=== PATIENT | male | born 1950 | race Caucasian/White ===

== ENCOUNTER 2018-11-28 10:14 | Day surgery (SDC) | payer MEDICARE ==
[2018-11-24 11:26] VITALS: BMI 31.0
[~2018-11-28 10:14] MED LIST: DEXAMETHASONE SOD PHOSPHATE 10 MG/ML 1 ML VIAL IV ONE; HEPARIN SODIUM,PORCINE 5,000 UNIT/ML 1 ML VIAL SQ ONE; HYDROmorphone 0.5 MG/0.5 ML SYRINGE IVP PRN; LACTATED RINGERS 1,000 ML IV SCH; MIDAZOLAM 2 MG/2 ML VIAL IV PRN; ONDANSETRON 4 MG/2 ML VIAL IVP ONE
--- NOTE | 2018-11-28 10:46 | P.GSHP ---
History of Present Illness H&P Date: 11/28/18 Chief Complaint: Right upper quadrant pain This a 68-year-old male who said withdrawn quadrant pain. Patient was worked up found have evidence of cholelithiasis. He presents today for laparoscopic cholecystectomy Past Medical History Past Medical History: COPD, Hyperlipidemia, Hypertension Additional Past Medical History / Comment(s): gallbladder pain History of Any Multi-Drug Resistant Organisms: None Reported Past Surgical History: Adenoidectomy, Tonsillectomy Past Anesthesia/Blood Transfusion Reactions: No Reported Reaction Past Psychological History: No Psychological Hx Reported Smoking Status: Current every day smoker Past Alcohol Use History: Rare Additional Past Alcohol Use History / Comment(s): smoker 30 years <1ppd Past Drug Use History: None Reported - Past Family History Sister(s) Family Medical History: Cancer Additional Family Medical History / Comment(s): uterine cancer Medications and Allergies Home Medications Medication Instructions Recorded Confirmed Type Albuterol Sulfate [Proair Hfa] 1 - 2 puff INHALATION DAILY PRN 11/24/18 11/28/18 History Budesonide/Formoterol Fumarate 2 puff INHALATION BID 11/24/18 11/28/18 History [Symbicort 160-4.5 Mcg Inhaler] HYDROcodone/APAP 5-325MG [Casey 1 tab PO DAILY PRN 11/24/18 11/28/18 History 5-325] Lisinopril-Hctz 20-25 mg 1 tab PO DAILY 11/24/18 11/28/18 History [Zestoretic 20-25] Metoprolol Tartrate [Lopressor] 100 mg PO HS 11/24/18 11/28/18 History Simvastatin [Zocor] 20 mg PO HS 11/24/18 11/28/18 History Allergies Allergy/AdvReac Type Severity Reaction Status Date / Time No Known Allergies Allergy Verified 11/28/18 10:32 Surgical - Exam Vital Signs Temp Pulse Resp BP Pulse Ox 98.1 F 83 18 156/83 98 11/28/18 10:31 11/28/18 10:31 11/28/18 10:31 11/28/18 10:31 11/28/18 10:31 - General well developed, well nourished, no distress - Eyes PERRL - ENT normal pinna - Neck no masses - Respiratory normal expansion - Cardiovascular Rhythm: regular - Abdomen Abdomen: soft, non tender Assessment and Plan Assessment: Cholelithiasis Right quadrant pain We'll perform laparoscopic cholecystectomy.
[2018-11-28] MEDS ORDERED: LIDOCAINE 1% 20 ML VIAL (10MG/ML) FOR IV START INTRADERMA ONE (10:52)
[2018-11-28] MEDS ORDERED: BUPIVACAINE (PF) 0.25% 30 ML VIAL SQ ONE ×2 (11:22→11:27)
--- NOTE | 2018-11-28 11:58 | P.OP ---
Date of Procedure: 11/28/18 Preoperative Diagnosis: Cholecystitis Cholelithiasis Postoperative Diagnosis: Cholecystitis Cholelithiasis Procedure(s) Performed: Laparoscopic cholecystectomy Anesthesia: DOUGLAS Surgeon: Clyde Cook Estimated Blood Loss (ml): 5 Pathology: none sent Condition: stable Disposition: PACU Description of Procedure: MThe patient was placed on the operating table. The patient received a general endotracheal tube anesthesia. The patients abdomen was prepped and draped in the usual sterile fashion. Through an infraumbilical stab incision, the fascia of the anterior abdominal wall was grasped with a pair of Kochers and then the Veress needle was placed in the peritoneal cavity. Position of the Veress needle was confirmed with positive drop test. The abdomen was then insufflated. After adequate insufflation, the 10 mm trocar was placed in the p eritoneal cavity. Following this the laparoscope was placed in the peritoneal cavity. The patient was placed in the head-up, right side up position and then a 5 mm trocar was placed in the right lateral and right subcostal position under direct visualization. A 8 mm trocar was placed in the epigastric position. The gallbladder appeared to be chronically inflamed. The omentum was taken down with blunt dissection. The gallbladder wall. Thickened. The gallbladder was grasped in the fundus and infundibulum. Traction on the gallbladder was placed in the lateral and the cephalad positions. The triangle of Calot was visualized.. The cystic duct was bluntly dissected until the union of the cystic duct and common bile duct was seen. A critical view of safety was achieved. The cystic duct was then divided and sealed with the Harmonic scissors. A PDS Endoloop was then placed throughout the cystic duct stump. The cystic artery divided and sealed with the Harmonic scissors. The gallbladder was then removed from the liver bed using Harmonic scissors. The gallbladder was then extracted through the epigastric port site. Operative field was checked for any bleeding spots and Harmonic scissors was used to coagulate the liver bed. The abdomen was irrigated. The trocars were removed. The skin was closed using interrupted 3-0 Vicryl suture. Dermabond dressing were applied. The patient tolerated the procedure well.
[2018-11-28 12:12] VITALS: TEMP 97
[2018-11-28] MEDS ORDERED: LACTATED RINGERS 1,000 ML IV ONE (12:53)
[2018-11-28 13:06] VITALS: RESP 18
[2018-11-28 14:03] VITALS: BP 156/96; PULSE 80
== END 2018-11-28 14:05 | disposition home or self-care (01) ==
LOC: OR 10:14
PROVIDERS: ATTEND Surgery
DX: K80.10 Calculus of gallbladder with chronic cholecystitis without obstruction (principal); I10 Essential (primary) hypertension; E78.5 Hyperlipidemia, unspecified; J44.9 Chronic obstructive pulmonary disease, unspecified; F17.210 Nicotine dependence, cigarettes, uncomplicated; Z79.51 Long term (current) use of inhaled steroids; Z79.899 Other long term (current) drug therapy; Z90.89 Acquired absence of other organs; Z80.49 Family history of malignant neoplasm of other genital organs
CPT/HCPCS: 88304; 47562; J1644; J1100; J0690; J2405

== ENCOUNTER 2019-11-23 12:53 | Emergency (ER) | payer MEDICARE ==
[2019-11-23 13:04] VITALS: PULSE 81; TEMP 97.1
--- NOTE | 2019-11-23 13:21 | ED ---
General Adult HPI - General Chief complaint: Abdominal Pain Stated complaint: Male UG Time Seen by Provider: 11/23/19 13:08 Source: patient, EMS, RN notes reviewed, old records reviewed Mode of arrival: EMS Limitations: no limitations - History of Present Illness Initial comments: 69 -year-old male presenting with right groin pain, testicular pain. Patient woke with these symptoms at 9 AM this morning. He states he did have a normal bowel movement. At the time of arrival his symptoms have completely resolved. He has no pain whatsoever. He denies vomiting. Denies fever. He is completely asymptomatic at the time of my evaluation. There is no flank pain. No belly pain. No testicular pain. - Related Data Home Medications Medication Instructions Recorded Confirmed Albuterol Sulfate [Proair Hfa] 1 - 2 puff INHALATION DAILY PRN 11/24/18 11/28/18 Budesonide/Formoterol Fumarate 2 puff INHALATION BID 11/24/18 11/28/18 [Symbicort 160-4.5 Mcg Inhaler] HYDROcodone/APAP 5-325MG [Bells 1 tab PO DAILY PRN 11/24/18 11/28/18 5-325] Lisinopril-Hctz 20-25 mg 1 tab PO DAILY 11/24/18 11/28/18 [Zestoretic 20-25] Metoprolol Tartrate [Lopressor] 100 mg PO HS 11/24/18 11/28/18 Simvastatin [Zocor] 20 mg PO HS 11/24/18 11/28/18 Previous Rx's Medication Instructions Recorded Docusate [Colace] 100 mg PO BID #20 capsule 11/28/18 HYDROcodone/APAP 5-325MG [Bells 1 tab PO Q6HR PRN #10 tab 11/28/18 5-325] Allergies Allergy/AdvReac Type Severity Reaction Status Date / Time No Known Allergies Allergy Verified 11/23/19 13:05 Review of Systems ROS Statement: Those systems with pertinent positive or pertinent negative responses have been documented in the HPI. ROS Other: All systems not noted in ROS Statement are negative. Past Medical History Past Medical History: COPD, Hyperlipidemia, Hypertension Additional Past Medical History / Comment(s): gallbladder pain History of Any Multi-Drug Resistant Organisms: None Reported Past Surgical History: Adenoidectomy, Tonsillectomy Past Anesthesia/Blood Transfusion Reactions: No Reported Reaction Past Psychological History: No Psychological Hx Reported Smoking Status: Current every day smoker Past Alcohol Use History: Occasional Past Drug Use History: None Reported - Past Family History Sister(s) Family Medical History: Cancer Additional Family Medical History / Comment(s): uterine cancer General Exam Limitations: no limitations General appearance: alert, in no apparent distress Head exam: Present: atraumatic, normocephalic Eye exam: Present: normal appearance, PERRL Neck exam: Present: normal inspection Respiratory exam: Present: normal lung sounds bilaterally. Absent: respiratory distress, wheezes Cardiovascular Exam: Present: regular rate, normal rhythm GI/Abdominal exam: Present: soft, hernia (Right inguinal hernia which is easily reducible, nontender). Absent: distended, tenderness, guarding, rebound, rigid exam: Present: normal inspection, vertical testicular lie, circumcision. Absent: testicular tenderness, urethral discharge, scrotal swelling Extremities exam: Present: normal inspection, normal capillary refill. Absent: pedal edema Course Vital Signs 11/23/19 13:02 Temperature 97.1 F L Pulse Rate 81 Respiratory 20 Rate Blood Pressure 171/86 O2 Sat by Pulse 98 Oximetry Medical Decision Making - Medical Decision Making 61-year-old male with right groin pain and testicular pain that has completely resolved. I did discuss the possibility of workup in the emergency department versus close return parameters and follow-up for right inguinal hernia. Patient prefers to be discharged at this time with no further testing. He is given the name of the surgeon who did his cholecystectomy. Patient will return with any worsening or changing symptoms. He is given strict return parameters. Disposition Clinical Impression: Abdominal pain, Inguinal hernia Disposition: HOME SELF-CARE Condition: Good Instructions (If sedation given, give patient instructions): Abdominal Pain (ED), Inguinal Hernia (ED) Is patient prescribed a controlled substance at d/c from ED?: No Referrals: [facility] [Primary Care Provider] - 1-2 days Boogie Peterson MD [Medical Doctor] - 1-2 days Time of Disposition: 13:20
[2019-11-23 13:29] VITALS: BP 148/89; RESP 18
== END 2019-11-23 14:00 | disposition home or self-care (01) ==
LOC: EC 12:53
DX: K40.90 Unilateral inguinal hernia, without obstruction or gangrene, not specified as recurrent (principal); I10 Essential (primary) hypertension; J44.9 Chronic obstructive pulmonary disease, unspecified; E78.5 Hyperlipidemia, unspecified; F17.200 Nicotine dependence, unspecified, uncomplicated; Z79.899 Other long term (current) drug therapy; Z79.51 Long term (current) use of inhaled steroids; Z90.49 Acquired absence of other specified parts of digestive tract
CPT/HCPCS: 99284

== ENCOUNTER 2023-05-25 22:35 | Inpatient (IN) | payer MEDICARE ==
--- NOTE | 2023-05-25 22:51 | ED ---
General Adult HPI - General Stated complaint: Transfer from [facility] Time Seen by Provider: 05/25/23 22:38 - History of Present Illness Initial comments: Ashish is a pleasant 72-year-old gentleman who presents to the emergency department today as a transfer from [facility]. Patient has recently been on Bactrim DS twice daily for cellulitis of the right lower extremity, he states it was making him sick he has not been eating or drinking he was feeling quite unwell and he went to the hospital at [facility] yesterday where he was placed in observation for acute kidney injury and dehydration. He was noted to have a mildly elevated troponin they were trending us, troponin increased from only minimally elevated to 5.0 which prompted his transfer to this hospital for evaluation by cardiology. Patient states he has been feeling unwell lately but no chest pain palpitations or shortness of breath. - Related Data Home Medications Medication Instructions Recorded Confirmed Albuterol Sulfate [Proair Hfa] 1 - 2 puff INHALATION RT-Q4H PRN 11/24/18 11/23/19 Budesonide/Formoterol Fumarate 2 puff INHALATION RT-BID 11/24/18 11/23/19 [Symbicort 160-4.5 Mcg Inhaler] Lisinopril-Hctz 20-25 mg 1 tab PO DAILY 11/24/18 11/23/19 [Zestoretic 20-25] Simvastatin [Zocor] 20 mg PO HS 11/24/18 11/23/19 Metoprolol Succinate (ER) [Toprol 100 mg PO DAILY 11/23/19 11/23/19 Xl] Multivitamin [Multivitamins Adult 1 tab PO DAILY 11/23/19 11/23/19 Gummies] amLODIPine [Norvasc] 5 mg PO DAILY 11/23/19 11/23/19 Allergies Allergy/AdvReac Type Severity Reaction Status Date / Time No Known Allergies Allergy Verified 11/23/19 13:44 Review of Systems ROS Statement: Those systems with pertinent positive or pertinent negative responses have been documented in the HPI. ROS Other: All systems not noted in ROS Statement are negative. Past Medical History Past Medical History: COPD, Hyperlipidemia, Hypertension Additional Past Medical History / Comment(s): gallbladder pain History of Any Multi-Drug Resistant Organisms: None Reported Past Surgical History: Adenoidectomy, Tonsillectomy Past Anesthesia/Blood Transfusion Reactions: No Reported Reaction Past Psychological History: No Psychological Hx Reported Smoking Status: Current every day smoker Past Alcohol Use History: Occasional Past Drug Use History: None Reported - Past Family History Sister(s) Family Medical History: Cancer Additional Family Medical History / Comment(s): uterine cancer General Exam - General Exam Comments Initial Comments: Physical Exam GENERAL: Chronically ill-appearing elderly gentleman HENT: Normocephalic, Atraumatic. EYES: PERRL, EOMI PULMONARY: Unlabored respirations. CARDIOVASCULAR: RRR ABDOMEN: Non-distended SKIN: Right lower extremity is erythematous with scaling skin consistent with acute on chronic infection : Deferred NEUROLOGIC: Alert and oriented Normal speech MUSCULOSKELETAL: Moving all extremities with no apparent injury PSYCHIATRIC: No SI/HI Course Vital Signs 05/25/23 05/25/23 05/26/23 22:35 23:58 01:38 Temperature 97.9 F Pulse Rate 86 80 84 Respiratory 12 12 16 Rate Blood Pressure 140/83 121/82 120/75 O2 Sat by Pulse 96 95 96 Oximetry 05/26/23 05/26/23 05/26/23 04:58 05:21 06:48 Temperature 99.9 F H 98.6 F Pulse Rate 102 H 85 Respiratory 18 18 Rate Blood Pressure 141/69 O2 Sat by Pulse 94 L 93 L Oximetry 05/26/23 05/26/23 05/26/23 07:32 07:33 07:42 Temperature Pulse Rate 90 92 89 Respiratory 20 Rate Blood Pressure 131/74 O2 Sat by Pulse 93 L Oximetry 05/26/23 08:00 Temperature Pulse Rate 89 Respiratory 18 Rate Blood Pressure 128/74 O2 Sat by Pulse 95 Oximetry EKG Findings - EKG Comments: EKG Findings:: EKG interpreted by me, EKG obtained due to patient's elevated troponin, EKG obtained at 2255 rate is 84 rhythm is sinus, WA 175 QRS 112 QTc 396 there are no acute ST elevations or depressions there is no evidence of acute ischemia or infarction. Medical Decision Making - Medical Decision Making Was pt. sent in by a medical professional or institution (, PA, [employer], urgent care, hospital, or [facility]...) When possible be specific @ -No Did you speak to anyone other than the patient for history (EMS, parent, family, police, friend...)? What history was obtained from this source @ -No Did you review nursing and triage notes (agree or disagree)? Why? @ -I reviewed and agree with nursing and triage notes Were old charts reviewed (outside hosp., previous admission, EMS record, old EKG, old radiological studies, urgent care reports/EKG's, [facility] records)? Report findings @ -Transfer packet was reviewed Differential Diagnosis (chest pain, altered mental status, abdominal pain women, abdominal pain men, vaginal bleeding, weakness, fever, dyspnea, syncope, hea dache, dizziness, GI bleed, back pain, seizure, CVA, palpatations, mental health)? @ -Not applicable EKG interpreted by me (3pts min.). @ -As above X-rays interpreted by me (1pt min.). @ -No pneumothorax no focal consolidation CT interpreted by me (1pt min.). @ -None done U/S interpreted by me (1pt. min.). @ -None done What testing was considered but not performed or refused? (CT, X-rays, U/S, labs)? Why? @ -CTA was ordered by admitting team What meds were considered but not given or refused? Why? @ -Heparin bolus was held as patient received it prior to transfer, aspirin held as patient received prior to transfer Did you discuss the management of the patient with other professionals (professionals i.e. , PA, [employer], lab, RT, psych nurse, administrator social welfare, caramel candy maker, teacher, light armored vehicle officer, caseworker)? Give summary @ -Discussed with transferring physician and admitting physician Dr. Damon Was smoking cessation discussed for >3mins.? @ -No Was critical care preformed (if so, how long)? @ -No Were there social determinants of health that impacted care today? How? (Homelessness, low income, unemployed, alcoholism, drug addiction, transportation, low edu. Level, literacy, decrease access to med. care, half-way, rehab)? @ -No Was there de-escalation of care discussed even if they declined (Discuss DNR or withdrawal of care, Hospice)? DNR status @ -No What co-morbidities impacted this encounter? (DM, HTN, Smoking, COPD, CAD, Cancer, CVA, ARF, Chemo, Hep., AIDS, mental health diagnosis, sleep apnea, morbid obesity)? @ -CAD Was patient admitted / discharged? Hospital course, mention meds given and route, prescriptions, significant lab abnormalities, going to OR and other pertinent info. @ -Admit Patient was seen and evaluated history was obtained from transfer packet and patient. Patient is chest pain-free and has been so however has a troponin of 5.0. Repeat troponin was obtained and was 2.7. Patient is on heparin he is asymptomatic. Patient will be admitted for evaluation by cardiology. Undiagnosed new problem with uncertain prognosis? @ -No Drug Therapy requiring intensive monitoring for toxicity (Heparin, Nitro, Insulin, Cardizem)? @ -No Were any procedures done? @ -No Diagnosis/symptom? @ -Evaded troponin Acute, or Chronic, or Acute on Chronic? @ -Default Uncomplicated (without systemic symptoms) or Complicated (systemic symptoms)? @ -Default Side effects of treatment? @ -No Exacerbation, Progression, or Severe Exacerbation? @ -No Poses a threat to life or bodily function? How? (Chest pain, [place], GA, pneumonia, PE, COPD, DKA, ARF, appy, cholecystitis, CVA, Diverticulitis, Homicidal, Suicidal, threat to staff... and all critical care pts) @ -Tension-like - Lab Data Result diagrams: 05/25/23 22:53 05/25/23 22:53 Lab Results 05/25/23 05/25/23 05/25/23 Range/Units 22:53 22:53 22:53 WBC 7.9 (3.8-10.6) k/uL RBC 4.95 (4.30-5.90) m/uL Hgb 14.8 (13.0-17.5) gm/dL Hct 44.1 (39.0-53.0) % MCV 89.1 (80.0-100.0) fL MCH 29.9 (25.0-35.0) pg MCHC 33.5 (31.0-37.0) g/dL RDW 14.5 (11.5-15.5) % Plt Count 231 (150-450) k/uL MPV 7.9 Neutrophils % 84 % Lymphocytes % 6 % Monocytes % 3 % Eosinophils % 4 % Basophils % 0 % Neutrophils # 6.6 (1.3-7.7) k/uL Lymphocytes # 0.5 L (1.0-4.8) k/uL Monocytes # 0.3 (0-1.0) k/uL Eosinophils # 0.3 (0-0.7) k/uL Basophils # 0.0 (0-0.2) k/uL PT 10.6 (10.0-12.5) sec INR 1.0 (<1.2) APTT 26.4 (22.0-30.0) sec Sodium 133 L (137-145) mmol/L Potassium 3.9 (3.5-5.1) mmol/L Chloride 105 (98-107) mmol/L Carbon Dioxide 17 L (22-30) mmol/L Anion Gap 11 mmol/L BUN 19 (9-20) mg/dL Creatinine 1.20 (0.66-1.25) mg/dL Est GFR (CKD-EPI)AfAm 70 (>60 ml/min/1.73 sqM) Est GFR (CKD-EPI)NonAf 61 (>60 ml/min/1.73 sqM) Glucose 107 H (74-99) mg/dL Calcium 9.4 (8.4-10.2) mg/dL Magnesium 2.0 (1.6-2.3) mg/dL Total Bilirubin 0.7 (0.2-1.3) mg/dL AST 73 H (17-59) U/L ALT 51 H (4-49) U/L Alkaline Phosphatase 80 (38-126) U/L Troponin I (0.000-0.034) ng/mL NT-Pro-B Natriuret Pep 1620 pg/mL Total Protein 6.3 (6.3-8.2) g/dL Albumin 3.4 L (3.5-5.0) g/dL Lipase 79 (23-300) U/L 05/25/23 Range/Units 22:53 WBC (3.8-10.6) k/uL RBC (4.30-5.90) m/uL Hgb (13.0-17.5) gm/dL Hct (39.0-53.0) % MCV (80.0-100.0) fL MCH (25.0-35.0) pg MCHC (31.0-37.0) g/dL RDW (11.5-15.5) % Plt Count (150-450) k/uL MPV Neutrophils % % Lymphocytes % % Monocytes % % Eosinophils % % Basophils % % Neutrophils # (1.3-7.7) k/uL Lymphocytes # (1.0-4.8) k/uL Monocytes # (0-1.0) k/uL Eosinophils # (0-0.7) k/uL Basophils # (0-0.2) k/uL PT (10.0-12.5) sec INR (<1.2) APTT (22.0-30.0) sec Sodium (137-145) mmol/L Potassium (3.5-5.1) mmol/L Chloride (98-107) mmol/L Carbon Dioxide (22-30) mmol/L Anion Gap mmol/L BUN (9-20) mg/dL Creatinine (0.66-1.25) mg/dL Est GFR (CKD-EPI)AfAm (>60 ml/min/1.73 sqM) Est GFR (CKD-EPI)NonAf (>60 ml/min/1.73 sqM) Glucose (74-99) mg/dL Calcium (8.4-10.2) mg/dL Magnesium (1.6-2.3) mg/dL Total Bilirubin (0.2-1.3) mg/dL AST (17-59) U/L ALT (4-49) U/L Alkaline Phosphatase (38-126) U/L Troponin I 2.730 H* (0.000-0.034) ng/mL NT-Pro-B Natriuret Pep pg/mL Total Protein (6.3-8.2) g/dL Albumin (3.5-5.0) g/dL Lipase (23-300) U/L Disposition Clinical Impression: Elevated troponin Disposition: ADMITTED IP TO THIS [facility] Condition: Serious Is patient prescribed a controlled substance at d/c from ED?: No
[2023-05-25] MEDS ORDERED: HEPARIN SODIUM 1,000 UN/ML (10ML VL) IV PRN (23:28)
[2023-05-25 23:54] LABS: Basophils % (A) 0 %; Eosinophils # (A) 0.3 k/uL (0-0.7); Eosinophils % (A) 4 %; HCT 44.1 % (39.0-53.0); HGB 14.8 gm/dL (13.0-17.5); Lymphocytes # (A) 0.5 k/uL (1.0-4.8); Lymphocytes % (A) 6 %; MCH 29.9 pg (25.0-35.0); MCHC 33.5 g/dL (31.0-37.0); MCV 89.1 fL (80.0-100.0); Mean Platelet Volume 7.9; Monocytes # (A) 0.3 k/uL (0-1.0); Monocytes % (A) 3 %; Neutrophils # (A) 6.6 k/uL (1.3-7.7); Neutrophils % (A) 84 %; Platelet Count 231 k/uL (150-450); RBC 4.95 m/uL (4.30-5.90); RDW 14.5 % (11.5-15.5); WBC 7.9 k/uL (3.8-10.6)
[2023-05-25] MEDS: HEPARIN SOD,PORK IN 0.45% NACL 25,000 UNIT in 0.45% NACL 1 250ML.BAG IV SCH (23:57)
[2023-05-25 23:59] LABS: Partial Thromboplastin Time 26.4 sec (22.0-30.0); Prothrombin Time 10.6 sec (10.0-12.5)
[2023-05-26 00:21] LABS: ALT 51 U/L (4-49); AST 73 U/L (17-59); African American GFR (CKD) 70 (>60 ml/min/1.73 sqM); Albumin 3.4 g/dL (3.5-5.0); Alkaline Phosphatase 80 U/L (38-126); Anion Gap 11 mmol/L; Blood Urea Nitrogen 19 mg/dL (9-20); Calcium 9.4 mg/dL (8.4-10.2); Carbon Dioxide 17 mmol/L (22-30); Chloride 105 mmol/L (98-107); Glucose 107 mg/dL (74-99); Lipase 79 U/L (23-300); Non-African American GFR(CKD) 61 (>60 ml/min/1.73 sqM); Potassium 3.9 mmol/L (3.5-5.1); Sodium 133 mmol/L (137-145); Total Bilirubin 0.7 mg/dL (0.2-1.3); Total Protein 6.3 g/dL (6.3-8.2)
[2023-05-26 00:29] LABS: NT-Pro-B-Type Natriuretic Pept 1620 pg/mL
[2023-05-26] MEDS ORDERED: NITROGLYCERIN SL TABS 0.4 MG TAB SUBLINGUAL PRN ×2 (01:23→09:47)
--- NOTE | 2023-05-26 01:33 | XR ---
EXAM: XR Chest, 2 Views CLINICAL HISTORY: ITS.REASON XR Reason: Chest Pain TECHNIQUE: Frontal and lateral views of the chest. COMPARISON: No relevant prior studies available. FINDINGS: Lungs: Mild to moderate peribronchial thickening of the central bronchi. No consolidation. Pleural space: There is blunting of the right costophrenic. No pneumothorax. Heart: Unremarkable. No cardiomegaly. Mediastinum: Unremarkable. Normal mediastinal contour. Bones/joints: Unremarkable. No acute fracture. IMPRESSION: Findings concerning for bronchitis, which may be an infectious or inflammatory allergies. Trace right pleural effusion. No consolidation.
--- NOTE | 2023-05-26 03:51 | P.HPIM ---
History of Present Illness H&P Date: 05/26/23 Chief Complaint: Fall 72-year-old male with hypertension COPD Patient coming in to the hospital as a transfer from [place] for cardiac evaluation due to elevated troponins. Patient has been feeling weak and fatigued for the past 3 days he sustained a fall yesterday was on the floor for an hour because he felt very weak and could not get up. Denies passing out denies any head injury. He does report being diagnosed with cellulitis about 2 weeks ago he has been on Bactrim for about 10 days initially was taking 1 pill twice a day and then he was increased to 2 pills twice a day. He has been having some nausea vomiting over the past couple days with decreased p.o. intake and dehydration Patient went to a different facility first where he had his initial workup done including CT of the brain which was negative for any acute and intracranial pathology, plain film blood work did show elevated troponin initially was negative then became elevated to 5.09 for which he was started on heparin drip and transferred to our facility for further evaluation Patient himself currently resting comfortably in bed denies any complaints denies ever having any chest pain patient denies any recent travel denies any history of blood clots patient denies any cardiac history review of systems Pertinent positives as noted in HPI. All other systems were reviewed and are negative on exam Constitutional: No acute distress, conversant, pleasant Eyes: Anicteric sclerae, moist conjunctiva, Pupils equal round reactive to light ENMT: NC/AT Oropharynx clear, no erythema, or exudates Neck: Supple, no masses, or JVD No carotid bruits No thyromegaly Lungs: Clear to auscultation Clear to percussion Normal respiratory effort, no accessory muscle use Cardiovascular: Heart regular in rate and rhythm, No murmurs, gallops, or rubs No peripheral edema Abdominal: Soft Nontender, no guarding, rebound or rigidity Abdomen moving with respiration Normoactive bowel sounds Extremities: No digital cyanosis No clubbing Pedal pulses intact and symmetrical Radial pulses intact and symmetrical No calf tenderness Psychiatric: Alert and oriented to person, place Neuro Muscles Strength 5/5 in all 4 extremities Sensation to light touch grossly present throughout Cranial nerves II-XII grossly intact Past Medical History Past Medical History: COPD, Hyperlipidemia, Hypertension Additional Past Medical History / Comment(s): gallbladder pain History of Any Multi-Drug Resistant Organisms: None Reported Past Surgical History: Adenoidectomy, Tonsillectomy Past Anesthesia/Blood Transfusion Reactions: No Reported Reaction Past Psychological History: No Psychological Hx Reported Smoking Status: Current every day smoker Past Alcohol Use History: Occasional Past Drug Use History: None Reported - Past Family History Sister(s) Family Medical History: Cancer Additional Family Medical History / Comment(s): uterine cancer Medications and Allergies Home Medications Medication Instructions Recorded Confirmed Type Albuterol Sulfate [Proair Hfa] 1 - 2 puff INHALATION RT-Q4H PRN 11/24/18 11/23/19 History Budesonide/Formoterol Fumarate 2 puff INHALATION RT-BID 11/24/18 11/23/19 History [Symbicort 160-4.5 Mcg Inhaler] Lisinopril-Hctz 20-25 mg 1 tab PO DAILY 11/24/18 11/23/19 History [Zestoretic 20-25] Simvastatin [Zocor] 20 mg PO HS 11/24/18 11/23/19 History Metoprolol Succinate (ER) [Toprol 100 mg PO DAILY 11/23/19 11/23/19 History Xl] Multivitamin [Multivitamins Adult 1 tab PO DAILY 11/23/19 11/23/19 History Gummies] amLODIPine [Norvasc] 5 mg PO DAILY 11/23/19 11/23/19 History Allergies Allergy/AdvReac Type Severity Reaction Status Date / Time No Known Allergies Allergy Verified 11/23/19 13:44 Physical Exam Vitals: Vital Signs Temp Pulse Resp BP Pulse Ox 05/26/23 01:38 84 16 120/75 96 05/25/23 23:58 80 12 121/82 95 05/25/23 22:35 97.9 F 86 12 140/83 96 Intake and Output 05/25/23 05/25/23 05/26/23 14:59 22:59 06:59 Other: Weight 96.615 kg Results CBC & Chem 7: 05/25/23 22:53 05/25/23 22:53 Labs: Abnormal Lab Results - Last 24 Hours (Table) 05/25/23 05/25/23 05/25/23 Range/Units 22:53 22:53 22:53 Lymphocytes # 0.5 L (1.0-4.8) k/uL Sodium 133 L (137-145) mmol/L Carbon Dioxide 17 L (22-30) mmol/L Glucose 107 H (74-99) mg/dL AST 73 H (17-59) U/L ALT 51 H (4-49) U/L Troponin I 2.730 H* (0.000-0.034) ng/mL Albumin 3.4 L (3.5-5.0) g/dL Assessment and Plan Assessment: 72-year-old male with COPD and hypertension Patient coming into the hospital for evaluation as a transfer from [facility] for elevated troponin to rule out acute coronary syndrome I discussed the case with ED doctor and accepted the admission for NSTEMI, elevated D-dimer with anticipated length of stay more than 2 midnights Elevated troponin rule out acute coronary syndrome, EKG no acute ST changes Troponins initial was within normal limits then became elevated to 5.09 then dropped down to 2.7 Elevated D-dimer Recent cellulitis right lower extremity status post Bactrim Cardiology consult Check CT angio of the chest to rule out acute pulmonary embolism Venous Doppler ultrasound of the lower extremity negative for acute DVT continue with heparin gtt Monitor vital signs Cardiac monitoring Aspirin 325 mg daily Atorvastatin 20 mg p.o. daily COPD Continue home inhalers Supplemental oxygen as needed Hypertension Continue with lisinopril and metoprolol Monitor vital signs Fall at home Fall precautions Slightly elevated CPK in the 800 range Continue with IV fluid hydration Renal function unremarkable sodium 133 potassium 3.9 BUN 19 creatinine 1.2 PT/OT eval Full code DVT prophylaxis on heparin drip possible underlying ACS GI prophylaxis Protonix p.o. daily 40 mg
[2023-05-26] MEDS ORDERED: ACETAMINOPHEN TAB 325 MG TAB PO PRN (05:07)
--- NOTE | 2023-05-26 07:00 | CT ---
CTA CHEST EXAMINATION TYPE: CT chest angio for PE DATE OF EXAM: 05/26/2023 INDICATION: no d-dimer resulted as of 0440. elevated troponin. sob. R/O PE CT DLP: 466.8 mGycm, Automated exposure control for dose reduction was used. CONTRAST: Patient injected with 70 mL of Isovue 370. COMPARISON: None TECHNIQUE: CT of the chest is performed on a spiral scan at 2 mm thick sections. Study is performed with intravenous contrast timed for evaluation for pulmonary embolism. This will limit additional po rtions of the evaluation. 3-D MIP images reconstructed by the technologist are reviewed on the compu ter in the coronal and sagittal planes. FINDINGS: No persistent filling defects are evident to suggest an acute pulmonary embolism. There is a somewhat prominent 1.0 cm subcarinal lymph node. Some smaller shotty lymphadenopathy is wi thin the mediastinum. The ascending aorta diameter at the level of the main pulmonary artery is 3.2 cm. The main pulmonary artery diameter at the bifurcation is 2.7 cm. There is a small hiatal hernia. There is a small pleural-based density posterior right lung measuring 0.5 cm. Series 406 image 72. A subtle pleural nodule is present posterior right lung, series [address] sections were through the upper abdomen. Upper abdomen appears unremarkable. IMPRESSION: 1. No acute pulmonary embolism. 2. 1 cm subcarinal lymph node is borderline enlarged. Follow-up can be performed.
[2023-05-26] MEDS: ALBUTEROL NEBULIZED 2.5 MG/3 ML INHALATION PRN (07:32)
[2023-05-26] MEDS: SYMBICORT 160-4.5 MCG INHALER INHALATION SCH ×2 (07:32→20:41)
[2023-05-26] MEDS: PANTOPRAZOLE 40 MG TABLET PO SCH (07:57)
[2023-05-26] MEDS: SODIUM CHLORIDE 0.9% 1,000 ML IV SCH (09:41)
[2023-05-26] MEDS ORDERED: ALPRAZolam 0.25 MG TAB PO PRN (09:47)
[2023-05-26] MEDS ORDERED: ALPRAZolam 0.5 MG TAB PO PRN (09:47)
[2023-05-26] MEDS: amLODIPine 5 MG TAB PO SCH (09:56)
[2023-05-26] MEDS: METOPROLOL SUCCINATE (ER) 100 MG TAB.ER.24H PO SCH (09:56)
[2023-05-26] MEDS: LISINOPRIL-HCTZ 20-25 MG 1 EACH TAB PO SCH (10:26)
--- NOTE | 2023-05-26 11:06 | P.CRDCN ---
History of Present Illness History of present illness: HISTORY OF PRESENT ILLNESS: This is a 72-year-old male with a past medical history significant for CAD documented by CT scan, hypertension, hyperlipidemia, nicotine dependence. Patient follows in the office with Dr. Martin. We have been asked to see the patient in consultation for non-STEMI. Patient examined at the bedside in the emergency room. Patient was transferred from [facility]. Patient initially presented to the hospital due to generalized weakness. Patient states he has been on Bactrim for right lower extremity cellulitis for about 10 days. He states that he was having chills at home. He reports his extremities were shaking badly. He states he was so weak he was not able to get up on his own. The patient was found to have elevated troponins with a troponin of 5.0. He was started on a heparin drip and transferred to was cleared for further evaluation. The patient denies any chest pain or pressure. He denies any shortness of breath. DIAGNOSTICS: - EKG reveals sinus mechanism with nonspecific ST-T wave changes. - Chest xray findings concerning for bronchitis which may be infectious or inflammatory allergies. Trace right pleural effusion. No consolidation. - Chest CTA: Negative for pulmonary embolism. -Doppler study performed at outside facility was negative for DVT in the right lower extremity - Laboratory data: WBC 7.9. Hemoglobin 14.8. Platelet count 231. Sodium 133. Potassium 3.9. BUN 19. Creatinine 1.20. Magnesium 2.0. Troponin 2.730. 2.970. AST 73. ALT 51. proBNP 1620 - Current home cardiac medications include aspirin 81 mg daily, metoprolol succinate 100 mg daily, amlodipine 5 mg daily, Lipitor 40 mg at night, and l isinoprilhydrochlorothiazide 20-25 mg daily. - Most recent echocardiogram obtained in September 2021 reveals normal EF, mild MR, mild TR. -Patient underwent Lexiscan stress test in September 2021 which was negative for ischemia REVIEW OF SYSTEMS: At the time of my exam: CONSTITUTIONAL: Denies fever or chills. HEENT: Denies blurred vision, vision changes, or eye pain. Denies hemoptysis CARDIOVASCULAR: Denies chest pain. Denies orthopnea. Denies PND. Denies palpitations RESPIRATORY: Denies shortness of breath. GASTROINTESTINAL: Denies abdominal pain. Denies nausea or vomiting. HEMATOLOGIC: Denies bleeding disorders. GENITOURINARY: Denies any blood in urine. SKIN: Denies pruitis. Denies rash. PHYSICAL EXAM: VITAL SIGNS: Reviewed. GENERAL: Well-developed in no acute distress. HEENT: Head is normocephalic. Pupils are equal, round. Sclerae anicteric. Mucous membranes of the mouth are moist. Neck supple. No JVD or thyromegaly LUNGS: Respirations even and unlabored. Lungs essentially clear to auscultation bilaterally. HEART: Regular rate and rhythm. S1 and S2 heard. ABDOMEN: Soft. Nondistended. Nontender. EXTREMITIES: Normal range of motion. No clubbing or cyanosis. Peripheral puls es intact. Right leg with trace edema noted. Right leg > than left leg. NEUROLOGIC: Awake and alert. Oriented x 3. ASSESSMENT: Non-STEMI Recent right lower extremity cellulitis, completed course of Bactrim Severe coronary artery calcifications, per CT thorax at [facility] Hypertension Hyperlipidemia Nicotine dependence PLAN: Obtain 2D echo to assess cardiac structure and function Continue IV heparin Resume home cardiac medications Increase Lipitor to 40 mg at night Add aspirin 81 mg daily Blood cultures are pending N.p.o. at midnight Plan is for cardiac catheterization tomorrow pending results of blood cultures and CBC in a.m. Further recommendations pending patient course Nurse practitioner note has been reviewed by physician. Signing provider agrees with the documented findings, assessment, and plan of care documented by DEHYDRATION UNIT OPERATOR as a scribe. Past Medical History Past Medical History: COPD, Hyperlipidemia, Hypertension Additional Past Medical History / Comment(s): gallbladder pain History of Any Multi-Drug Resistant Organisms: None Reported Past Surgical History: Adenoidectomy, Tonsillectomy Past Anesthesia/Blood Transfusion Reactions: No Reported Reaction Past Psychological History: No Psychological Hx Reported Smoking Status: Current every day smoker Past Alcohol Use History: Occasional Past Drug Use History: None Reported - Past Family History Sister(s) Family Medical History: Cancer Additional Family Medical History / Comment(s): uterine cancer Medications and Allergies Home Medications Medication Instructions Recorded Confirmed Type Albuterol Sulfate [Proair Hfa] 2 puff INHALATION RT-Q6H PRN 11/24/18 05/26/23 History Lisinopril-Hctz 20-25 mg 1 tab PO DAILY 11/24/18 05/26/23 History [Zestoretic 20-25] Metoprolol Succinate (ER) [Toprol 100 mg PO DAILY 11/23/19 05/26/23 History Xl] amLODIPine [Norvasc] 5 mg PO DAILY 11/23/19 05/26/23 History Aspirin EC [Ecotrin Low Dose] 81 mg PO DAILY 05/26/23 05/26/23 History Atorvastatin [Lipitor] 40 mg PO HS 05/26/23 05/26/23 History Fluticasone Propion/Salmeterol 1 puff PO RT-BID 05/26/23 05/26/23 History [Fluticasone-Salmeterol 250-50] Ipratropium-Albuterol Nebulize 3 ml INHALATION RT-Q6H PRN 05/26/23 05/26/23 History [Duoneb 0.5 mg-3 mg/3 ml Soln] Allergies Allergy/AdvReac Type Severity Reaction Status Date / Time No Known Allergies Allergy Verified 05/26/23 08:19 Physical Exam Vitals: Vital Signs Temp Pulse Resp BP Pulse Ox 05/26/23 07:42 89 05/26/23 07:33 92 05/26/23 07:32 90 20 131/74 93 L 05/26/23 06:48 98.6 F 85 18 93 L 05/26/23 05:21 102 H 18 141/69 94 L 05/26/23 04:58 99.9 F H 05/26/23 01:38 84 16 120/75 96 05/25/23 23:58 80 12 121/82 95 05/25/23 22:35 97.9 F 86 12 140/83 96 Intake and Output 05/25/23 05/26/23 05/26/23 22:59 06:59 14:59 Other: Weight 96.615 kg Results 05/25/23 22:53 05/25/23 22:53 Cardiac Enzymes 05/25/23 05/25/23 05/26/23 Range/Units 22:53 22:53 04:25 AST 73 H (17-59) U/L Troponin I 2.730 H* 2.970 H* (0.000-0.034) ng/mL Coagulation 05/25/23 Range/Units 22:53 PT 10.6 (10.0-12.5) sec APTT 26.4 (22.0-30.0) sec CBC 05/25/23 Range/Units 22:53 WBC 7.9 (3.8-10.6) k/uL RBC 4.95 (4.30-5.90) m/uL Hgb 14.8 (13.0-17.5) gm/dL Hct 44.1 (39.0-53.0) % Plt Count 231 (150-450) k/uL Comprehensive Metabolic Panel 05/25/23 Range/Units 22:53 Sodium 133 L (137-145) mmol/L Potassium 3.9 (3.5-5.1) mmol/L Chloride 105 (98-107) mmol/L Carbon Dioxide 17 L (22-30) mmol/L BUN 19 (9-20) mg/dL Creatinine 1.20 (0.66-1.25) mg/dL Glucose 107 H (74-99) mg/dL Calcium 9.4 (8.4-10.2) mg/dL AST 73 H (17-59) U/L ALT 51 H (4-49) U/L Alkaline Phosphatase 80 (38-126) U/L Total Protein 6.3 (6.3-8.2) g/dL Albumin 3.4 L (3.5-5.0) g/dL Current Medications Generic Name Dose Route Start Last Admin Trade Name Freq PRN Reason Stop Dose Admin Acetaminophen 650 mg 05/26/23 05:07 Acetaminophen Tab 325 Mg Tab PO Q4HR PRN Fever and/ or Pain Albuterol Sulfate 2.5 mg 05/26/23 03:33 05/26/23 07:32 Albuterol Nebulized 2.5 Mg/3 Ml INHALATION 2.5 mg RT-Q4H PRN Administration Dyspnea Amlodipine Besylate 5 mg 05/26/23 09:00 Amlodipine 5 Mg Tab PO DAILY [facility] Aspirin 325 mg 05/27/23 09:00 Aspirin 325 Mg Tab PO DAILY [facility] Atorvastatin Calcium 10 mg 05/26/23 21:00 Atorvastatin 10 Mg Tab PO HS [facility] Budesonide/Formoterol Fumarate 2 puff 05/26/23 08:00 05/26/23 07:32 Symbicort 160-4.5 Mcg Inhaler INHALATION 2 puff RT-BID MOUSTAPHA Administration Lisinopril/HCTZ 1 each 04/04/24 09:00 Lisinopril-Hctz 20-25 Mg 1 Each Tab PO DAILY [facility] Heparin Sodium (Porcine) 0 unit 05/25/23 23:28 Heparin Sodium 1,000 Un/Ml (10ml Vl) IV PER PROTOCOL PRN Low PTT Protocol Heparin Sodium/Sodium Chloride 250 mls @ 10 mls/hr 05/25/23 23:30 05/25/23 23:57 25,000 unit/ Sodium Chloride IV 10.3504 units/kg/hr .Q24H MOUSTAPHA 10 mls/hr Administration Protocol 10.3504 UNITS/KG/HR Metoprolol Succinate 100 mg 05/26/23 09:00 Metoprolol Succinate (Er) 100 Mg Tab.Er.24h PO DAILY [facility] Nitroglycerin 0.4 mg 05/26/23 01:23 Nitroglycerin Sl Tabs 0.4 Mg Tab SUBLINGUAL Q5M PRN Chest Pain Pantoprazole Sodium 40 mg 05/26/23 07:30 05/26/23 07:57 Pantoprazole 40 Mg Tablet PO 40 mg [id number] [facility] Administration Intake and Output 05/25/23 05/26/23 05/26/23 22:59 06:59 14:59 Other: Weight 96.615 kg 05/25/23 22:53 05/25/23 22:53
[2023-05-26 11:43] LABS: Prothrombin Time 10.7 sec (10.0-12.5)
[2023-05-26 11:50] LABS: Basophils % (A) 0 %; Eosinophils # (A) 0.4 k/uL (0-0.7); Eosinophils % (A) 7 %; HCT 43.2 % (39.0-53.0); HGB 14.2 gm/dL (13.0-17.5); Lymphocytes # (A) 0.4 k/uL (1.0-4.8); Lymphocytes % (A) 7 %; MCHC 32.9 g/dL (31.0-37.0); MCV 91.1 fL (80.0-100.0); Mean Platelet Volume 8.5; Monocytes # (A) 0.3 k/uL (0-1.0); Monocytes % (A) 4 %; Neutrophils # (A) 5.3 k/uL (1.3-7.7); Neutrophils % (A) 80 %; Platelet Count 223 k/uL (150-450); RBC 4.74 m/uL (4.30-5.90); RDW 14.2 % (11.5-15.5); WBC 6.6 k/uL (3.8-10.6)
--- NOTE | 2023-05-26 12:33 | NM ---
EXAMINATION TYPE: NM pul vent and perfuse DATE OF EXAM: 05/26/2023 CLINICAL INDICATION: Male, 72 years old with history of elevated d dimer , elevated trops; COMPARISON: NONE TECHNIQUE: Utilizing inhalation of 69.9 mCi Tc 99m DTPA aerosol and intravenous injection of 5.2 mCi of Tc 99m MAA, ventilation and perfusion images are acquired post injection in multiple projections. FINDINGS: Normal radiotracer distribution is noted in the lungs. There is no evidence of mismatched defects. IMPRESSION: Very low probability for pulmonary embolism.
--- NOTE | 2023-05-26 14:44 | P.PN ---
Subjective Progress Note Date: 05/26/23 Hospital course: Patient is a very pleasant 72-year-old male with a past medical history of hypertension, hyperlipidemia, and COPD with continued nicotine dependence. Patient presented to our facility as a transfer from [facility] where he presented with weakness and a fall and was found to have elevated troponins. Patient reported recent treatment for cellulitis on Bactrim and experiencing nausea, vomiting, and decreased oral intake over the past few days. Per documentation in chart workup at [facility] was completed including a CT of the brain which was negative for acute intercranial pathology and troponins initially reported negative increasing to 5.09 resulting in patient being started on heparin infusion followed by transfer to our facility for evaluation. Upon arrival to our facility patient underwent evaluation in the emergency department. Vital signs revealed blood pressure 140/83, heart rate 86, respiratory rate 12, temp 97.9 F, and SpO2 of 96% on room air. EKG was completed showing normal sinus rhythm at 84 bpm with no significant T wave or ST abnormalities showing no signs of acute ischemia upon personal review and interpretation. Chest x-ray completed showing findings concerning for bronchitis with mild to moderate peribronchial thickening of the central bronchi and trace right pleural effusion. CTA chest was completed negative for pulmonary emboli revealing a 1 cm subcarinal enlarged lymph node. Labs were completed and reviewed. CBC unremarkable. Coagulation profile normal findings. BMP revealed hyponatremia with sodium of 133 and hypocarbia with bicarb of 17. Blood glucose was 107. Magnesium normal findings at 2.0. Liver profile showing elevated AST of 73 and ALT of 51. Troponin was 2.730 and proBNP was 1620. Patient admitted under our services with consultation to cardiology. Troponins trended overnight resulting at 2.730 and 2.970. Physical exam: Patient seen and fully evaluated at bedside this morning. Patient in the ED awaiting a bed on 3 S. at time of evaluation. He remains on low intensity he dipika infusion at this time for treatment of his NSTEMI. He denies having any chest pain, palpitations, shortness of breath, or any other complaints at this time. Patient reports just overall fatigue and weakness at this time, but denies any pain or complaints. Vital signs reviewed and stable. General: Nontoxic, no distress and appears stated age. Derm: Skin warm and dry, normal coloration for ethnicity. Head: Atraumatic, normocephalic and symmetric. Eyes: EOMs intact, no lid lag, and anicteric sclera Mouth: no lip lesions, mucus membranes moist Cardiovascular: regular rate and rhythm with normal S1S2, no murmur, positive posterior tibial pulses bilaterally, and cap refill < 2 seconds. Lungs: Respirations even, regular, and unlabored on room air. Lungs CTA bilaterally, no rhonchi, no rales, no wheezing, and no accessory muscle usage. Abdominal: soft, nontender to palpation, no guarding, no appreciable organomegaly Ext: ROM intact. No gross muscle atrophy, no edema, no contractures Neuro: Speech clear, face symmetrical and CN II-XII grossly intact with no noted focal neuro deficits Psych: Alert and oriented to person, place, time, and situation. Appropriate and pleasant affect. Assessment and Plan of Care: NSTEMI Hypertension Hyperlipidemia -Cardiology consulted, planning to take patient for cardiac catheterization tomorrow morning -Telemetry monitoring -Troponins trended overnight resulting at 2.730 and 2.970. -Cardiac diet, NPO at midnight for planned cardiac catheterization. -Continue heparin infusion with close monitoring of PTT for goal therapeutic range of 44 to 79 seconds aspirin 81 mg daily, atorvastatin, -Continue daily medication regimen with aspirin 81 mg daily, atorvastatin 40 mg nightly, amlodipine 5 mg daily, and lisinopril/hydrochlorothiazide 20/25 mg daily. -Lipid profile with a.m. labs. -Echocardiogram completed and pending results. COPD with continued nicotine dependence -Continue Symbicort 160-4.5 mcg inhaler 2 puffs twice daily and Ventolin nebulizer treatments every 4 hours as needed for shortness of breath and/or wheezing. Data and imaging reviewed: -Morning labs reviewed. CBC unremarkable. PTT therapeutic at 46.3 seconds. -Vital signs reviewed. Blood pressure 128/74, heart rate 89,, respiratory rate 18, temp 98.6 F, and SpO2 of 95% on room air. CODE STATUS: Full code DVT prophylaxis: Heparin infusion Anticipated discharge date: Clinical course to determine Anticipated discharge place: Home Patient was seen independently by Nurse Pracitioner. This document was prepared using [employer] dictation software. Please allow for errors in force dispatcher, while rare they do occur. Hal Sky NP rendered care for this patient independently, reviewed the findings and plan as documented in the note above. I did not physically speak with or examine the patient on this date. Objective - Vital Signs Vital signs: Vital Signs Temp 98.6 F 05/26/23 06:48 Pulse 89 05/26/23 08:00 Resp 18 05/26/23 08:00 BP 128/74 05/26/23 08:00 Pulse Ox 95 05/26/23 08:00 FiO2 Intake & Output 05/25/23 05/26/23 05/26/23 18:59 06:59 18:59 Weight 96.615 kg - Labs CBC & Chem 7: 05/27/23 12:14 05/27/23 12:14 Labs: Abnormal Lab Results - Last 24 Hours (Table) 05/25/23 05/25/23 05/25/23 Range/Units 22:53 22:53 22:53 Lymphocytes # 0.5 L (1.0-4.8) k/uL Sodium 133 L (137-145) mmol/L Carbon Dioxide 17 L (22-30) mmol/L Glucose 107 H (74-99) mg/dL AST 73 H (17-59) U/L ALT 51 H (4-49) U/L Troponin I 2.730 H* (0.000-0.034) ng/mL Albumin 3.4 L (3.5-5.0) g/dL 05/26/23 Range/Units 04:25 Lymphocytes # (1.0-4.8) k/uL Sodium (137-145) mmol/L Carbon Dioxide (22-30) mmol/L Glucose (74-99) mg/dL AST (17-59) U/L ALT (4-49) U/L Troponin I 2.970 H* (0.000-0.034) ng/mL Albumin (3.5-5.0) g/dL
[2023-05-26] MEDS ORDERED: SYMBICORT 80-4.5 MCG INHALER INHALATION SCH (20:00)
[2023-05-26] MEDS ORDERED: ATORVASTATIN 10 MG TAB PO SCH (21:00)
[2023-05-26] MEDS: ATORVASTATIN 40 MG TAB PO SCH (22:27)
[2023-05-27] MEDS: ASPIRIN 81 MG PO SCH (06:04)
[2023-05-27] MEDS: ATORVASTATIN 80 MG TAB PO ONE (06:20)
[2023-05-27] MEDS: ASPIRIN 325 MG TAB PO ONE (06:20)
[2023-05-27] MEDS: SODIUM CHLORIDE 0.9% 1,000 ML in EMPTY BAG 1 BAG IV SCH (06:20)
[2023-05-27] MEDS ORDERED: HEPARIN SODIUM,PORCINE 10,000 UNIT in SODIUM CHLORIDE 0.9% 1,000 ML IRRIGATION PRN (07:00)
[2023-05-27] MEDS ORDERED: HEPARIN SODIUM,PORCINE (1 ML) 2,500 UNIT in SODIUM CHLORIDE 0.9% 250 ML IRRIGATION PRN (07:00)
[2023-05-27] MEDS ORDERED: ASPIRIN 325 MG TAB PO SCH (09:00)
[2023-05-27] MEDS ORDERED: HEPARIN SODIUM 1,000 UN/ML (10ML VL) ONE (10:25)
[2023-05-27] MEDS ORDERED: LIDOCAINE 1% INJ 10MG/ML (20 ML MDV) ONE (10:25)
[2023-05-27] MEDS ORDERED: VERAPAMIL 2.5 MG/ML 2 ML AMP ONE (10:25)
[2023-05-27] MEDS ORDERED: fentaNYL (PF) 50 MCG/ML 2 ML AMP ONE (10:28)
[2023-05-27] MEDS: SODIUM CHLORIDE 0.9% 1,000 ML IV ONE (10:42)
[2023-05-27] MEDS: fentaNYL (PF) 50 MCG/ML 2 ML AMP IVP ONE (10:52)
[2023-05-27] MEDS: MIDAZOLAM 2 MG/2 ML VIAL IVP ONE (10:52)
[2023-05-27] MEDS: LIDOCAINE 1% INJ 10MG/ML (20 ML MDV) SQ ONE ×2 (10:54→10:55)
[2023-05-27] MEDS: VERAPAMIL SYRINGE (5 MG/10 ML) INTRAARTER ONE (11:00)
[2023-05-27] MEDS: HEPARIN SODIUM 1,000 UN/ML (10ML VL) IVP ONE (11:01)
[2023-05-27] MEDS: IOPAMIDOL-370 100ML BTL INJ ONE (11:10)
[2023-05-27] MEDS ORDERED: RX INFO: IV CONTRAST WAS GIVEN 1 EACH MISC MISCELLANE PRN (11:28)
[2023-05-27 12:38] LABS: Basophils # (A) 0.1 k/uL (0-0.2); Basophils % (A) 2 %; Eosinophils # (A) 0.5 k/uL (0-0.7); Eosinophils % (A) 9 %; HCT 44.5 % (39.0-53.0); HGB 14.1 gm/dL (13.0-17.5); Lymphocytes % (A) 17 %; MCH 29.6 pg (25.0-35.0); MCHC 31.6 g/dL (31.0-37.0); MCV 93.7 fL (80.0-100.0); Mean Platelet Volume 7.3; Monocytes # (A) 0.3 k/uL (0-1.0); Monocytes % (A) 5 %; Neutrophils # (A) 3.7 k/uL (1.3-7.7); Neutrophils % (A) 63 %; Platelet Count 254 k/uL (150-450); RBC 4.75 m/uL (4.30-5.90); RDW 14.3 % (11.5-15.5); WBC 5.8 k/uL (3.8-10.6)
--- NOTE | 2023-05-27 12:48 | CC ---
CARDIAC CATHETERIZATION REPORT INDICATIONS: Acute [id number] elevation MT. PROCEDURE NOTE: After obtaining informed consent, left heart catheterization and coronary angiogram were performed via the right radial artery using standard Mahamed catheters. The patient tolerated the procedure well without any obvious immediate complications. A TR band was used for hemostasis. The patient received moderate conscious sedation. Total sedation time was 17 minutes. Right radial artery access was obtained using Seldinger technique, 6[place] sheath was placed. Catheters and wires were floated into the ascending aorta under fluoroscopic guidance. A TR band was used for hemostasis. FINDINGS: 1. Hemodynamics: Left ventricular end-diastolic pressure is 10 mm. There is no significant gradient across the aortic valve. 2. Left Ventriculogram: Left ventriculogram is not performed. 3. Angiographic Data: a.Left main coronary artery: Left main coronary artery is a normal-sized vessel and is free of stenosis. Divides into left anterior descending coronary artery and circumflex coronary artery. Left anterior descending coronary artery shows a 50% to 6% ostial stenosis. Mid LAD shows 70% to 80% stenosis. Circumflex coronary artery is a nondominant vessel, shows 90% stenosis at the origin of the AV groove circ. Right coronary artery has multiple segmental lesions 80% to 90% at their worst. CONCLUSION: Three-vessel coronary artery disease as described above. PLAN: I am going to consult cardiothoracic surgeon to evaluate the patient for bypass surgery. I am waiting on the echo results at this time. MMGUSTABOL / JAMEELN: [id number] /
[2023-05-27 12:49] LABS: African American GFR (CKD) >90 (>60 ml/min/1.73 sqM); Anion Gap 7 mmol/L; Blood Urea Nitrogen 15 mg/dL (9-20); Calcium 9.3 mg/dL (8.4-10.2); Carbon Dioxide 21 mmol/L (22-30); Chloride 104 mmol/L (98-107); Glucose 104 mg/dL (74-99); Non-African American GFR(CKD) 87 (>60 ml/min/1.73 sqM); Potassium 3.9 mmol/L (3.5-5.1); Sodium 132 mmol/L (137-145)
--- NOTE | 2023-05-27 13:39 | P.GSCN ---
History of Present Illness Consult date: 05/27/23 Reason for Consult: Coronary artery disease Requesting physician: Arik Blackman History of present illness: This is a 72-year-old gentleman who follows outpatient with the [facility] for primary care and Dr. Martin for cardiology. He has a previous medical history of hypertension, hyperlipidemia, current tobacco dependence, COPD, and occasional EtOH use. For approximately the last month the patient has been treated for cellulitis to his right lower extremity with Bactrim. Per the patient he did not feel he was getting any better, did have some fevers, and has just been generally feeling unwell. He presented to [facility] and was placed in observation for acute kidney injury and dehydration. Lab work did reveal elevated troponin so the patient was transferred to [facility] for cardiology evaluation. Of note, the patient denies any chest pain or significant shortness of breath. In the emergency room EKG was completed demonstrating sinus rhythm with nonspecific ST changes. CBC was unremarkable, chemistry revealed sodium 133, CO2 17, creatinine 1.2, AST 73, ALT 51, BNP 1620, and troponins were elevated at 2.7 trending up to 2.9. The patient was ruled in for non-STEMI. He was admitted for evaluation and treatment with consultation placed to cardiology. Patient was recommended to undergo heart catheterization which was completed today by Dr. Blackman revealing triple-vessel coronary artery disease with mid LAD 70 to 80% stenosis, 90% stenosis of the circumflex coronary artery, and multiple segmental lesions 80 to 90% in the right coronary artery. Due to these findings consultation was placed to Dr. Calderon from cardiothoracic surgery for surgical revascularization recommendations. Review of Systems Review of systems was completed and was negative except as noted - Integumentary Reports darkening of skin, Reports wounds Past Medical History Past Medical History: Coronary Artery Disease (CAD), COPD, Hyperlipidemia, Hypertension, Myocardial Infarction ([place]) Additional Past Medical History / Comment(s): Cellulitis of the lower extremity History of Any Multi-Drug Resistant Organisms: None Reported Past Surgical History: Adenoidectomy, Cholecystectomy, Tonsillectomy Past Anesthesia/Blood Transfusion Reactions: No Reported Reaction Past Psychological History: No Psychological Hx Reported Smoking Status: Current every day smoker Past Alcohol Use History: Occasional Additional Past Alcohol Use History / Comment(s): Sixpack of beer per week Past Drug Use History: None Reported Additional History: Smokes 1 pack/day x 55 years - Past Family History Sister(s) History Unknown: Yes Family Medical History: Cancer Additional Family Medical History / Comment(s): uterine cancer Mother Family Medical History: Dementia Father Additional Family Medical History / Comment(s): in his 90s of old age Medications and Allergies Home Medications Medication Instructions Recorded Confirmed Type Albuterol Sulfate [Proair Hfa] 2 puff INHALATION RT-Q6H PRN 11/24/18 05/26/23 History Lisinopril-Hctz 20-25 mg 1 tab PO DAILY 11/24/18 05/26/23 History [Zestoretic 20-25] Metoprolol Succinate (ER) [Toprol 100 mg PO DAILY 11/23/19 05/26/23 History Xl] amLODIPine [Norvasc] 5 mg PO DAILY 11/23/19 05/26/23 History Aspirin EC [Ecotrin Low Dose] 81 mg PO DAILY 05/26/23 05/26/23 History Atorvastatin [Lipitor] 40 mg PO HS 05/26/23 05/26/23 History Fluticasone Propion/Salmeterol 1 puff PO RT-BID 05/26/23 05/26/23 History [Fluticasone-Salmeterol 250-50] Ipratropium-Albuterol Nebulize 3 ml INHALATION RT-Q6H PRN 05/26/23 05/26/23 History [Duoneb 0.5 mg-3 mg/3 ml Soln] Allergies Allergy/AdvReac Type Severity Reaction Status Date / Time No Known Allergies Allergy Verified 05/26/23 08:19 Surgical - Exam Vital Signs Temp Pulse Resp BP Pulse Ox 97.9 F 86 12 140/83 96 05/25/23 22:35 05/25/23 22:35 05/25/23 22:35 05/25/23 22:35 05/25/23 22:35 CONSTITUTIONAL: Awake and alert, appears comfortable, cooperative, well- developed, well-nourished, no pain, no acute distress EYES: Pupils equal, round, reactive to light, normal ocular movement ENT: Moist mucous membranes without oral lesions present NECK: No masses, no bruits, trachea midline RESPIRATORY: Lungs sounds clear to auscultation bilaterally. Respirations even, nonlabored. Currently on room air with oxygen saturation 94%. Strong cough. No chest wall deformities. No clubbing or cyanosis present CARDIOVASCULAR: S1, S2 present. Regular rate and rhythm, sinus rhythm on telemetry. Palpable peripheral pulses bilaterally. Bilateral lower extremity trace edema present. No calf pain or tenderness noted. No significant lower extremity varicosities noted. Left radial Jayden's test less than 8 seconds. GASTROINTESTINAL: Abdomen soft, nontender, nondistended without masses or organomegaly noted. There is no rebound or guarding present. Active bowel sounds present 4 quadrants. GENITOURINARY: Deferred INTEGUMENTARY: Skin is warm and dry, right lower extremity reddened with peeling skin NEUROLOGIC: Cranial nerves II through XII intact, normal coordination, no obvious motor or sensory deficits, speech is normal MUSKULOSKELETAL: Able to move all extremities, strength equal bilaterally, normal posture PSYCHIATRIC: Alert and oriented to person place and time, appropriate affect, intact judgment and insight Results - Labs 05/27/23 12:14 05/27/23 12:14 Abnormal Lab Results - Last 24 Hours (Table) 05/27/23 05/27/23 Range/Units 12:14 12:14 APTT 46.8 H (22.0-30.0) sec Sodium 132 L (137-145) mmol/L Carbon Dioxide 21 L (22-30) mmol/L Glucose 104 H (74-99) mg/dL Diabetes panel 05/27/23 Range/Units 12:14 Sodium 132 L (137-145) mmol/L Potassium 3.9 (3.5-5.1) mmol/L Chloride 104 (98-107) mmol/L Carbon Dioxide 21 L (22-30) mmol/L BUN 15 (9-20) mg/dL Creatinine 0.87 (0.66-1.25) mg/dL Glucose 104 H (74-99) mg/dL Calcium 9.3 (8.4-10.2) mg/dL Calcium panel 05/27/23 Range/Units 12:14 Calcium 9.3 (8.4-10.2) mg/dL Pituitary panel 05/27/23 Range/Units 12:14 Sodium 132 L (137-145) mmol/L Potassium 3.9 (3.5-5.1) mmol/L Chloride 104 (98-107) mmol/L Carbon Dioxide 21 L (22-30) mmol/L BUN 15 (9-20) mg/dL Creatinine 0.87 (0.66-1.25) mg/dL Glucose 104 H (74-99) mg/dL Calcium 9.3 (8.4-10.2) mg/dL Adrenal panel 05/27/23 Range/Units 12:14 Sodium 132 L (137-145) mmol/L Potassium 3.9 (3.5-5.1) mmol/L Chloride 104 (98-107) mmol/L Carbon Dioxide 21 L (22-30) mmol/L BUN 15 (9-20) mg/dL Creatinine 0.87 (0.66-1.25) mg/dL Glucose 104 H (74-99) mg/dL Calcium 9.3 (8.4-10.2) mg/dL - Imaging Chest x-ray: report reviewed, image reviewed CT scan - chest: report reviewed, image reviewed EKG: image reviewed Assessment and Plan Assessment: Triple-vessel coronary artery disease, non-STEMI this admission Cellulitis of the right lower extremity, treated outpatient Hypertension Hyperlipidemia Current tobacco dependence COPD Occasional EtOH use Plan: The patient was seen and examined sitting up in bed on the cardiac stepdown unit in no acute distress. Denies any chest pain or shortness of breath at this time. Chart/diagnostics reviewed. The case will be discussed in detail with Dr. Calderon. The usual perioperative course of open-heart surgery was discussed with the patient and his family, risks and benefits were reviewed, all questions were answered. Preoperative testing was initiated. Once completed we will calculate STS risk score and discussed with the patient. Recommend continuing to maximize medical therapy with aspirin, statin, beta-lilia. Increase activity as tolerated. Smoking cessation counseling and education provided, patient was strongly encouraged to quit smoking completely. Medical management of other comorbidities per internal medicine, cardiology. More recommendations to follow. Thank you Dr. Blackman for this consult. I have personally seen and examined the patient, performed the documentation and the assessment and plan as written. Number of minutes spent on the visit: 30. JOSE A SantosC
[2023-05-27] MEDS: SODIUM CHLORIDE 0.9% 1,000 ML IV SCH (15:08)
[2023-05-27] MEDS: HEPARIN SODIUM,PORCINE 5,000 UNIT/ML 1 ML VIAL SQ SCH (15:17)
[2023-05-27 15:42] LABS: Chol/HDL Ratio 4.63 Ratio
--- NOTE | 2023-05-27 17:40 | US ---
EXAMINATION TYPE: US arterial LE single level DATE OF EXAM: 05/27/2023 4:37 PM CLINICAL INDICATION: Male, 72 years old with history of Ankle Brachial Index (MARLY); MARLY History of: Smoker: Current Hypertension: Yes Diabetic: No Hyperlipidemia: Yes TIA/CVA: No Previous Vascular Surgery: No CAD: SD: NSTEMI Vascular Ulcers: None Claudication: No Doppler Waveforms: Right: Multiphasic Left: Multiphasic Pulse Volume Recording: Pressure Gradients: Right Brachial Pressure: Deferred due to recent right radial approach heart cath Left Brachial Pressure: 130 Ankle-Brachial Indices: Right: 1.06 Left: 1.05 (Vessel hardening > 1.4; Normal 0.9 - 1.4, Moderate 0.7 - 0.9, Severe 0.5-0.7) Toe Brachial Indices: Right: CNO Left: 0.83 IMPRESSION: Normal ABIs
--- NOTE | 2023-05-27 17:41 | P.PN ---
Subjective Progress Note Date: 05/27/23 Hospital course: Patient is a very pleasant 72-year-old male with a past medical history of hypertension, hyperlipidemia, and COPD with continued nicotine dependence. Patient presented to our facility as a transfer from [facility] where he presented with weakness and a fall and was found to have elevated troponins. Patient reported recent treatment for cellulitis on Bactrim and experiencing nausea, vomiting, and decreased oral intake over the past few days. Per documentation in chart workup at [facility] was completed including a CT of the brain which was negative for acute intercranial pathology and troponins initially reported negative increasing to 5.09 resulting in patient being started on heparin infusion followed by transfer to our facility for evaluation. Upon arrival to our facility patient underwent evaluation in the emergency department. Vital signs revealed blood pressure 140/83, heart rate 86, respiratory rate 12, temp 97.9 F, and SpO2 of 96% on room air. EKG was completed showing normal sinus rhythm at 84 bpm with no significant T wave or ST abnormalities showing no signs of acute ischemia upon personal review and interpretation. Chest x-ray completed showing findings concerning for bronchitis with mild to moderate peribronchial thickening of the central bronchi and trace right pleural effusion. CTA chest was completed negative for pulmonary emboli revealing a 1 cm subcarinal enlarged lymph node. Labs were completed and reviewed. CBC unremarkable. Coagulation profile normal findings. BMP revealed hyponatremia with sodium of 133 and hypocarbia with bicarb of 17. Blood glucose was 107. Magnesium normal findings at 2.0. Liver profile showing elevated AST of 73 and ALT of 51. Troponin was 2.730 and proBNP was 1620. Patient admitted under our services with consultation to cardiology. Troponins trended overnight resulting at 2.730 and 2.970. Patient was taken for cardiac catheterization this morning. Cardiac catheterization revealing three-vessel coronary artery disease, cardiology consulted cardiothoracic surgery to evaluate patient for bypass. Physical exam: Patient seen and fully evaluated at bedside shortly after return from cardiac cath. Patient was informed about multivessel coronary artery disease and need for evaluation by cardiothoracic surgery team. Patient currently free from any chest pain or complaints at this time. Patient's family also at bedside updated on findings and awaiting further recommendations. Vital signs reviewed and stable. General: Nontoxic, no distress and appears stated age. Derm: Skin warm and dry, normal coloration for ethnicity. Head: Atraumatic, normocephalic and symmetric. Eyes: EOMs intact, no lid lag, and anicteric sclera Mouth: no lip lesions, mucus membranes moist Cardiovascular: regular rate and rhythm with normal S1S2, no murmur, positive p osterior tibial pulses bilaterally, and cap refill < 2 seconds. Lungs: Respirations even, regular, and unlabored on room air. Lungs CTA bilaterally, no rhonchi, no rales, no wheezing, and no accessory muscle usage. Abdominal: soft, nontender to palpation, no guarding, no appreciable organomegaly Ext: ROM intact. No gross muscle atrophy, no edema, no contractures Neuro: Speech clear, face symmetrical and CN II-XII grossly intact with no noted focal neuro deficits Psych: Alert and oriented to person, place, time, and situation. Appropriate and pleasant affect. Assessment and Plan of Care: NSTEMI Three-vessel coronary artery disease Hypertension Hyperlipidemia -Cardiology following and took patient for cardiac cath revealing three-vessel coronary artery disease recommending evaluation by cardiothoracic surgery to evaluate for CABG. -Cardiothoracic surgery consulted -Telemetry monitoring -Troponins trended overnight resulting at 2.730 and 2.970. -Cardiac diet, NPO at midnight for planned cardiac catheterization. -Continue heparin infusion with close monitoring of PTT for goal therapeutic range of 44 to 79 seconds aspirin 81 mg daily, atorvastatin, -Continue daily medication regimen with aspirin 81 mg daily, atorvastatin 40 mg nightly, amlodipine 5 mg daily, and lisinopril/hydrochlorothiazide 20/25 mg daily. -Lipid profile with a.m. labs. -Echocardiogram completed and pending results. COPD with continued nicotine dependence -Continue Symbicort 160-4.5 mcg inhaler 2 puffs twice daily and Ventolin nebulizer treatments every 4 hours as needed for shortness of breath and/or wheezing. Data and imaging reviewed: -Morning labs reviewed. CBC unremarkable. BMP revealing mild hyponatremia with sodium of 132 otherwise normal findings. Lipid profile unremarkable with except ion of low HDL of 21.40. PTT therapeutic at 46.3 seconds. -Vital signs reviewed. Blood pressure 128/74, heart rate 89,, respiratory rate 18, temp 98.6 F, and SpO2 of 95% on room air. CODE STATUS: Full code DVT prophylaxis: Heparin infusion Anticipated discharge date: Clinical course to determine Anticipated discharge place: Home Patient was seen independently by Nurse Pracitioner. This document was prepared using [employer] dictation software. Please allow for errors in occupational therapy manager, while rare they do occur. I reviewed the documentation as provided by the JULIAN above, who is the original author of this note. I agree with the documented assessment and plan, with the following changes: none Objective - Vital Signs Vital signs: Vital Signs Temp 97.9 F 05/27/23 04:00 Pulse 80 05/27/23 04:00 Resp 16 05/27/23 08:31 BP 92/61 05/27/23 04:00 Pulse Ox 95 05/27/23 04:00 FiO2 Intake & Output 05/26/23 05/27/23 05/27/23 18:59 06:59 18:59 Intake Total 226.167 Output Total 700 500 Balance -700 -273.833 Weight 96.615 kg Intake: Intake, IV Titration 226.167 Amount Heparin Sod,Pork in 0.45% 226.167 NaCl 25,000 unit In 0.45 % NaCl 1 250ml.bag @ 10. 3504 UNITS/KG/HR 10 mls/ hr IV .Q24H [facility] Rx#: [id number] Output: Urine 700 500 Other: Voiding Method Urinal Urinal Urinal - Labs CBC & Chem 7: 05/27/23 12:14 05/27/23 12:14 Labs: Abnormal Lab Results - Last 24 Hours (Table) 05/26/23 05/26/23 05/26/23 Range/Units 10:24 10:25 10:25 Lymphocytes # 0.4 L (1.0-4.8) k/uL APTT 46.3 H (22.0-30.0) sec Troponin I 2.940 H* (0.000-0.034) ng/mL
--- NOTE | 2023-05-27 19:32 | US ---
EXAMINATION TYPE: US vein mapping BILAT DATE OF EXAM: 05/27/2023 7:03 PM COMPARISON: NONE CLINICAL INDICATION: Male, 72 years old with history of preop cardiac surgery; SIDE PERFORMED: Bilateral TECHNIQUE: Lower extremity saphenous vein is examined and measured utilizing real time linear array sonography. Patient History: Smoker: Current Heart Disease: Yes Vascular Surgery: No Discoloration: No Hypertension: Yes Diabetes: No Paralysis: No Varicosities: No Edema: No DUPLEX FINDINGS: Greater Saphenous: Color flow seen Lesser Saphenous: Color flow seen Measurements in mm: Right Greater Saphenous: Groin: 5.3 x 5.3 mm High Thigh: 3.9 x 4.0 mm Mid Thigh: 4.3 x 4.2 mm Above Knee: 3.7 x 3.4 mm Knee: 3.3 x 3.2 mm Below Knee: 3.9 x 3.0 mm Mid Calf: 2.9 x 2.5 mm At Ankle: 2.0 x 1.6 mm Left Greater Saphenous: Groin: 4.4 x 4.4 mm High Thigh: 3.8 x 3.5 mm Mid Thigh: 3.0 x 2.3 mm Above Knee: 2.8 x 2.8 mm Knee: 3.0 x 2.5 mm Below Knee: 2.5 x 2.4 mm Mid Calf: 1.7 x 1.4 mm At Ankle: 3.7 x 2.9 mm IMPRESSION: 1. Bilateral GSV measurements listed above. 2. Performing surgeon to determine viability as conduit.
--- NOTE | 2023-05-27 21:07 | US ---
EXAMINATION TYPE: US carotid duplex BILAT DATE OF EXAM: 05/27/2023 COMPARISON: NONE CLINICAL INDICATION: Male, 72 years old with history of preop cardiac surgery; htn TECHNIQUE: Carotid duplex ultrasound examination. Indirect Doppler criteria was utilized. 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 Slightly elevated left proximal CCA. IMPRESSION: 1. Plaque identified in the bilateral carotid bulbs, left greater and right. 2. No significantly elevated flow velocities to suggest hemodynamically significant stenoses in the bilateral internal carotid arteries. 3. Antegrade flow in both vertebral arteries. 4. Slightly elevated velocity in the proximal left CCA, of uncertain significance. Criteria for Assigning % of Stenosis / Diameter reduction (Estimation based on the indirect measurements of the internal carotid artery velocities (ICA PSV). 1. Normal (no stenosis)=ICA PSV < 125 cm/s: ratio < 2.0: ICA EDV<40 cm/s. 2. Less than 50% stenosis=ICA PSV < 125 cm/s: ratio < 2.0: ICA EDV<40 cm/s. 3. 50 to 69% stenosis=ICA PSV of 125 to 230 cm/s: ration 2.0 ? 4.0: ICA EDV 40-100 cm/s. 4. Greater than 70% stenosis to near occlusion= ICA PSV > 230 cm/s: ratio > 4.0: ICA EDV > 100 cm/s. 5. Near occlusion= ICA PSV velocities may be low or undetectable: variable ratio and ICA EDV. 6. Total occlusion=unable to detect flow.
--- NOTE | 2023-05-27 21:08 | US ---
EXAMINATION TYPE: Pre-Operative Non-Invasive Evaluation of the hand for Potential Radial Artery Manoj mejia, Measurements only DATE OF EXAM: 05/27/2023 7:03 PM CLINICAL INDICATION: Male, 72 years old with history of measurements only; SIDE PERFORMED: Left TECHNIQUE: Radial artery is measured utilizing real time linear array sonography. Dominant hand: Right Radial Artery: Color flow seen Measurements in mm, transverse view: Left Radial: Proximal: 3.2 x 3.2 mm Mid: 3.4 x 3.2 mm Distal: 3.0 x 2.8 mm IMPRESSION: 1. Left radial artery measurements listed above. 2. Performing surgeon to determine viability as conduit.
[2023-05-28 07:21] LABS: Appearance,Urine Clear (Clear); Bilirubin,Urine Negative (Negative); Blood,Urine Negative (Negative); Color,Urine Light Yellow; Glucose,Urine (UA) Negative (Negative); Ketones,Urine Trace (Negative); Leukocyte Esterase,Urine Negative (Negative); Nitrite,Urine Negative (Negative); PH, Urine 5.5 (5.0-8.0); Protein,Urine Negative (Negative); Specific Gravity,Urine 1.016 (1.001-1.035)
[2023-05-28] MEDS: ISOSORBIDE MONONITRATE ER 30 MG TAB.ER.24H PO SCH (08:29)
--- NOTE | 2023-05-28 11:35 | P.PN ---
Subjective Progress Note Date: 05/28/23 Principal diagnosis: Coronary artery disease, non-ST elevated myocardial infarction this admission. Past medical history significant for hypertension, hyperlipidemia, current toba account planner dependence, COPD, cellulitis to his right lower extremity treated with Bactrim and occasional EtOH use. The patient was seen and examined in follow-up today May 28, 2023 at his bedside on the third floor cardiac stepdown unit. He is currently laying in bed, is awake, alert, oriented x 3 and is in no acute apparent distress. Denies any complaints of pain, shortness of breath or nausea/vomiting at this time. Troponin is 0.182 this a.m. which is trending down. Preoperative testing and preoperative teaching is in place, and the patient will possibly be scheduled for myocardial vascularization surgery on Wednesday, May 31, [address] Dharmesh Ramírez. Once all of his preoperative testing and transthoracic 2D echocardiogram results have been obtained more recommendations regarding myocardial vascularization surgery to follow. He remains hemodynamically stable and is currently on no inotropic or pressor support. Clinical frailty score was completed this morning with a score of 4 which shows mild frailty. A bedside FEV1 was completed yesterday which showed a predicted value of 86% and the base volume of 2.63. Carotid duplex study was completed which shows no significantly elevated flow velocities to suggest hemodynamically significant stenosis in the bilateral internal carotid arteries. A CTA of the chest was completed on May 26, 2023 which showed no acute pulmonary embolism, and a 1 cm subcarinal lymph node. The patient continues on aspirin, statin and beta-lilia. The patient has been afebrile in the last 24 hours and is on room air with oxygen saturations 95%. He is achieving 2500 mL on his incentive spirometry. Remote telemetry is showing normal sinus rhythm heart rate 67 bpm. Laboratory results reviewed from yesterday May 27, 2023. Objective - Vital Signs Vital signs: Vital Signs Temp 97.8 F 05/28/23 08:25 Pulse 82 05/28/23 08:25 Resp 16 05/28/23 08:25 BP 137/81 05/28/23 08:25 Pulse Ox 95 05/28/23 08:25 FiO2 Intake & Output 05/27/23 05/28/23 05/28/23 18:59 06:59 18:59 Intake Total 1010 240 Output Total 500 1050 Balance 510 -1050 240 Weight 96.615 kg 92.2 kg Intake: IV 50 Intake, IV Titration 600 Amount Sodium Chloride 0.9% 1, 600 000 ml @ 75 mls/hr IV . [id number] [facility] Rx#:[id number] Oral 360 240 Output: Urine 500 1050 Other: Voiding Method Urinal Urinal Urinal - Exam CONSTITUTIONAL:Appears comfortable, cooperative, no apparent acute distress. HEENT: Neck is supple, no JVD, no lymphadenopathy. RESPIRATORY: Lungs sounds essentially clear throughout, diminished to his bilateral bases. Respirations are symmetrical and nonlabored. Currently on room air with oxygen saturations 95%. Able to achieve 2500 mL on his incentive spirometry. Strong cough. CARDIOVASCULAR: Regular rhythm and rate. S1 and S2 present, negative for S3, gallop or murmur. No calf pain or tenderness noted. Heart hugger in place with patient demonstrating appropriate use. +1 edema to his bilateral lower extremities GASTROINTESTINAL: Abdomen soft, nontender, nondistended. Active bowel sounds present 4 quadrants. Tolerating diet. Passing flatus. No guarding or rigidity. GENITOURINARY: Continues to void. INTEGUMENTARY: Skin is warm and dry with no evidence of clubbing or cyanosis. Erythema to his right lower extremity with dry flaky skin. NEUROLOGIC: Cranial nerves II through XII intact. No focal deficits. MUSKULOSKELETAL: Able to move all extremities, strength equal bilaterally. PSYCHIATRIC: Alert and oriented to person place and time, appropriate affect, intact judgment and insight. - Labs CBC & Chem 7: 05/27/23 12:14 05/27/23 12:14 Labs: Abnormal Lab Results - Last 24 Hours (Table) 05/27/23 05/27/23 05/28/23 Range/Units 12:14 12:14 06:53 APTT 46.8 H (22.0-30.0) sec Sodium 132 L (137-145) mmol/L Carbon Dioxide 21 L (22-30) mmol/L Glucose 104 H (74-99) mg/dL Troponin I (0.000-0.034) ng/mL HDL Cholesterol 21.40 L (40.00-60.00) mg/dL Urine Ketones Trace H (Negative) 05/28/23 Range/Units 09:48 APTT (22.0-30.0) sec Sodium (137-145) mmol/L Carbon Dioxide (22-30) mmol/L Glucose (74-99) mg/dL Troponin I 0.182 H* (0.000-0.034) ng/mL HDL Cholesterol (40.00-60.00) mg/dL Urine Ketones (Negative) Microbiology - Last 24 Hours (Table) 05/26/23 09:20 Blood Culture - Preliminary Blood 05/26/23 09:05 Blood Culture - Preliminary Blood Assessment and Plan Assessment: Triple-vessel coronary artery disease, non-STEMI this admission Cellulitis of the right lower extremity, treated outpatient Hypertension Hyperlipidemia, treated cholesterol 99.0, LDL 48.0 Chronic ongoing tobacco dependence COPD with a preoperative FEV1 86% of predicted value with a base volume of 2.63 Occasional EtOH use, drinks 1 sixpack of beer per week Plan: Preoperative teaching and preoperative workup remains in progress, awaiting results of transthoracic 2D echocardiogram. The patient will possibly be scheduled for myocardial revascularization surgery on Wednesday, May 31, 2023 to be performed by Dr. Dharmesh Ramírez. Continue to maximize medical management with aspirin, statin and beta-lilia. Encourage use of incentive spirometry 10 times every hour while awake. Medical management and other comorbidities per primary care service. Clinical frailty scoring has been completed, score was 4 which shows mild frailty. More recommendations to follow based on patient's clinical course and as his preoperative testing has been completed. Time with Patient: Greater than 30
--- NOTE | 2023-05-28 11:39 | P.PN ---
Subjective Progress Note Date: 05/28/23 Hospital course: Patient is a very pleasant 72-year-old male with a past medical history of hypertension, hyperlipidemia, and COPD with continued nicotine dependence. Patient presented to our facility as a transfer from [facility] where he presented with weakness and a fall and was found to have elevated troponins. Patient reported recent treatment for cellulitis on Bactrim and experiencing nausea, vomiting, and decreased oral intake over the past few days. Per documentation in chart workup at [facility] was completed including a CT of the brain which was negative for acute intercranial pathology and troponins initially reported negative increasing to 5.09 resulting in patient being started on heparin infusion followed by transfer to our facility for evaluation. Upon arrival to our facility patient underwent evaluation in the emergency department. Vital signs revealed blood pressure 140/83, heart rate 86, respiratory rate 12, temp 97.9 F, and SpO2 of 96% on room air. EKG was completed showing normal sinus rhythm at 84 bpm with no significant T wave or ST abnormalities showing no signs of acute ischemia upon personal review and interpretation. Chest x-ray completed showing findings concerning for bronchitis with mild to moderate peribronchial thickening of the central bronchi and trace right pleural effusion. CTA chest was completed negative for pulmonary emboli revealing a 1 cm subcarinal enlarged lymph node. Labs were completed and reviewed. CBC unremarkable. Coagulation profile normal findings. BMP revealed hyponatremia with sodium of 133 and hypocarbia with bicarb of 17. Blood glucose was 107. Magnesium normal findings at 2.0. Liver profile showing elevated AST of 73 and ALT of 51. Troponin was 2.730 and proBNP was 1620. Patient admitted under our services with consultation to cardiology. Troponins trended overnight resulting at 2.730 and 2.970. Patient was taken for cardiac catheterization this morning. Cardiac catheterization revealing three-vessel coronary artery disease, cardiology consulted cardiothoracic surgery to evaluate patient for bypass. Physical exam: Patient seen and fully evaluated at bedside this morning. He reports feeling tired but states that he slept well last night. He remains free from any other complaints including headache, lightheadedness, dizziness, chest pain, palpitations, shortness of breath, or experiencing any numbness/tingling/weakness in his extremities. Vital signs reviewed and stable. General: Nontoxic, no distress and appears stated age. Derm: Skin warm and dry, normal coloration for ethnicity. Head: Atraumatic, normocephalic and symmetric. Eyes: EOMs intact, no lid lag, and anicteric sclera Mouth: no lip lesions, mucus membranes moist Cardiovascular: regular rate and rhythm with normal S1S2, no murmur, positive posterior tibial pulses bilaterally, and cap refill < 2 seconds. Lungs: Respirations even, regular, and unlabored on room air. Lungs CTA bilaterally, no rhonchi, no rales, no wheezing, and no accessory muscle usage. Abdominal: soft, nontender to palpation, no guarding, no appreciable organomegaly Ext: ROM intact. No gross muscle atrophy, no edema, no contractures Neuro: Speech clear, face symmetrical and CN II-XII grossly intact with no noted focal neuro deficits Psych: Alert and oriented to person, place, time, and situation. Appropriate and pleasant affect. Assessment and Plan of Care: NSTEMI Three-vessel coronary artery disease Hypertension Hyperlipidemia -Cardiology following and took patient for cardiac cath revealing three-vessel coronary artery disease recommending evaluation by cardiothoracic surgery to evaluate for CABG. -Cardiothoracic surgery consulted and patient undergoing testing for possible CABG. once results are obtained patient is tentatively scheduled for CABG on 05/31/2023 -Telemetry monitoring -Cardiac diet -Continue daily medication regimen with aspirin 81 mg daily, atorvastatin 40 mg nightly, amlodipine 5 mg daily, and lisinopril/hydrochlorothiazide 20/25 mg daily. -Lipid profile normal findings with exception of low HDL of 21.40. -Echocardiogram was completed and remains pending results. COPD with continued nicotine dependence -Continue Symbicort 160-4.5 mcg inhaler 2 puffs twice daily and Ventolin nebulizer treatments every 4 hours as needed for shortness of breath and/or wheezing. Data and imaging reviewed: -Morning labs reviewed. TSH 3.540. Repeat morning troponin showing downward trend resulting at 0.182. -Vital signs reviewed. Blood pressure 137/81, heart rate 82, respiratory rate 16, temp 97.8 F, and SpO2 of 95% on room air. CODE STATUS: Full code DVT prophylaxis: Heparin infusion Anticipated discharge date: Clinical course to determine Anticipated discharge place: Home Patient was seen independently by Nurse Pracitioner. This document was prepared using [employer] dictation software. Please allow for errors in technician's helper, while rare they do occur. Hal Asya, FEEDER OPERATOR rendered care for this patient independently, reviewed the findings and plan as documented in the note above. I did not physically speak with or examine the patient on this date. Objective - Vital Signs Vital signs: Vital Signs Temp 98 F 05/28/23 04:00 Pulse 79 05/28/23 04:00 Resp 18 05/27/23 11:28 BP 123/77 05/28/23 04:00 Pulse Ox 95 05/28/23 04:00 FiO2 Intake & Output 05/27/23 05/28/23 05/28/23 18:59 06:59 18:59 Intake Total 1010 Output Total 500 1050 Balance 510 -1050 Weight 96.615 kg 92.2 kg Intake: IV 50 Intake, IV Titration 600 Amount Sodium Chloride 0.9% 1, 600 000 ml @ 75 mls/hr IV . [id number] [facility] Rx#:[id number] Oral 360 Output: Urine 500 1050 Other: Voiding Method Urinal Urinal - Labs CBC & Chem 7: 05/29/23 06:00 05/29/23 06:00 Labs: Abnormal Lab Results - Last 24 Hours (Table) 05/27/23 05/27/23 05/28/23 Range/Units 12:14 12:14 06:53 APTT 46.8 H (22.0-30.0) sec Sodium 132 L (137-145) mmol/L Carbon Dioxide 21 L (22-30) mmol/L Glucose 104 H (74-99) mg/dL HDL Cholesterol 21.40 L (40.00-60.00) mg/dL Urine Ketones Trace H (Negative) Microbiology - Last 24 Hours (Table) 05/26/23 09:20 Blood Culture - Preliminary Blood 05/26/23 09:05 Blood Culture - Preliminary Blood
--- NOTE | 2023-05-28 11:51 | P.PN ---
Subjective HISTORY OF PRESENT ILLNESS: This is a 72-year-old male with a past medical history significant for CAD documented by CT scan, hypertension, hyperlipidemia, nicotine dependence. Patient follows in the office with Dr. Martin. We have been asked to see the patient in consultation for non-STEMI. Patient examined at the bedside in the emergency room. Patient was transferred from [facility]. Patient initially presented to the hospital due to generalized weakness. Patient states he has been on Bactrim for right lower extremity cellulitis for about 10 days. He states that he was having chills at home. He reports his extremities were shaking badly. He states he was so weak he was not able to get up on his own. The patient was found to have elevated troponins with a troponin of 5.0. He was started on a heparin drip and transferred to was cleared for further evaluation. The patient denies any chest pain or pressure. He denies any shortness of breath. DIAGNOSTICS: - EKG reveals sinus mechanism with nonspecific ST-T wave changes. - Chest xray findings concerning for bronchitis which may be infectious or inflammatory allergies. Trace right pleural effusion. No consolidation. - Chest CTA: Negative for pulmonary embolism. -Doppler study performed at outside facility was negative for DVT in the right lower extremity - Laboratory data: WBC 7.9. Hemoglobin 14.8. Platelet count 231. Sodium 133. Potassium 3.9. BUN 19. Creatinine 1.20. Magnesium 2.0. Troponin 2.730. 2.970. AST 73. ALT 51. proBNP 1620 - Current home cardiac medications include aspirin 81 mg daily, metoprolol succinate 100 mg daily, amlodipine 5 mg daily, Lipitor 40 mg at night, and lisinoprilhydrochlorothiazide 20-25 mg daily. - Most recent echocardiogram obtained in September 2021 reveals normal EF, mild MR, mild TR. -Patient underwent Lexiscan stress test in September 2021 which was negative for ischemia 05/28/2023 Patient is status post cardiac catheterization with Dr. Blackman revealing 50 to 60% ostial stenosis of the LAD, mid LAD 70 to 80% stenosis, circumflex coronary artery is a nondominant vessel showing 90% stenosis at the origin of the AV groove, right coronary artery has multiple segmental lesions 80 to 90% at their worst. CT surgery was consulted for evaluation and patient is tentatively scheduled for CABG next week. Patient examined this morning the bedside. He denies any chest pain or pressure. He denies any shortness of breath. Telemetry reveals sinus mechanism. Vital signs are stable. PHYSICAL EXAM: VITAL SIGNS: Reviewed. GENERAL: Well-developed in no acute distress. HEENT: Head is normocephalic. Pupils are equal, round. Sclerae anicteric. Mucous membranes of the mouth are moist. Neck supple. No JVD or thyromegaly LUNGS: Respirations even and unlabored. Lungs essentially clear to auscultation bilaterally. HEART: Regular rate and rhythm. S1 and S2 heard. ABDOMEN: Soft. Nondistended. Nontender. EXTREMITIES: Normal range of motion. No clubbing or cyanosis. Peripheral pulses intact. Right leg with trace edema noted. Right leg > than left leg. NEUROLOGIC: Awake and alert. Oriented x 3. ASSESSMENT: Non-STEMI, status post cardiac catheterization revealing triple-vessel coronary artery disease Recent right lower extremity cellulitis, completed course of Bactrim Severe coronary artery calcifications, per CT thorax at [facility] Hypertension Hyperlipidemia Nicotine dependence PLAN: 2D echo has been ordered. Await results Continue current cardiac medications CT surgery following. Patient tentatively scheduled for CABG on Wednesday, May 31, 2023 Continue telemetry monitoring Further recommendations pending patient course Nurse practitioner note has been reviewed by physician. Signing provider agrees with the documented findings, assessment, and plan of care documented by FREIGHT SERVICE INSPECTOR as a scribe. Objective - Vital Signs Vital signs: Vital Signs Temp 97.8 F 05/28/23 08:25 Pulse 82 05/28/23 08:25 Resp 16 05/28/23 08:25 BP 137/81 05/28/23 08:25 Pulse Ox 95 05/28/23 08:25 FiO2 Intake & Output 05/27/23 05/28/23 05/28/23 18:59 06:59 18:59 Intake Total 1010 240 Output Total 500 1050 Balance 510 -1050 240 Weight 96.615 kg 92.2 kg Intake: IV 50 Intake, IV Titration 600 Amount Sodium Chloride 0.9% 1, 600 000 ml @ 75 mls/hr IV . [id number] [facility] Rx#:[id number] Oral 360 240 Output: Urine 500 1050 Other: Voiding Method Urinal Urinal Urinal - Labs CBC & Chem 7: 05/27/23 12:14 05/27/23 12:14 Labs: Abnormal Lab Results - Last 24 Hours (Table) 05/27/23 05/27/23 05/28/23 Range/Units 12:14 12:14 06:53 APTT 46.8 H (22.0-30.0) sec Sodium 132 L (137-145) mmol/L Carbon Dioxide 21 L (22-30) mmol/L Glucose 104 H (74-99) mg/dL Troponin I (0.000-0.034) ng/mL HDL Cholesterol 21.40 L (40.00-60.00) mg/dL Urine Ketones Trace H (Negative) 05/28/23 Range/Units 09:48 APTT (22.0-30.0) sec Sodium (137-145) mmol/L Carbon Dioxide (22-30) mmol/L Glucose (74-99) mg/dL Troponin I 0.182 H* (0.000-0.034) ng/mL HDL Cholesterol (40.00-60.00) mg/dL Urine Ketones (Negative) Microbiology - Last 24 Hours (Table) 05/26/23 09:20 Blood Culture - Preliminary Blood 05/26/23 09:05 Blood Culture - Preliminary Blood
[2023-05-28 13:28] LABS: Hepatitis A Antibody IgM Nonreactive (Nonreactive); Hepatitis B Core IgM Nonreactive (Nonreactive); Hepatitis B Surface Antigen Nonreactive (Nonreactive); Hepatitis C IgG Antibody Nonreactive (Nonreactive)
[2023-05-28] MEDS: NICOTINE 21MG/24HR PATCH TRANSDERM SCH (16:36)
[2023-05-29 06:37] LABS: HCT 46.9 % (39.0-53.0); HGB 15.1 gm/dL (13.0-17.5); MCH 29.5 pg (25.0-35.0); MCHC 32.2 g/dL (31.0-37.0); MCV 91.4 fL (80.0-100.0); Mean Platelet Volume 7.5; Platelet Count 374 k/uL (150-450); RBC 5.13 m/uL (4.30-5.90); RDW 14.1 % (11.5-15.5)
[2023-05-29 06:53] LABS: ALT 230 U/L (4-49); AST 202 U/L (17-59); African American GFR (CKD) 87 (>60 ml/min/1.73 sqM); Albumin 3.5 g/dL (3.5-5.0); Alkaline Phosphatase 163 U/L (38-126); Anion Gap 9 mmol/L; Blood Urea Nitrogen 19 mg/dL (9-20); Carbon Dioxide 24 mmol/L (22-30); Chloride 104 mmol/L (98-107); Glucose 142 mg/dL (74-99); Magnesium 1.7 mg/dL (1.6-2.3); Non-African American GFR(CKD) 75 (>60 ml/min/1.73 sqM); Potassium 3.9 mmol/L (3.5-5.1); Sodium 137 mmol/L (137-145); Total Bilirubin 0.7 mg/dL (0.2-1.3); Total Protein 6.4 g/dL (6.3-8.2)
[2023-05-29] MEDS: ONDANSETRON 4 MG/2 ML VIAL IVP PRN (09:23)
--- NOTE | 2023-05-29 09:27 | P.PN ---
Subjective Progress Note Date: 05/29/23 Principal diagnosis: Coronary artery disease, non-ST elevated myocardial infarction this admission. Past medical history significant for hypertension, hyperlipidemia, current toba advertising account representative dependence, COPD, cellulitis to his right lower extremity treated with Bactrim and occasional EtOH use. The patient was seen and examined in follow-up today May 29, 2023 at his bedside on the third floor cardiac stepdown unit. Patient is currently laying in bed, is awake, alert, oriented x 3 and is in no acute apparent distress. He denies any complaints of pain or shortness of breath at this time, although is complaining of episodes of nausea and vomiting throughout the night. He was al so incontinent of stool. Laboratory results reviewed, WBC count today is 15.0, AST 202, ALT 230 and alkaline phosphatase 163. Transthoracic 2D echocardiogram report remains pending. The patient was tentatively scheduled for myocardial vascularization surgery on Wednesday, May 31, 2023, although due to his elevated white count and episodes of nausea/vomiting this will be postponed. He was started on Ancef 1 g IV piggyback every 8 hours for his right lower extremity cellulitis. He continues on aspirin, statin and beta-lilia. He remains hemodynamically stable and is currently on no inotropic or pressor support. Blood culture showed no growth after 48 hours. He has been afebrile in the last 24 hours. Laboratory results reviewed. Objective - Vital Signs Vital signs: Vital Signs Temp 97.8 F 05/29/23 04:00 Pulse 70 05/29/23 04:00 Resp 16 05/29/23 04:00 BP 106/52 05/29/23 04:00 Pulse Ox 94 L 05/29/23 04:00 FiO2 Intake & Output 05/28/23 05/29/23 05/29/23 18:59 06:59 18:59 Intake Total 838 Balance 838 Intake: Oral 838 Other: Voiding Method Urinal # Voids 3 3 - Exam CONSTITUTIONAL:Appears comfortable, cooperative, no apparent acute distress. HEENT: Neck is supple, no JVD, no lymphadenopathy. RESPIRATORY: Lungs sounds essentially clear throughout, diminished to his bilateral bases. Respirations are symmetrical and nonlabored. Currently on room air with oxygen saturations 94%. Able to achieve 2500 mL on his incentive spirometry. Strong cough. CARDIOVASCULAR: Regular rhythm and rate. S1 and S2 present, negative for S3, gallop or murmur. No calf pain or tenderness noted. Heart hugger in place with patient demonstrating appropriate use. +1 edema to his bilateral lower extremities GASTROINTESTINAL: Abdomen soft, nontender, nondistended. Active bowel sounds present 4 quadrants. Tolerating diet. Passing flatus. No guarding or rigidity. Incontinent of stool. GENITOURINARY: Continues to void. INTEGUMENTARY: Skin is warm and dry with no evidence of clubbing or cyanosis. Erythema to his right lower extremity with dry flaky skin. NEUROLOGIC: Cranial nerves II through XII intact. No focal deficits. MUSKULOSKELETAL: Able to move all extremities, strength equal bilaterally. PSYCHIATRIC: Alert and oriented to person place and time, appropriate affect, intact judgment and insight. - Allied health notes Allied health notes reviewed: nursing - Labs CBC & Chem 7: 05/29/23 06:00 05/29/23 06:00 Labs: Abnormal Lab Results - Last 24 Hours (Table) 05/28/23 05/28/23 05/29/23 Range/Units 09:48 09:48 06:00 WBC 15.0 H (3.8-10.6) k/uL Glucose (74-99) mg/dL Hemoglobin A1c 6.6 H (<=6.0) % AST (17-59) U/L ALT (4-49) U/L Alkaline Phosphatase (38-126) U/L Troponin I 0.182 H* (0.000-0.034) ng/mL 05/29/23 Range/Units 06:00 WBC (3.8-10.6) k/uL Glucose 142 H (74-99) mg/dL Hemoglobin A1c (<=6.0) % AST 202 H (17-59) U/L ALT 230 H (4-49) U/L Alkaline Phosphatase 163 H (38-126) U/L Troponin I (0.000-0.034) ng/mL Microbiology - Last 24 Hours (Table) 05/27/23 13:44 Nasal Screen MRSA/MSSA - Final Nasal Swab 05/26/23 09:20 Blood Culture - Preliminary Blood 05/26/23 09:05 Blood Culture - Preliminary Blood Assessment and Plan Assessment: Triple-vessel coronary artery disease, non-STEMI this admission Cellulitis of the right lower extremity, treated outpatient, WBC count trending up 15.0 today Hypertension Hyperlipidemia, treated cholesterol 99.0, LDL 48.0 Chronic ongoing tobacco dependence COPD with a preoperative FEV1 86% of predicted value with a base volume of 2.63 Occasional EtOH use, drinks 1 sixpack of beer per week Elevated transaminase, AST 202 and ALT 230 today Plan: Preoperative teaching and preoperative workup remains in progress, transthoracic 2D echocardiogram report remains pending, will continue to follow. Continue to maximize medical management with aspirin, statin and beta-lilia. WBC count 15.0 today, started Ancef 1 g IV piggyback every 8 hours, cellulitis right lower extremity. Blood cultures show no growth after 48 hours. Encourage use of incentive spirometry 10 times every hour while awake. Medical management and other comorbidities per primary care service. Clinical frailty scoring has been completed, score was 4 which shows mild frailty. Discussed with the patient the importance of risk modification including smoking cessation. Continue to monitor liver enzymes. Increase activity as tolerated. Out of bed for all meals. Wound care consulted for right lower extremity cellulitis. More recommendations to follow based on patient's clinical course and as his preoperative testing has been completed. Time with Patient: Greater than 30
--- NOTE | 2023-05-29 10:02 | P.PN ---
Subjective HISTORY OF PRESENT ILLNESS: This is a 72-year-old male with a past medical history significant for CAD documented by CT scan, hypertension, hyperlipidemia, nicotine dependence. Patient follows in the office with Dr. Martin. We have been asked to see the patient in consultation for non-STEMI. Patient examined at the bedside in the emergency room. Patient was transferred from [facility]. Patient initially presented to the hospital due to generalized weakness. Patient states he has been on Bactrim for right lower extremity cellulitis for about 10 days. He states that he was having chills at home. He reports his extremities were shaking badly. He states he was so weak he was not able to get up on his own. The patient was found to have elevated troponins with a troponin of 5.0. He was started on a heparin drip and transferred to was cleared for further evaluation. The patient denies any chest pain or pressure. He denies any shortness of breath. DIAGNOSTICS: - EKG reveals sinus mechanism with nonspecific ST-T wave changes. - Chest xray findings concerning for bronchitis which may be infectious or inflammatory allergies. Trace right pleural effusion. No consolidation. - Chest CTA: Negative for pulmonary embolism. -Doppler study performed at outside facility was negative for DVT in the right lower extremity - Laboratory data: WBC 7.9. Hemoglobin 14.8. Platelet count 231. Sodium 133. Potassium 3.9. BUN 19. Creatinine 1.20. Magnesium 2.0. Troponin 2.730. 2.970. AST 73. ALT 51. proBNP 1620 - Current home cardiac medications include aspirin 81 mg daily, metoprolol succinate 100 mg daily, amlodipine 5 mg daily, Lipitor 40 mg at night, and lisinoprilhydrochlorothiazide 20-25 mg daily. - Most recent echocardiogram obtained in September 2021 reveals normal EF, mild MR, mild TR. -Patient underwent Lexiscan stress test in September 2021 which was negative for ischemia 05/28/2023 Patient is status post cardiac catheterization with Dr. Blackman revealing 50 to 60% ostial stenosis of the LAD, mid LAD 70 to 80% stenosis, circumflex coronary artery is a nondominant vessel showing 90% stenosis at the origin of the AV groove, right coronary artery has multiple segmental lesions 80 to 90% at their worst. CT surgery was consulted for evaluation and patient is tentatively scheduled for CABG next week. Patient examined this morning the bedside. He denies any chest pain or pressure. He denies any shortness of breath. Telemetry reveals sinus mechanism. Vital signs are stable. 05/29/2023 Patient examined this morning at bedside. Patient states he is not feeling well this morning. Patient has had multiple episodes of vomiting and diarrhea. Vital signs are stable. Telemetry reveals sinus mechanism. PHYSICAL EXAM: VITAL SIGNS: Reviewed. GENERAL: Well-developed in no acute distress. HEENT: Head is normocephalic. Pupils are equal, round. Sclerae anicteric. Mucous membranes of the mouth are moist. Neck supple. No JVD or thyromegaly LUNGS: Respirations even and unlabored. Lungs essentially clear to auscultation bilaterally. HEART: Regular rate and rhythm. S1 and S2 heard. ABDOMEN: Soft. Nondistended. Nontender. EXTREMITIES: Normal range of motion. No clubbing or cyanosis. Peripheral pul ses intact. Right leg with trace edema noted. Right leg > than left leg. NEUROLOGIC: Awake and alert. Oriented x 3. ASSESSMENT: Non-STEMI, status post cardiac catheterization revealing triple-vessel coronary artery disease Recent right lower extremity cellulitis, completed course of Bactrim Vomiting and diarrhea Severe coronary artery calcifications, per CT thorax at [facility] Hypertension Hyperlipidemia Nicotine dependence Elevated LFTs PLAN: 2D echo has been ordered. Await results. If any valvular issues noted on echocardiogram, patient will require MELY. Continue current cardiac medications CT surgery following. Patient was tentatively scheduled for CABG on Wednesday, May 31, 2023, will now be rescheduled secondary to leukocytosis and right lower extremity cellulitis Continue telemetry monitoring Further recommendations pending patient course Nurse practitioner note has been reviewed by physician. Signing provider agrees with the documented findings, assessment, and plan of care documented by HVAC MECHANICAL ENGINEER as a scribe. Objective - Vital Signs Vital signs: Vital Signs Temp 97.8 F 05/29/23 04:00 Pulse 70 05/29/23 04:00 Resp 16 05/29/23 04:00 BP 106/52 05/29/23 04:00 Pulse Ox 94 L 05/29/23 04:00 FiO2 Intake & Output 05/28/23 05/29/23 05/29/23 18:59 06:59 18:59 Intake Total 838 Balance 838 Intake: Oral 838 Other: Voiding Method Urinal # Voids 3 3 - Labs CBC & Chem 7: 05/29/23 06:00 05/29/23 06:00 Labs: Abnormal Lab Results - Last 24 Hours (Table) 05/28/23 05/28/23 05/29/23 Range/Units 09:48 09:48 06:00 WBC 15.0 H (3.8-10.6) k/uL Glucose (74-99) mg/dL Hemoglobin A1c 6.6 H (<=6.0) % AST (17-59) U/L ALT (4-49) U/L Alkaline Phosphatase (38-126) U/L Troponin I 0.182 H* (0.000-0.034) ng/mL 05/29/23 Range/Units 06:00 WBC (3.8-10.6) k/uL Glucose 142 H (74-99) mg/dL Hemoglobin A1c (<=6.0) % AST 202 H (17-59) U/L ALT 230 H (4-49) U/L Alkaline Phosphatase 163 H (38-126) U/L Troponin I (0.000-0.034) ng/mL Microbiology - Last 24 Hours (Table) 05/27/23 13:44 Nasal Screen MRSA/MSSA - Final Nasal Swab 05/26/23 09:20 Blood Culture - Preliminary Blood 05/26/23 09:05 Blood Culture - Preliminary Blood
--- NOTE | 2023-05-29 11:38 | P.CNPUL ---
History of Present Illness Consult date: 05/29/23 Requesting physician: Ned Sousa Reason for consult: other Chief complaint: Preoperative evaluation. History of present illness: Pulmonary consult dated May 29, 2023. 72-year-old male that we are asked to see in preoperative evaluation. The patient was admitted with a non-ST segment elevation myocardial infarction, and cellulitis of the right lower extremity. He has a history of hypertension, hyperlipidemia, COPD, occasional alcohol use, and chronic and ongoing tobacco dependence. The patient apparently sees a physician over at the [place]. The patient is scheduled to have open heart surgery, on May 30. He is currently on a nebulizer machine, with albuterol sulfate and ipratropium bromide, and uses generic Advair, i.e. Wixela. The patient smoked 1 pack of cigarettes a day for 30 years. He has never seen a lung doctor in the past. The patient did have lung function performed while in the hospital. The patient's FEV1 was 2.63 L, and the patient's FVC was 2.78 L. The FEV1/FVC ratio was excellent. The FEF 25-75% was 1.50 L/s which is 65% of predicted. Based exclusively on the FEV1, the patient is at no increased operative risk. Patient does have some mild shortness of breath on exertion. Laboratory data includes a white count 15, hemoglobin 15.1, hematocrit 46.9, and a platelet count of 374,000. Sodium 137, potassium 3.9, chlorides 104, CO2 24, BUN 19, creatinine 1. The patient's AST is 202. The ALT is 230. Review of Systems REVIEW OF SYSTEMS: The patient is well and without complaints today. CONSTITUTIONAL: [Negative.] NEUROLOGIC: [ Negative.] HEENT: [ Negative.] CARDIAC: [Negative.] PULMONARY: [Negative.] GI: [Negative.] : [Negative.] RHEUMATOLOGIC: [ Negative.] IMMUNOLOGIC: [ Negative.] ENDOCRINE: [Negative. ] DERMATOLOGIC: [Negative.] Past Medical History Past Medical History: Coronary Artery Disease (CAD), COPD, Hyperlipidemia, Hypertension, Myocardial Infarction (NM) Additional Past Medical History / Comment(s): Cellulitis of the lower extremity History of Any Multi-Drug Resistant Organisms: None Reported Past Surgical History: Adenoidectomy, Cholecystectomy, Tonsillectomy Past Anesthesia/Blood Transfusion Reactions: No Reported Reaction Past Psychological History: No Psychological Hx Reported Smoking Status: Current every day smoker Past Alcohol Use History: Occasional Additional Past Alcohol Use History / Comment(s): Sixpack of beer per week Past Drug Use History: None Reported - Past Family History Sister(s) History Unknown: Yes Family Medical History: Cancer Additional Family Medical History / Comment(s): uterine cancer Mother Family Medical History: Dementia Father Additional Family Medical History / Comment(s): in his 90s of old age Medications and Allergies Home Medications Medication Instructions Recorded Confirmed Type Albuterol Sulfate [Proair Hfa] 2 puff INHALATION RT-Q6H PRN 11/24/18 05/26/23 History Lisinopril-Hctz 20-25 mg 1 tab PO DAILY 11/24/18 05/26/23 History [Zestoretic 20-25] Metoprolol Succinate (ER) [Toprol 100 mg PO DAILY 11/23/19 05/26/23 History Xl] amLODIPine [Norvasc] 5 mg PO DAILY 11/23/19 05/26/23 History Aspirin EC [Ecotrin Low Dose] 81 mg PO DAILY 05/26/23 05/26/23 History Atorvastatin [Lipitor] 40 mg PO HS 05/26/23 05/26/23 History Fluticasone Propion/Salmeterol 1 puff PO RT-BID 05/26/23 05/26/23 History [Fluticasone-Salmeterol 250-50] Ipratropium-Albuterol Nebulize 3 ml INHALATION RT-Q6H PRN 05/26/23 05/26/23 History [Duoneb 0.5 mg-3 mg/3 ml Soln] Allergies Allergy/AdvReac Type Severity Reaction Status Date / Time No Known Allergies Allergy Verified 05/26/23 08:19 Physical Exam Osteopathic Statement: *. No significant issues noted on an osteopathic structural exam other than those noted in the History and Physical/Consult. Vitals: Vital Signs Temp Pulse Resp BP Pulse Ox 05/29/23 09:00 88 16 05/29/23 08:00 97.6 F 88 18 115/77 94 L 05/29/23 04:00 97.8 F 70 16 106/52 94 L 05/29/23 00:00 74 16 110/64 95 05/28/23 20:00 98 F 70 16 118/71 96 05/28/23 16:00 67 16 128/71 95 05/28/23 13:00 98.1 F 73 18 106/63 96 Intake and Output 05/28/23 05/29/23 05/29/23 22:59 06:59 14:59 Output Total 325 Balance -325 Output: Urine 325 Other: Voiding Method Urinal # Voids 3 3 1 No acute distress, oriented 3. Currently on room air. Saturations are 95%. HEENT examination is grossly unremarkable. Mucous membranes are moist. No oral lesions. Neck supple. Full range of motion. No adenopathy thyromegaly or neck vein distention. Cardiovascular examination reveals regular rhythm rate. S1-S2 normal. No S3 or S4. No discernible murmur noted. Heart rate 88 bpm. Lungs reveal mostly clear breath sounds. Minimal rhonchi. No wheezes or crackles. Breath sounds equal bilaterally. Abdomen soft bowel sounds are heard. No masses or tenderness. Extremities are intact. No cyanosis clubbing or edema. Skin is without rash or lesion. Neurologic examination is brief but nonfocal. Results - Laboratory Findings CBC and BMP: 05/29/23 06:00 05/29/23 06:00 PT/INR, D-dimer PT 10.7 sec (10.0-12.5) 05/26/23 10:25 INR 1.0 (<1.2) 05/26/23 10:25 Abnormal lab findings: Abnormal Labs 05/25/23 05/25/23 05/25/23 22:53 22:53 22:53 WBC Lymphocytes # 0.5 L APTT Sodium 133 L Carbon Dioxide 17 L Glucose 107 H Hemoglobin A1c AST 73 H ALT 51 H Alkaline Phosphatase Troponin I 2.730 H* Albumin 3.4 L HDL Cholesterol Urine Ketones 05/26/23 05/26/23 05/26/23 04:25 10:24 10:25 WBC Lymphocytes # 0.4 L APTT Sodium Carbon Dioxide Glucose Hemoglobin A1c AST ALT Alkaline Phosphatase Troponin I 2.970 H* 2.940 H* Albumin HDL Cholesterol Urine Ketones 05/26/23 05/27/23 05/27/23 10:25 12:14 12:14 WBC Lymphocytes # APTT 46.3 H 46.8 H Sodium 132 L Carbon Dioxide 21 L Glucose 104 H Hemoglobin A1c AST ALT Alkaline Phosphatase Troponin I Albumin HDL Cholesterol 21.40 L Urine Ketones 05/28/23 05/28/23 05/28/23 06:53 09:48 09:48 WBC Lymphocytes # APTT Sodium Carbon Dioxide Glucose Hemoglobin A1c 6.6 H AST ALT Alkaline Phosphatase Troponin I 0.182 H* Albumin HDL Cholesterol Urine Ketones Trace H 05/29/23 05/29/23 06:00 06:00 WBC 15.0 H Lymphocytes # APTT Sodium Carbon Dioxide Glucose 142 H Hemoglobin A1c AST 202 H ALT 230 H Alkaline Phosphatase 163 H Troponin I Albumin HDL Cholesterol Urine Ketones - Diagnostic Findings Chest x-ray: image reviewed CT scan - chest: image reviewed Assessment and Plan Assessment: Non-ST segment elevation myocardial infarction. Multivessel coronary artery disease, with anticipated CABG, on May 30. Hypertension. History of COPD from previous heavy tobacco use. History of hyperlipidemia. Cellulitis, right lower extremity. Plan: Plan dated May 29, 2023. The patient is seen today in room 368. He is on room air. He is not receiving any IV fluids. The patient has excellent lung function. His FEV1 was 2.63 L which is 86% of predicted. The patient likely has very mild COPD. The patient uses generic Advair, i.e. Wixela at home, 250/50, 1 puff twice a day, and does have a nebulizer machine at home, and, uses albuterol sulfate, and ipratropium bromide, and the nebulizer machine. The patient apparently has never seen a lung doctor. Labs, x-rays, and medications are reviewed. We will continue to follow make recommendations along the way. Based on the patient's FEV1, exclusively, the patient is at no increased operative risk. Time with Patient: Greater than 30
--- NOTE | 2023-05-29 12:12 | P.PN ---
Subjective Progress Note Date: 05/29/23 Hospital course: Patient is a very pleasant 72-year-old male with a past medical history of hypertension, hyperlipidemia, and COPD with continued nicotine dependence. Patient presented to our facility as a transfer from [facility] where he presented with weakness and a fall and was found to have elevated troponins. Patient reported recent treatment for cellulitis on Bactrim and experiencing nausea, vomiting, and decreased oral intake over the past few days. Per documentation in chart workup at [facility] was completed including a CT of the brain which was negative for acute intercranial pathology and troponins initially reported negative increasing to 5.09 resulting in patient being started on heparin infusion followed by transfer to our facility for evaluation. Upon arrival to our facility patient underwent evaluation in the emergency department. Vital signs revealed blood pressure 140/83, heart rate 86, respiratory rate 12, temp 97.9 F, and SpO2 of 96% on room air. EKG was completed showing normal sinus rhythm at 84 bpm with no significant T wave or ST abnormalities showing no signs of acute ischemia upon personal review and interpretation. Chest x-ray completed showing findings concerning for bronchitis with mild to moderate peribronchial thickening of the central bronchi and trace right pleural effusion. CTA chest was completed negative for pulmonary emboli revealing a 1 cm subcarinal enlarged lymph node. Labs were completed and reviewed. CBC unremarkable. Coagulation profile normal findings. BMP revealed hyponatremia with sodium of 133 and hypocarbia with bicarb of 17. Blood glucose was 107. Magnesium normal findings at 2.0. Liver profile showing elevated AST of 73 and ALT of 51. Troponin was 2.730 and proBNP was 1620. Patient admitted under our services with consultation to cardiology. Troponins trended overnight resulting at 2.730 and 2.970. Patient was taken for cardiac catheterization this morning. Cardiac catheterization revealing three-vessel coronary artery disease, cardiology consulted cardiothoracic surgery to evaluate patient for bypass. Physical exam: Patient seen and fully evaluated at bedside this morning. He has complaints of nausea and vomiting overnight. Had BM last night, denies abd pain fevers. Vital signs reviewed and stable. General: Nontoxic, no distress and appears stated age. Derm: Skin warm and dry, normal coloration for ethnicity. Head: Atraumatic, normocephalic and symmetric. Eyes: EOMs intact, no lid lag, and anicteric sclera Mouth: no lip lesions, mucus membranes moist Cardiovascular: regular rate and rhythm with normal S1S2, no murmur, positive posterior tibial pulses bilaterally, and cap refill < 2 seconds. Lungs: Respirations even, regular, and unlabored on room air. Lungs CTA bilaterally, no rhonchi, no rales, no wheezing, and no accessory muscle usage. Abdominal: soft, nontender to palpation, no guarding, no appreciable organomegaly Ext: ROM intact. No gross muscle atrophy, no edema, no contractures Neuro: Speech clear, face symmetrical and CN II-XII grossly intact with no noted focal neuro deficits Psych: Alert and oriented to person, place, time, and situation. Appropriate and pleasant affect. Assessment and Plan of Care: NSTEMI Three-vessel coronary artery disease Hypertension Hyperlipidemia -Cardiology following and took patient for cardiac cath revealing three-vessel coronary artery disease recommending evaluation by cardiothoracic surgery to evaluate for CABG. -Cardiothoracic surgery consulted and patient undergoing testing for possible CABG. once results are obtained patient is tentatively scheduled for CABG on 05/31/2023 -Telemetry monitoring -Cardiac diet -Continue daily medication regimen with aspirin 81 mg daily, atorvastatin 40 mg nightly, amlodipine 5 mg daily, and lisinopril/hydrochlorothiazide 20/25 mg daily. -Lipid profile normal findings with exception of low HDL of 21.40. -Echocardiogram was completed and remains pending results. -Added zofran 4mg q6h PRN COPD with continued nicotine dependence -Continue Symbicort 160-4.5 mcg inhaler 2 puffs twice daily and Ventolin nebulizer treatments every 4 hours as needed for shortness of breath and/or wheezing. Data and imaging reviewed: -Morning labs reviewed. TSH 3.540. Repeat morning troponin showing downward trend resulting at 0.182. -Vital signs reviewed. Blood pressure 137/81, heart rate 82, respiratory rate 16, temp 97.8 F, and SpO2 of 95% on room air. CODE STATUS: Full code DVT prophylaxis: Heparin infusion Anticipated discharge date: Clinical course to determine Anticipated discharge place: Home Patient was seen independently by Nurse Pracitioner. This document was prepared using [employer] dictation software. Please allow for errors in rough planer tender, while rare they do occur. Objective - Vital Signs Vital signs: Vital Signs Temp 97.6 F 05/29/23 08:00 Pulse 88 04/07/24 09:00 Resp 16 05/29/23 09:00 BP 115/77 05/29/23 08:00 Pulse Ox 94 L 05/29/23 08:00 FiO2 Intake & Output 05/28/23 05/29/23 05/29/23 18:59 06:59 18:59 Intake Total 838 Output Total 325 Balance 838 -325 Intake: Oral 838 Output: Urine 325 Other: Voiding Method Urinal Urinal # Voids 3 3 1 - Labs CBC & Chem 7: 05/29/23 06:00 05/29/23 06:00 Labs: Abnormal Lab Results - Last 24 Hours (Table) 05/28/23 05/29/23 05/29/23 Range/Units 09:48 06:00 06:00 WBC 15.0 H (3.8-10.6) k/uL Glucose 142 H (74-99) mg/dL Hemoglobin A1c 6.6 H (<=6.0) % AST 202 H (17-59) U/L ALT 230 H (4-49) U/L Alkaline Phosphatase 163 H (38-126) U/L Microbiology - Last 24 Hours (Table) 05/27/23 13:44 Nasal Screen MRSA/MSSA - Final Nasal Swab 05/26/23 09:20 Blood Culture - Preliminary Blood 05/26/23 09:05 Blood Culture - Preliminary Blood
[2023-05-29] MEDS: MULTIVITAMINS, THERA 1 EACH TAB PO SCH (16:06)
[2023-05-29] MEDS: FOLIC ACID 1 MG TAB PO SCH (16:06)
[2023-05-30 09:45] LABS: HCT 41.1 % (39.0-53.0); HGB 13.8 gm/dL (13.0-17.5); MCH 30.9 pg (25.0-35.0); MCHC 33.6 g/dL (31.0-37.0); MCV 91.9 fL (80.0-100.0); Mean Platelet Volume 7.9; Platelet Count 352 k/uL (150-450); RBC 4.47 m/uL (4.30-5.90); RDW 14.5 % (11.5-15.5); WBC 8.6 k/uL (3.8-10.6)
--- NOTE | 2023-05-30 09:53 | P.PN ---
Subjective Progress Note Date: 05/30/23 Hospital course: Patient is a very pleasant 72-year-old male with a past medical history of hypertension, hyperlipidemia, and COPD with continued nicotine dependence. Patient presented to our facility as a transfer from [facility] where he presented with weakness and a fall and was found to have elevated troponins. Patient reported recent treatment for cellulitis on Bactrim and experiencing nausea, vomiting, and decreased oral intake over the past few days. Per documentation in chart workup at [facility] was completed including a CT of the brain which was negative for acute intercranial pathology and troponins initially reported negative increasing to 5.09 resulting in patient being started on heparin infusion followed by transfer to our facility for evaluation. Upon arrival to our facility patient underwent evaluation in the emergency department. Vital signs revealed blood pressure 140/83, heart rate 86, respiratory rate 12, temp 97.9 F, and SpO2 of 96% on room air. EKG was completed showing normal sinus rhythm at 84 bpm with no significant T wave or ST abnormalities showing no signs of acute ischemia upon personal review and interpretation. Chest x-ray completed showing findings concerning for bronchitis with mild to moderate peribronchial thickening of the central bronchi and trace right pleural effusion. CTA chest was completed negative for pulmonary emboli revealing a 1 cm subcarinal enlarged lymph node. Labs were completed and reviewed. CBC unremarkable. Coagulation profile normal findings. BMP revealed hyponatremia with sodium of 133 and hypocarbia with bicarb of 17. Blood glucose was 107. Magnesium normal findings at 2.0. Liver profile showing elevated AST of 73 and ALT of 51. Troponin was 2.730 and proBNP was 1620. Patient admitted under our services with consultation to cardiology. Troponins trended overnight resulting at 2.730 and 2.970. Patient was taken for cardiac catheterization this morning. Cardiac catheterization revealing three-vessel coronary artery disease, cardiology consulted cardiothoracic surgery to evaluate patient for bypass. Physical exam: Patient seen and fully evaluated at bedside this morning. He has no new complaints. N/V has resolved with zofran. Vital signs reviewed and stable. General: Nontoxic, no distress and appears stated age. Derm: Skin warm and dry, normal coloration for ethnicity. Head: Atraumatic, normocephalic and symmetric. Eyes: EOMs intact, no lid lag, and anicteric sclera Mouth: no lip lesions, mucus membranes moist Cardiovascular: regular rate and rhythm with normal S1S2, no murmur, positive posterior tibial pulses bilaterally, and cap refill < 2 seconds. Lungs: Respirations even, regular, and unlabored on room air. Lungs CTA bilaterally, no rhonchi, no rales, no wheezing, and no accessory muscle usage. Abdominal: soft, nontender to palpation, no guarding, no appreciable organomegaly Ext: ROM intact. No gross muscle atrophy, no edema, no contractures Neuro: Speech clear, face symmetrical and CN II-XII grossly intact with no noted focal neuro deficits Psych: Alert and oriented to person, place, time, and situation. Appropriate and pleasant affect. Assessment and Plan of Care: NSTEMI Three-vessel coronary artery disease Hypertension Hyperlipidemia -Cardiology following and took patient for cardiac cath revealing three-vessel coronary artery disease recommending evaluation by cardiothoracic surgery to evaluate for CABG. -Cardiothoracic surgery consulted and patient undergoing testing for possible CABG. once results are obtained patient is tentatively scheduled for CABG on 05/31/2023 -Telemetry monitoring -Cardiac diet -Continue daily medication regimen with aspirin 81 mg daily, atorvastatin 40 mg nightly, amlodipine 5 mg daily, and lisinopril/hydrochlorothiazide 20/25 mg daily. -Lipid profile normal findings with exception of low HDL of 21.40. -Echocardiogram was completed and remains pending results. -Added zofran 4mg q6h PRN COPD with continued nicotine dependence -Continue Symbicort 160-4.5 mcg inhaler 2 puffs twice daily and Ventolin nebulizer treatments every 4 hours as needed for shortness of breath and/or w heezing. Data and imaging reviewed: -Morning labs reviewed. TSH 3.540. Repeat morning troponin showing downward trend resulting at 0.182. -Vital signs reviewed. Blood pressure 137/81, heart rate 82, respiratory rate 16, temp 97.8 F, and SpO2 of 95% on room air. CODE STATUS: Full code DVT prophylaxis: Heparin infusion Anticipated discharge date: Clinical course to determine Anticipated discharge place: Home This document was prepared using [employer] dictation software. Please allow for errors in director of community education, while rare they do occur. Objective - Vital Signs Vital signs: Vital Signs Temp 97.9 F 05/30/23 08:58 Pulse 74 05/30/23 08:58 Resp 16 05/30/23 08:58 BP 155/80 05/30/23 08:58 Pulse Ox 93 L 05/30/23 08:58 FiO2 Intake & Output 05/29/23 05/30/23 05/30/23 18:59 06:59 18:59 Intake Total 100 358 Output Total 805 1325 225 Balance -705 -1325 133 Weight 90 kg Intake: Intake, IV Titration 100 Amount ceFAZolin 1,000 mg In 100 Sodium Chloride 0.9% 50 ml @ 100 mls/hr IVPB Q8HR [facility] Rx#:[id number] Oral 358 Output: Urine 805 1325 225 Other: Voiding Method Urinal Urinal # Voids 1 1 - Labs CBC & Chem 7: 05/29/23 06:00 05/29/23 06:00 Labs: Microbiology - Last 24 Hours (Table) 05/26/23 09:20 Blood Culture - Preliminary Blood 05/26/23 09:05 Blood Culture - Preliminary Blood
[2023-05-30 09:57] LABS: ALT 285 U/L (4-49); AST 203 U/L (17-59); African American GFR (CKD) >90 (>60 ml/min/1.73 sqM); Alkaline Phosphatase 122 U/L (38-126); Anion Gap 7 mmol/L; Blood Urea Nitrogen 17 mg/dL (9-20); Carbon Dioxide 25 mmol/L (22-30); Chloride 104 mmol/L (98-107); Glucose 108 mg/dL (74-99); Non-African American GFR(CKD) 87 (>60 ml/min/1.73 sqM); Sodium 136 mmol/L (137-145); Total Bilirubin 0.7 mg/dL (0.2-1.3); Total Protein 5.7 g/dL (6.3-8.2)
--- NOTE | 2023-05-30 10:09 | P.PN ---
Subjective Progress Note Date: 05/30/23 Principal diagnosis: Coronary artery disease, non-ST elevated myocardial infarction this admission. Past medical history significant for hypertension, hyperlipidemia, current toba account underwriter dependence, COPD, cellulitis to his right lower extremity treated with Bactrim and occasional EtOH use. The patient was seen and examined in follow-up today May 30, 2023 at his bedside on the third floor cardiac stepdown unit. Patient is currently laying in bed, is awake, alert, oriented x 3 and is in no acute apparent distress. Patient denies any complaints of pain or shortness of breath at this time and reports that his last bout of nausea and vomiting was yesterday morning. He has been afebrile in the last 24 hours. Oxygen saturations are 97% on room air and he is achieving 3500 mL on his incentive spirometry with encouragement. Remote telemetry is showing normal sinus rhythm heart rate 77 bpm. Continues to void with urine output 800 mL in the last 8 hours. He remains hemodynamically stable and is currently on no inotropic or pressor support. WBC count yesterday was 15.0, AST 202 and ALT 230. He was started on Ancef 1 g IV piggyback every 8 hours for cellulitis treatment and elevated white count. Transthoracic 2D echocardiogram report remains pending. Laboratory results reviewed, WBC count 8.6, AST 203 and ALT 285. Objective - Vital Signs Vital signs: Vital Signs Temp 97.9 F 05/30/23 08:58 Pulse 74 05/30/23 08:58 Resp 16 05/30/23 08:58 BP 155/80 05/30/23 08:58 Pulse Ox 93 L 05/30/23 08:58 FiO2 Intake & Output 05/29/23 05/30/23 05/30/23 18:59 06:59 18:59 Intake Total 100 358 Output Total 805 1325 225 Balance -705 -1325 133 Weight 90 kg Intake: Intake, IV Titration 100 Amount ceFAZolin 1,000 mg In 100 Sodium Chloride 0.9% 50 ml @ 100 mls/hr IVPB Q8HR [facility] Rx#:[id number] Oral 358 Output: Urine 805 1325 225 Other: Voiding Method Urinal Urinal # Voids 1 1 - Exam CONSTITUTIONAL:Appears comfortable, cooperative, no apparent acute distress. HEENT: Neck is supple, no JVD, no lymphadenopathy. RESPIRATORY: Lungs sounds essentially clear throughout, diminished to his bilateral bases. Respirations are symmetrical and nonlabored. Currently on room air with oxygen saturations 99%. Able to achieve 3500 mL on his incentive nicanor metry. Strong cough. CARDIOVASCULAR: Regular rhythm and rate. S1 and S2 present, negative for S3, gallop or murmur. No calf pain or tenderness noted. 1+ edema to his right lower extremity. GASTROINTESTINAL: Abdomen soft, nontender, nondistended. Active bowel sounds present 4 quadrants. Tolerating diet. Passing flatus. No guarding or rigidity. GENITOURINARY: Continues to void. INTEGUMENTARY: Skin is warm and dry with no evidence of clubbing or cyanosis. Erythema to his right lower extremity with dry flaky skin. NEUROLOGIC: Cranial nerves II through XII intact. No focal deficits. MUSKULOSKELETAL: Able to move all extremities, strength equal bilaterally. PSYCHIATRIC: Alert and oriented to person place and time, appropriate affect, intact judgment and insight. - Allied health notes Allied health notes reviewed: nursing - Labs CBC & Chem 7: 05/29/23 06:00 05/29/23 06:00 Labs: Microbiology - Last 24 Hours (Table) 05/26/23 09:20 Blood Culture - Preliminary Blood 05/26/23 09:05 Blood Culture - Preliminary Blood Assessment and Plan Assessment: Triple-vessel coronary artery disease, non-STEMI this admission Cellulitis of the right lower extremity, treated outpatient with Bactrim, currently on Ancef IV piggyback Hypertension Hyperlipidemia, treated cholesterol 99.0, LDL 48.0 Chronic ongoing tobacco dependence COPD with a preoperative FEV1 86% of predicted value with a base volume of 2.63 Occasional EtOH use, drinks 1 sixpack of beer per week Elevated transaminase, AST 203 and ALT 285 today Plan: Preoperative teaching and preoperative workup remains in progress, transthoracic 2D echocardiogram report remains pending, will continue to follow. Continue to maximize medical management with aspirin, statin and beta-lilia. WBC count 8.6 today, continue Ancef 1 g IV piggyback every 8 hours, cellulitis right lower extremity. Blood cultures show no growth after 72 hours. Encourage use of incentive spirometry 10 times every hour while awake. Medical management and other comorbidities per primary care service. Clinical frailty scoring has been completed, score was 4 which shows mild frailty. Discussed and reinforced with the patient the importance of risk modification including smoking cessation. Continue to monitor liver enzymes. Increase activity as tolerated. Out of bed for all meals. Wound care consulted for right lower extremity cellulitis. More recommendations to follow based on patient's clinical course. Time with Patient: Greater than 30
--- NOTE | 2023-05-30 10:16 | CA ---
Transthoracic Echo Report Name: Ashish Norton Age: 72 Gender: M : 1950 Exam Date: 05/26/2023 09:35 Exam Location: [facility] Ht (in): 69 Wt (lb): 213 Ordering Physician: Drea Chan Attending/Referring Phys: Pediatric Oncology Nurse Eliz Bae RCS Procedure CPT: Indications: LV function, NSTEMI Cardiac Hx: Technical Quality: Technically difficult study Contrast 1: Definity Total Dose (mL): 2 Contrast 2: Total Dose (mL): MEASUREMENTS (Male / Female) Normal Values 2D ECHO LV Diastolic Diameter PLAX 5.2 cm 4.2 - 5.9 / 3.9 - 5.3 cm LV Systolic Diameter PLAX 3.5 cm IVS Diastolic Thickness 0.8 cm 0.6 - 1.0 / 0.6 - 0.9 cm LVPW Diastolic Thickness 1.0 cm 0.6 - 1.0 / 0.6 - 0.9 cm LV Relative Wall Thickness 0.3 RV Internal Dim ED PLAX 3.5 cm LVOT Diameter 2.5 cm LV Diastolic Volume MOD BP 87.9 cm??? 67 - 155 / 56 - 104 cm??? LV Systolic Volume MOD BP 35.8 cm??? 22 - 58 / 19 - 49 cm??? LV Ejection Fraction MOD BP 59.3 % >= 55 % LV Cardiac Index MOD BP 2133.8 cm???/min???m??? LV Diastolic Volume MOD 4C 94.7 cm??? LV Systolic Volume MOD 4C 37.4 cm??? LV Ejection Fraction MOD 4C 60.5 % LV Cardiac Index MOD 4C 2347.3 cm???/min???m??? LV Diastolic Length 4C 9.0 cm LV Systolic Length 4C 7.1 cm LV Diastolic Volume MOD 2C 72.4 cm??? LV Systolic Volume MOD 2C 32.7 cm??? LV Ejection Fraction MOD 2C 54.8 % LV Cardiac Index MOD 2C 1622.8 cm???/min???m??? LV Diastolic Length 2C 8.0 cm LV Systolic Length 2C 6.8 cm LA Volume 38.2 cm??? 18 - 58 / 22 - 52 cm??? LA Volume Index 17.4 cm???/m??? 16 - 28 cm???/m??? Ascending Aorta Diameter 3.3 cm DOPPLER AV Peak Velocity 130.6 cm/s AV Peak Gradient 6.8 mmHg AV Mean Velocity 89.9 cm/s AV Mean Gradient 3.6 mmHg AV Velocity Time Integral 23.9 cm LVOT Peak Velocity 91.3 cm/s LVOT Peak Gradient 3.3 mmHg LVOT Velocity Time Integral 16.6 cm LVOT Stroke Volume 81.0 cm??? LVOT Stroke Volume Index 38.2 ml/m??? LVOT Cardiac Index 3318.0 cm???/min???m??? AV Area Cont Eq vti 3.4 cm??? AV Area Cont Eq pk 3.4 cm??? Mitral E Point Velocity 62.7 cm/s Mitral A Point Velocity 80.4 cm/s Mitral E to A Ratio 0.8 MV Deceleration Time 199.5 ms MV E' Velocity 5.4 cm/s Mitral E to MV E' Ratio 11.5 PV Peak Velocity 97.2 cm/s PV Peak Gradient 3.8 mmHg FINDINGS Left Ventricle Left ventricular ejection fraction is estimated at 55-60 %. Left ventricular cavity size normal. Left ventricular wall thickness normal. No obvious regional wall motion abnormalities. Right Ventricle Normal right ventricular size and function. Unable to estimate right ventricular systolic function. Right Atrium Normal right atrial size. Left Atrium Normal left atrial size. Mitral Valve Structurally normal mitral valve. No evidence for mitral valve prolapse. No mitral stenosis. Trace mitral regurgitation. Aortic Valve Trileaflet aortic valve. No aortic valve stenosis or regurgitation. Tricuspid Valve Structurally normal tricuspid valve. No tricuspid stenosis. Trace tricuspid regurgitation. Pulmonic Valve Pulmonic valve not well visualized. No pulmonic stenosis. No pulmonic regurgitation. Pericardium No pericardial effusion. Aorta Normal size aortic root and proximal ascending aorta. CONCLUSIONS Normal left ventricular EF 55-60% Trace mitral regurgitation Trace tricuspid regurgitation No pericardial effusion Previewed by: Dr. Keaton Toussaint DO (Electronically Signed) Final Date: 26 May 2023 12:44
[2023-05-30 10:53] LABS: Lymphocytes # (M) 1.98 k/uL (1.0-4.8); Monocytes # (M) 0.26 k/uL (0-1.0); Neutrophils # (M) 5.76 k/uL (1.3-7.7); Neutrophils % (M) 67 %; Nucleated Red Blood Cells 0 /100 WBC (0-0); Total Cells Counted 100
--- NOTE | 2023-05-30 12:46 | US ---
EXAMINATION TYPE: US venous doppler duplex LE RT DATE OF EXAM: 05/30/2023 11:51 AM COMPARISON: NONE CLINICAL INDICATION: Male, 72 years old with history of swelling; Edema and pain right leg SIDE PERFORMED: right TECHNIQUE: The lower extremity deep venous system is examined utilizing real time linear array sonog gonzález with graded compression, doppler sonography and color-flow sonography. VESSELS IMAGED: Common Femoral Vein Deep Femoral Vein Greater Saphenous Vein * Femoral Vein Popliteal Vein Small Saphenous Vein * Proximal Calf Veins (* superficial vessels) Right Leg: No evidence of DVT IMPRESSION: Grayscale, color doppler, spectral doppler imaging performed of the deep veins of the lo wer extremities. There is normal flow, compressibility, vascular waveforms.
--- NOTE | 2023-05-30 14:34 | P.PN ---
Subjective Progress Note Date: 05/30/23 HISTORY OF PRESENT ILLNESS: This is a 72-year-old male with a past medical history significant for CAD documented by CT scan, hypertension, hyperlipidemia, nicotine dependence. Patient follows in the office with Dr. Martin. We have been asked to see the patient in consultation for non-STEMI. Patient examined at the bedside in the emergency room. Patient was transferred from [facility]. Patient initially presented to the hospital due to generalized weakness. Patient states he has been on Bactrim for right lower extremity cellulitis for about 10 days. He states that he was having chills at home. He reports his extremities were shaking badly. He states he was so weak he was not able to get up on his own. The patient was found to have elevated troponins with a troponin of 5.0. He was started on a heparin drip and transferred to was cleared for further evaluation. The patient denies any chest pain or pressure. He denies any shortness of breath. DIAGNOSTICS: - EKG reveals sinus mechanism with nonspecific ST-T wave changes. - Chest xray findings concerning for bronchitis which may be infectious or inflammatory allergies. Trace right pleural effusion. No consolidation. - Chest CTA: Negative for pulmonary embolism. -Doppler study performed at outside facility was negative for DVT in the right lower extremity - Laboratory data: WBC 7.9. Hemoglobin 14.8. Platelet count 231. Sodium 133. Potassium 3.9. BUN 19. Creatinine 1.20. Magnesium 2.0. Troponin 2.730. 2.970. AST 73. ALT 51. proBNP 1620 - Current home cardiac medications include aspirin 81 mg daily, metoprolol succinate 100 mg daily, amlodipine 5 mg daily, Lipitor 40 mg at night, and lisinoprilhydrochlorothiazide 20-25 mg daily. - Most recent echocardiogram obtained in September 2021 reveals normal EF, mild MR, mild TR. -Patient underwent Lexiscan stress test in September 2021 which was negative for i schemia 05/28/2023 Patient is status post cardiac catheterization with Dr. Blackman revealing 50 to 60% ostial stenosis of the LAD, mid LAD 70 to 80% stenosis, circumflex coronary artery is a nondominant vessel showing 90% stenosis at the origin of the AV groove, right coronary artery has multiple segmental lesions 80 to 90% at their worst. CT surgery was consulted for evaluation and patient is tentatively scheduled for CABG next week. Patient examined this morning the bedside. He denies any chest pain or pressure. He denies any shortness of breath. Telemetry reveals sinus mechanism. Vital signs are stable. 05/29/2023 Patient examined this morning at bedside. Patient states he is not feeling well this morning. Patient has had multiple episodes of vomiting and diarrhea. Vital signs are stable. Telemetry reveals sinus mechanism. 05/29 Patient's right lower extremity cellulitis is improving. He has been on IV antibiotics to treat this and surgery has been postponed. Otherwise he denies having any chest pain, shortness of breath. He is ambulating without symptoms. No lightheadedness or dizziness. Blood pressure 110/62, heart rate is in the 70s. Pulse ox 97% on room air. Repeat blood work reveals WBC 8.6, hemoglobin 13.8. Sodium 136, potassium 4, BUN 17 creatinine 0.88. AST and ALT remain elevated with AST 203, ALT 285. Alkaline phosphatase has normalized to 122. Venous Doppler study of the right lower extremity is negative for DVT. Echocardiogram from 05/25 reveals EF 55 to 60%. Trace mitral regurgitation, trace tricuspid regurgitation. No pericardial effusion. PHYSICAL EXAM: VITAL SIGNS: Reviewed. GENERAL: Well-developed in no acute distress. HEENT: Head is normocephalic. Pupils are equal, round. Sclerae anicteric. Mucous membranes of the mouth are moist. Neck supple. No JVD or thyromegaly LUNGS: Respirations even and unlabored. Lungs essentially clear to auscultation bilaterally. HEART: Regular rate and rhythm. S1 and S2 heard. ABDOMEN: Soft. Nondistended. Nontender. EXTREMITIES: Normal range of motion. No clubbing or cyanosis. Peripheral pulses intact. Right leg with trace edema noted. Right leg > than left leg. NEUROLOGIC: Awake and alert. Oriented x 3. ASSESSMENT: Non-STEMI, status post cardiac catheterization revealing triple-vessel coronary artery disease Right lower extremity cellulitis Vomiting and diarrhea Severe coronary artery calcifications, per CT thorax at [facility] Hypertension Hyperlipidemia Nicotine dependence Elevated LFTs PLAN: 2D echo has been ordered. Await results. If any valvular issues noted on e chocardiogram, patient will require MELY. Continue current cardiac medications CT surgery following. Patient to be rescheduled for CABG due to leukocytosis and right lower extremity cellulitis Continue telemetry monitoring Further recommendations pending patient course Nurse practitioner note has been reviewed by physician. Signing provider agrees with the documented findings, assessment, and plan of care documented by DISTRIBUTOR SALES MANAGER as a scribe. Objective - Vital Signs Vital signs: Vital Signs Temp 98 F 05/30/23 11:16 Pulse 73 05/30/23 11:16 Resp 16 05/30/23 11:16 BP 139/89 05/30/23 11:16 Pulse Ox 98 05/30/23 11:16 FiO2 Intake & Output 05/29/23 05/30/23 05/30/23 18:59 06:59 18:59 Intake Total 100 358 Output Total 805 1325 225 Balance -705 -1325 133 Weight 90 kg 90 kg Intake: Intake, IV Titration 100 Amount ceFAZolin 1,000 mg In 100 Sodium Chloride 0.9% 50 ml @ 100 mls/hr IVPB Q8HR [facility] Rx#:[id number] Oral 358 Output: Urine 805 1325 225 Other: Voiding Method Urinal Urinal # Voids 1 1 - Labs CBC & Chem 7: 05/30/23 08:35 05/30/23 08:35 Labs: Abnormal Lab Results - Last 24 Hours (Table) 05/30/23 Range/Units 08:35 Sodium 136 L (137-145) mmol/L Glucose 108 H (74-99) mg/dL AST 203 H (17-59) U/L ALT 285 H (4-49) U/L Total Protein 5.7 L (6.3-8.2) g/dL Albumin 3.0 L (3.5-5.0) g/dL Microbiology - Last 24 Hours (Table) 05/26/23 09:20 Blood Culture - Preliminary Blood 05/26/23 09:05 Blood Culture - Preliminary Blood
--- NOTE | 2023-05-30 16:18 | P.PN ---
Subjective Progress Note Date: 05/30/23 72-year-old male that we are asked to see in preoperative evaluation. The patient was admitted with a non-ST segment elevation myocardial infarction, and cellulitis of the right lower extremity. He has a history of hypertension, hyperlipidemia, COPD, occasional alcohol use, and chronic and ongoing tobacco dependence. The patient apparently sees a physician over at the [place]. The patient is scheduled to have open heart surgery, on May 30. He is currently on a nebulizer machine, with albuterol sulfate and ipratropium bromide, and uses generic Advair, i.e. Wixela. The patient smoked 1 pack of cigarettes a day for 30 years. He has never seen a lung doctor in the past. The patient did have lung function performed while in the hospital. The patient's FEV1 was 2.63 L, and the patient's FVC was 2.78 L. The FEV1/FVC ratio was excellent. The FEF 25-75% was 1.50 L/s which is 65% of predicted. Based exclusively on the FEV1, the patient is at no increased operative risk. Patient does have some mild shortness of breath on exertion. Laboratory data includes a white count 15, hemoglobin 15.1, hematocrit 46.9, and a platelet count of 374,000. Sodium 137, potassium 3.9, chlorides 104, CO2 24, BUN 19, creatinine 1. The patient's AST is 202. The ALT is 230. On today's evaluation of 05/30/2023, the patient is calm and comfortable. Denies having any specific complaints. No reported chest pain. There is an issue with the right lower extremity cellulitis and the patient is currently on IV antibiotics. The right lower extremity is also swollen compared to the left and we will recheck a Doppler of the lower extremity. Note that this was done at [facility] it was reported to be as negative. Pulse ox is 95 to 97% on room air oxygen. White count of 8.6 with a hemoglobin 15.8 and a sodium is at 136 with a potassium level of 4, BUN is at 17 with a creatinine of 0.88. LFTs are mildly elevated and the patient has a AST of 203 with an ALT of 285, bilirubin is within normal limits. The viral hepatitis screen has been negative. UA has been negative. The patient remains on aspirin 81 mg p.o. daily, the patient is also on metoprolol 100 mg p.o. daily. The patient on Imdur 30 mg p.o. daily. The patient is on IV cefazolin regarding right lower extremity cellulitis. The patient is also on Lipitor 40 mg p.o. daily. Norvasc is for blood pressure control at 5 mg p.o. daily. No respiratory difficulties at this point. Objective - Vital Signs Vital signs: Vital Signs Temp 98 F 05/30/23 11:16 Pulse 73 05/30/23 11:16 Resp 16 05/30/23 11:16 BP 139/89 05/30/23 11:16 Pulse Ox 98 05/30/23 11:16 FiO2 Intake & Output 05/29/23 05/30/23 05/30/23 18:59 06:59 18:59 Intake Total 100 358 Output Total 805 1325 225 Balance -255 -6175 133 Weight 90 kg Intake: Intake, IV Titration 100 Amount ceFAZolin 1,000 mg In 100 Sodium Chloride 0.9% 50 ml @ 100 mls/hr IVPB Q8HR [facility] Rx#:[id number] Oral 358 Output: Urine 805 1325 225 Other: Voiding Method Urinal Urinal # Voids 1 1 - Exam No acute distress, oriented 3. Currently on room air. Saturations are 95%. HEENT examination is grossly unremarkable. Mucous membranes are moist. No oral lesions. Neck supple. Full range of motion. No adenopathy thyromegaly or neck vein distention. Cardiovascular examination reveals regular rhythm rate. S1-S2 normal. No S3 or S4. No discernible murmur noted. Heart rate 88 bpm. Lungs reveal mostly clear breath sounds. Minimal rhonchi. No wheezes or crac kles. Breath sounds equal bilaterally. Abdomen soft bowel sounds are heard. No masses or tenderness. Extremities are intact. No cyanosis clubbing or edema. There is some cellulitis involving the right lower extremity just below the knee which is improving. Minimal erythema. No active drainage. Scaling of the skin Skin is without rash or lesion. Neurologic examination is brief but nonfocal. - Labs CBC & Chem 7: 05/30/23 08:35 05/30/23 08:35 Labs: Abnormal Lab Results - Last 24 Hours (Table) 05/30/23 Range/Units 08:35 Sodium 136 L (137-145) mmol/L Glucose 108 H (74-99) mg/dL AST 203 H (17-59) U/L ALT 285 H (4-49) U/L Total Protein 5.7 L (6.3-8.2) g/dL Albumin 3.0 L (3.5-5.0) g/dL Microbiology - Last 24 Hours (Table) 05/26/23 09:20 Blood Culture - Preliminary Blood 05/26/23 09:05 Blood Culture - Preliminary Blood Assessment and Plan Plan: Triple-vessel coronary artery disease, non-STEMI this admission, awaiting aortic consultation by cardiothoracic surgery. Currently on aspirin and metoprolol the patient is free of any chest pain. The patient is also on Imdur. Cellulitis of the right lower extremity, treated outpatient with Bactrim, currently on Ancef IV piggyback, the Doppler of the lower extremity was ordered Hypertension, currently on Norvasc 5 mg p.o. daily Hyperlipidemia, treated cholesterol 99.0, LDL 48.0 Chronic ongoing tobacco dependence COPD with a preoperative FEV1 86% of predicted value with a base volume of 2.63 Occasional EtOH use, drinks 1 sixpack of beer per week Elevated transaminase,, LFTs continues to be mildly elevated and the patient remains on Lipitor. Could be related to chronic alcohol consumption. Plan Awaiting surgical consultation and consideration for bypass surgery Continue IV cefazolin Monitor LFTs and continue Lipitor for now No signs of any delirium tremens Overall respiratory status is stable Doppler of the right lower extremity rule out DVT Continue same cardiac medication. Continue Norvasc for blood pressure control. Currently on room air oxygen and will continue to follow.
--- NOTE | 2023-05-31 10:21 | P.CONS ---
History of Present Illness - Reason for Consult Consult date: 05/31/23 wound care - History of Present Illness This is a 72-year-old male with past medical history significant for CAD, hypertension, hyperlipidemia, nicotine dependence being seen on 3 [address]. for cellulitis of the right lower extremity. Patient states that he had redness and swelling to the right lower extremity for the last few days however it is improved. He was transferred from [facility] for a consultation for non-STEMI. At this time patient has no open ulcerations to the right lower extremity. Erythema noted to the anterior right lower extremity with skin flaking minimal edema. Review Of Systems: Constitutional: No fever, no chills, no night sweats. No weight change. No weakness, fatigue or lethargy. No daytime sleepiness. Integumentary:reports wounds, no lesions. No rash or pruritus. No unusual brui sing. No change in hair or nails. Physical exam: General Appearance: Alert, cooperative, no distress, appears stated age. Skin: See HPI all other Skin color, texture, tugor normal, no rashes or lesions. Neurologic: Alert oriented x3 Assessment: 1. Cellulitis of right lower extremity resolved 2. Coronary artery disease Plan: 1. May apply lotion to the site. No further interventions needed. Thank you for the consultation any questions with contact the wound care center DNP note has been reviewed and discussed with Dr. Randolph and the impression and plan of care has been directed as dictated. Past Medical History Past Medical History: Coronary Artery Disease (CAD), COPD, Hyperlipidemia, Hypertension, Myocardial Infarction ([place]) Additional Past Medical History / Comment(s): Cellulitis of the lower extremity History of Any Multi-Drug Resistant Organisms: None Reported Past Surgical History: Adenoidectomy, Cholecystectomy, Tonsillectomy Past Anesthesia/Blood Transfusion Reactions: No Reported Reaction Past Psychological History: No Psychological Hx Reported Smoking Status: Current every day smoker Past Alcohol Use History: Occasional Additional Past Alcohol Use History / Comment(s): Sixpack of beer per week Past Drug Use History: None Reported - Past Family History Sister(s) History Unknown: Yes Family Medical History: Cancer Additional Family Medical History / Comment(s): uterine cancer Mother Family Medical History: Dementia Father Additional Family Medical History / Comment(s): in his 90s of old age Medications and Allergies Home Medications Medication Instructions Recorded Confirmed Type Albuterol Sulfate [Proair Hfa] 2 puff INHALATION RT-Q6H PRN 11/24/18 05/26/23 History Lisinopril-Hctz 20-25 mg 1 tab PO DAILY 11/24/18 05/26/23 History [Zestoretic 20-25] Metoprolol Succinate (ER) [Toprol 100 mg PO DAILY 11/23/19 05/26/23 History Xl] amLODIPine [Norvasc] 5 mg PO DAILY 11/23/19 05/26/23 History Aspirin EC [Ecotrin Low Dose] 81 mg PO DAILY 05/26/23 05/26/23 History Atorvastatin [Lipitor] 40 mg PO HS 05/26/23 05/26/23 History Fluticasone Propion/Salmeterol 1 puff PO RT-BID 05/26/23 05/26/23 History [Fluticasone-Salmeterol 250-50] Ipratropium-Albuterol Nebulize 3 ml INHALATION RT-Q6H PRN 05/26/23 05/26/23 History [Duoneb 0.5 mg-3 mg/3 ml Soln] Allergies Allergy/AdvReac Type Severity Reaction Status Date / Time No Known Allergies Allergy Verified 05/26/23 08:19 Physical Exam Vitals: Vital Signs Temp Pulse Pulse Resp BP BP Pulse Ox 05/31/23 07:47 97.4 F L 70 18 129/78 97 05/31/23 07:44 97.8 F 71 16 131/77 96 05/31/23 04:00 74 18 136/78 95 05/30/23 23:46 69 18 131/72 96 05/30/23 20:00 97.8 F 72 72 16 126/74 97 05/30/23 15:57 98.1 F 76 16 135/78 96 05/30/23 11:16 98 F 73 16 139/89 98 Intake and Output 05/30/23 05/31/23 05/31/23 22:59 06:59 14:59 Intake Total 358 240 Output Total 500 350 Balance -142 -110 Intake: Oral 358 240 Output: Urine 500 350 Other: Voiding Method Urinal Urinal Urinal Results CBC & Chem 7: 05/30/23 08:35 05/30/23 08:35 Assessment and Plan (1) Cellulitis of right anterior lower leg Current Visit: Yes Status: Acute Code(s): L03.115 - CELLULITIS OF RIGHT LOWER LIMB SNOMED Code(s): 718580445 (2) Coronary artery disease Current Visit: Yes Status: Acute Code(s): I25.10 - ATHSCL HEART DISEASE OF [place] CORONARY ARTERY W/O ANG PCTRS SNOMED Code(s): 27974950
[2023-05-31 11:03] LABS: HCT 43.2 % (39.0-53.0); HGB 13.9 gm/dL (13.0-17.5); MCH 29.5 pg (25.0-35.0); MCHC 32.2 g/dL (31.0-37.0); MCV 91.5 fL (80.0-100.0); Mean Platelet Volume 8.2; Platelet Count 435 k/uL (150-450); RBC 4.72 m/uL (4.30-5.90); RDW 14.2 % (11.5-15.5); WBC 8.6 k/uL (3.8-10.6)
--- NOTE | 2023-05-31 11:30 | P.PN ---
Subjective Progress Note Date: 05/31/23 Hospital course: Patient is a very pleasant 72-year-old male with a past medical history of hyp ertension, hyperlipidemia, and COPD with continued nicotine dependence. Patient presented to our facility as a transfer from [facility] where he presented with weakness and a fall and was found to have elevated troponins. Patient reported recent treatment for cellulitis on Bactrim and experiencing nausea, vomiting, and decreased oral intake over the past few days. Per documentation in chart workup at [facility] was completed including a CT of the brain which was negative for acute intercranial pathology and troponins initially reported negative increasing to 5.09 resulting in patient being started on heparin infusion followed by transfer to our facility for evaluation. Upon arrival to our facility patient underwent evaluation in the emergency department. Vital signs revealed blood pressure 140/83, heart rate 86, respiratory rate 12, temp 97.9 F, and SpO2 of 96% on room air. EKG was completed showing normal sinus rhythm at 84 bpm with no significant T wave or ST abnormalities showing no signs of acute ischemia upon personal review and interpretation. Chest x-ray completed showing findings concerning for bronchitis with mild to moderate peribronchial thickening of the central bronchi and trace right pleural effusion. CTA chest was completed negative for pulmo nary emboli revealing a 1 cm subcarinal enlarged lymph node. Labs were completed and reviewed. CBC unremarkable. Coagulation profile normal findings. BMP revealed hyponatremia with sodium of 133 and hypocarbia with bicarb of 17. Blood glucose was 107. Magnesium normal findings at 2.0. Liver profile showing elevated AST of 73 and ALT of 51. Troponin was 2.730 and proBNP was 1620. Patient admitted under our services with consultation to cardiology. Troponins trended overnight resulting at 2.730 and 2.970. Patient was taken for cardiac catheterization. Cardiac catheterization revealing three-vessel coronary artery disease, cardiology consulted cardiothoracic surgery to evaluate patient for bypass. Likely CABG on . Echocardiogram showed normal LVEF 55 to 60%. Physical exam: Patient seen and fully evaluated at bedside this morning. No acute events overnight. No new complaints. Vital signs reviewed and stable. General: Nontoxic, no distress and appears stated age. Derm: Skin warm and dry, right lower extremity mild erythema, no tenderness or edema or warmth Head: Atraumatic, normocephalic and symmetric. Eyes: EOMs intact, no lid lag, and anicteric sclera Mouth: no lip lesions, mucus membranes moist Cardiovascular: regular rate and rhythm with normal S1S2, no murmur, positive posterior tibial pulses bilaterally, and cap refill < 2 seconds. Lungs: Respirations even, regular, and unlabored on room air. Lungs CTA bilaterally, no rhonchi, no rales, no wheezing, and no accessory muscle usage. Abdominal: soft, nontender to palpation, no guarding, no appreciable organomegaly Ext: ROM intact. No gross muscle atrophy, no edema, no contractures Neuro: Speech clear, face symmetrical and CN II-XII grossly intact with no noted focal neuro deficits Psych: Alert and oriented to person, place, time, and situation. Appropriate and pleasant affect. Assessment and Plan of Care: NSTEMI Three-vessel coronary artery disease Hypertension Hyperlipidemia Right lower extremity cellulitis -Cardiology recommending CABG -Cardiothoracic surgery recommended to continue cefazolin 1 g IV every 8 hours, tentative surgical intervention this -Telemetry monitoring -Cardiac diet -Continue daily medication regimen with aspirin 81 mg daily, atorvastatin 40 mg nightly, amlodipine 5 mg daily, and lisinopril/hydrochlorothiazide 20/25 mg daily., Metoprolol 100 daily -Echocardiogram was completed and remains pending results. -Added zofran 4mg q6h PRN COPD with continued nicotine dependence -Continue Symbicort 160-4.5 mcg inhaler 2 puffs twice daily and Ventolin nebulizer treatments every 4 hours as needed for shortness of breath and/or wheezing. - Nicotine patch 21 mg daily Subcarinal lymph node - Incidental finding, 1 cm - Outpatient follow-up Elevated transaminases - Stable - CMP pending, will be reviewed when available - Hepatitis panel negative Data and imaging reviewed: -Morning labs reviewed. WBC 8.6, hemoglobin 13.9, 135, pending, will be reviewed when available CODE STATUS: Full code DVT prophylaxis: SQ heparin Anticipated discharge date: Clinical course to determine Anticipated discharge place: Home Objective - Vital Signs Vital signs: Vital Signs Temp 97.5 F L 05/31/23 11:22 Pulse 77 05/31/23 11:22 Resp 17 05/31/23 11:22 BP 125/73 05/31/23 11:22 Pulse Ox 98 05/31/23 11:22 FiO2 Intake & Output 05/30/23 05/31/2305/30/24 18:59 06:59 18:59 Intake Total 716 240 Output Total 725 350 Balance -9 -110 Weight 90 kg Intake: Oral 716 240 Output: Urine 725 350 Other: Voiding Method Urinal Urinal # Voids 1 - Labs CBC & Chem 7: 05/31/23 09:49 05/30/23 08:35
[2023-05-31 11:37] LABS: ALT 234 U/L (4-49); AST 124 U/L (17-59); African American GFR (CKD) >90 (>60 ml/min/1.73 sqM); Albumin 3.4 g/dL (3.5-5.0); Alkaline Phosphatase 133 U/L (38-126); Anion Gap 10 mmol/L; Blood Urea Nitrogen 13 mg/dL (9-20); Calcium 9.4 mg/dL (8.4-10.2); Carbon Dioxide 21 mmol/L (22-30); Chloride 106 mmol/L (98-107); Glucose 126 mg/dL (74-99); Non-African American GFR(CKD) >90 (>60 ml/min/1.73 sqM); Potassium 4.1 mmol/L (3.5-5.1); Sodium 137 mmol/L (137-145); Total Bilirubin 0.6 mg/dL (0.2-1.3); Total Protein 6.3 g/dL (6.3-8.2)
--- NOTE | 2023-05-31 14:02 | P.PN ---
Subjective Progress Note Date: 05/31/23 72-year-old male that we are asked to see in preoperative evaluation. The patient was admitted with a non-ST segment elevation myocardial infarction, and cellulitis of the right lower extremity. He has a history of hypertension, hyperlipidemia, COPD, occasional alcohol use, and chronic and ongoing tobacco dependence. The patient apparently sees a physician over at the [place]. The patient is scheduled to have open heart surgery, on May 30. He is currently on a nebulizer machine, with albuterol sulfate and ipratropium bromide, and uses generic Advair, i.e. Wixela. The patient smoked 1 pack of cigarettes a day for 30 years. He has never seen a lung doctor in the past. The patient did have lung function performed while in the hospital. The patient's FEV1 was 2.63 L, and the patient's FVC was 2.78 L. The FEV1/FVC ratio was excellent. The FEF 25-75% was 1.50 L/s which is 65% of predicted. Based exclusively on the FEV1, the patient is at no increased operative risk. Patient does have some mild shortness of breath on exertion. Laboratory data includes a white count 15, hemoglobin 15.1, hematocrit 46.9, and a platelet count of 374,000. Sodium 137, potassium 3.9, chlorides 104, CO2 24, BUN 19, creatinine 1. The patient's AST is 202. The ALT is 230. On today's evaluation of 05/30/2023, the patient is calm and comfortable. Denies having any specific complaints. No reported chest pain. There is an issue with the right lower extremity cellulitis and the patient is currently on IV antibiotics. The right lower extremity is also swollen compared to the left and we will recheck a Doppler of the lower extremity. Note that this was done at [facility] it was reported to be as negative. Pulse ox is 95 to 97% on room air oxygen. White count of 8.6 with a hemoglobin 15.8 and a sodium is at 136 with a potassium level of 4, BUN is at 17 with a creatinine of 0.88. LFTs are mildly elevated and the patient has a AST of 203 with an ALT of 285, bilirubin is within normal limits. The viral hepatitis screen has been negative. UA has been negative. The patient remains on aspirin 81 mg p.o. daily, the patient is also on metoprolol 100 mg p.o. daily. The patient on Imdur 30 mg p.o. daily. The patient is on IV cefazolin regarding right lower extremity cellulitis. The patient is also on Lipitor 40 mg p.o. daily. Norvasc is for blood pressure control at 5 mg p.o. daily. No respiratory difficulties at this point. On today's evaluation of 05/31/2023, I am seeing the patient for a follow-up. The patient cellulitis is improving and the patient has no specific complaints. No chest pain. No cough or sputum production. Awaiting his cardiac bypass surgery that is going to be done on 06/02/2023. The patient has triple-vessel coronary artery disease. The patient is also known to have hypertension hyperlipidemia in addition to right lower extremity cellulitis and the patient is currently on IV cefazolin. Using incentive spirometer. Labs are all stable, hemoglobin at 13.9, white cell count is down to 8.6, BUN is at 30 with a creatinine of 0.7 and sodium levels at 137. Objective - Vital Signs Vital signs: Vital Signs Temp 97.4 F L 05/31/23 07:47 Pulse 70 05/31/23 07:47 Resp 18 05/31/23 07:47 BP 129/78 05/31/23 07:47 Pulse Ox 97 05/31/23 07:47 FiO2 Intake & Output 05/30/23 05/31/23 05/31/23 18:59 06:59 18:59 Intake Total 716 240 Output Total 725 350 Balance -9 -110 Weight 90 kg Intake: Oral 716 240 Output: Urine 725 350 Other: Voiding Method Urinal Urinal # Voids 1 - Exam No acute distress, oriented 3. Currently on room air. Saturations are 95%. HEENT examination is grossly unremarkable. Mucous membranes are moist. No oral lesions. Neck supple. Full range of motion. No adenopathy thyromegaly or neck vein distention. Cardiovascular examination reveals regular rhythm rate. S1-S2 normal. No S3 or S4. No discernible murmur noted. Heart rate 88 bpm. Lungs reveal mostly clear breath sounds. Minimal rhonchi. No wheezes or crackles. Breath sounds equal bilaterally. Abdomen soft bowel sounds are heard. No masses or tenderness. Extremities are intact. No cyanosis clubbing or edema. There is some cellulitis involving the right lower extremity just below the knee which is improving. Minimal erythema. No active drainage. Scaling of the skin Skin is without rash or lesion. Neurologic examination is brief but nonfocal. - Labs CBC & Chem 7: 05/31/23 09:49 05/31/23 09:49 Assessment and Plan Plan: Triple-vessel coronary artery disease, non-STEMI this admission, awaiting aortic consultation by cardiothoracic surgery. Currently on aspirin and metoprolol the patient is free of any chest pain. The patient is also on Imdur. Cellulitis of the right lower extremity, improving and the patient's white cell count is improved and the patient cellulitis also improving clinically. Hypertension, currently on Norvasc 5 mg p.o. daily Hyperlipidemia, treated cholesterol 99.0, LDL 48.0 Chronic ongoing tobacco dependence COPD with a preoperative FEV1 86% of predicted value with a base volume of 2.63 Occasional EtOH use, drinks 1 sixpack of beer per week Elevated transaminase,, LFTs continues to be mildly elevated and the patient remains on Lipitor. Could be related to chronic alcohol consumption. Acute leukocytosis, improving Plan Awaiting surgical consultation and consideration for bypass surgery, surgery is tentatively scheduled on 06/02/2023 White cell count is improving Continue IV cefazolin Monitor LFTs and continue Lipitor for now No signs of any delirium tremens Overall respiratory status is stable Doppler of the right lower extremity rule out DVT Continue same cardiac medication. Continue Norvasc for blood pressure control. Continue metoprolol 100 mg p.o. twice a day Currently on room air oxygen and will continue to follow.
--- NOTE | 2023-05-31 14:51 | P.PN ---
Subjective Progress Note Date: 05/31/23 HISTORY OF PRESENT ILLNESS: This is a 72-year-old male with a past medical history significant for CAD documented by CT scan, hypertension, hyperlipidemia, nicotine dependence. Patient follows in the office with Dr. Martin. We have been asked to see the patient in consultation for non-STEMI. Patient examined at the bedside in the emergency room. Patient was transferred from [facility]. Patient initially presented to the hospital due to generalized weakness. Patient states he has been on Bactrim for right lower extremity cellulitis for about 10 days. He states that he was having chills at home. He reports his extremities were shaking badly. He states he was so weak he was not able to get up on his own. The patient was found to have elevated troponins with a troponin of 5.0. He was started on a heparin drip and transferred to was cleared for further evaluation. The patient denies any chest pain or pressure. He denies any shortness of breath. DIAGNOSTICS: - EKG reveals sinus mechanism with nonspecific ST-T wave changes. - Chest xray findings concerning for bronchitis which may be infectious or inflammatory allergies. Trace right pleural effusion. No consolidation. - Chest CTA: Negative for pulmonary embolism. -Doppler study performed at outside facility was negative for DVT in the right lower extremity - Laboratory data: WBC 7.9. Hemoglobin 14.8. Platelet count 231. Sodium 133. Potassium 3.9. BUN 19. Creatinine 1.20. Magnesium 2.0. Troponin 2.730. 2.970. AST 73. ALT 51. proBNP 1620 - Current home cardiac medications include aspirin 81 mg daily, metoprolol succinate 100 mg daily, amlodipine 5 mg daily, Lipitor 40 mg at night, and lisinoprilhydrochlorothiazide 20-25 mg daily. - Most recent echocardiogram obtained in September 2021 reveals normal EF, mild MR, mild TR. -Patient underwent Lexiscan stress test in September 2021 which was negative for i schemia 05/28/2023 Patient is status post cardiac catheterization with Dr. Blackman revealing 50 to 60% ostial stenosis of the LAD, mid LAD 70 to 80% stenosis, circumflex coronary artery is a nondominant vessel showing 90% stenosis at the origin of the AV groove, right coronary artery has multiple segmental lesions 80 to 90% at their worst. CT surgery was consulted for evaluation and patient is tentatively scheduled for CABG next week. Patient examined this morning the bedside. He denies any chest pain or pressure. He denies any shortness of breath. Telemetry reveals sinus mechanism. Vital signs are stable. 05/29/2023 Patient examined this morning at bedside. Patient states he is not feeling well this morning. Patient has had multiple episodes of vomiting and diarrhea. Vital signs are stable. Telemetry reveals sinus mechanism. 05/29 Patient's right lower extremity cellulitis is improving. He has been on IV antibiotics to treat this and surgery has been postponed. Otherwise he denies having any chest pain, shortness of breath. He is ambulating without symptoms. No lightheadedness or dizziness. Blood pressure 110/62, heart rate is in the 70s. Pulse ox 97% on room air. Repeat blood work reveals WBC 8.6, hemoglobin 13.8. Sodium 136, potassium 4, BUN 17 creatinine 0.88. AST and ALT remain elevated with AST 203, ALT 285. Alkaline phosphatase has normalized to 122. Venous Doppler study of the right lower extremity is negative for DVT. Echocardiogram from 05/25 reveals EF 55 to 60%. Trace mitral regurgitation, trace tricuspid regurgitation. No pericardial effusion. 05/30 Patient been denies chest pain, no shortness of breath. He has been ambulating in the hallway without difficulty. Blood pressure 129/70, heart rate 70, pulse ox 97% on room air. Right lower extremity cellulitis is improving. He states that CABG is possibly on for . PHYSICAL EXAM: VITAL SIGNS: Reviewed. GENERAL: Well-developed in no acute distress. HEENT: Head is normocephalic. Pupils are equal, round. Sclerae anicteric. Mucous membranes of the mouth are moist. Neck supple. No JVD or thyromegaly LUNGS: Respirations even and unlabored. Lungs essentially clear to auscultation bilaterally. HEART: Regular rate and rhythm. S1 and S2 heard. ABDOMEN: Soft. Nondistended. Nontender. EXTREMITIES: Normal range of motion. No clubbing or cyanosis. Peripheral pulses intact. Right leg with trace edema noted. Right leg > than left leg. NEUROLOGIC: Awake and alert. Oriented x 3. ASSESSMENT: Non-STEMI, status post cardiac catheterization revealing triple-vessel coronary artery disease Right lower extremity cellulitis Vomiting and diarrhea Severe coronary artery calcifications, per CT thorax at [facility] Hypertension Hyperlipidemia Nicotine dependence Elevated LFTs PLAN: 2D echo has been ordered. Await results. If any valvular issues noted on echocardiogram, patient will require MELY. Continue current cardiac medications CT surgery following. Patient to be rescheduled for CABG due to leukocytosis and right lower extremity cellulitis Continue telemetry monitoring Further recommendations pending patient course Nurse practitioner note has been reviewed by physician. Signing provider agrees with the documented findings, assessment, and plan of care documented by [facility] [employer] as a scribe. Objective - Vital Signs Vital signs: Vital Signs Temp 97.4 F L 05/31/23 07:47 Pulse 70 05/31/23 07:47 Resp 18 05/31/23 07:47 BP 129/78 05/31/23 07:47 Pulse Ox 97 05/31/23 07:47 FiO2 Intake & Output 05/30/23 05/31/23 05/31/23 18:59 06:59 18:59 Intake Total 716 240 Output Total 725 200 Balance -9 40 Weight 90 kg Intake: Oral 716 240 Output: Urine 725 200 Other: Voiding Method Urinal Urinal # Voids 1 - Labs CBC & Chem 7: 05/31/23 09:49 05/31/23 09:49
[2023-05-31] MEDS ORDERED: MUPIROCIN 2% OINT 22 GM TUBE NASAL SCH (21:00)
--- NOTE | 2023-06-01 07:00 | P.PN ---
Subjective Progress Note Date: 06/01/23 Principal diagnosis: Triple-vessel coronary artery disease, non-STEMI this admission. History of cellulitis of the right lower extremity, hypertension, hyperlipidemia, current tobacco dependence, COPD, occasional EtOH use The patient was seen and examined this morning sitting up at the bedside on the cardiac stepdown unit in no acute distress. Denies any chest pain or shortness of breath. Has been ambulating around the room without difficulty. Remains in sinus rhythm, hemodynamically stable. Anticipating CABG tomorrow. No other new concerns. Objective - Vital Signs Vital signs: Vital Signs Temp 96.8 F L 05/31/23 20:10 Pulse 73 06/01/23 04:40 Resp 16 06/01/23 04:40 BP 124/73 06/01/23 04:40 Pulse Ox 93 L 06/01/23 04:40 FiO2 Intake & Output 05/31/23 05/31/23 06/01/23 06:59 18:59 06:59 Intake Total 1016 Output Total 350 800 Balance 666 -800 Intake: Oral 1016 Output: Urine 350 800 Other: Voiding Method Urinal Urinal Urinal # Voids 2 2 - Exam CONSTITUTIONAL: Appears comfortable, cooperative, no acute distress RESPIRATORY: Lungs sounds diminished bilaterally. Respirations even, nonlabored. Currently on room air with oxygen saturation 93%. Able to achieve 3500 mL on incentive spirometry. Strong cough. CARDIOVASCULAR: S1, S2 present. Regular rate and rhythm, sinus rhythm on telemetry. Palpable peripheral pulses bilaterally. No edema present. No calf pain or tenderness noted GASTROINTESTINAL: Abdomen soft, nontender, nondistended. Active bowel sounds present 4 quadrants. Tolerating diet GENITOURINARY: Continues to void INTEGUMENTARY: Skin is warm and dry NEUROLOGIC: Cranial nerves II through XII intact MUSKULOSKELETAL: Able to move all extremities, strength equal bilaterally, gait normal PSYCHIATRIC: Alert and oriented to person place and time, appropriate affect, intact judgment and insight - Allied health notes Allied health notes reviewed: nursing - Labs CBC & Chem 7: 05/31/23 09:49 05/31/23 09:49 Labs: Abnormal Lab Results - Last 24 Hours (Table) 05/31/23 Range/Units 09:49 Carbon Dioxide 21 L (22-30) mmol/L Glucose 126 H (74-99) mg/dL AST 124 H (17-59) U/L ALT 234 H (4-49) U/L Alkaline Phosphatase 133 H (38-126) U/L Albumin 3.4 L (3.5-5.0) g/dL Microbiology - Last 24 Hours (Table) 05/26/23 09:20 Blood Culture - Final Blood 05/26/23 09:05 Blood Culture - Final Blood Assessment and Plan Assessment: Triple-vessel coronary artery disease, non-STEMI this admission Cellulitis of the right lower extremity, treated outpatient Hypertension Hyperlipidemia, treated, cholesterol 99, LDL 48 Current tobacco dependence COPD, preoperative FEV1 86% of predicted Occasional EtOH use Transaminitis Plan: Continue to maximize medical management with aspirin, statin and beta-lilia. Continue Ancef 1 g IV piggyback every 8 hours, cellulitis right lower extremity. Blood cultures finalized with no growth Encourage use of incentive spirometry 10 times every hour while awake. Discussed and reinforced with the patient the importance of risk modification including smoking cessation. Continue to monitor liver enzymes. Increase activity as tolerated. Out of bed for all meals. Continue preoperative teaching Plan is for myocardial revascularization with left internal mammary artery, e ndoscopic vein and left radial artery harvest, ligation of the left atrial appendage by Dr. Andrews 06/02/23. Medical management of other comorbidities per internal medicine, cardiology More recommendations to follow based on patient's clinical course.
[2023-06-01 09:19] LABS: HCT 43.6 % (39.0-53.0); HGB 14.1 gm/dL (13.0-17.5); MCH 29.4 pg (25.0-35.0); MCHC 32.3 g/dL (31.0-37.0); Mean Platelet Volume 7.8; Platelet Count 543 k/uL (150-450); RBC 4.79 m/uL (4.30-5.90); RDW 14.5 % (11.5-15.5); WBC 7.9 k/uL (3.8-10.6)
[2023-06-01 09:37] LABS: ALT 182 U/L (4-49); AST 97 U/L (17-59); African American GFR (CKD) >90 (>60 ml/min/1.73 sqM); Albumin 3.5 g/dL (3.5-5.0); Alkaline Phosphatase 126 U/L (38-126); Anion Gap 5 mmol/L; Blood Urea Nitrogen 11 mg/dL (9-20); Calcium 9.7 mg/dL (8.4-10.2); Carbon Dioxide 25 mmol/L (22-30); Chloride 107 mmol/L (98-107); Glucose 149 mg/dL (74-99); Non-African American GFR(CKD) >90 (>60 ml/min/1.73 sqM); Potassium 3.9 mmol/L (3.5-5.1); Sodium 137 mmol/L (137-145); Total Bilirubin 0.6 mg/dL (0.2-1.3); Total Protein 6.5 g/dL (6.3-8.2)
--- NOTE | 2023-06-01 10:26 | P.PN ---
Subjective Progress Note Date: 06/01/23 Hospital course: Patient is a very pleasant 72-year-old male with a past medical history of hyp ertension, hyperlipidemia, and COPD with continued nicotine dependence. Patient presented to our facility as a transfer from [facility] where he presented with weakness and a fall and was found to have elevated troponins. Patient reported recent treatment for cellulitis on Bactrim and experiencing nausea, vomiting, and decreased oral intake over the past few days. Per documentation in chart workup at [facility] was completed including a CT of the brain which was negative for acute intercranial pathology and troponins initially reported negative increasing to 5.09 resulting in patient being started on heparin infusion followed by transfer to our facility for evaluation. Upon arrival to our facility patient underwent evaluation in the emergency department. Vital signs revealed blood pressure 140/83, heart rate 86, respiratory rate 12, temp 97.9 F, and SpO2 of 96% on room air. EKG was completed showing normal sinus rhythm at 84 bpm with no significant T wave or ST abnormalities showing no signs of acute ischemia upon personal review and interpretation. Chest x-ray completed showing findings concerning for bronchitis with mild to moderate peribronchial thickening of the central bronchi and trace right pleural effusion. CTA chest was completed negative for pulmo nary emboli revealing a 1 cm subcarinal enlarged lymph node. Labs were completed and reviewed. CBC unremarkable. Coagulation profile normal findings. BMP revealed hyponatremia with sodium of 133 and hypocarbia with bicarb of 17. Blood glucose was 107. Magnesium normal findings at 2.0. Liver profile showing elevated AST of 73 and ALT of 51. Troponin was 2.730 and proBNP was 1620. Patient admitted under our services with consultation to cardiology. Troponins trended overnight resulting at 2.730 and 2.970. Patient was taken for cardiac catheterization. Cardiac catheterization revealing three-vessel coronary artery disease, cardiology consulted cardiothoracic surgery to evaluate patient for bypass. Likely CABG tomorrow. Echocardiogram showed normal LVEF 55 to 60%. Physical exam: Patient seen and fully evaluated at bedside this morning. No acute events overnight. No new complaints. Vital signs reviewed and stable. General: Nontoxic, no distress and appears stated age. Derm: Skin warm and dry, right lower extremity mild erythema, no tenderness or edema or warmth Head: Atraumatic, normocephalic and symmetric. Eyes: EOMs intact, no lid lag, and anicteric sclera Mouth: no lip lesions, mucus membranes moist Cardiovascular: regular rate and rhythm with normal S1S2, no murmur, positive posterior tibial pulses bilaterally, and cap refill < 2 seconds. Lungs: Respirations even, regular, and unlabored on room air. Lungs CTA bilaterally, no rhonchi, no rales, no wheezing, and no accessory muscle usage. Abdominal: soft, nontender to palpation, no guarding, no appreciable organomegaly Ext: ROM intact. No gross muscle atrophy, no edema, no contractures Neuro: Speech clear, face symmetrical and CN II-XII grossly intact with no noted focal neuro deficits Psych: Alert and oriented to person, place, time, and situation. Appropriate and pleasant affect. Assessment and Plan of Care: NSTEMI Three-vessel coronary artery disease Hypertension Hyperlipidemia Right lower extremity cellulitis -Cardiology recommending CABG -Cardiothoracic surgery recommended to continue cefazolin 1 g IV every 8 hours, tentative surgical intervention tomorrow -Telemetry monitoring -Cardiac diet -Continue daily medication regimen with aspirin 81 mg daily, atorvastatin 40 mg nightly, amlodipine 5 mg daily, and lisinopril/hydrochlorothiazide 20/25 mg daily., Metoprolol 100 daily -zofran 4mg q6h PRN COPD with continued nicotine dependence -Continue Symbicort 160-4.5 mcg inhaler 2 puffs twice daily and Ventolin nebulizer treatments every 4 hours as needed for shortness of breath and/or wheezing. - Nicotine patch 21 mg daily Subcarinal lymph node - Incidental finding, 1 cm - Outpatient follow-up Elevated transaminases, resolving - Hepatitis panel negative Data and imaging reviewed: -Hemoglobin 14.1, platelet 543, potassium 3.9, creatinine 0.8, AST 97, ALT 182 CODE STATUS: Full code DVT prophylaxis: SQ heparin Anticipated discharge date: Clinical course to determine Anticipated discharge place: Pending clinical course Objective - Vital Signs Vital signs: Vital Signs Temp 97.8 F 06/01/23 08:00 Pulse 78 06/01/23 08:00 Resp 18 06/01/23 08:00 BP 141/90 06/01/23 08:00 Pulse Ox 100 06/01/23 08:00 FiO2 Intake & Output 05/31/23 06/01/23 06/01/23 18:59 06:59 18:59 Intake Total 1016 290 Output Total 350 800 775 Balance 981 -532 -937 Intake: Intake, IV Titration 50 Amount ceFAZolin 1,000 mg In 50 Sodium Chloride 0.9% 50 ml @ 100 mls/hr IVPB Q8HR [facility] Rx#:[id number] Oral 1016 240 Output: Urine 350 800 775 Other: Voiding Method Urinal Urinal # Voids 2 2 - Labs CBC & Chem 7: 06/01/23 08:35 06/01/23 08:35 Labs: Abnormal Lab Results - Last 24 Hours (Table) 05/31/23 06/01/23 06/01/23 Range/Units 09:49 08:35 08:35 Plt Count (150-450) k/uL Carbon Dioxide 21 L (22-30) mmol/L Glucose 126 H 149 H (74-99) mg/dL AST 124 H 97 H (17-59) U/L ALT 234 H 182 H (4-49) U/L Alkaline Phosphatase 133 H (38-126) U/L Albumin 3.4 L (3.5-5.0) g/dL Crossmatch See Detail 06/01/23 Range/Units 08:35 Plt Count 543 H (150-450) k/uL Carbon Dioxide (22-30) mmol/L Glucose (74-99) mg/dL AST (17-59) U/L ALT (4-49) U/L Alkaline Phosphatase (38-126) U/L Albumin (3.5-5.0) g/dL Crossmatch Microbiology - Last 24 Hours (Table) 05/26/23 09:20 Blood Culture - Final Blood 05/26/23 09:05 Blood Culture - Final Blood
--- NOTE | 2023-06-01 11:20 | P.PN ---
Subjective Progress Note Date: 06/01/23 72-year-old male that we are asked to see in preoperative evaluation. The patient was admitted with a non-ST segment elevation myocardial infarction, and cellulitis of the right lower extremity. He has a history of hypertension, hyperlipidemia, COPD, occasional alcohol use, and chronic and ongoing tobacco dependence. The patient apparently sees a physician over at the [place]. The patient is scheduled to have open heart surgery, on May 30. He is currently on a nebulizer machine, with albuterol sulfate and ipratropium bromide, and uses generic Advair, i.e. Wixela. The patient smoked 1 pack of cigarettes a day for 30 years. He has never seen a lung doctor in the past. The patient did have lung function performed while in the hospital. The patient's FEV1 was 2.63 L, and the patient's FVC was 2.78 L. The FEV1/FVC ratio was excellent. The FEF 25-75% was 1.50 L/s which is 65% of predicted. Based exclusively on the FEV1, the patient is at no increased operative risk. Patient does have some mild shortness of breath on exertion. Laboratory data includes a white count 15, hemoglobin 15.1, hematocrit 46.9, and a platelet count of 374,000. Sodium 137, potassium 3.9, chlorides 104, CO2 24, BUN 19, creatinine 1. The patient's AST is 202. The ALT is 230. On today's evaluation of 05/30/2023, the patient is calm and comfortable. Denies having any specific complaints. No reported chest pain. There is an issue with the right lower extremity cellulitis and the patient is currently on IV antibiotics. The right lower extremity is also swollen compared to the left and we will recheck a Doppler of the lower extremity. Note that this was done at [facility] it was reported to be as negative. Pulse ox is 95 to 97% on room air oxygen. White count of 8.6 with a hemoglobin 15.8 and a sodium is at 136 with a potassium level of 4, BUN is at 17 with a creatinine of 0.88. LFTs are mildly elevated and the patient has a AST of 203 with an ALT of 285, bilirubin is within normal limits. The viral hepatitis screen has been negative. UA has been negative. The patient remains on aspirin 81 mg p.o. daily, the patient is also on metoprolol 100 mg p.o. daily. The patient on Imdur 30 mg p.o. daily. The patient is on IV cefazolin regarding right lower extremity cellulitis. The patient is also on Lipitor 40 mg p.o. daily. Norvasc is for blood pressure control at 5 mg p.o. daily. No respiratory difficulties at this point. On today's evaluation of 05/31/2023, I am seeing the patient for a follow-up. The patient cellulitis is improving and the patient has no specific complaints. No chest pain. No cough or sputum production. Awaiting his cardiac bypass surgery that is going to be done on 06/02/2023. The patient has triple-vessel coronary artery disease. The patient is also known to have hypertension hyperlipidemia in addition to right lower extremity cellulitis and the patient is currently on IV cefazolin. Using incentive spirometer. Labs are all stable, hemoglobin at 13.9, white cell count is down to 8.6, BUN is at 30 with a creatinine of 0.7 and sodium levels at 137. On today's evaluation of 06/01/2023, the patient has no specific complaints. Cellulitis has improved. No fever or chills. White cell count of 7.9. Renal function is stable with a BUN of 11 and a creatinine of 0.8 and a sodium levels at 137. Cardiac rhythm is sinus. No chest pain. The plan is to proceed with a bypass surgery tomorrow. The patient otherwise has no other specific co mplaints. He has normal ejection fraction. He is triple-vessel coronary disease. Hemoglobin is stable. Remains on a combination of aspirin, Lipitor, amlodipine 5 mg p.o. daily metoprolol 100 mg p.o. daily and the patient is on lisinopril hydrochlorothiazide 20/25 1 tablet a day. The patient remains on IV cefazolin. Objective - Vital Signs Vital signs: Vital Signs Temp 97.8 F 06/01/23 08:00 Pulse 78 06/01/23 08:00 Resp 18 06/01/23 08:00 BP 141/90 06/01/23 08:00 Pulse Ox 100 06/01/23 08:00 FiO2 Intake & Output 05/31/23 06/01/23 06/01/23 18:59 06:59 18:59 Intake Total 1016 290 Output Total 350 800 275 Balance 666 -800 15 Intake: Intake, IV Titration 50 Amount ceFAZolin 1,000 mg In 50 Sodium Chloride 0.9% 50 ml @ 100 mls/hr IVPB Q8HR [facility] Rx#:[id number] Oral 1016 240 Output: Urine 350 800 275 Other: Voiding Method Urinal Urinal # Voids 2 2 - Exam No acute distress, oriented 3. Currently on room air. Saturations are 95%. HEENT examination is grossly unremarkable. Mucous membranes are moist. No oral lesions. Neck supple. Full range of motion. No adenopathy thyromegaly or neck vein distention. Cardiovascular examination reveals regular rhythm rate. S1-S2 normal. No S3 or S4. No discernible murmur noted. Heart rate 88 bpm. Lungs reveal mostly clear breath sounds. Minimal rhonchi. No wheezes or crackles. Breath sounds equal bilaterally. Abdomen soft bowel sounds are heard. No masses or tenderness. Extremities are intact. No cyanosis clubbing or edema. There is some cellulitis involving the right lower extremity just below the knee which is improving. Minimal erythema. No active drainage. Scaling of the skin Skin is without rash or lesion. Neurologic examination is brief but nonfocal. - Labs CBC & Chem 7: 06/01/23 08:35 06/01/23 08:35 Labs: Abnormal Lab Results - Last 24 Hours (Table) 05/31/23 06/01/23 06/01/23 Range/Units 09:49 08:35 08:35 Plt Count 543 H (150-450) k/uL Carbon Dioxide 21 L (22-30) mmol/L Glucose 126 H 149 H (74-99) mg/dL AST 124 H 97 H (17-59) U/L ALT 234 H 182 H (4-49) U/L Alkaline Phosphatase 133 H (38-126) U/L Albumin 3.4 L (3.5-5.0) g/dL Microbiology - Last 24 Hours (Table) 05/26/23 09:20 Blood Culture - Final Blood 05/26/23 09:05 Blood Culture - Final Blood Assessment and Plan Plan: Triple-vessel coronary artery disease, non-STEMI this admission, awaiting aortic consultation by cardiothoracic surgery. Currently on aspirin and metoprolol the patient is free of any chest pain. The patient is also on Imdur. Cellulitis of the right lower extremity, improving and the patient's white cell count is improved and the patient cellulitis also improving clinically. Hypertension, currently on Norvasc 5 mg p.o. daily Hyperlipidemia, treated cholesterol 99.0, LDL 48.0, currently on Lipitor Chronic ongoing tobacco dependence COPD with a preoperative FEV1 86% of predicted value with a base volume of 2.63 Occasional EtOH use, drinks 1 sixpack of beer per week Elevated transaminase,, LFTs continues to be mildly elevated and the patient remains on Lipitor. Could be related to chronic alcohol consumption. Acute leukocytosis, improving Plan Awaiting surgical consultation and consideration for bypass surgery, surgery is tentatively scheduled on 06/02/2023 White cell count is improving Continue IV cefazolin Monitor LFTs and continue Lipitor for now No signs of any delirium tremens Overall respiratory status is stable Doppler of the right lower extremity was negative for DVT Continue same cardiac medication. Continue Norvasc for blood pressure control. Continue metoprolol 100 mg p.o. twice a day Currently on room air oxygen and will continue to follow. The patient will be undergoing cardiac bypass surgery tomorrow. Will continue managing his care postop in the intensive care unit.
--- NOTE | 2023-06-01 14:40 | P.PN ---
Subjective Progress Note Date: 05/31/23 Principal diagnosis: Coronary artery disease, non-ST elevated myocardial infarction this admission. Past medical history significant for hypertension, hyperlipidemia, current toba strategic accounts manager dependence, COPD, cellulitis to his right lower extremity treated with Bactrim and occasional EtOH use. The patient was seen and examined in follow-up today May 31, 2023 at his bedside on the day third floor cardiac stepdown unit. He is currently sitting up to the bedside edge, is awake, alert, oriented x 3 and is in no acute apparent distress. Denies any complaints of pain or shortness of breath at this time. He reports he was up ambulating in his room and in the cardiac stepdown unit hallway independently yesterday and tolerating well. No further complaints of chest pain or chest pressure. No further complaints of nausea, vomiting, or diarrhea. A 5 m walk test was completed with the patient today with time 1: 2.53 seconds, time 2: 2.66 seconds, time 3: 2.35 seconds. The patient tolerated the 5 m walk test well without complaints. The patient's transthoracic 2D echocardiogram report shows his left ventricular ejection fraction to be estimated at 55 to 60%, trace mitral valve regurgitation, no aortic valve stenosis or regurgitation, trace tricuspid valve regurgitation, no pericardial effusion and a normal size aortic root and proximal ascending aorta. The p atient will be tentatively scheduled for myocardial vascularization surgery with left internal mammary artery, possible left radial artery endoscopic harvest, endoscopic vein harvest, intraoperative transesophageal echocardiogram, and exclusion left atrial appendage on , June 02, 2023 to be performed by Dr. Renita Andrews. An STS risk or has been calculated and discussed with the patient. Preoperative teaching has been reinforced with the patient. He remains on Ancef 1 g IV piggyback every 8 hours for treatment of his cellulitis to his right lower extremity. The patient remains hemodynamically stable and is currently on no inotropic or pressor support. Laboratory results this morning remain pending. Objective - Vital Signs Vital signs: Vital Signs Temp 97.4 F L 05/31/23 07:47 Pulse 70 05/31/23 07:47 Resp 18 05/31/23 07:47 BP 129/78 05/31/23 07:47 Pulse Ox 97 05/31/23 07:47 FiO2 Intake & Output 05/30/23 05/31/23 05/31/23 18:59 06:59 18:59 Intake Total 716 240 Output Total 725 200 Balance -9 40 Weight 90 kg Intake: Oral 716 240 Output: Urine 725 200 Other: Voiding Method Urinal # Voids 1 - Exam CONSTITUTIONAL:Appears comfortable, cooperative, no apparent acute distress. HEENT: Neck is supple, no JVD, no lymphadenopathy. RESPIRATORY: Lungs sounds essentially clear throughout, diminished to his bilateral bases. Respirations are symmetrical and nonlabored. Currently on room air with oxygen saturations 97%. Able to achieve 3500 mL on his incentive spirometry. Strong cough. CARDIOVASCULAR: Regular rhythm and rate. S1 and S2 present, negative for S3, gallop or murmur. No calf pain or tenderness noted. 1+ edema to his right lower extremity. GASTROINTESTINAL: Abdomen soft, nontender, nondistended. Active bowel sounds present 4 quadrants. Tolerating diet. Passing flatus. No guarding or rigidity. GENITOURINARY: Continues to void. INTEGUMENTARY: Skin is warm and dry with no evidence of clubbing or cyanosis. Erythema improving to his right lower extremity with dry flaky skin. NEUROLOGIC: Cranial nerves II through XII intact. No focal deficits. MUSKULOSKELETAL: Able to move all extremities, strength equal bilaterally. PSYCHIATRIC: Alert and oriented to person place and time, appropriate affect, intact judgment and insight. - Allied health notes Allied health notes reviewed: nursing - Labs CBC & Chem 7: 05/30/23 08:35 05/30/23 08:35 Labs: Abnormal Lab Results - Last 24 Hours (Table) 05/30/23 Range/Units 08:35 Sodium 136 L (137-145) mmol/L Glucose 108 H (74-99) mg/dL AST 203 H (17-59) U/L ALT 285 H (4-49) U/L Total Protein 5.7 L (6.3-8.2) g/dL Albumin 3.0 L (3.5-5.0) g/dL Assessment and Plan Assessment: Triple-vessel coronary artery disease, non-STEMI this admission Cellulitis of the right lower extremity, treated outpatient with Bactrim, currently on Ancef IV piggyback Hypertension Hyperlipidemia, treated cholesterol 99.0, LDL 48.0 Chronic ongoing tobacco dependence COPD with a preoperative FEV1 86% of predicted value with a base volume of 2.63 Occasional EtOH use, drinks 1 sixpack of beer per week Elevated transaminase, AST 203 and ALT 285 yesterday 05/30/2023 Plan: Preoperative teaching reinforced with patient. An STS risk or was calculated and discussed with the patient. Continue to maximize medical management with aspirin, statin and beta-lilia. Continue Ancef 1 g IV piggyback every 8 hours, cellulitis right lower extremity. Blood cultures show no growth after 72 hours. Encourage use of incentive spirometry 10 times every hour while awake. Medical management and other comorbidities per primary care service. Clinical frailty scoring has been completed, score was 4 which shows mild frai lty. Discussed and reinforced with the patient the importance of risk modification including smoking cessation. Continue to monitor liver enzymes. Laboratory results from this morning remain pending. Increase activity as tolerated. Out of bed for all meals. A 5 m walk test was completed with the patient, patient tolerated well. Time 1: 2.53 seconds, time 2: 2.66 seconds, time 3: 2.35 seconds. Wound care consulted for right lower extremity cellulitis. The patient is tentatively scheduled for myocardial vascularization surgery on May with left internal mammary artery, possible left radial artery harvest endoscopic, endoscopic greater saphenous vein harvest, intraoperative transesophageal echocardiogram and exclusion of left atrial appendage to be performed by Dr. Renita Andrews. Risks and benefits of surgery including the STS risk or were discussed with the patient by Dr. Andrews. More recommendations to follow based on patient's clinical course. Time with Patient: Greater than 30
--- NOTE | 2023-06-01 14:45 | P.PN ---
Subjective Progress Note Date: 06/01/23 HISTORY OF PRESENT ILLNESS: This is a 72-year-old male with a past medical history significant for CAD documented by CT scan, hypertension, hyperlipidemia, nicotine dependence. Patient follows in the office with Dr. Martin. We have been asked to see the patient in consultation for non-STEMI. Patient examined at the bedside in the emergency room. Patient was transferred from [facility]. Patient initially presented to the hospital due to generalized weakness. Patient states he has been on Bactrim for right lower extremity cellulitis for about 10 days. He states that he was having chills at home. He reports his extremities were shaking badly. He states he was so weak he was not able to get up on his own. The patient was found to have elevated troponins with a troponin of 5.0. He was started on a heparin drip and transferred to was cleared for further evaluation. The patient denies any chest pain or pressure. He denies any shortness of breath. DIAGNOSTICS: - EKG reveals sinus mechanism with nonspecific ST-T wave changes. - Chest xray findings concerning for bronchitis which may be infectious or inflammatory allergies. Trace right pleural effusion. No consolidation. - Chest CTA: Negative for pulmonary embolism. -Doppler study performed at outside facility was negative for DVT in the right lower extremity - Laboratory data: WBC 7.9. Hemoglobin 14.8. Platelet count 231. Sodium 133. Potassium 3.9. BUN 19. Creatinine 1.20. Magnesium 2.0. Troponin 2.730. 2.970. AST 73. ALT 51. proBNP 1620 - Current home cardiac medications include aspirin 81 mg daily, metoprolol succinate 100 mg daily, amlodipine 5 mg daily, Lipitor 40 mg at night, and lisinoprilhydrochlorothiazide 20-25 mg daily. - Most recent echocardiogram obtained in September 2021 reveals normal EF, mild MR, mild TR. -Patient underwent Lexiscan stress test in September 2021 which was negative for i schemia 05/28/2023 Patient is status post cardiac catheterization with Dr. Blackman revealing 50 to 60% ostial stenosis of the LAD, mid LAD 70 to 80% stenosis, circumflex coronary artery is a nondominant vessel showing 90% stenosis at the origin of the AV groove, right coronary artery has multiple segmental lesions 80 to 90% at their worst. CT surgery was consulted for evaluation and patient is tentatively scheduled for CABG next week. Patient examined this morning the bedside. He denies any chest pain or pressure. He denies any shortness of breath. Telemetry reveals sinus mechanism. Vital signs are stable. 05/29/2023 Patient examined this morning at bedside. Patient states he is not feeling well this morning. Patient has had multiple episodes of vomiting and diarrhea. Vital signs are stable. Telemetry reveals sinus mechanism. 05/29 Patient's right lower extremity cellulitis is improving. He has been on IV antibiotics to treat this and surgery has been postponed. Otherwise he denies having any chest pain, shortness of breath. He is ambulating without symptoms. No lightheadedness or dizziness. Blood pressure 110/62, heart rate is in the 70s. Pulse ox 97% on room air. Repeat blood work reveals WBC 8.6, hemoglobin 13.8. Sodium 136, potassium 4, BUN 17 creatinine 0.88. AST and ALT remain elevated with AST 203, ALT 285. Alkaline phosphatase has normalized to 122. Venous Doppler study of the right lower extremity is negative for DVT. Echocardiogram from 05/25 reveals EF 55 to 60%. Trace mitral regurgitation, trace tricuspid regurgitation. No pericardial effusion. 05/30 Patient been denies chest pain, no shortness of breath. He has been ambulating in the hallway without difficulty. Blood pressure 129/70, heart rate 70, pulse ox 97% on room air. Right lower extremity cellulitis is improving. He states that CABG is possibly on for will follow 05/31 Patient continues to have improvement of cellulitis. He is scheduled for CABG on 06/01. Blood pressure 127/71, heart rate 73, PO 100% on room air. PHYSICAL EXAM: VITAL SIGNS: Reviewed. GENERAL: Well-developed in no acute distress. HEENT: Head is normocephalic. Pupils are equal, round. Sclerae anicteric. Mucous membranes of the mouth are moist. Neck supple. No JVD or thyromegaly LUNGS: Respirations even and unlabored. Lungs essentially clear to auscultation bilaterally. HEART: Regular rate and rhythm. S1 and S2 heard. ABDOMEN: Soft. Nondistended. Nontender. EXTREMITIES: Normal range of motion. No clubbing or cyanosis. Peripheral pulses intact. Right leg with trace edema noted. Right leg > than left leg. NEUROLOGIC: Awake and alert. Oriented x 3. ASSESSMENT: Non-STEMI, status post cardiac catheterization revealing triple-vessel coronary artery disease Right lower extremity cellulitis Vomiting and diarrhea Severe coronary artery calcifications, per CT thorax at [facility] Hypertension Hyperlipidemia Nicotine dependence Elevated LFTs PLAN: Continue current cardiac medications CT surgery following with plan for CABG 06/01 Continue telemetry monitoring Further recommendations pending patient course Nurse practitioner note has been reviewed by physician. Signing provider agrees with the documented findings, assessment, and plan of care documented by MEDIA BU[employer]ER as a scribe. Objective - Vital Signs Vital signs: Vital Signs Temp 97.8 F 06/01/23 08:00 Pulse 78 06/01/23 08:00 Resp 18 06/01/23 08:00 BP 141/90 06/01/23 08:00 Pulse Ox 100 06/01/23 08:00 FiO2 Intake & Output 05/31/23 06/01/23 06/01/23 18:59 06:59 18:59 Intake Total 1016 290 Output Total 350 800 775 Balance 568 -120 -521 Intake: Intake, IV Titration 50 Amount ceFAZolin 1,000 mg In 50 Sodium Chloride 0.9% 50 ml @ 100 mls/hr IVPB Q8HR [facility] Rx#:[id number] Oral 1016 240 Output: Urine 350 800 775 Other: Voiding Method Urinal Urinal # Voids 2 2 - Labs CBC & Chem 7: 06/01/23 08:35 06/01/23 08:35 Labs: Abnormal Lab Results - Last 24 Hours (Table) 05/31/23 06/01/23 06/01/23 Range/Units 09:49 08:35 08:35 Plt Count (150-450) k/uL Carbon Dioxide 21 L (22-30) mmol/L Glucose 126 H 149 H (74-99) mg/dL AST 124 H 97 H (17-59) U/L ALT 234 H 182 H (4-49) U/L Alkaline Phosphatase 133 H (38-126) U/L Albumin 3.4 L (3.5-5.0) g/dL Crossmatch See Detail 06/01/23 Range/Units 08:35 Plt Count 543 H (150-450) k/uL Carbon Dioxide (22-30) mmol/L Glucose (74-99) mg/dL AST (17-59) U/L ALT (4-49) U/L Alkaline Phosphatase (38-126) U/L Albumin (3.5-5.0) g/dL Crossmatch Microbiology - Last 24 Hours (Table) 05/26/23 09:20 Blood Culture - Final Blood 05/26/23 09:05 Blood Culture - Final Blood
[2023-06-02] MEDS ORDERED: NOREPINEPHRINE 4 MG in SODIUM CHLORIDE 0.9% 250 ML IV SCH (05:00)
[2023-06-02] MEDS ORDERED: INSULIN REGULAR 100 UNIT in SODIUM CHLORIDE 0.9% 100 ML IV SCH (05:00)
[2023-06-02] MEDS: METOPROLOL TARTRATE 12.5 MG TAB PO ONE (05:51)
[2023-06-02] MEDS: ASPIRIN 325 MG TAB PO ONE (05:51)
[2023-06-02] MEDS: ATORVASTATIN 10 MG TAB PO ONE (05:51)
[2023-06-02] MEDS: LACTATED RINGERS 1,000 ML IV ONE (06:15)
[2023-06-02 06:20] LABS: Glucose,Whole Blood 115 mg/dL (70-110)
[2023-06-02] MEDS ORDERED: HEPARIN SODIUM,PORCINE 10,000 UNIT/ML 1 ML VIAL ONE (07:30)
[2023-06-02] MEDS ORDERED: PROPOFOL 10 MG/ML 20 ML VIAL IV ONE (07:30)
[2023-06-02] MEDS ORDERED: LIDOCAINE 2% SYG (PF) 100 MG/5 ML ONE (07:30)
[2023-06-02] MEDS ORDERED: TRANEXAMIC 1,000 MG/100ML-NACL PREMIX BAG ONE (07:30)
[2023-06-02] MEDS ORDERED: VECURONIUM 10 MG VIAL IV ONE (07:30)
[2023-06-02] MEDS ORDERED: ATROPINE SULFATE 0.1 MG/ML 10ML SYRINGE ONE (07:30)
[2023-06-02] MEDS ORDERED: MIDAZOLAM HCL 10 MG/10 ML VIAL ONE (07:30)
[2023-06-02] MEDS ORDERED: fentaNYL (PF) 50 MCG/ML 50 ML VIAL ONE (07:30)
[2023-06-02 08:40] LABS: ABG Base Excess 3.1 mmol/L; ABG Glucose Whole Blood 110 mg/dL (75-99); ABG HCO3 27 mmol/L (21-25); ABG Hematocrit 40 % (34.0-46.0); ABG Ionized Calcium 5.1 mg/dL (4.5-5.3); ABG Lactic Acid Whole Blood 0.7 mmol/L (0.5-1.6); ABG Oxygen Saturation 98.4 % (94-97); ABG PCO2 40 mmHg (35-45); ABG PH 7.44 (7.35-7.45); ABG PO2 116 mmHg (83-108); ABG Potassium Whole Blood 4.1 mmol/L (3.4-4.5); ABG Sodium Whole Blood 140 mmol/L (135-146); Allen Test Performed? Yes
[2023-06-02] MEDS: SODIUM CHLORIDE 0.9% 500 ML 500 ML with HEPARIN SODIUM,PORCINE (1 ML) 5,000 UNIT IV ONE (09:25)
[2023-06-02] MEDS: PAPAVERINE 360 MG in SODIUM CHLORIDE 0.9% 90 ML IV ONE (09:25)
[2023-06-02] MEDS: DILTIAZEM 125 MG in SODIUM CHLORIDE 0.9% 100 ML IV SCH (09:25)
[2023-06-02] MEDS: ceFAZolin 1,000 MG in SODIUM CHLORIDE 0.9% 1,000 ML IRRIGATION ONE (09:26)
[2023-06-02 10:09] LABS: ABG Base Excess 1.8 mmol/L; ABG Glucose Whole Blood 118 mg/dL (75-99); ABG HCO3 27 mmol/L (21-25); ABG Hematocrit 36 % (34.0-46.0); ABG Ionized Calcium 4.9 mg/dL (4.5-5.3); ABG Lactic Acid Whole Blood 0.5 mmol/L (0.5-1.6); ABG Oxygen Saturation 98.3 % (94-97); ABG PCO2 42 mmHg (35-45); ABG PH 7.41 (7.35-7.45); ABG PO2 127 mmHg (83-108); ABG Potassium Whole Blood 3.9 mmol/L (3.4-4.5); ABG Sodium Whole Blood 140 mmol/L (135-146); Allen Test Performed? Yes
[2023-06-02 11:00] LABS: ABG Base Excess 4.4 mmol/L; ABG Glucose Whole Blood 113 mg/dL (75-99); ABG HCO3 28 mmol/L (21-25); ABG Hematocrit 28 % (34.0-46.0); ABG Ionized Calcium 4.1 mg/dL (4.5-5.3); ABG Lactic Acid Whole Blood 0.8 mmol/L (0.5-1.6); ABG Oxygen Saturation >99.4 % (94-97); ABG PCO2 34 mmHg (35-45); ABG PH 7.51 (7.35-7.45); ABG Potassium Whole Blood 5.4 mmol/L (3.4-4.5); ABG Sodium Whole Blood 139 mmol/L (135-146); Allen Test Performed? Yes
[2023-06-02 11:29] LABS: ABG Glucose Whole Blood 122 mg/dL (75-99); ABG HCO3 27 mmol/L (21-25); ABG Hematocrit 26 % (34.0-46.0); ABG Lactic Acid Whole Blood 0.6 mmol/L (0.5-1.6); ABG Oxygen Saturation >99.4 % (94-97); ABG PCO2 31 mmHg (35-45); ABG PH 7.54 (7.35-7.45); ABG Potassium Whole Blood 4.4 mmol/L (3.4-4.5); ABG Sodium Whole Blood 139 mmol/L (135-146); Allen Test Performed? Yes
[2023-06-02 12:11] LABS: ABG Base Excess 3.8 mmol/L; ABG Glucose Whole Blood 134 mg/dL (75-99); ABG HCO3 27 mmol/L (21-25); ABG Hematocrit 27 % (34.0-46.0); ABG Ionized Calcium 4.1 mg/dL (4.5-5.3); ABG Lactic Acid Whole Blood 0.8 mmol/L (0.5-1.6); ABG Oxygen Saturation >99.4 % (94-97); ABG PCO2 33 mmHg (35-45); ABG PH 7.52 (7.35-7.45); ABG Potassium Whole Blood 4.4 mmol/L (3.4-4.5); ABG Sodium Whole Blood 139 mmol/L (135-146); Allen Test Performed? Yes
[2023-06-02] MEDS ORDERED: DEXTROSE 50% SYRINGE 50 ML IVP PRN ×2 (12:41)
[2023-06-02 13:06] LABS: ABG PO2 >420 mmHg (83-108)
[2023-06-02 13:07] LABS: ABG PO2 >420 mmHg (83-108)
[2023-06-02 13:08] LABS: ABG PO2 >420 mmHg (83-108)
[2023-06-02] MEDS ORDERED: ONDANSETRON 4 MG/2 ML VIAL IVP PRN (13:29)
[2023-06-02] MEDS ORDERED: BENZOCAINE/MENTHOL LOZENG 1 EACH LOZENGE MUCOUS MEM PRN (13:29)
[2023-06-02] MEDS ORDERED: Potassium Replacement Protocol 1 EACH MISC MISCELLANE PRN (13:29)
[2023-06-02] MEDS ORDERED: DEXTROSE 5% IN WATER 100 ML with AMIODARONE 150 MG IV PRN (13:29)
[2023-06-02] MEDS ORDERED: IPRATROPIUM-ALBUTEROL 3 ML NEB INHALATION PRN (13:29)
[2023-06-02] MEDS ORDERED: CALCIUM GLUCONATE IN NACL 2 GM in SALINE 1 100ML.BAG IVPB PRN (13:29)
[2023-06-02] MEDS ORDERED: METOCLOPRAMIDE 5 MG/ML 2 ML VIAL IVP PRN (13:29)
[2023-06-02] MEDS ORDERED: Magnesium Replacement Protocol 1 EACH MISC MISCELLANE PRN (13:29)
[2023-06-02] MEDS ORDERED: Phosphorus Replacement Protoco 1 EACH MISC MISCELLANE PRN (13:29)
[2023-06-02] MEDS ORDERED: AMIODARONE 360 MG in DEXTROSE 5% IN WATER 200 ML IV PRN (13:29)
[2023-06-02] MEDS ORDERED: AMIODARONE 450 MG in DEXTROSE 5% IN WATER 250 ML IV PRN (13:29)
[2023-06-02] MEDS ORDERED: hydrALAZINE HCL 20 MG/ML 1 ML VIAL IVP PRN (13:29)
--- NOTE | 2023-06-02 14:01 | P.OP ---
Date of Procedure: 06/02/23 Preoperative Diagnosis: Triple-vessel coronary artery disease, hypertension, hyperlipidemia, COPD, right lower extremity cellulitis Postoperative Diagnosis: Same with evidence of diffuse coronary artery disease Procedure(s) Performed: 1Triple-vessel coronary artery bypass grafting using the in situ left internal mammary artery to the left anterior descending artery, left radial artery from the aorta to the obtuse marginal artery, reverse saphenous vein graft from the aorta to the posterior descending artery 2exclusion of the left atrial appendage using a 35 mm AtriClip 3endoscopic harvesting of the left radial artery 4endoscopic harvesting of the left greater saphenous vein 5intraoperative Grafalon measurements using the Learnerator system 6intraoperative transesophageal echocardiogram and epiaortic scanning Implants: 35 mm AtriClip Anesthesia: DOUGLAS Surgeon: Renita Andrews Bus Assistant #1: Hunter Maria Pathology: none sent Condition: stable Disposition: ICU Indications for Procedure: Patient with non-ST elevation myocardial infarction transferred from another hospital. On admission had right lower extremity cellulitis that we treated with IV antibiotic with dramatic improvement. Patient cardiac catheterization showed significant triple-vessel coronary artery disease. Echo showed preserved left ventricular function. The STS risk was calculated discussed with him he understood and agreed to proceed Operative Findings: Normal soft aorta with normal epiaortic scanning. Diffuse coronary artery disease. Good conduits. Excellent graft flows. Description of Procedure: Patient in supine position right internal jugular [place]-Cuauhtemoc catheter and a right radial arterial line were placed.. Normal PA pressure and good cardiac index. Subsequently was brought to the operating room where general endotracheal anesthesia was induced uneventfully. Jett catheter was inserted. The chest abdomen both lower extremities and the left upper extremity were prepped and draped using ChloraPrep. Ioban was used to cover the skin. Patient received 2 g of cefazolin intravenously. Transesophageal echocardiogram confirmed the preoperative finding of preserved systolic function and no significant valvular abnormalities. Midline sternotomy was performed sparing the 2 seborrheic keratosis lesions that he had in the upper chest. No bone wax was used. The left hemisternum was elevated and the left intramammary artery was harvested in a semicircular Geneyes fashion. Patient was given 5000 units of heparin and mammary artery was doubly clipped distally before its bifurcation transected had excellent pulsatile flow in it and was around 1.75 m in diameter. The left pleural would not that she open this process and was drained with a 19 Iraqi Abraham drain. In the same setting of the left radial artery was exposed at the wrist and a clamping trial revealed preserved signal in the left index O2 saturation improved. The radial artery was harvested endoscopically. All the branches were tied and we proceeded at a fistulotomy in its volar aspect. It was of excellent quality around 3 mm in diameter. The forearm incisions were closed over a drain. Also in the same setting the left greater saphenous vein was harvested endoscopically from groin to just below knee level after administration of 2500s of heparin. Leg incisions were closed over a drain. The vein appeared to be of excellent quality around 4 m in diameter. Ankeney retractor was used. Thick mediastinal fat was transected between 2 ties and epiaortic scanning revealed no protruding atheroma in the ascending aorta. Pericardium was opened in an inverted T fashion and pericardial cradle was created. Findings within normal soft aorta are normal size heart with evidence of palpable and visible diffuse coronary artery disease. After systemic heparinization after placement of prospective pledgeted pursestring aortic cannulation with a 21 Iraqi show flow cannula and venous cannulation via the right atrial appendage with a 29 Iraqi 3 stage cannula was performed. Antegrade as well as retrograde cardioplegia catheters were placed. Cardioquin bypass was initiated and patient temperature was allowed to drift down to 34 C. With a heart MTN beating looked at the target. The right coronary artery was diffusely diseased up to its bifurcation and the site of bypass will be the proximal posterior descending artery. We were able to identify the obtuse marginal artery before it bifurcated and will be the site for bypass. The left anterior descending artery was diffusely diseased and would be bypassed in its distal aspect. Aorta was clamped and during aortic clamping Myocardial Protection was achieved and initial dose of 800 cc of antegrade cold blood cardioplegia with adequate arrest at 150 cc followed by 500 cc of retrograde cold blood cardioplegia. All subsequent doses were given retrograde at 15 minutes interval. We started by excluding the left atrial appendage by deploying a 35 mm AtriClip at its base. Subsequently we proceeded at performing the distal anastomosis. The first is anastomosis between the segment of reverse saphenous vein graft and the 1.5 mm thin-walled proximal posterior descending artery using running Prolene 7 0. The second this anastomosis was to the left radial artery and obtuse marginal artery before it bifurcated using Prolene 7 0 continuous fashion. That artery was around 1 point self-admitted diameter had an eccentric plaque at that level. The third the last anastomosis was the left internal mammary artery that passed in a deep groove in the left pleuropericardial fat anastomosed to the distal left anterior descending artery which was open was around 1.7 m in diameter thin-walled using Prolene 7 0 and continuous fashion. Satisfied with the distal anastomosis rewarming was started as we punched out to buttons of the ascending aorta and performed the 2 proximal stenosis with radial artery and the vein separately using a running Prolene. Patient was given 1 L of warm blood retrograde as were performing the last proximal anastomosis and flow had been reestablished through the left intramammary artery De-airing maneuvers were performed subsequently the aorta was unclamped and patient required a single cardioversion to reestablish slow bradycardic sinus rhythm. 2 monopolar atrial pacing wires were affixed to respective pursestring on the right atrium and 219 Iraqi Abraham drain was left substernally. After around 15 minutes of reperfusion were able to wean off cardiac bypass atrially paced at 80 without the need of any inotropic or vasopressor support. Cardiac index was 2.6. MELY showed excellent left ventricular function. At this point we proceeded at graphical measurement using the JEDI MIND system. A 4 mm probe was selected. The flow into the vein graft to the posterior descending artery was 54 mL/min, pulsatility index of 1 diastolic filling 57%. The flow into the radial artery to twos marginal artery was 86 mL/min, pulsatility index of 1.2 diastolic filling of 70%. The flow to the left intramammary artery to the left artery descending artery was 46 mL/min, pulsatility index of 1.1 and diastolic filling of 66% all showing excellent function grafts. With that all pump suckers were stopped as we gave test dose followed by full dose protamine. Decannulation followed. The venous cannulation site required reinforcement with pledgeted 4-0 Prolene. After ensuring adequate hemostasis hemodynamic and after correct sponge instrument and needle count mediastinal and pericardial fat were approximated ov er the aorta heart and grafts. Subsequently the sternum was closed using 5 [id number] Anthony cables after interposing fibrillar between the sternal edges. Thorough irrigation with cefazolin followed. The rest of the closure proceeded in layers. Skin glue was applied. Patient did not receive any blood in But received 470 cc of Cell Saver blood. He is transferred to the ICU atrial paced at 80 with excellent hemodynamics on low-dose nitroglycerin.
[2023-06-02 14:13] LABS: Glucose,Whole Blood 124 mg/dL (70-110)
[2023-06-02 14:17] LABS: Basophils % (A) 0 %; Eosinophils % (A) 0 %; HCT 30.6 % (39.0-53.0); HGB 10.1 gm/dL (13.0-17.5); Lymphocytes # (A) 1.5 k/uL (1.0-4.8); Lymphocytes % (A) 15 %; MCH 30.3 pg (25.0-35.0); MCHC 33.1 g/dL (31.0-37.0); MCV 91.5 fL (80.0-100.0); Monocytes # (A) 0.4 k/uL (0-1.0); Monocytes % (A) 4 %; Neutrophils # (A) 8.4 k/uL (1.3-7.7); Neutrophils % (A) 80 %; Platelet Count 268 k/uL (150-450); RBC 3.34 m/uL (4.30-5.90); RDW 14.6 % (11.5-15.5); WBC 10.5 k/uL (3.8-10.6)
[2023-06-02] MEDS: SODIUM CHLORIDE 0.9% 1,000 ML IV SCH (14:17)
[2023-06-02] MEDS: NITROGLYCERIN-D5W PMX 50 MG in DEXTROSE/WATER 1 250ML.BAG IV SCH (14:18)
[2023-06-02 14:21] LABS: ABG Base Excess 0.4 mmol/L; ABG HCO3 26 mmol/L (21-25); ABG PCO2 46 mmHg (35-45); ABG PH 7.36 (7.35-7.45); ABG PO2 305 mmHg (83-108); ABG TCO2 27 mmol/L (19-24)
[2023-06-02 14:21] LABS: Ionized Calcium 4.7 mg/dL (4.5-5.3)
[2023-06-02 14:22] LABS: INR 1.1 (<1.2); Partial Thromboplastin Time 30.7 sec (22.0-30.0); Prothrombin Time 12.3 sec (10.0-12.5)
[2023-06-02 14:23] LABS: ABG Oxygen Saturation 98.9 % (94-97); Allen Test Performed? no
[2023-06-02 14:41] LABS: ALT 90 U/L (4-49); AST 85 U/L (17-59); African American GFR (CKD) >90 (>60 ml/min/1.73 sqM); Albumin 3.2 g/dL (3.5-5.0); Alkaline Phosphatase 59 U/L (38-126); Anion Gap 8 mmol/L; Blood Urea Nitrogen 11 mg/dL (9-20); Calcium 8.2 mg/dL (8.4-10.2); Carbon Dioxide 23 mmol/L (22-30); Chloride 109 mmol/L (98-107); Glucose 114 mg/dL (74-99); Magnesium 2.6 mg/dL (1.6-2.3); Non-African American GFR(CKD) >90 (>60 ml/min/1.73 sqM); Potassium 3.7 mmol/L (3.5-5.1); Sodium 140 mmol/L (137-145); Total Protein 5.2 g/dL (6.3-8.2)
--- NOTE | 2023-06-02 15:00 | XR ---
EXAMINATION TYPE: XR chest 1V portable DATE OF EXAM: 06/02/2023 HISTORY: Post Op CABG COMPARISON: NONE TECHNIQUE: Single view of the chest is submitted. FINDINGS: Endotracheal tube is only 6 mm from the zari and should be pulled back at least 2 cm. NG tube is se en coursing into the stomach. [place]-Cuauhtemoc catheter is appropriately placed as are mediastinal drains an d left-sided chest tube. Left basilar pleural-parenchymal opacity. No evidence for pneumothorax. Left atrial appendage clip. Post operative changes of CABG. The heart mildly enlarged. IMPRESSION: 1. Post operative changes of CABG. 2. Pullback endotracheal tube as noted above.
[2023-06-02 15:02] LABS: Glucose,Whole Blood 119 mg/dL (70-110)
--- NOTE | 2023-06-02 15:22 | P.PN ---
Subjective Progress Note Date: 06/02/23 Hospital course: Patient is a very pleasant 72-year-old male with a past medical history of hyp ertension, hyperlipidemia, and COPD with continued nicotine dependence. Patient presented to our facility as a transfer from [facility] where he presented with weakness and a fall and was found to have elevated troponins. Patient reported recent treatment for cellulitis on Bactrim and experiencing nausea, vomiting, and decreased oral intake over the past few days. Per documentation in chart workup at [facility] was completed including a CT of the brain which was negative for acute intercranial pathology and troponins initially reported negative increasing to 5.09 resulting in patient being started on heparin infusion followed by transfer to our facility for evaluation. Upon arrival to our facility patient underwent evaluation in the emergency department. Vital signs revealed blood pressure 140/83, heart rate 86, respiratory rate 12, temp 97.9 F, and SpO2 of 96% on room air. EKG was completed showing normal sinus rhythm at 84 bpm with no significant T wave or ST abnormalities showing no signs of acute ischemia upon personal review and interpretation. Chest x-ray completed showing findings concerning for bronchitis with mild to moderate peribronchial thickening of the central bronchi and trace right pleural effusion. CTA chest was completed negative for pulmo nary emboli revealing a 1 cm subcarinal enlarged lymph node. Labs were completed and reviewed. CBC unremarkable. Coagulation profile normal findings. BMP revealed hyponatremia with sodium of 133 and hypocarbia with bicarb of 17. Blood glucose was 107. Magnesium normal findings at 2.0. Liver profile showing elevated AST of 73 and ALT of 51. Troponin was 2.730 and proBNP was 1620. Patient admitted under our services with consultation to cardiology. Troponins trended overnight resulting at 2.730 and 2.970. Patient was taken for cardiac catheterization. Cardiac catheterization revealing three-vessel coronary artery disease, cardiology consulted cardiothoracic surgery to evaluate patient for bypass. Echocardiogram showed normal LVEF 55 to 60%. She has now status post CABG. Physical exam: Patient seen and fully evaluated at bedside this morning. Status post CABG, currently intubated and sedated. Vital signs reviewed and stable. General: Nontoxic, no distress and appears stated age, intubated and sedated Derm: Skin warm and dry, right lower extremity mild erythema, no edema or warmth, dressing clean, dry, intact, chest tubes in place Head: Atraumatic, normocephalic and symmetric. Eyes:: Reactive pupils Mouth: no lip lesions, mucus membranes moist Cardiovascular: regular rate and rhythm with normal S1S2, no murmur, positive posterior tibial pulses bilaterally, and cap refill < 2 seconds. Lungs: Bilateral rhonchi, intubated Abdominal: soft, no guarding, no appreciable organomegaly Ext: No gross muscle atrophy, no edema, no contractures Neuro: Sedated Psych: Unable to evaluate Assessment and Plan of Care: NSTEMI Three-vessel coronary artery disease status post CABG Hypertension Hyperlipidemia Right lower extremity cellulitis on cefazolin -Cardiology following -Cardiothoracic surgery operative note reviewed -Currently sedated and intubated in the medical ICU -On aspirin 325, Plavix 75, metoprolol 12.5 twice daily, atorvastatin 40 Type 2 diabetes, A1c 6.6 -Insulin drip, monitor blood sugars COPD with continued nicotine dependence -DuoNebs 4 times daily -Consider nicotine patch once patient is extubated Subcarinal lymph node - Incidental finding, 1 cm - Outpatient follow-up Elevated transaminases, resolving - Hepatitis panel negative Data and imaging reviewed: -Hemoglobin hemoglobin 10.1, creatinine 0.71, blood sugars range between 1 14-03 16 CODE STATUS: Full code DVT prophylaxis: SQ heparin Anticipated discharge date: Clinical course to determine Anticipated discharge place: Pending clinical course Objective - Vital Signs Vital signs: Vital Signs Temp 95.5 F L 06/02/23 14:00 Pulse 80 06/02/23 15:00 Resp 12 06/02/23 15:00 BP 157/81 06/02/23 06:19 Pulse Ox 99 06/02/23 15:00 FiO2 100 06/02/23 14:00 Intake & Output 06/01/23 06/02/23 06/02/23 18:59 06:59 18:59 Intake Total 770 300 182 Output Total 6660 538 1576 Balance -455 200 -1118 Weight 90 kg 89.9 kg Intake: IV 300 182 CO/CI 60 Pressure Bags 18 Sodium Chloride 0.9% 1, 100 000 ml @ 50 mls/hr IV . Q20H MOUSTAPHA Rx#:[id number] Intake, IV Titration 50 Amount ceFAZolin 1,000 mg In 50 Sodium Chloride 0.9% 50 ml @ 100 mls/hr IVPB Q8HR MOUSTAPHA Rx#:[id number] Oral 720 Output: Chest Tube Drainage 250 Bilateral Mediastinal 120 Left Pleural 130 Drainage 60 Left Arm 50 Left Calf 10 Urine 1225 500 490 Estimated Blood Loss 500 ABP, PAP, CO, CI - Last Documented Arterial Blood Pressure 139/60 Pulmonary Artery Pressure 28/14 Cardiac Output 5.5 Cardiac Index 2.7 - Labs CBC & Chem 7: 06/02/23 14:08 06/02/23 14:08 Labs: Abnormal Lab Results - Last 24 Hours (Table) 06/01/23 06/02/23 06/02/23 Range/Units 08:35 06:18 14:02 RBC (4.30-5.90) m/uL Hgb (13.0-17.5) gm/dL Hct (39.0-53.0) % Neutrophils # (1.3-7.7) k/uL APTT (22.0-30.0) sec ABG pCO2 (35-45) mmHg ABG pO2 (83-108) mmHg ABG HCO3 (21-25) mmol/L ABG Total CO2 (19-24) mmol/L ABG O2 Saturation (94-97) % Chloride (98-107) mmol/L Glucose (74-99) mg/dL POC Glucose (mg/dL) 115 H 124 H (70-110) mg/dL Calcium (8.4-10.2) mg/dL Magnesium (1.6-2.3) mg/dL AST (17-59) U/L ALT (4-49) U/L Total Protein (6.3-8.2) g/dL Albumin (3.5-5.0) g/dL Crossmatch See Detail 06/02/23 06/02/23 06/02/23 Range/Units 14:08 14:08 14:08 RBC 3.34 L (4.30-5.90) m/uL Hgb 10.1 L D (13.0-17.5) gm/dL Hct 30.6 L (39.0-53.0) % Neutrophils # 8.4 H (1.3-7.7) k/uL APTT 30.7 H (22.0-30.0) sec ABG pCO2 (35-45) mmHg ABG pO2 (83-108) mmHg ABG HCO3 (21-25) mmol/L ABG Total CO2 (19-24) mmol/L ABG O2 Saturation (94-97) % Chloride 109 H (98-107) mmol/L Glucose 114 H (74-99) mg/dL POC Glucose (mg/dL) (70-110) mg/dL Calcium 8.2 L (8.4-10.2) mg/dL Magnesium 2.6 H (1.6-2.3) mg/dL AST 85 H (17-59) U/L ALT 90 H (4-49) U/L Total Protein 5.2 L (6.3-8.2) g/dL Albumin 3.2 L (3.5-5.0) g/dL Crossmatch 06/02/23 06/02/23 Range/Units 14:19 15:00 RBC (4.30-5.90) m/uL Hgb (13.0-17.5) gm/dL Hct (39.0-53.0) % Neutrophils # (1.3-7.7) k/uL APTT (22.0-30.0) sec ABG pCO2 46 H (35-45) mmHg ABG pO2 305 H (83-108) mmHg ABG HCO3 26 H (21-25) mmol/L ABG Total CO2 27 H (19-24) mmol/L ABG O2 Saturation 98.9 H (94-97) % Chloride (98-107) mmol/L Glucose (74-99) mg/dL POC Glucose (mg/dL) 119 H (70-110) mg/dL Calcium (8.4-10.2) mg/dL Magnesium (1.6-2.3) mg/dL AST (17-59) U/L ALT (4-49) U/L Total Protein (6.3-8.2) g/dL Albumin (3.5-5.0) g/dL Crossmatch
[2023-06-02] MEDS: CLEVIDIPINE BUTYRATE 25 MG in EMPTY BAG 1 BAG IV SCH (15:29)
[2023-06-02] MEDS: POTASSIUM BICARBONATE/CIT AC 20 MEQ TABLET.EFF NG-TUBE SCH (15:42)
[2023-06-02] MEDS: HEPARIN SODIUM,PORCINE 5,000 UNIT/ML 1 ML VIAL SQ SCH (15:42)
[2023-06-02 15:54] LABS: Glucose,Whole Blood 118 mg/dL (70-110)
[2023-06-02] MEDS: IPRATROPIUM-ALBUTEROL 3 ML NEB INHALATION SCH ×2 (15:58→20:54)
[2023-06-02] MEDS: DEXMEDETOMIDINE/0.9% NACL(PMX) 400 MCG in EMPTY BAG 1 BAG IV SCH (16:02)
[2023-06-02] MEDS: ALBUMIN HUMAN 5% 500 ML in EMPTY BAG 1 BAG IVPB STA (16:49)
[2023-06-02 17:04] LABS: Glucose,Whole Blood 153 mg/dL (70-110)
[2023-06-02] MEDS: INSULIN REGULAR 100 UNIT in SODIUM CHLORIDE 0.9% 100 ML IV SCH (17:05)
[2023-06-02 17:34] LABS: Basophils % (A) 0 %; Eosinophils % (A) 0 %; HCT 28.6 % (39.0-53.0); HGB 9.2 gm/dL (13.0-17.5); Lymphocytes # (A) 0.8 k/uL (1.0-4.8); Lymphocytes % (A) 8 %; MCH 29.8 pg (25.0-35.0); MCHC 32.1 g/dL (31.0-37.0); MCV 92.6 fL (80.0-100.0); Mean Platelet Volume 8.1; Monocytes # (A) 0.5 k/uL (0-1.0); Monocytes % (A) 5 %; Neutrophils # (A) 8.6 k/uL (1.3-7.7); Neutrophils % (A) 86 %; Platelet Count 289 k/uL (150-450); RBC 3.08 m/uL (4.30-5.90); RDW 14.6 % (11.5-15.5); WBC 10.1 k/uL (3.8-10.6)
[2023-06-02 18:04] LABS: Glucose,Whole Blood 144 mg/dL (70-110)
[2023-06-02] MEDS: ALBUMIN HUMAN 5% 250 ML in EMPTY BAG 1 BAG IVPB ONE (18:17)
[2023-06-02] MEDS: ACETAMINOPHEN IV (For NPO) 1,000 MG in EMPTY BAG 1 BAG IVPB SCH (18:21)
[2023-06-02 18:54] LABS: ABG Base Excess -2.7 mmol/L; ABG HCO3 23 mmol/L (21-25); ABG PCO2 42 mmHg (35-45); ABG PH 7.35 (7.35-7.45); ABG PO2 97 mmHg (83-108); ABG TCO2 24 mmol/L (19-24)
[2023-06-02 18:56] LABS: ABG Oxygen Saturation 97.2 % (94-97); Allen Test Performed? no
[2023-06-02 19:01] LABS: Glucose,Whole Blood 141 mg/dL (70-110)
[2023-06-02] MEDS: ALBUMIN HUMAN 5% 250 ML in EMPTY BAG 1 BAG IVPB PRN (19:09)
[2023-06-02 19:55] LABS: Glucose,Whole Blood 133 mg/dL (70-110)
[2023-06-02 20:04] LABS: Basophils % (A) 0 %; Eosinophils % (A) 0 %; HCT 26.2 % (39.0-53.0); HGB 8.5 gm/dL (13.0-17.5); Lymphocytes # (A) 0.7 k/uL (1.0-4.8); Lymphocytes % (A) 7 %; MCH 29.7 pg (25.0-35.0); MCHC 32.4 g/dL (31.0-37.0); MCV 91.6 fL (80.0-100.0); Mean Platelet Volume 9.2; Monocytes # (A) 0.4 k/uL (0-1.0); Monocytes % (A) 5 %; Neutrophils # (A) 8.5 k/uL (1.3-7.7); Neutrophils % (A) 87 %; Platelet Count 244 k/uL (150-450); RBC 2.86 m/uL (4.30-5.90); RDW 14.6 % (11.5-15.5); WBC 9.8 k/uL (3.8-10.6)
[2023-06-02 20:50] LABS: Glucose,Whole Blood 128 mg/dL (70-110)
[2023-06-02] MEDS ORDERED: MUPIROCIN 2% OINT 22 GM TUBE NASAL SCH (21:00)
--- NOTE | 2023-06-02 21:23 | P.PN ---
Subjective Progress Note Date: 06/02/23 72-year-old male that we are asked to see in preoperative evaluation. The patient was admitted with a non-ST segment elevation myocardial infarction, and cellulitis of the right lower extremity. He has a history of hypertension, hyperlipidemia, COPD, occasional alcohol use, and chronic and ongoing tobacco dependence. The patient apparently sees a physician over at the [facility]. The patient is scheduled to have open heart surgery, on May 30. He is currently on a nebulizer machine, with albuterol sulfate and ipratropium bromide, and uses generic Advair, i.e. Wixela. The patient smoked 1 pack of cigarettes a day for 30 years. He has never seen a lung doctor in the past. The patient did have lung function performed while in the hospital. The patient's FEV1 was 2.63 L, and the patient's FVC was 2.78 L. The FEV1/FVC ratio was excellent. The FEF 25-75% was 1.50 L/s which is 65% of predicted. Based exclusively on the FEV1, the patient is at no increased operative risk. Patient does have some mild shortness of breath on exertion. Laboratory data includes a white count 15, hemoglobin 15.1, hematocrit 46.9, and a platelet count of 374,000. Sodium 137, potassium 3.9, chlorides 104, CO2 24, BUN 19, creatinine 1. The patient's AST is 202. The ALT is 230. On today's evaluation of 05/30/2023, the patient is calm and comfortable. Denies having any specific complaints. No reported chest pain. There is an issue with the right lower extremity cellulitis and the patient is currently on IV antibiotics. The right lower extremity is also swollen compared to the left and we will recheck a Doppler of the lower extremity. Note that this was done at [facility] it was reported to be as negative. Pulse ox is 95 to 97% on room air oxygen. White count of 8.6 with a hemoglobin 15.8 and a sodium is at 136 with a potassium level of 4, BUN is at 17 with a creatinine of 0.88. LFTs are mildly elevated and the patient has a AST of 203 with an ALT of 285, bilirubin is within normal limits. The viral hepatitis screen has been negative. UA has been negative. The patient remains on aspirin 81 mg p.o. daily, the patient is also on metoprolol 100 mg p.o. daily. The patient on Imdur 30 mg p.o. daily. The patient is on IV cefazolin regarding right lower extremity cellulitis. The patient is also on Lipitor 40 mg p.o. daily. Norvasc is for blood pressure control at 5 mg p.o. daily. No respiratory difficulties at this point. On today's evaluation of 05/31/2023, I am seeing the patient for a follow-up. The patient cellulitis is improving and the patient has no specific complaints. No chest pain. No cough or sputum production. Awaiting his cardiac bypass surgery that is going to be done on 06/02/2023. The patient has triple-vessel coronary artery disease. The patient is also known to have hypertension hyperlipidemia in addition to right lower extremity cellulitis and the patient is currently on IV cefazolin. Using incentive spirometer. Labs are all stable, hemoglobin at 13.9, white cell count is down to 8.6, BUN is at 30 with a creatinine of 0.7 and sodium levels at 137. On today's evaluation of 06/01/2023, the patient has no specific complaints. Cellulitis has improved. No fever or chills. White cell count of 7.9. Renal function is stable with a BUN of 11 and a creatinine of 0.8 and a sodium levels at 137. Cardiac rhythm is sinus. No chest pain. The plan is to proceed with a bypass surgery tomorrow. The patient otherwise has no other specific co mplaints. He has normal ejection fraction. He is triple-vessel coronary disease. Hemoglobin is stable. Remains on a combination of aspirin, Lipitor, amlodipine 5 mg p.o. daily metoprolol 100 mg p.o. daily and the patient is on lisinopril hydrochlorothiazide 20/25 1 tablet a day. The patient remains on IV cefazolin. on 06/02/2023, the patient is being seen in the intensive care unit following his cardiac surgery. The patient was taken to the operating room and the patient underwent triple-vessel coronary artery bypass surgery utilizing ANDINO to LAD and left radial artery to obtuse marginal and reverse saphenous vein graft to posterior descending artery. Left atrial appendage clipping was also done. Postop, the patient was kept intubated and placed on mechanical ventilator and following that he was transferred to the intensive care unit. At the time of my evaluation, the patient was on propofol running at 25 mcg/kg/min. Precedex was also noted and the dose being titrated for comfort levels. The patient is intubated on mechanical ventilator on assist-control mode at rate of 12, tidal volume of 500, FiO2 40% with a PEEP of 8. Cardiac output was 5.7 with index of 2.8. Pulmonary artery pressures were 39/19. Cardiac output was 5.7 with an index of 2.8. Pulmonary artery pressures were 39/19. The patient has 2 mediastinal chest tubes output are minimal and left lower chest tube with a total amount of output of around 200 cc since arrival from the operating room without evidence of any air leak.. Chest x-ray showed that the ET tube was deep in the trachea and it was pulled by around 1 cm. All of the chest tubes are in good location. The [place] catheter was also in good location. There is some left basilar atelectatic changes. Blood gases were noted and the patient was found to have a pH of 7.36 with a pCO2 of 46 and pO2 of 305. FiO2 was gradually weaned off. Noted the patient continues to be hemodynamically stable. No pressors were utilized. The patient over the next few hours was gradually weaned off the sedation. Weaning parameters were adequate with a rapid shallow breathing index of 30. The patient was able to generate adequate tidal volumes above 700 cc. Adequate minute ventilation. Patient was given a spontaneous breathing trial with a pressure support of 5 and a PEEP of 5 and following that the patient was extubated. Neurologically, awake and alert. Currently is on 3 L of oxygen by nasal cannula. The positive blood work showed a hemoglobin of 8.5, platelet count of 244, sodium is at 140 with a potassium of 3.7, BUN of 11 and a creatinine of 0.77. Adequate urine output. Given IV albumin by the cardiothoracic team. Pain is under adequate control. Cardiac rhythm is sinus. Objective - Vital Signs Vital signs: Vital Signs Temp 97.9 F 06/02/23 20:00 Pulse 75 06/02/23 21:06 Resp 15 06/02/23 21:00 BP 100/68 06/02/23 17:15 Pulse Ox 98 06/02/23 21:00 FiO2 40 06/02/23 15:26 Intake & Output 0406/02/23 06/03/23 06:59 18:59 06:59 Intake Total 300 1251.232 510.050 Output Total 500 1675 250 Balance -200 -423.768 260.050 Weight 89.9 kg Intake: IV 300 1199 487 Albumin Human 5% 500 ml 750 250 In Empty Bag 1 bag @ 500 mls/hr IVPB ONCE STA Rx#: [id number] CO/CI 150 60 Pressure Bags 45 27 Sodium Chloride 0.9% 1, 250 150 000 ml @ 50 mls/hr IV . Q20H [facility] Rx#:[id number] Intake, IV Titration 52.232 23.050 Amount Dexmedetomidine/0.9% NaCl 3.147 18.656 (Pmx) 400 mcg In Empty Bag 1 bag @ Titrate IV . Q0M [facility]AP[facility] Rx#:[id number] Insulin Regular 100 unit 4.394 In Sodium Chloride 0.9% 100 ml @ Per Protocol IV .Q0M [facility] Rx#:[id number] propofoL 1,000 mg In 49.085 Empty Bag 1 bag @ Titrate IV .Q0M [facility]OUSTAPHA Rx#: [id number] Output: Chest Tube Drainage 420 120 Bilateral Mediastinal 200 40 Left Pleural 220 80 Drainage 60 40 Left Arm 50 20 Left Calf 10 20 Urine 500 695 90 Estimated Blood Loss 500 Other: Voiding Method Indwelling Catheter Indwelling Catheter ABP, PAP, CO, CI - Last Documented Arterial Blood Pressure 117/52 Pulmonary Artery Pressure 27/11 Cardiac Output 5.4 Cardiac Index 2.6 - Exam No acute distress. Extubated and currently on 3 L of oxygen by nasal cannula. The patient was weaned off the mechanical ventilator and the patient was extubated. Moving all 4 extremities. Head exam was generally normal. There was no scleral icterus or corneal arcus. Mucous membranes were moist. HEENT examination is grossly unremarkable. Mucous membranes are moist. No oral lesions. The patient has a right IJ cordis in place. The patient also has a right IJ [place] catheter in place. Cardiovascular examination reveals regular rhythm rate. S1-S2 normal. No S3 or S4. No discernible murmur noted. Thoracotomy scar is dry clean and intact. Lungs reveal mostly clear breath sounds. Minimal rhonchi. No wheezes or crackles. Breath sounds equal bilaterally. Patient has a mediastinal chest tube x 2 and the patient also has a left pleural chest tube. No evidence of any air leak. Output is minimal at this point in time. Abdomen soft bowel sounds are heard. No masses or tenderness. Extremities are intact. No cyanosis clubbing or edema. There is some cellulitis involving the right lower extremity just below the knee which is improving. Minimal erythema. No active drainage. Scaling of the skin Skin is without rash or lesion. Surgical wound sites are clean over the chest and arm. Neurologic examination showing that the patient is still little bit sleepy and drowsy. Nevertheless he is arousable and he is awake and oriented x 3. - Labs CBC & Chem 7: 06/02/23 19:55 06/02/23 14:08 Labs: Abnormal Lab Results - Last 24 Hours (Table) 06/01/23 06/02/23 06/02/23 Range/Units 08:35 06:18 10:08 RBC (4.30-5.90) m/uL Hgb (13.0-17.5) gm/dL Hct (39.0-53.0) % Neutrophils # (1.3-7.7) k/uL Lymphocytes # (1.0-4.8) k/uL APTT (22.0-30.0) sec ABG pH (7.35-7.45) ABG pCO2 (35-45) mmHg ABG pO2 127 H (83-108) mmHg ABG HCO3 27 H (21-25) mmol/L ABG Total CO2 (19-24) mmol/L ABG O2 Saturation 98.3 H (94-97) % ABG Hematocrit (34.0-46.0) % ABG Potassium (3.4-4.5) mmol/L ABG Ionized Calcium (4.5-5.3) mg/dL ABG Glucose 118 H (75-99) mg/dL Hemoglobin 11.7 L (13.0-17.5) gm/dL Chloride (98-107) mmol/L Glucose (74-99) mg/dL POC Glucose (mg/dL) 115 H (70-110) mg/dL Calcium (8.4-10.2) mg/dL Magnesium (1.6-2.3) mg/dL AST (17-59) U/L ALT (4-49) U/L Total Protein (6.3-8.2) g/dL Albumin (3.5-5.0) g/dL Arterial Blood Potassium (3.4-4.5) mmol/L Arterial Blood Glucose 118 H (75-99) mg/dL Crossmatch See Detail 06/02/23 06/02/23 06/02/23 Range/Units 10:59 11:29 12:11 RBC (4.30-5.90) m/uL Hgb (13.0-17.5) gm/dL Hct (39.0-53.0) % Neutrophils # (1.3-7.7) k/uL Lymphocytes # (1.0-4.8) k/uL APTT (22.0-30.0) sec ABG pH 7.51 H 7.54 H 7.52 H (7.35-7.45) ABG pCO2 34 L 31 L 33 L (35-45) mmHg ABG pO2 >420 H >420 H >420 H (83-108) mmHg ABG HCO3 28 H 27 H 27 H (21-25) mmol/L ABG Total CO2 (19-24) mmol/L ABG O2 Saturation >99.4 H >99.4 H >99.4 H (94-97) % ABG Hematocrit 28 L 26 L 27 L (34.0-46.0) % ABG Potassium 5.4 H (3.4-4.5) mmol/L ABG Ionized Calcium 4.1 L 4.0 L 4.1 L (4.5-5.3) mg/dL ABG Glucose 113 H 122 H 134 H (75-99) mg/dL Hemoglobin 9.3 L 8.5 L 8.9 L (13.0-17.5) gm/dL Chloride (98-107) mmol/L Glucose (74-99) mg/dL POC Glucose (mg/dL) (70-110) mg/dL Calcium (8.4-10.2) mg/dL Magnesium (1.6-2.3) mg/dL AST (17-59) U/L ALT (4-49) U/L Total Protein (6.3-8.2) g/dL Albumin (3.5-5.0) g/dL Arterial Blood Potassium 5.4 H (3.4-4.5) mmol/L Arterial Blood Glucose 113 H 122 H 134 H (75-99) mg/dL Crossmatch 06/02/23 06/02/23 06/02/23 Range/Units 14:02 14:08 14:08 RBC 3.34 L (4.30-5.90) m/uL Hgb 10.1 L D (13.0-17.5) gm/dL Hct 30.6 L (39.0-53.0) % Neutrophils # 8.4 H (1.3-7.7) k/uL Lymphocytes # (1.0-4.8) k/uL APTT 30.7 H (22.0-30.0) sec ABG pH (7.35-7.45) ABG pCO2 (35-45) mmHg ABG pO2 (83-108) mmHg ABG HCO3 (21-25) mmol/L ABG Total CO2 (19-24) mmol/L ABG O2 Saturation (94-97) % ABG Hematocrit (34.0-46.0) % ABG Potassium (3.4-4.5) mmol/L ABG Ionized Calcium (4.5-5.3) mg/dL ABG Glucose (75-99) mg/dL Hemoglobin (13.0-17.5) gm/dL Chloride (98-107) mmol/L Glucose (74-99) mg/dL POC Glucose (mg/dL) 124 H (70-110) mg/dL Calcium (8.4-10.2) mg/dL Magnesium (1.6-2.3) mg/dL AST (17-59) U/L ALT (4-49) U/L Total Protein (6.3-8.2) g/dL Albumin (3.5-5.0) g/dL Arterial Blood Potassium (3.4-4.5) mmol/L Arterial Blood Glucose (75-99) mg/dL Crossmatch 06/02/23 06/02/23 06/02/23 Range/Units 14:08 14:19 15:00 RBC (4.30-5.90) m/uL Hgb (13.0-17.5) gm/dL Hct (39.0-53.0) % Neutrophils # (1.3-7.7) k/uL Lymphocytes # (1.0-4.8) k/uL APTT (22.0-30.0) sec ABG pH (7.35-7.45) ABG pCO2 46 H (35-45) mmHg ABG pO2 305 H (83-108) mmHg ABG HCO3 26 H (21-25) mmol/L ABG Total CO2 27 H (19-24) mmol/L ABG O2 Saturation 98.9 H (94-97) % ABG Hematocrit (34.0-46.0) % ABG Potassium (3.4-4.5) mmol/L ABG Ionized Calcium (4.5-5.3) mg/dL ABG Glucose (75-99) mg/dL Hemoglobin (13.0-17.5) gm/dL Chloride 109 H (98-107) mmol/L Glucose 114 H (74-99) mg/dL POC Glucose (mg/dL) 119 H (70-110) mg/dL Calcium 8.2 L (8.4-10.2) mg/dL Magnesium 2.6 H (1.6-2.3) mg/dL AST 85 H (17-59) U/L ALT 90 H (4-49) U/L Total Protein 5.2 L (6.3-8.2) g/dL Albumin 3.2 L (3.5-5.0) g/dL Arterial Blood Potassium (3.4-4.5) mmol/L Arterial Blood Glucose (75-99) mg/dL Crossmatch 06/02/23 06/02/23 06/02/23 Range/Units 15:53 17:00 17:03 RBC 3.08 L (4.30-5.90) m/uL Hgb 9.2 L (13.0-17.5) gm/dL Hct 28.6 L (39.0-53.0) % Neutrophils # 8.6 H (1.3-7.7) k/uL Lymphocytes # 0.8 L (1.0-4.8) k/uL APTT (22.0-30.0) sec ABG pH (7.35-7.45) ABG pCO2 (35-45) mmHg ABG pO2 (83-108) mmHg ABG HCO3 (21-25) mmol/L ABG Total CO2 (19-24) mmol/L ABG O2 Saturation (94-97) % ABG Hematocrit (34.0-46.0) % ABG Potassium (3.4-4.5) mmol/L ABG Ionized Calcium (4.5-5.3) mg/dL ABG Glucose (75-99) mg/dL Hemoglobin (13.0-17.5) gm/dL Chloride (98-107) mmol/L Glucose (74-99) mg/dL POC Glucose (mg/dL) 118 H 153 H (70-110) mg/dL Calcium (8.4-10.2) mg/dL Magnesium (1.6-2.3) mg/dL AST (17-59) U/L ALT (4-49) U/L Total Protein (6.3-8.2) g/dL Albumin (3.5-5.0) g/dL Arterial Blood Potassium (3.4-4.5) mmol/L Arterial Blood Glucose (75-99) mg/dL Crossmatch 06/02/23 06/02/23 06/02/23 Range/Units 18:02 18:48 19:00 RBC (4.30-5.90) m/uL Hgb (13.0-17.5) gm/dL Hct (39.0-53.0) % Neutrophils # (1.3-7.7) k/uL Lymphocytes # (1.0-4.8) k/uL APTT (22.0-30.0) sec ABG pH (7.35-7.45) ABG pCO2 (35-45) mmHg ABG pO2 (83-108) mmHg ABG HCO3 (21-25) mmol/L ABG Total CO2 (19-24) mmol/L ABG O2 Saturation 97.2 H (94-97) % ABG Hematocrit (34.0-46.0) % ABG Potassium (3.4-4.5) mmol/L ABG Ionized Calcium (4.5-5.3) mg/dL ABG Glucose (75-99) mg/dL Hemoglobin (13.0-17.5) gm/dL Chloride (98-107) mmol/L Glucose (74-99) mg/dL POC Glucose (mg/dL) 144 H 141 H (70-110) mg/dL Calcium (8.4-10.2) mg/dL Magnesium (1.6-2.3) mg/dL AST (17-59) U/L ALT (4-49) U/L Total Protein (6.3-8.2) g/dL Albumin (3.5-5.0) g/dL Arterial Blood Potassium (3.4-4.5) mmol/L Arterial Blood Glucose (75-99) mg/dL Crossmatch 06/02/23 06/02/23 06/02/23 Range/Units 19:54 19:55 20:48 RBC 2.86 L (4.30-5.90) m/uL Hgb 8.5 L (13.0-17.5) gm/dL Hct 26.2 L (39.0-53.0) % Neutrophils # 8.5 H (1.3-7.7) k/uL Lymphocytes # 0.7 L (1.0-4.8) k/uL APTT (22.0-30.0) sec ABG pH (7.35-7.45) ABG pCO2 (35-45) mmHg ABG pO2 (83-108) mmHg ABG HCO3 (21-25) mmol/L ABG Total CO2 (19-24) mmol/L ABG O2 Saturation (94-97) % ABG Hematocrit (34.0-46.0) % ABG Potassium (3.4-4.5) mmol/L ABG Ionized Calcium (4.5-5.3) mg/dL ABG Glucose (75-99) mg/dL Hemoglobin (13.0-17.5) gm/dL Chloride (98-107) mmol/L Glucose (74-99) mg/dL POC Glucose (mg/dL) 133 H 128 H (70-110) mg/dL Calcium (8.4-10.2) mg/dL Magnesium (1.6-2.3) mg/dL AST (17-59) U/L ALT (4-49) U/L Total Protein (6.3-8.2) g/dL Albumin (3.5-5.0) g/dL Arterial Blood Potassium (3.4-4.5) mmol/L Arterial Blood Glucose (75-99) mg/dL Crossmatch Assessment and Plan Plan: Triple-vessel coronary artery disease, non-STEMI this admission, the patient underwent three-vessel bypass surgery and the patient is postop day #0. Hemo dynamically stable with adequate cardiac output and index. No pressors. Cardiac rhythm is sinus. Postthoracotomy, weaned off the mechanical ventilator and the patient was extubated and currently on 3 days of oxygen by nasal cannula. The patient is to mediastinal and left lower chest tube. Output has been minimal without evidence of any air leak. Postop chest x-ray was showing some limited atelectatic change in left lung base Postoperative anemia, expected outcome of surgery, will monitor Cellulitis of the right lower extremity, improving and the patient's white cell count is improved and the patient cellulitis also improving clinically. Hypertension, Hyperlipidemia, treated cholesterol 99.0, LDL 48.0, currently on Lipitor Chronic ongoing tobacco dependence COPD with a preoperative FEV1 86% of predicted value with a base volume of 2.63 Occasional EtOH use, drinks 1 sixpack of beer per week Elevated transaminase,, LFTs continues to be mildly elevated and the patient remains on Lipitor. Could be related to chronic alcohol consumption. Acute leukocytosis, improving Plan Titrate oxygen flow to maintain saturation above 90%. The patient was extubated without any major difficulties. Incentive spirometer Daily chest x-rays Monitor output from the chest tubes Cardiac rhythm sinus Monitor hemodynamics including cardiac output and index and pulmonary artery pressures Continue IV cefazolin Monitor LFTs and continue Lipitor for now We will continue to follow make further recommendations based on his progress. The patient was weaned off the mechanical ventilator, currently off sedation and extubated successfully. This evaluation was done more than 30 minutes, critical care evaluation Time with Patient: Greater than 30
[2023-06-02 21:46] LABS: Glucose,Whole Blood 130 mg/dL (70-110)
[2023-06-02 22:44] LABS: Glucose,Whole Blood 126 mg/dL (70-110)
[2023-06-02 23:53] LABS: Glucose,Whole Blood 124 mg/dL (70-110)
[2023-06-03 00:47] LABS: Glucose,Whole Blood 121 mg/dL (70-110)
[2023-06-03 02:00] LABS: Glucose,Whole Blood 119 mg/dL (70-110)
[2023-06-03 02:50] LABS: Glucose,Whole Blood 116 mg/dL (70-110)
[2023-06-03 04:05] LABS: Glucose,Whole Blood 122 mg/dL (70-110)
[2023-06-03 04:22] LABS: Basophils % (A) 0 %; Eosinophils % (A) 0 %; HCT 27.2 % (39.0-53.0); Lymphocytes # (A) 1.2 k/uL (1.0-4.8); Lymphocytes % (A) 11 %; MCH 30.2 pg (25.0-35.0); MCV 91.5 fL (80.0-100.0); Mean Platelet Volume 8.1; Monocytes # (A) 0.6 k/uL (0-1.0); Monocytes % (A) 6 %; Neutrophils # (A) 8.3 k/uL (1.3-7.7); Neutrophils % (A) 81 %; Platelet Count 307 k/uL (150-450); RBC 2.97 m/uL (4.30-5.90); RDW 14.8 % (11.5-15.5); WBC 10.2 k/uL (3.8-10.6)
[2023-06-03 04:27] LABS: Ionized Calcium 4.7 mg/dL (4.5-5.3)
[2023-06-03 04:35] LABS: ALT 63 U/L (4-49); AST 63 U/L (17-59); African American GFR (CKD) >90 (>60 ml/min/1.73 sqM); Albumin 3.5 g/dL (3.5-5.0); Alkaline Phosphatase 52 U/L (38-126); Anion Gap 6 mmol/L; Blood Urea Nitrogen 12 mg/dL (9-20); Calcium 8.3 mg/dL (8.4-10.2); Carbon Dioxide 23 mmol/L (22-30); Chloride 110 mmol/L (98-107); Glucose 113 mg/dL (74-99); Magnesium 2.2 mg/dL (1.6-2.3); Non-African American GFR(CKD) >90 (>60 ml/min/1.73 sqM); Potassium 4.2 mmol/L (3.5-5.1); Sodium 139 mmol/L (137-145); Total Bilirubin 0.8 mg/dL (0.2-1.3); Total Protein 5.4 g/dL (6.3-8.2)
[2023-06-03 04:58] LABS: Glucose,Whole Blood 118 mg/dL (70-110)
[2023-06-03 06:25] LABS: Glucose,Whole Blood 148 mg/dL (70-110)
[2023-06-03] MEDS: ACETAMINOPHEN TAB 500 MG TAB PO PRN (06:40)
[2023-06-03 07:09] LABS: Glucose,Whole Blood 144 mg/dL (70-110)
--- NOTE | 2023-06-03 07:32 | XR ---
EXAMINATION TYPE: XR chest 1V portable DATE OF EXAM: 06/03/2023 HISTORY: Post Operative Cardiac Surgery COMPARISON: 06/02/2023 TECHNIQUE: Single view of the chest is submitted. FINDINGS: Endotracheal and NG tubes have been removed. Right Anson-Cuauhtemoc catheter, mediastinal drains and left-si ded chest tube remain in place. Left atrial clip. Mild pulmonary venous congestion scattered pleural-parenchymal densities. Mild cardiomegaly. Hilar and mediastinal structures are within normal limits. Degenerative changes are seen of the dorsal spine. IMPRESSION: 1. Changes of postoperative surgery.
[2023-06-03 08:01] LABS: Glucose,Whole Blood 134 mg/dL (70-110)
[2023-06-03] MEDS: ATORVASTATIN 40 MG TAB PO SCH (08:03)
[2023-06-03] MEDS: CLOPIDOGREL 75 MG TAB PO SCH (08:03)
[2023-06-03] MEDS: ASPIRIN 325 MG TAB PO SCH (08:03)
[2023-06-03] MEDS: PANTOPRAZOLE 40 MG/10 ML VIAL IVP SCH (08:03)
[2023-06-03] MEDS: METOPROLOL TARTRATE 12.5 MG TAB PO SCH ×2 (08:03→16:31)
--- NOTE | 2023-06-03 08:15 | P.PN ---
Subjective Progress Note Date: 06/03/23 Principal diagnosis: Triple-vessel diffuse coronary artery disease, non-STEMI this admission. History of cellulitis of the right lower extremity, hypertension, hyperlipidemia, curr ent tobacco dependence, COPD, occasional EtOH use POD#1 triple-vessel coronary artery bypass grafting using the in situ left internal mammary artery to the left anterior descending artery, left radial artery from the aorta to the obtuse marginal artery, reverse saphenous vein graft from the aorta to the posterior descending artery, exclusion of the left atrial appendage using a 35 mm AtriClip, endoscopic harvesting of the left radial artery, endoscopic harvesting of the left greater saphenous vein, intraoperative graft flow measurements using the Medistim system, intraoperative transesophageal echocardiogram and epiaortic scanning Acute blood loss anemia, expected given hemodilution and cardiopulmonary bypass pump The patient was seen and examined with Dr. De La Cruz this morning sitting up at the bedside in the ICU in no acute distress. He was successfully extubated last night at 19:02. Does complain of postoperative pain which is to be expected, denies shortness of breath. Remains in sinus rhythm, hemodynamically stable only on IV ntg for vessel spasm prophylaxis. CXR, labs reviewed. Right internal swan/cordis, right radial arterial line, mediastinal/left pleural chest tubes remain. No other new concerns. Objective - Vital Signs Vital signs: Vital Signs Temp 98.6 F 06/03/23 04:00 Pulse 84 06/03/23 07:47 Resp 19 06/03/23 07:00 BP 121/66 06/03/23 06:15 Pulse Ox 97 06/03/23 07:33 FiO2 40 06/02/23 15:26 Intake & Output 06/02/23 06/03/23 06/03/23 18:59 06:59 18:59 Intake Total 3404.334 5815.081 1.136 Output Total 1675 1135 Balance -423.768 717.081 1.136 Weight 93.1 kg Intake: IV 1199 1647 ACETAMINOPHEN IV (For NPO 400 ) 1,000 mg In Empty Bag 1 bag @ 400 mls/hr IVPB Q6HR MOUSTAPHA Rx#:[id number] Albumin Human 5% 500 ml 750 250 In Empty Bag 1 bag @ 500 mls/hr IVPB ONCE STA Rx#: [id number] CO/CI 150 260 Pressure Bags 45 117 Sodium Chloride 0.9% 1, 250 570 000 ml @ 20 mls/hr IV . Q24H MOUSTAPHA Rx#:[id number] ceFAZolin 2 gm In Sodium 50 Chloride 0.9% 50 ml @ 100 mls/hr IVPB Q8HR MOUSTAPHA Rx# :[id number] Intake, IV Titration 52.232 55.081 1.136 Amount Dexmedetomidine/0.9% NaCl 3.147 18.656 (Pmx) 400 mcg In Empty Bag 1 bag @ Titrate IV . Q0M MOUSTAPHA Rx#:[id number] Insulin Regular 100 unit 11.750 1.136 In Sodium Chloride 0.9% 100 ml @ Per Protocol IV .Q0M MOUSTAPHA Rx#:[id number] Nitroglycerin-D5w Pmx 50 24.675 mg In Dextrose/Water 1 250ml.bag @ 5 MCG/MIN 1.5 mls/hr IV .Q24H MOUSTAPHA Rx#: [id number] propofoL 1,000 mg In 49.085 Empty Bag 1 bag @ Titrate IV .Q0M MOUSTAPHA Rx#: [id number] Oral 150 Output: Chest Tube Drainage 420 620 Bilateral Mediastinal 200 260 Left Pleural 220 360 Drainage 60 40 Left Arm 50 20 Left Calf 10 20 Urine 695 475 Estimated Blood Loss 500 Other: Voiding Method Indwelling Catheter Indwelling Catheter ABP, PAP, CO, CI - Last Documented Arterial Blood Pressure 121/41 Pulmonary Artery Pressure 23/2 Cardiac Output 6.2 Cardiac Index 3 - Exam CONSTITUTIONAL: Appears comfortable, cooperative, no acute distress RESPIRATORY: Lungs sounds diminished bilaterally. Respirations even, nonlabored. Currently on 3 LPM NC with oxygen saturation 93%. Able to achieve 1000 mL on incentive spirometry. Strong nonproductive cough. CARDIOVASCULAR: S1, S2 present. Regular rate and rhythm, sinus rhythm on telemetry. Sternum stable. Palpable peripheral pulses bilaterally. No edema present. No calf pain or tenderness noted. Heart hugger in place with patient demonstrating appropriate use. Antiembolism stockings, SCDs present. GASTROINTESTINAL: Abdomen soft, nontender, nondistended. Hypoactive bowel sounds present 4 quadrants. Tolerating clear liquids. Denies flatus GENITOURINARY: Lopez present draining clear, yellow urine. Output overnight 30-60 mL per hour INTEGUMENTARY: Skin is warm and dry with evidence of good perfusion. Anterior chest incision well approximated and covered with dry intact dressing. Left radial artery as well as left lower extremity EVH site well approximated without redness, JÚNIOR drains present with minimal drainage. NEUROLOGIC: Cranial nerves II through XII intact MUSKULOSKELETAL: Able to move all extremities, strength equal bilaterally, gait normal PSYCHIATRIC: Alert and oriented to person place and time, appropriate affect, intact judgment and insight INVASIVE LINES AND TUBES: Mediastinal/left pleural chest tubes present and connected to wall suction, no air leaks present. Mediastinal tube with 130 mL serosanguineous drainage overnight, 450 mL since surgery. Left pleural chest tube with 170 mL serosanguineous drainage overnight, 550 mL since surgery. Atrial epicardial pacemaker wires present, connected to generator, backup rate 50 bpm. Right internal jugular Orwell/Cordis, right radial arterial line present. Last CO/CI 5.8/2.8, PA 17/, CVP 2. - Labs CBC & Chem 7: 06/03/23 04:04 06/03/23 04:04 Labs: Abnormal Lab Results - Last 24 Hours (Table) 06/01/23 06/02/23 06/02/23 Range/Units 08:35 08:39 10:08 RBC (4.30-5.90) m/uL Hgb (13.0-17.5) gm/dL Hct (39.0-53.0) % Neutrophils # (1.3-7.7) k/uL Lymphocytes # (1.0-4.8) k/uL APTT (22.0-30.0) sec ABG pH (7.35-7.45) ABG pCO2 (35-45) mmHg ABG pO2 116 H 127 H (83-108) mmHg ABG HCO3 27 H 27 H (21-25) mmol/L ABG Total CO2 (19-24) mmol/L ABG O2 Saturation 98.4 H 98.3 H (94-97) % ABG Hematocrit (34.0-46.0) % ABG Potassium (3.4-4.5) mmol/L ABG Ionized Calcium (4.5-5.3) mg/dL ABG Glucose 110 H 118 H (75-99) mg/dL Hemoglobin 12.9 L 11.7 L (13.0-17.5) gm/dL Chloride (98-107) mmol/L Glucose (74-99) mg/dL POC Glucose (mg/dL) (70-110) mg/dL Calcium (8.4-10.2) mg/dL Magnesium (1.6-2.3) mg/dL AST (17-59) U/L ALT (4-49) U/L Total Protein (6.3-8.2) g/dL Albumin (3.5-5.0) g/dL Arterial Blood Potassium (3.4-4.5) mmol/L Arterial Blood Glucose 110 H 118 H (75-99) mg/dL Crossmatch See Detail 06/02/23 06/02/23 06/02/23 Range/Units 10:59 11:29 12:11 RBC (4.30-5.90) m/uL Hgb (13.0-17.5) gm/dL Hct (39.0-53.0) % Neutrophils # (1.3-7.7) k/uL Lymphocytes # (1.0-4.8) k/uL APTT (22.0-30.0) sec ABG pH 7.51 H 7.54 H 7.52 H (7.35-7.45) ABG pCO2 34 L 31 L 33 L (35-45) mmHg ABG pO2 >420 H >420 H >420 H (83-108) mmHg ABG HCO3 28 H 27 H 27 H (21-25) mmol/L ABG Total CO2 (19-24) mmol/L ABG O2 Saturation >99.4 H >99.4 H >99.4 H (94-97) % ABG Hematocrit 28 L 26 L 27 L (34.0-46.0) % ABG Potassium 5.4 H (3.4-4.5) mmol/L ABG Ionized Calcium 4.1 L 4.0 L 4.1 L (4.5-5.3) mg/dL ABG Glucose 113 H 122 H 134 H (75-99) mg/dL Hemoglobin 9.3 L 8.5 L 8.9 L (13.0-17.5) gm/dL Chloride (98-107) mmol/L Glucose (74-99) mg/dL POC Glucose (mg/dL) (70-110) mg/dL Calcium (8.4-10.2) mg/dL Magnesium (1.6-2.3) mg/dL AST (17-59) U/L ALT (4-49) U/L Total Protein (6.3-8.2) g/dL Albumin (3.5-5.0) g/dL Arterial Blood Potassium 5.4 H (3.4-4.5) mmol/L Arterial Blood Glucose 113 H 122 H 134 H (75-99) mg/dL Crossmatch 06/02/23 06/02/23 06/02/23 Range/Units 14:02 14:08 14:08 RBC 3.34 L (4.30-5.90) m/uL Hgb 10.1 L D (13.0-17.5) gm/dL Hct 30.6 L (39.0-53.0) % Neutrophils # 8.4 H (1.3-7.7) k/uL Lymphocytes # (1.0-4.8) k/uL APTT 30.7 H (22.0-30.0) sec ABG pH (7.35-7.45) ABG pCO2 (35-45) mmHg ABG pO2 (83-108) mmHg ABG HCO3 (21-25) mmol/L ABG Total CO2 (19-24) mmol/L ABG O2 Saturation (94-97) % ABG Hematocrit (34.0-46.0) % ABG Potassium (3.4-4.5) mmol/L ABG Ionized Calcium (4.5-5.3) mg/dL ABG Glucose (75-99) mg/dL Hemoglobin (13.0-17.5) gm/dL Chloride (98-107) mmol/L Glucose (74-99) mg/dL POC Glucose (mg/dL) 124 H (70-110) mg/dL Calcium (8.4-10.2) mg/dL Magnesium (1.6-2.3) mg/dL AST (17-59) U/L ALT (4-49) U/L Total Protein (6.3-8.2) g/dL Albumin (3.5-5.0) g/dL Arterial Blood Potassium (3.4-4.5) mmol/L Arterial Blood Glucose (75-99) mg/dL Crossmatch 06/02/23 06/02/23 06/02/23 Range/Units 14:08 14:19 15:00 RBC (4.30-5.90) m/uL Hgb (13.0-17.5) gm/dL Hct (39.0-53.0) % Neutrophils # (1.3-7.7) k/uL Lymphocytes # (1.0-4.8) k/uL APTT (22.0-30.0) sec ABG pH (7.35-7.45) ABG pCO2 46 H (35-45) mmHg ABG pO2 305 H (83-108) mmHg ABG HCO3 26 H (21-25) mmol/L ABG Total CO2 27 H (19-24) mmol/L ABG O2 Saturation 98.9 H (94-97) % ABG Hematocrit (34.0-46.0) % ABG Potassium (3.4-4.5) mmol/L ABG Ionized Calcium (4.5-5.3) mg/dL ABG Glucose (75-99) mg/dL Hemoglobin (13.0-17.5) gm/dL Chloride 109 H (98-107) mmol/L Glucose 114 H (74-99) mg/dL POC Glucose (mg/dL) 119 H (70-110) mg/dL Calcium 8.2 L (8.4-10.2) mg/dL Magnesium 2.6 H (1.6-2.3) mg/dL AST 85 H (17-59) U/L ALT 90 H (4-49) U/L Total Protein 5.2 L (6.3-8.2) g/dL Albumin 3.2 L (3.5-5.0) g/dL Arterial Blood Potassium (3.4-4.5) mmol/L Arterial Blood Glucose (75-99) mg/dL Crossmatch 06/02/23 06/02/23 06/02/23 Range/Units 15:53 17:00 17:03 RBC 3.08 L (4.30-5.90) m/uL Hgb 9.2 L (13.0-17.5) gm/dL Hct 28.6 L (39.0-53.0) % Neutrophils # 8.6 H (1.3-7.7) k/uL Lymphocytes # 0.8 L (1.0-4.8) k/uL APTT (22.0-30.0) sec ABG pH (7.35-7.45) ABG pCO2 (35-45) mmHg ABG pO2 (83-108) mmHg ABG HCO3 (21-25) mmol/L ABG Total CO2 (19-24) mmol/L ABG O2 Saturation (94-97) % ABG Hematocrit (34.0-46.0) % ABG Potassium (3.4-4.5) mmol/L ABG Ionized Calcium (4.5-5.3) mg/dL ABG Glucose (75-99) mg/dL Hemoglobin (13.0-17.5) gm/dL Chloride (98-107) mmol/L Glucose (74-99) mg/dL POC Glucose (mg/dL) 118 H 153 H (70-110) mg/dL Calcium (8.4-10.2) mg/dL Magnesium (1.6-2.3) mg/dL AST (17-59) U/L ALT (4-49) U/L Total Protein (6.3-8.2) g/dL Albumin (3.5-5.0) g/dL Arterial Blood Potassium (3.4-4.5) mmol/L Arterial Blood Glucose (75-99) mg/dL Crossmatch 06/02/23 06/02/23 06/02/23 Range/Units 18:02 18:48 19:00 RBC (4.30-5.90) m/uL Hgb (13.0-17.5) gm/dL Hct (39.0-53.0) % Neutrophils # (1.3-7.7) k/uL Lymphocytes # (1.0-4.8) k/uL APTT (22.0-30.0) sec ABG pH (7.35-7.45) ABG pCO2 (35-45) mmHg ABG pO2 (83-108) mmHg ABG HCO3 (21-25) mmol/L ABG Total CO2 (19-24) mmol/L ABG O2 Saturation 97.2 H (94-97) % ABG Hematocrit (34.0-46.0) % ABG Potassium (3.4-4.5) mmol/L ABG Ionized Calcium (4.5-5.3) mg/dL ABG Glucose (75-99) mg/dL Hemoglobin (13.0-17.5) gm/dL Chloride (98-107) mmol/L Glucose (74-99) mg/dL POC Glucose (mg/dL) 144 H 141 H (70-110) mg/dL Calcium (8.4-10.2) mg/dL Magnesium (1.6-2.3) mg/dL AST (17-59) U/L ALT (4-49) U/L Total Protein (6.3-8.2) g/dL Albumin (3.5-5.0) g/dL Arterial Blood Potassium (3.4-4.5) mmol/L Arterial Blood Glucose (75-99) mg/dL Crossmatch 06/02/23 06/02/23 06/02/23 Range/Units 19:54 19:55 20:48 RBC 2.86 L (4.30-5.90) m/uL Hgb 8.5 L (13.0-17.5) gm/dL Hct 26.2 L (39.0-53.0) % Neutrophils # 8.5 H (1.3-7.7) k/uL Lymphocytes # 0.7 L (1.0-4.8) k/uL APTT (22.0-30.0) sec ABG pH (7.35-7.45) ABG pCO2 (35-45) mmHg ABG pO2 (83-108) mmHg ABG HCO3 (21-25) mmol/L ABG Total CO2 (19-24) mmol/L ABG O2 Saturation (94-97) % ABG Hematocrit (34.0-46.0) % ABG Potassium (3.4-4.5) mmol/L ABG Ionized Calcium (4.5-5.3) mg/dL ABG Glucose (75-99) mg/dL Hemoglobin (13.0-17.5) gm/dL Chloride (98-107) mmol/L Glucose (74-99) mg/dL POC Glucose (mg/dL) 133 H 128 H (70-110) mg/dL Calcium (8.4-10.2) mg/dL Magnesium (1.6-2.3) mg/dL AST (17-59) U/L ALT (4-49) U/L Total Protein (6.3-8.2) g/dL Albumin (3.5-5.0) g/dL Arterial Blood Potassium (3.4-4.5) mmol/L Arterial Blood Glucose (75-99) mg/dL Crossmatch 06/02/23 06/02/23 06/02/23 Range/Units 21:44 22:42 23:50 RBC (4.30-5.90) m/uL Hgb (13.0-17.5) gm/dL Hct (39.0-53.0) % Neutrophils # (1.3-7.7) k/uL Lymphocytes # (1.0-4.8) k/uL APTT (22.0-30.0) sec ABG pH (7.35-7.45) ABG pCO2 (35-45) mmHg ABG pO2 (83-108) mmHg ABG HCO3 (21-25) mmol/L ABG Total CO2 (19-24) mmol/L ABG O2 Saturation (94-97) % ABG Hematocrit (34.0-46.0) % ABG Potassium (3.4-4.5) mmol/L ABG Ionized Calcium (4.5-5.3) mg/dL ABG Glucose (75-99) mg/dL Hemoglobin (13.0-17.5) gm/dL Chloride (98-107) mmol/L Glucose (74-99) mg/dL POC Glucose (mg/dL) 130 H 126 H 124 H (70-110) mg/dL Calcium (8.4-10.2) mg/dL Magnesium (1.6-2.3) mg/dL AST (17-59) U/L ALT (4-49) U/L Total Protein (6.3-8.2) g/dL Albumin (3.5-5.0) g/dL Arterial Blood Potassium (3.4-4.5) mmol/L Arterial Blood Glucose (75-99) mg/dL Crossmatch 06/03/23 06/03/23 06/03/23 Range/Units 00:45 01:57 02:48 RBC (4.30-5.90) m/uL Hgb (13.0-17.5) gm/dL Hct (39.0-53.0) % Neutrophils # (1.3-7.7) k/uL Lymphocytes # (1.0-4.8) k/uL APTT (22.0-30.0) sec ABG pH (7.35-7.45) ABG pCO2 (35-45) mmHg ABG pO2 (83-108) mmHg ABG HCO3 (21-25) mmol/L ABG Total CO2 (19-24) mmol/L ABG O2 Saturation (94-97) % ABG Hematocrit (34.0-46.0) % ABG Potassium (3.4-4.5) mmol/L ABG Ionized Calcium (4.5-5.3) mg/dL ABG Glucose (75-99) mg/dL Hemoglobin (13.0-17.5) gm/dL Chloride (98-107) mmol/L Glucose (74-99) mg/dL POC Glucose (mg/dL) 121 H 119 H 116 H (70-110) mg/dL Calcium (8.4-10.2) mg/dL Magnesium (1.6-2.3) mg/dL AST (17-59) U/L ALT (4-49) U/L Total Protein (6.3-8.2) g/dL Albumin (3.5-5.0) g/dL Arterial Blood Potassium (3.4-4.5) mmol/L Arterial Blood Glucose (75-99) mg/dL Crossmatch 06/03/23 06/03/23 06/03/23 Range/Units 04:01 04:04 04:04 RBC 2.97 L (4.30-5.90) m/uL Hgb 9.0 L (13.0-17.5) gm/dL Hct 27.2 L (39.0-53.0) % Neutrophils # 8.3 H (1.3-7.7) k/uL Lymphocytes # (1.0-4.8) k/uL APTT (22.0-30.0) sec ABG pH (7.35-7.45) ABG pCO2 (35-45) mmHg ABG pO2 (83-108) mmHg ABG HCO3 (21-25) mmol/L ABG Total CO2 (19-24) mmol/L ABG O2 Saturation (94-97) % ABG Hematocrit (34.0-46.0) % ABG Potassium (3.4-4.5) mmol/L ABG Ionized Calcium (4.5-5.3) mg/dL ABG Glucose (75-99) mg/dL Hemoglobin (13.0-17.5) gm/dL Chloride 110 H (98-107) mmol/L Glucose 113 H (74-99) mg/dL POC Glucose (mg/dL) 122 H (70-110) mg/dL Calcium 8.3 L (8.4-10.2) mg/dL Magnesium (1.6-2.3) mg/dL AST 63 H (17-59) U/L ALT 63 H (4-49) U/L Total Protein 5.4 L (6.3-8.2) g/dL Albumin (3.5-5.0) g/dL Arterial Blood Potassium (3.4-4.5) mmol/L Arterial Blood Glucose (75-99) mg/dL Crossmatch 06/03/23 06/03/23 06/03/23 Range/Units 04:55 06:23 07:08 RBC (4.30-5.90) m/uL Hgb (13.0-17.5) gm/dL Hct (39.0-53.0) % Neutrophils # (1.3-7.7) k/uL Lymphocytes # (1.0-4.8) k/uL APTT (22.0-30.0) sec ABG pH (7.35-7.45) ABG pCO2 (35-45) mmHg ABG pO2 (83-108) mmHg ABG HCO3 (21-25) mmol/L ABG Total CO2 (19-24) mmol/L ABG O2 Saturation (94-97) % ABG Hematocrit (34.0-46.0) % ABG Potassium (3.4-4.5) mmol/L ABG Ionized Calcium (4.5-5.3) mg/dL ABG Glucose (75-99) mg/dL Hemoglobin (13.0-17.5) gm/dL Chloride (98-107) mmol/L Glucose (74-99) mg/dL POC Glucose (mg/dL) 118 H 148 H 144 H (70-110) mg/dL Calcium (8.4-10.2) mg/dL Magnesium (1.6-2.3) mg/dL AST (17-59) U/L ALT (4-49) U/L Total Protein (6.3-8.2) g/dL Albumin (3.5-5.0) g/dL Arterial Blood Potassium (3.4-4.5) mmol/L Arterial Blood Glucose (75-99) mg/dL Crossmatch - Imaging and Cardiology Chest x-ray: report reviewed, image reviewed Assessment and Plan Assessment: Triple-vessel coronary artery disease, non-STEMI this admission, status post 3V CABG Cellulitis of the right lower extremity, treated outpatient Hypertension Hyperlipidemia, treated, cholesterol 99, LDL 48 Current tobacco dependence COPD, preoperative FEV1 86% of predicted Occasional EtOH use Transaminitis, resolving Plan: Continue to maximize medical management with aspirin, statin, plavix and beta- lilia. Will increase beta lilia as tolerated DC IV NTG. Will add low dose CCB for radial artery spasm prophylaxis Wean oxygen as tolerated, encourage use of incentive spirometry 10 times every hour while awake. Bronchodilators per pulmonology Increase activity, ambulate as tolerated. PT/OT/cardiac rehab following Will monitor labs/CXRs, electrolyte replacement per protocol GI/DVT prophylaxis Discussed and reinforced with the patient the importance of risk modification including smoking cessation. Insulin management per internal medicine, should remain on IV insulin for 48 hours then may transition to subq per protocol LLUVIA [place], connect cordis to continuous CVP monitoring Will DC JÚNIOR drains Continue chest tubes for another 24 hours, monitor output Continue lopez for another 24 hours, continue to monitor strict accurate intake and output Daily weights More recommendations to follow based on patient's clinical course.
[2023-06-03] MEDS ORDERED: bisacodyL 10 MG SUPP RECTAL PRN (09:00)
[2023-06-03 09:05] LABS: Glucose,Whole Blood 132 mg/dL (70-110)
--- NOTE | 2023-06-03 10:03 | P.PN ---
Subjective Progress Note Date: 06/03/23 The patient is a 72-year-old male who was admitted with a non-ST elevated myocardial infarction. He was found to have severe triple-vessel disease and underwent CABG with left internal mammary artery to LAD, left radial artery to obtuse marginal and reverse saphenous vein to PDA. Patient also had left atrial appendage closure. He has been weaned off of all vasopressors. The patient was interviewed and examined up in the recliner chair. He states he does have some discomfort but does not currently have any difficulty breathing. He states he did have some mild dizziness upon initially standing but feels well at rest. GENERAL: Ill-appearing, well-nourished and in no acute distress. Pale. NECK: Supple without JVD or thyromegaly. LUNGS: Breath sounds diminished to auscultation bilaterally. Respiration equal and unlabored. No wheezes, rales or rhonchi. HEART: Regular rate and rhythm without murmurs, rubs or gallops. S1 and S2 heard. Heart hugger in place. EXTREMITIES: Normal range of motion, no edema. No clubbing or cyanosis. Peripheral pulses intact and strong. 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 Objective - Vital Signs Vital signs: Vital Signs Temp 98.6 F 06/03/23 08:00 Pulse 82 06/03/23 09:00 Resp 18 06/03/23 09:00 BP 122/63 06/03/23 09:00 Pulse Ox 94 L 06/03/23 09:00 FiO2 40 06/02/23 15:26 Intake & Output 06/02/23 06/03/23 06/03/23 18:59 06:59 18:59 Intake Total 1033.647 4999.081 76.136 Output Total 1675 1135 40 Balance -423.768 717.081 36.136 Weight 93.1 kg Intake: IV 1199 1647 75 ACETAMINOPHEN IV (For NPO 400 ) 1,000 mg In Empty Bag 1 bag @ 400 mls/hr IVPB Q6HR [facility] Rx#:[id number] Albumin Human 5% 500 ml 750 250 In Empty Bag 1 bag @ 500 mls/hr IVPB ONCE STA Rx#: [id number] CO/CI 150 260 20 Pressure Bags 45 117 15 Sodium Chloride 0.9% 1, 250 570 40 000 ml @ 20 mls/hr IV . Q24H [facility] Rx#:[id number] ceFAZolin 2 gm In Sodium 50 Chloride 0.9% 50 ml @ 100 mls/hr IVPB Q8HR [facility] Rx# :[id number] Intake, IV Titration 52.232 55.081 1.136 Amount Dexmedetomidine/0.9% NaCl 3.147 18.656 (Pmx) 400 mcg In Empty Bag 1 bag @ Titrate IV . Q0M [facility] Rx#:[id number] Insulin Regular 100 unit 11.750 1.136 In Sodium Chloride 0.9% 100 ml @ Per Protocol IV .Q0M [facility] Rx#:[id number] Nitroglycerin-D5w Pmx 50 24.675 mg In Dextrose/Water 1 250ml.bag @ 5 MCG/MIN 1.5 mls/hr IV .Q24H [facility] Rx#: [id number] propofoL 1,000 mg In 49.085 Empty Bag 1 bag @ Titrate IV .Q0M [facility] Rx#: [id number] Oral 150 Output: Chest Tube Drainage 420 620 20 Bilateral Mediastinal 200 260 20 Left Pleural 220 360 0 Drainage 60 40 Left Arm 50 20 Left Calf 10 20 Urine 695 475 20 Estimated Blood Loss 500 Other: Voiding Method Indwelling Catheter Indwelling Catheter Indwelling Catheter ABP, PAP, CO, CI - Last Documented Arterial Blood Pressure 115/35 Pulmonary Artery Pressure 29/4 Cardiac Output 6.7 Cardiac Index 3.3 - Labs CBC & Chem 7: 06/03/23 04:04 06/03/23 04:04 Labs: Abnormal Lab Results - Last 24 Hours (Table) 06/01/23 06/02/23 06/02/23 Range/Units 08:35 08:39 10:08 RBC (4.30-5.90) m/uL Hgb (13.0-17.5) gm/dL Hct (39.0-53.0) % Neutrophils # (1.3-7.7) k/uL Lymphocytes # (1.0-4.8) k/uL APTT (22.0-30.0) sec ABG pH (7.35-7.45) ABG pCO2 (35-45) mmHg ABG pO2 116 H 127 H (83-108) mmHg ABG HCO3 27 H 27 H (21-25) mmol/L ABG Total CO2 (19-24) mmol/L ABG O2 Saturation 98.4 H 98.3 H (94-97) % ABG Hematocrit (34.0-46.0) % ABG Potassium (3.4-4.5) mmol/L ABG Ionized Calcium (4.5-5.3) mg/dL ABG Glucose 110 H 118 H (75-99) mg/dL Hemoglobin 12.9 L 11.7 L (13.0-17.5) gm/dL Chloride (98-107) mmol/L Glucose (74-99) mg/dL POC Glucose (mg/dL) (70-110) mg/dL Calcium (8.4-10.2) mg/dL Magnesium (1.6-2.3) mg/dL AST (17-59) U/L ALT (4-49) U/L Total Protein (6.3-8.2) g/dL Albumin (3.5-5.0) g/dL Arterial Blood Potassium (3.4-4.5) mmol/L Arterial Blood Glucose 110 H 118 H (75-99) mg/dL Crossmatch See Detail 06/02/23 06/02/23 06/02/23 Range/Units 10:59 11:29 12:11 RBC (4.30-5.90) m/uL Hgb (13.0-17.5) gm/dL Hct (39.0-53.0) % Neutrophils # (1.3-7.7) k/uL Lymphocytes # (1.0-4.8) k/uL APTT (22.0-30.0) sec ABG pH 7.51 H 7.54 H 7.52 H (7.35-7.45) ABG pCO2 34 L 31 L 33 L (35-45) mmHg ABG pO2 >420 H >420 H >420 H (83-108) mmHg ABG HCO3 28 H 27 H 27 H (21-25) mmol/L ABG Total CO2 (19-24) mmol/L ABG O2 Saturation >99.4 H >99.4 H >99.4 H (94-97) % ABG Hematocrit 28 L 26 L 27 L (34.0-46.0) % ABG Potassium 5.4 H (3.4-4.5) mmol/L ABG Ionized Calcium 4.1 L 4.0 L 4.1 L (4.5-5.3) mg/dL ABG Glucose 113 H 122 H 134 H (75-99) mg/dL Hemoglobin 9.3 L 8.5 L 8.9 L (13.0-17.5) gm/dL Chloride (98-107) mmol/L Glucose (74-99) mg/dL POC Glucose (mg/dL) (70-110) mg/dL Calcium (8.4-10.2) mg/dL Magnesium (1.6-2.3) mg/dL AST (17-59) U/L ALT (4-49) U/L Total Protein (6.3-8.2) g/dL Albumin (3.5-5.0) g/dL Arterial Blood Potassium 5.4 H (3.4-4.5) mmol/L Arterial Blood Glucose 113 H 122 H 134 H (75-99) mg/dL Crossmatch 06/02/23 06/02/23 06/02/23 Range/Units 14:02 14:08 14:08 RBC 3.34 L (4.30-5.90) m/uL Hgb 10.1 L D (13.0-17.5) gm/dL Hct 30.6 L (39.0-53.0) % Neutrophils # 8.4 H (1.3-7.7) k/uL Lymphocytes # (1.0-4.8) k/uL APTT 30.7 H (22.0-30.0) sec ABG pH (7.35-7.45) ABG pCO2 (35-45) mmHg ABG pO2 (83-108) mmHg ABG HCO3 (21-25) mmol/L ABG Total CO2 (19-24) mmol/L ABG O2 Saturation (94-97) % ABG Hematocrit (34.0-46.0) % ABG Potassium (3.4-4.5) mmol/L ABG Ionized Calcium (4.5-5.3) mg/dL ABG Glucose (75-99) mg/dL Hemoglobin (13.0-17.5) gm/dL Chloride (98-107) mmol/L Glucose (74-99) mg/dL POC Glucose (mg/dL) 124 H (70-110) mg/dL Calcium (8.4-10.2) mg/dL Magnesium (1.6-2.3) mg/dL AST (17-59) U/L ALT (4-49) U/L Total Protein (6.3-8.2) g/dL Albumin (3.5-5.0) g/dL Arterial Blood Potassium (3.4-4.5) mmol/L Arterial Blood Glucose (75-99) mg/dL Crossmatch 06/02/23 06/02/23 06/02/23 Range/Units 14:08 14:19 15:00 RBC (4.30-5.90) m/uL Hgb (13.0-17.5) gm/dL Hct (39.0-53.0) % Neutrophils # (1.3-7.7) k/uL Lymphocytes # (1.0-4.8) k/uL APTT (22.0-30.0) sec ABG pH (7.35-7.45) ABG pCO2 46 H (35-45) mmHg ABG pO2 305 H (83-108) mmHg ABG HCO3 26 H (21-25) mmol/L ABG Total CO2 27 H (19-24) mmol/L ABG O2 Saturation 98.9 H (94-97) % ABG Hematocrit (34.0-46.0) % ABG Potassium (3.4-4.5) mmol/L ABG Ionized Calcium (4.5-5.3) mg/dL ABG Glucose (75-99) mg/dL Hemoglobin (13.0-17.5) gm/dL Chloride 109 H (98-107) mmol/L Glucose 114 H (74-99) mg/dL POC Glucose (mg/dL) 119 H (70-110) mg/dL Calcium 8.2 L (8.4-10.2) mg/dL Magnesium 2.6 H (1.6-2.3) mg/dL AST 85 H (17-59) U/L ALT 90 H (4-49) U/L Total Protein 5.2 L (6.3-8.2) g/dL Albumin 3.2 L (3.5-5.0) g/dL Arterial Blood Potassium (3.4-4.5) mmol/L Arterial Blood Glucose (75-99) mg/dL Crossmatch 06/02/23 06/02/23 06/02/23 Range/Units 15:53 17:00 17:03 RBC 3.08 L (4.30-5.90) m/uL Hgb 9.2 L (13.0-17.5) gm/dL Hct 28.6 L (39.0-53.0) % Neutrophils # 8.6 H (1.3-7.7) k/uL Lymphocytes # 0.8 L (1.0-4.8) k/uL APTT (22.0-30.0) sec ABG pH (7.35-7.45) ABG pCO2 (35-45) mmHg ABG pO2 (83-108) mmHg ABG HCO3 (21-25) mmol/L ABG Total CO2 (19-24) mmol/L ABG O2 Saturation (94-97) % ABG Hematocrit (34.0-46.0) % ABG Potassium (3.4-4.5) mmol/L ABG Ionized Calcium (4.5-5.3) mg/dL ABG Glucose (75-99) mg/dL Hemoglobin (13.0-17.5) gm/dL Chloride (98-107) mmol/L Glucose (74-99) mg/dL POC Glucose (mg/dL) 118 H 153 H (70-110) mg/dL Calcium (8.4-10.2) mg/dL Magnesium (1.6-2.3) mg/dL AST (17-59) U/L ALT (4-49) U/L Total Protein (6.3-8.2) g/dL Albumin (3.5-5.0) g/dL Arterial Blood Potassium (3.4-4.5) mmol/L Arterial Blood Glucose (75-99) mg/dL Crossmatch 06/02/23 06/02/23 06/02/23 Range/Units 18:02 18:48 19:00 RBC (4.30-5.90) m/uL Hgb (13.0-17.5) gm/dL Hct (39.0-53.0) % Neutrophils # (1.3-7.7) k/uL Lymphocytes # (1.0-4.8) k/uL APTT (22.0-30.0) sec ABG pH (7.35-7.45) ABG pCO2 (35-45) mmHg ABG pO2 (83-108) mmHg ABG HCO3 (21-25) mmol/L ABG Total CO2 (19-24) mmol/L ABG O2 Saturation 97.2 H (94-97) % ABG Hematocrit (34.0-46.0) % ABG Potassium (3.4-4.5) mmol/L ABG Ionized Calcium (4.5-5.3) mg/dL ABG Glucose (75-99) mg/dL Hemoglobin (13.0-17.5) gm/dL Chloride (98-107) mmol/L Glucose (74-99) mg/dL POC Glucose (mg/dL) 144 H 141 H (70-110) mg/dL Calcium (8.4-10.2) mg/dL Magnesium (1.6-2.3) mg/dL AST (17-59) U/L ALT (4-49) U/L Total Protein (6.3-8.2) g/dL Albumin (3.5-5.0) g/dL Arterial Blood Potassium (3.4-4.5) mmol/L Arterial Blood Glucose (75-99) mg/dL Crossmatch 06/02/23 06/02/23 06/02/23 Range/Units 19:54 19:55 20:48 RBC 2.86 L (4.30-5.90) m/uL Hgb 8.5 L (13.0-17.5) gm/dL Hct 26.2 L (39.0-53.0) % Neutrophils # 8.5 H (1.3-7.7) k/uL Lymphocytes # 0.7 L (1.0-4.8) k/uL APTT (22.0-30.0) sec ABG pH (7.35-7.45) ABG pCO2 (35-45) mmHg ABG pO2 (83-108) mmHg ABG HCO3 (21-25) mmol/L ABG Total CO2 (19-24) mmol/L ABG O2 Saturation (94-97) % ABG Hematocrit (34.0-46.0) % ABG Potassium (3.4-4.5) mmol/L ABG Ionized Calcium (4.5-5.3) mg/dL ABG Glucose (75-99) mg/dL Hemoglobin (13.0-17.5) gm/dL Chloride (98-107) mmol/L Glucose (74-99) mg/dL POC Glucose (mg/dL) 133 H 128 H (70-110) mg/dL Calcium (8.4-10.2) mg/dL Magnesium (1.6-2.3) mg/dL AST (17-59) U/L ALT (4-49) U/L Total Protein (6.3-8.2) g/dL Albumin (3.5-5.0) g/dL Arterial Blood Potassium (3.4-4.5) mmol/L Arterial Blood Glucose (75-99) mg/dL Crossmatch 06/02/23 06/02/23 06/02/23 Range/Units 21:44 22:42 23:50 RBC (4.30-5.90) m/uL Hgb (13.0-17.5) gm/dL Hct (39.0-53.0) % Neutrophils # (1.3-7.7) k/uL Lymphocytes # (1.0-4.8) k/uL APTT (22.0-30.0) sec ABG pH (7.35-7.45) ABG pCO2 (35-45) mmHg ABG pO2 (83-108) mmHg ABG HCO3 (21-25) mmol/L ABG Total CO2 (19-24) mmol/L ABG O2 Saturation (94-97) % ABG Hematocrit (34.0-46.0) % ABG Potassium (3.4-4.5) mmol/L ABG Ionized Calcium (4.5-5.3) mg/dL ABG Glucose (75-99) mg/dL Hemoglobin (13.0-17.5) gm/dL Chloride (98-107) mmol/L Glucose (74-99) mg/dL POC Glucose (mg/dL) 130 H 126 H 124 H (70-110) mg/dL Calcium (8.4-10.2) mg/dL Magnesium (1.6-2.3) mg/dL AST (17-59) U/L ALT (4-49) U/L Total Protein (6.3-8.2) g/dL Albumin (3.5-5.0) g/dL Arterial Blood Potassium (3.4-4.5) mmol/L Arterial Blood Glucose (75-99) mg/dL Crossmatch 06/03/23 06/03/23 06/03/23 Range/Units 00:45 01:57 02:48 RBC (4.30-5.90) m/uL Hgb (13.0-17.5) gm/dL Hct (39.0-53.0) % Neutrophils # (1.3-7.7) k/uL Lymphocytes # (1.0-4.8) k/uL APTT (22.0-30.0) sec ABG pH (7.35-7.45) ABG pCO2 (35-45) mmHg ABG pO2 (83-108) mmHg ABG HCO3 (21-25) mmol/L ABG Total CO2 (19-24) mmol/L ABG O2 Saturation (94-97) % ABG Hematocrit (34.0-46.0) % ABG Potassium (3.4-4.5) mmol/L ABG Ionized Calcium (4.5-5.3) mg/dL ABG Glucose (75-99) mg/dL Hemoglobin (13.0-17.5) gm/dL Chloride (98-107) mmol/L Glucose (74-99) mg/dL POC Glucose (mg/dL) 121 H 119 H 116 H (70-110) mg/dL Calcium (8.4-10.2) mg/dL Magnesium (1.6-2.3) mg/dL AST (17-59) U/L ALT (4-49) U/L Total Protein (6.3-8.2) g/dL Albumin (3.5-5.0) g/dL Arterial Blood Potassium (3.4-4.5) mmol/L Arterial Blood Glucose (75-99) mg/dL Crossmatch 06/03/23 06/03/23 06/03/23 Range/Units 04:01 04:04 04:04 RBC 2.97 L (4.30-5.90) m/uL Hgb 9.0 L (13.0-17.5) gm/dL Hct 27.2 L (39.0-53.0) % Neutrophils # 8.3 H (1.3-7.7) k/uL Lymphocytes # (1.0-4.8) k/uL APTT (22.0-30.0) sec ABG pH (7.35-7.45) ABG pCO2 (35-45) mmHg ABG pO2 (83-108) mmHg ABG HCO3 (21-25) mmol/L ABG Total CO2 (19-24) mmol/L ABG O2 Saturation (94-97) % ABG Hematocrit (34.0-46.0) % ABG Potassium (3.4-4.5) mmol/L ABG Ionized Calcium (4.5-5.3) mg/dL ABG Glucose (75-99) mg/dL Hemoglobin (13.0-17.5) gm/dL Chloride 110 H (98-107) mmol/L Glucose 113 H (74-99) mg/dL POC Glucose (mg/dL) 122 H (70-110) mg/dL Calcium 8.3 L (8.4-10.2) mg/dL Magnesium (1.6-2.3) mg/dL AST 63 H (17-59) U/L ALT 63 H (4-49) U/L Total Protein 5.4 L (6.3-8.2) g/dL Albumin (3.5-5.0) g/dL Arterial Blood Potassium (3.4-4.5) mmol/L Arterial Blood Glucose (75-99) mg/dL Crossmatch 06/03/23 06/03/23 06/03/23 Range/Units 04:55 06:23 07:08 RBC (4.30-5.90) m/uL Hgb (13.0-17.5) gm/dL Hct (39.0-53.0) % Neutrophils # (1.3-7.7) k/uL Lymphocytes # (1.0-4.8) k/uL APTT (22.0-30.0) sec ABG pH (7.35-7.45) ABG pCO2 (35-45) mmHg ABG pO2 (83-108) mmHg ABG HCO3 (21-25) mmol/L ABG Total CO2 (19-24) mmol/L ABG O2 Saturation (94-97) % ABG Hematocrit (34.0-46.0) % ABG Potassium (3.4-4.5) mmol/L ABG Ionized Calcium (4.5-5.3) mg/dL ABG Glucose (75-99) mg/dL Hemoglobin (13.0-17.5) gm/dL Chloride (98-107) mmol/L Glucose (74-99) mg/dL POC Glucose (mg/dL) 118 H 148 H 144 H (70-110) mg/dL Calcium (8.4-10.2) mg/dL Magnesium (1.6-2.3) mg/dL AST (17-59) U/L ALT (4-49) U/L Total Protein (6.3-8.2) g/dL Albumin (3.5-5.0) g/dL Arterial Blood Potassium (3.4-4.5) mmol/L Arterial Blood Glucose (75-99) mg/dL Crossmatch 06/03/23 06/03/23 Range/Units 08:00 09:03 RBC (4.30-5.90) m/uL Hgb (13.0-17.5) gm/dL Hct (39.0-53.0) % Neutrophils # (1.3-7.7) k/uL Lymphocytes # (1.0-4.8) k/uL APTT (22.0-30.0) sec ABG pH (7.35-7.45) ABG pCO2 (35-45) mmHg ABG pO2 (83-108) mmHg ABG HCO3 (21-25) mmol/L ABG Total CO2 (19-24) mmol/L ABG O2 Saturation (94-97) % ABG Hematocrit (34.0-46.0) % ABG Potassium (3.4-4.5) mmol/L ABG Ionized Calcium (4.5-5.3) mg/dL ABG Glucose (75-99) mg/dL Hemoglobin (13.0-17.5) gm/dL Chloride (98-107) mmol/L Glucose (74-99) mg/dL POC Glucose (mg/dL) 134 H 132 H (70-110) mg/dL Calcium (8.4-10.2) mg/dL Magnesium (1.6-2.3) mg/dL AST (17-59) U/L ALT (4-49) U/L Total Protein (6.3-8.2) g/dL Albumin (3.5-5.0) g/dL Arterial Blood Potassium (3.4-4.5) mmol/L Arterial Blood Glucose (75-99) mg/dL Crossmatch
[2023-06-03 10:16] LABS: Glucose,Whole Blood 125 mg/dL (70-110)
[2023-06-03 10:50] VITALS: BMI 30.3
--- NOTE | 2023-06-03 11:09 | P.PN ---
Subjective Progress Note Date: 06/03/23 Hospital course: Patient is a very pleasant 72-year-old male with a past medical history of hyp ertension, hyperlipidemia, and COPD with continued nicotine dependence. Patient presented to our facility as a transfer from [facility] where he presented with weakness and a fall and was found to have elevated troponins. Patient reported recent treatment for cellulitis on Bactrim and experiencing nausea, vomiting, and decreased oral intake over the past few days. Per documentation in chart workup at [facility] was completed including a CT of the brain which was negative for acute intercranial pathology and troponins initially reported negative increasing to 5.09 resulting in patient being started on heparin infusion followed by transfer to our facility for evaluation. Upon arrival to our facility patient underwent evaluation in the emergency department. Vital signs revealed blood pressure 140/83, heart rate 86, respiratory rate 12, temp 97.9 F, and SpO2 of 96% on room air. EKG was completed showing normal sinus rhythm at 84 bpm with no significant T wave or ST abnormalities showing no signs of acute ischemia upon personal review and interpretation. Chest x-ray completed showing findings concerning for bronchitis with mild to moderate peribronchial thickening of the central bronchi and trace right pleural effusion. CTA chest was completed negative for pulmo nary emboli revealing a 1 cm subcarinal enlarged lymph node. Labs were completed and reviewed. CBC unremarkable. Coagulation profile normal findings. BMP revealed hyponatremia with sodium of 133 and hypocarbia with bicarb of 17. Blood glucose was 107. Magnesium normal findings at 2.0. Liver profile showing elevated AST of 73 and ALT of 51. Troponin was 2.730 and proBNP was 1620. Patient admitted under our services with consultation to cardiology. Troponins trended overnight resulting at 2.730 and 2.970. Patient was taken for cardiac catheterization. Cardiac catheterization revealing three-vessel coronary artery disease, cardiology consulted cardiothoracic surgery to evaluate patient for bypass. Echocardiogram showed normal LVEF 55 to 60%. He is now status post CABG. Physical exam: Patient seen and fully evaluated at bedside this morning. Complaining of some shortness of breath with deep inspirations. Chest tubes and Jett catheter in place. Vital signs reviewed and stable. General: Nontoxic, no distress and appears stated age Derm: Skin warm and dry, right lower extremity mild erythema, no edema or warmth, dressing clean, dry, intact, chest tubes in place Head: Atraumatic, normocephalic and symmetric. Eyes:: EOMI, pupils equal and reactive Mouth: no lip lesions, mucus membranes moist Cardiovascular: regular rate and rhythm with normal S1S2, no murmur, positive posterior tibial pulses bilaterally, and cap refill < 2 seconds. Lungs: Bilateral rales, supplemental oxygen Abdominal: soft, no guarding, no appreciable organomegaly Ext: No gross muscle atrophy, no edema, no contractures Neuro: CN II to XII within normal limits Psych: Alert and appropriate Assessment and Plan of Care: NSTEMI Three-vessel coronary artery disease status post CABG Acute blood loss anemia, anticipated outcome of surgery Hypertension Hyperlipidemia Right lower extremity cellulitis on cefazolin -Cardiology note reviewed continue current management -Cardiothoracic surgery note reviewed, amlodipine 2.5 added, keep IV insulin for 48 hours, DC JÚNIOR drains, DC [place] -Currently sedated and intubated in the medical ICU -On aspirin 325, Plavix 75, metoprolol 12.5 twice daily, atorvastatin 40 Complete 5 bags of IV cefazolin to 8 hours. Type 2 diabetes, A1c 6.6 -Insulin drip, monitor blood sugars Likely transition to subcu insulin tomorrow once oral intake improves COPD with continued nicotine dependence -DuoNebs 4 times daily -Consider nicotine patch Subcarinal lymph node - Incidental finding, 1 cm - Outpatient follow-up Elevated transaminases, resolving - Hepatitis panel negative Data and imaging reviewed: -Hemoglobin 9, creatinine 0.76, magnesium 2.2, potassium 4.2, blood sugars range between 1 13-1 44 CODE STATUS: Full code DVT prophylaxis: SQ heparin Anticipated discharge date: Clinical course to determine Anticipated discharge place: Pending clinical course Objective - Vital Signs Vital signs: Vital Signs Temp 98.6 F 06/03/23 08:00 Pulse 77 06/03/23 10:00 Resp 15 06/03/23 10:00 BP 122/63 06/03/23 09:00 Pulse Ox 92 L 06/03/23 10:00 FiO2 40 06/02/23 15:26 Intake & Output 06/02/23 06/03/23 06/03/23 18:59 06:59 18:59 Intake Total 9086.184 4275.081 102.136 Output Total 1675 1135 60 Balance -423.768 717.081 42.136 Weight 93.1 kg 93.1 kg Intake: IV 1199 1647 101 ACETAMINOPHEN IV (For NPO 400 ) 1,000 mg In Empty Bag 1 bag @ 400 mls/hr IVPB Q6HR MOUSTAPHA Rx#:[id number] Albumin Human 5% 500 ml 750 250 In Empty Bag 1 bag @ 500 mls/hr IVPB ONCE STA Rx#: [id number] CO/CI 150 260 20 Pressure Bags 45 117 21 Sodium Chloride 0.9% 1, 250 570 60 000 ml @ 20 mls/hr IV . Q24H MOUSTAPHA Rx#:[id number] ceFAZolin 2 gm In Sodium 50 Chloride 0.9% 50 ml @ 100 mls/hr IVPB Q8HR MOUSTAPHA Rx# :[id number] Intake, IV Titration 52.232 55.081 1.136 Amount Dexmedetomidine/0.9% NaCl 3.147 18.656 (Pmx) 400 mcg In Empty Bag 1 bag @ Titrate IV . Q0M MOUSTAPHA Rx#:[id number] Insulin Regular 100 unit 11.750 1.136 In Sodium Chloride 0.9% 100 ml @ Per Protocol IV .Q0M MOUSTAPHA Rx#:[id number] Nitroglycerin-D5w Pmx 50 24.675 mg In Dextrose/Water 1 250ml.bag @ 5 MCG/MIN 1.5 mls/hr IV .Q24H MOUSTAPHA Rx#: [id number] propofoL 1,000 mg In 49.085 Empty Bag 1 bag @ Titrate IV .Q0M MOUSTAPHA Rx#: [id number] Oral 150 Output: Chest Tube Drainage 420 620 20 Bilateral Mediastinal 200 260 20 Left Pleural 220 360 0 Drainage 60 40 Left Arm 50 20 Left Calf 10 20 Urine 695 475 40 Estimated Blood Loss 500 Other: Voiding Method Indwelling Catheter Indwelling Catheter Indwelling Catheter ABP, PAP, CO, CI - Last Documented Arterial Blood Pressure 101/38 Pulmonary Artery Pressure 29/4 Cardiac Output 6.7 Cardiac Index 3.3 - Labs CBC & Chem 7: 06/03/23 04:04 06/03/23 04:04 Labs: Abnormal Lab Results - Last 24 Hours (Table) 06/01/23 06/02/23 06/02/23 Range/Units 08:35 08:39 10:08 RBC (4.30-5.90) m/uL Hgb (13.0-17.5) gm/dL Hct (39.0-53.0) % Neutrophils # (1.3-7.7) k/uL Lymphocytes # (1.0-4.8) k/uL APTT (22.0-30.0) sec ABG pH (7.35-7.45) ABG pCO2 (35-45) mmHg ABG pO2 116 H 127 H (83-108) mmHg ABG HCO3 27 H 27 H (21-25) mmol/L ABG Total CO2 (19-24) mmol/L ABG O2 Saturation 98.4 H 98.3 H (94-97) % ABG Hematocrit (34.0-46.0) % ABG Potassium (3.4-4.5) mmol/L ABG Ionized Calcium (4.5-5.3) mg/dL ABG Glucose 110 H 118 H (75-99) mg/dL Hemoglobin 12.9 L 11.7 L (13.0-17.5) gm/dL Chloride (98-107) mmol/L Glucose (74-99) mg/dL POC Glucose (mg/dL) (70-110) mg/dL Calcium (8.4-10.2) mg/dL Magnesium (1.6-2.3) mg/dL AST (17-59) U/L ALT (4-49) U/L Total Protein (6.3-8.2) g/dL Albumin (3.5-5.0) g/dL Arterial Blood Potassium (3.4-4.5) mmol/L Arterial Blood Glucose 110 H 118 H (75-99) mg/dL Crossmatch See Detail 06/02/23 06/02/23 06/02/23 Range/Units 10:59 11:29 12:11 RBC (4.30-5.90) m/uL Hgb (13.0-17.5) gm/dL Hct (39.0-53.0) % Neutrophils # (1.3-7.7) k/uL Lymphocytes # (1.0-4.8) k/uL APTT (22.0-30.0) sec ABG pH 7.51 H 7.54 H 7.52 H (7.35-7.45) ABG pCO2 34 L 31 L 33 L (35-45) mmHg ABG pO2 >420 H >420 H >420 H (83-108) mmHg ABG HCO3 28 H 27 H 27 H (21-25) mmol/L ABG Total CO2 (19-24) mmol/L ABG O2 Saturation >99.4 H >99.4 H >99.4 H (94-97) % ABG Hematocrit 28 L 26 L 27 L (34.0-46.0) % ABG Potassium 5.4 H (3.4-4.5) mmol/L ABG Ionized Calcium 4.1 L 4.0 L 4.1 L (4.5-5.3) mg/dL ABG Glucose 113 H 122 H 134 H (75-99) mg/dL Hemoglobin 9.3 L 8.5 L 8.9 L (13.0-17.5) gm/dL Chloride (98-107) mmol/L Glucose (74-99) mg/dL POC Glucose (mg/dL) (70-110) mg/dL Calcium (8.4-10.2) mg/dL Magnesium (1.6-2.3) mg/dL AST (17-59) U/L ALT (4-49) U/L Total Protein (6.3-8.2) g/dL Albumin (3.5-5.0) g/dL Arterial Blood Potassium 5.4 H (3.4-4.5) mmol/L Arterial Blood Glucose 113 H 122 H 134 H (75-99) mg/dL Crossmatch 06/02/23 06/02/23 06/02/23 Range/Units 14:02 14:08 14:08 RBC 3.34 L (4.30-5.90) m/uL Hgb 10.1 L D (13.0-17.5) gm/dL Hct 30.6 L (39.0-53.0) % Neutrophils # 8.4 H (1.3-7.7) k/uL Lymphocytes # (1.0-4.8) k/uL APTT 30.7 H (22.0-30.0) sec ABG pH (7.35-7.45) ABG pCO2 (35-45) mmHg ABG pO2 (83-108) mmHg ABG HCO3 (21-25) mmol/L ABG Total CO2 (19-24) mmol/L ABG O2 Saturation (94-97) % ABG Hematocrit (34.0-46.0) % ABG Potassium (3.4-4.5) mmol/L ABG Ionized Calcium (4.5-5.3) mg/dL ABG Glucose (75-99) mg/dL Hemoglobin (13.0-17.5) gm/dL Chloride (98-107) mmol/L Glucose (74-99) mg/dL POC Glucose (mg/dL) 124 H (70-110) mg/dL Calcium (8.4-10.2) mg/dL Magnesium (1.6-2.3) mg/dL AST (17-59) U/L ALT (4-49) U/L Total Protein (6.3-8.2) g/dL Albumin (3.5-5.0) g/dL Arterial Blood Potassium (3.4-4.5) mmol/L Arterial Blood Glucose (75-99) mg/dL Crossmatch 06/02/23 06/02/23 06/02/23 Range/Units 14:08 14:19 15:00 RBC (4.30-5.90) m/uL Hgb (13.0-17.5) gm/dL Hct (39.0-53.0) % Neutrophils # (1.3-7.7) k/uL Lymphocytes # (1.0-4.8) k/uL APTT (22.0-30.0) sec ABG pH (7.35-7.45) ABG pCO2 46 H (35-45) mmHg ABG pO2 305 H (83-108) mmHg ABG HCO3 26 H (21-25) mmol/L ABG Total CO2 27 H (19-24) mmol/L ABG O2 Saturation 98.9 H (94-97) % ABG Hematocrit (34.0-46.0) % ABG Potassium (3.4-4.5) mmol/L ABG Ionized Calcium (4.5-5.3) mg/dL ABG Glucose (75-99) mg/dL Hemoglobin (13.0-17.5) gm/dL Chloride 109 H (98-107) mmol/L Glucose 114 H (74-99) mg/dL POC Glucose (mg/dL) 119 H (70-110) mg/dL Calcium 8.2 L (8.4-10.2) mg/dL Magnesium 2.6 H (1.6-2.3) mg/dL AST 85 H (17-59) U/L ALT 90 H (4-49) U/L Total Protein 5.2 L (6.3-8.2) g/dL Albumin 3.2 L (3.5-5.0) g/dL Arterial Blood Potassium (3.4-4.5) mmol/L Arterial Blood Glucose (75-99) mg/dL Crossmatch 06/02/23 06/02/23 06/02/23 Range/Units 15:53 17:00 17:03 RBC 3.08 L (4.30-5.90) m/uL Hgb 9.2 L (13.0-17.5) gm/dL Hct 28.6 L (39.0-53.0) % Neutrophils # 8.6 H (1.3-7.7) k/uL Lymphocytes # 0.8 L (1.0-4.8) k/uL APTT (22.0-30.0) sec ABG pH (7.35-7.45) ABG pCO2 (35-45) mmHg ABG pO2 (83-108) mmHg ABG HCO3 (21-25) mmol/L ABG Total CO2 (19-24) mmol/L ABG O2 Saturation (94-97) % ABG Hematocrit (34.0-46.0) % ABG Potassium (3.4-4.5) mmol/L ABG Ionized Calcium (4.5-5.3) mg/dL ABG Glucose (75-99) mg/dL Hemoglobin (13.0-17.5) gm/dL Chloride (98-107) mmol/L Glucose (74-99) mg/dL POC Glucose (mg/dL) 118 H 153 H (70-110) mg/dL Calcium (8.4-10.2) mg/dL Magnesium (1.6-2.3) mg/dL AST (17-59) U/L ALT (4-49) U/L Total Protein (6.3-8.2) g/dL Albumin (3.5-5.0) g/dL Arterial Blood Potassium (3.4-4.5) mmol/L Arterial Blood Glucose (75-99) mg/dL Crossmatch 06/02/23 06/02/23 06/02/23 Range/Units 18:02 18:48 19:00 RBC (4.30-5.90) m/uL Hgb (13.0-17.5) gm/dL Hct (39.0-53.0) % Neutrophils # (1.3-7.7) k/uL Lymphocytes # (1.0-4.8) k/uL APTT (22.0-30.0) sec ABG pH (7.35-7.45) ABG pCO2 (35-45) mmHg ABG pO2 (83-108) mmHg ABG HCO3 (21-25) mmol/L ABG Total CO2 (19-24) mmol/L ABG O2 Saturation 97.2 H (94-97) % ABG Hematocrit (34.0-46.0) % ABG Potassium (3.4-4.5) mmol/L ABG Ionized Calcium (4.5-5.3) mg/dL ABG Glucose (75-99) mg/dL Hemoglobin (13.0-17.5) gm/dL Chloride (98-107) mmol/L Glucose (74-99) mg/dL POC Glucose (mg/dL) 144 H 141 H (70-110) mg/dL Calcium (8.4-10.2) mg/dL Magnesium (1.6-2.3) mg/dL AST (17-59) U/L ALT (4-49) U/L Total Protein (6.3-8.2) g/dL Albumin (3.5-5.0) g/dL Arterial Blood Potassium (3.4-4.5) mmol/L Arterial Blood Glucose (75-99) mg/dL Crossmatch 06/02/23 06/02/23 06/02/23 Range/Units 19:54 19:55 20:48 RBC 2.86 L (4.30-5.90) m/uL Hgb 8.5 L (13.0-17.5) gm/dL Hct 26.2 L (39.0-53.0) % Neutrophils # 8.5 H (1.3-7.7) k/uL Lymphocytes # 0.7 L (1.0-4.8) k/uL APTT (22.0-30.0) sec ABG pH (7.35-7.45) ABG pCO2 (35-45) mmHg ABG pO2 (83-108) mmHg ABG HCO3 (21-25) mmol/L ABG Total CO2 (19-24) mmol/L ABG O2 Saturation (94-97) % ABG Hematocrit (34.0-46.0) % ABG Potassium (3.4-4.5) mmol/L ABG Ionized Calcium (4.5-5.3) mg/dL ABG Glucose (75-99) mg/dL Hemoglobin (13.0-17.5) gm/dL Chloride (98-107) mmol/L Glucose (74-99) mg/dL POC Glucose (mg/dL) 133 H 128 H (70-110) mg/dL Calcium (8.4-10.2) mg/dL Magnesium (1.6-2.3) mg/dL AST (17-59) U/L ALT (4-49) U/L Total Protein (6.3-8.2) g/dL Albumin (3.5-5.0) g/dL Arterial Blood Potassium (3.4-4.5) mmol/L Arterial Blood Glucose (75-99) mg/dL Crossmatch 06/02/23 06/02/23 06/02/23 Range/Units 21:44 22:42 23:50 RBC (4.30-5.90) m/uL Hgb (13.0-17.5) gm/dL Hct (39.0-53.0) % Neutrophils # (1.3-7.7) k/uL Lymphocytes # (1.0-4.8) k/uL APTT (22.0-30.0) sec ABG pH (7.35-7.45) ABG pCO2 (35-45) mmHg ABG pO2 (83-108) mmHg ABG HCO3 (21-25) mmol/L ABG Total CO2 (19-24) mmol/L ABG O2 Saturation (94-97) % ABG Hematocrit (34.0-46.0) % ABG Potassium (3.4-4.5) mmol/L ABG Ionized Calcium (4.5-5.3) mg/dL ABG Glucose (75-99) mg/dL Hemoglobin (13.0-17.5) gm/dL Chloride (98-107) mmol/L Glucose (74-99) mg/dL POC Glucose (mg/dL) 130 H 126 H 124 H (70-110) mg/dL Calcium (8.4-10.2) mg/dL Magnesium (1.6-2.3) mg/dL AST (17-59) U/L ALT (4-49) U/L Total Protein (6.3-8.2) g/dL Albumin (3.5-5.0) g/dL Arterial Blood Potassium (3.4-4.5) mmol/L Arterial Blood Glucose (75-99) mg/dL Crossmatch 06/03/23 06/03/23 06/03/23 Range/Units 00:45 01:57 02:48 RBC (4.30-5.90) m/uL Hgb (13.0-17.5) gm/dL Hct (39.0-53.0) % Neutrophils # (1.3-7.7) k/uL Lymphocytes # (1.0-4.8) k/uL APTT (22.0-30.0) sec ABG pH (7.35-7.45) ABG pCO2 (35-45) mmHg ABG pO2 (83-108) mmHg ABG HCO3 (21-25) mmol/L ABG Total CO2 (19-24) mmol/L ABG O2 Saturation (94-97) % ABG Hematocrit (34.0-46.0) % ABG Potassium (3.4-4.5) mmol/L ABG Ionized Calcium (4.5-5.3) mg/dL ABG Glucose (75-99) mg/dL Hemoglobin (13.0-17.5) gm/dL Chloride (98-107) mmol/L Glucose (74-99) mg/dL POC Glucose (mg/dL) 121 H 119 H 116 H (70-110) mg/dL Calcium (8.4-10.2) mg/dL Magnesium (1.6-2.3) mg/dL AST (17-59) U/L ALT (4-49) U/L Total Protein (6.3-8.2) g/dL Albumin (3.5-5.0) g/dL Arterial Blood Potassium (3.4-4.5) mmol/L Arterial Blood Glucose (75-99) mg/dL Crossmatch 06/03/23 06/03/23 06/03/23 Range/Units 04:01 04:04 04:04 RBC 2.97 L (4.30-5.90) m/uL Hgb 9.0 L (13.0-17.5) gm/dL Hct 27.2 L (39.0-53.0) % Neutrophils # 8.3 H (1.3-7.7) k/uL Lymphocytes # (1.0-4.8) k/uL APTT (22.0-30.0) sec ABG pH (7.35-7.45) ABG pCO2 (35-45) mmHg ABG pO2 (83-108) mmHg ABG HCO3 (21-25) mmol/L ABG Total CO2 (19-24) mmol/L ABG O2 Saturation (94-97) % ABG Hematocrit (34.0-46.0) % ABG Potassium (3.4-4.5) mmol/L ABG Ionized Calcium (4.5-5.3) mg/dL ABG Glucose (75-99) mg/dL Hemoglobin (13.0-17.5) gm/dL Chloride 110 H (98-107) mmol/L Glucose 113 H (74-99) mg/dL POC Glucose (mg/dL) 122 H (70-110) mg/dL Calcium 8.3 L (8.4-10.2) mg/dL Magnesium (1.6-2.3) mg/dL AST 63 H (17-59) U/L ALT 63 H (4-49) U/L Total Protein 5.4 L (6.3-8.2) g/dL Albumin (3.5-5.0) g/dL Arterial Blood Potassium (3.4-4.5) mmol/L Arterial Blood Glucose (75-99) mg/dL Crossmatch 06/03/23 06/03/23 06/03/23 Range/Units 04:55 06:23 07:08 RBC (4.30-5.90) m/uL Hgb (13.0-17.5) gm/dL Hct (39.0-53.0) % Neutrophils # (1.3-7.7) k/uL Lymphocytes # (1.0-4.8) k/uL APTT (22.0-30.0) sec ABG pH (7.35-7.45) ABG pCO2 (35-45) mmHg ABG pO2 (83-108) mmHg ABG HCO3 (21-25) mmol/L ABG Total CO2 (19-24) mmol/L ABG O2 Saturation (94-97) % ABG Hematocrit (34.0-46.0) % ABG Potassium (3.4-4.5) mmol/L ABG Ionized Calcium (4.5-5.3) mg/dL ABG Glucose (75-99) mg/dL Hemoglobin (13.0-17.5) gm/dL Chloride (98-107) mmol/L Glucose (74-99) mg/dL POC Glucose (mg/dL) 118 H 148 H 144 H (70-110) mg/dL Calcium (8.4-10.2) mg/dL Magnesium (1.6-2.3) mg/dL AST (17-59) U/L ALT (4-49) U/L Total Protein (6.3-8.2) g/dL Albumin (3.5-5.0) g/dL Arterial Blood Potassium (3.4-4.5) mmol/L Arterial Blood Glucose (75-99) mg/dL Crossmatch 06/03/23 06/03/23 06/03/23 Range/Units 08:00 09:03 10:14 RBC (4.30-5.90) m/uL Hgb (13.0-17.5) gm/dL Hct (39.0-53.0) % Neutrophils # (1.3-7.7) k/uL Lymphocytes # (1.0-4.8) k/uL APTT (22.0-30.0) sec ABG pH (7.35-7.45) ABG pCO2 (35-45) mmHg ABG pO2 (83-108) mmHg ABG HCO3 (21-25) mmol/L ABG Total CO2 (19-24) mmol/L ABG O2 Saturation (94-97) % ABG Hematocrit (34.0-46.0) % ABG Potassium (3.4-4.5) mmol/L ABG Ionized Calcium (4.5-5.3) mg/dL ABG Glucose (75-99) mg/dL Hemoglobin (13.0-17.5) gm/dL Chloride (98-107) mmol/L Glucose (74-99) mg/dL POC Glucose (mg/dL) 134 H 132 H 125 H (70-110) mg/dL Calcium (8.4-10.2) mg/dL Magnesium (1.6-2.3) mg/dL AST (17-59) U/L ALT (4-49) U/L Total Protein (6.3-8.2) g/dL Albumin (3.5-5.0) g/dL Arterial Blood Potassium (3.4-4.5) mmol/L Arterial Blood Glucose (75-99) mg/dL Crossmatch
[2023-06-03 11:46] LABS: Glucose,Whole Blood 141 mg/dL (70-110)
[2023-06-03 12:55] LABS: Glucose,Whole Blood 144 mg/dL (70-110)
[2023-06-03] MEDS: KETOROLAC 15 MG/ML 1 ML VIAL IVP SCH (13:08)
--- NOTE | 2023-06-03 14:05 | P.PN ---
Subjective Progress Note Date: 06/03/23 72-year-old male that we are asked to see in preoperative evaluation. The patient was admitted with a non-ST segment elevation myocardial infarction, and cellulitis of the right lower extremity. He has a history of hypertension, hyperlipidemia, COPD, occasional alcohol use, and chronic and ongoing tobacco dependence. The patient apparently sees a physician [place] at the [place]. The patient is scheduled to have open heart surgery, on May 30. He is currently on a nebulizer machine, with albuterol sulfate and ipratropium bromide, and uses generic Advair, i.e. Wixela. The patient smoked 1 pack of cigarettes a day for 30 years. He has never seen a lung doctor in the past. The patient did have lung function performed while in the hospital. The patient's FEV1 was 2.63 L, and the patient's FVC was 2.78 L. The FEV1/FVC ratio was excellent. The FEF 25-75% was 1.50 L/s which is 65% of predicted. Based exclusively on the FEV1, the patient is at no increased operative risk. Patient does have some mild shortness of breath on exertion. Laboratory data includes a white count 15, hemoglobin 15.1, hematocrit 46.9, and a platelet count of 374,000. Sodium 137, potassium 3.9, chlorides 104, CO2 24, BUN 19, creatinine 1. The patient's AST is 202. The ALT is 230. On today's evaluation of 05/30/2023, the patient is calm and comfortable. Denies having any specific complaints. No reported chest pain. There is an issue with the right lower extremity cellulitis and the patient is currently on IV antibiotics. The right lower extremity is also swollen compared to the left and we will recheck a Doppler of the lower extremity. Note that this was done at [facility] it was reported to be as negative. Pulse ox is 95 to 97% on room air oxygen. White count of 8.6 with a hemoglobin 15.8 and a sodium is at 136 with a potassium level of 4, BUN is at 17 with a creatinine of 0.88. LFTs are mildly elevated and the patient has a AST of 203 with an ALT of 285, bilirubin is within normal limits. The viral hepatitis screen has been negative. UA has been negative. The patient remains on aspirin 81 mg p.o. daily, the patient is also on metoprolol 100 mg p.o. daily. The patient on Imdur 30 mg p.o. daily. The patient is on IV cefazolin regarding right lower extremity cellulitis. The patient is also on Lipitor 40 mg p.o. daily. Norvasc is for blood pressure control at 5 mg p.o. daily. No respiratory difficulties at this point. On today's evaluation of 05/31/2023, I am seeing the patient for a follow-up. The patient cellulitis is improving and the patient has no specific complaints. No chest pain. No cough or sputum production. Awaiting his cardiac bypass surgery that is going to be done on 06/02/2023. The patient has triple-vessel coronary artery disease. The patient is also known to have hypertension hyperlipidemia in addition to right lower extremity cellulitis and the patient is currently on IV cefazolin. Using incentive spirometer. Labs are all stable, hemoglobin at 13.9, white cell count is down to 8.6, BUN is at 30 with a creatinine of 0.7 and sodium levels at 137. On today's evaluation of 06/01/2023, the patient has no specific complaints. Cellulitis has improved. No fever or chills. White cell count of 7.9. Renal function is stable with a BUN of 11 and a creatinine of 0.8 and a sodium levels at 137. Cardiac rhythm is sinus. No chest pain. The plan is to proceed with a bypass surgery tomorrow. The patient otherwise has no other specific co mplaints. He has normal ejection fraction. He is triple-vessel coronary disease. Hemoglobin is stable. Remains on a combination of aspirin, Lipitor, amlodipine 5 mg p.o. daily metoprolol 100 mg p.o. daily and the patient is on lisinopril hydrochlorothiazide 20/25 1 tablet a day. The patient remains on IV cefazolin. on 06/02/2023, the patient is being seen in the intensive care unit following his cardiac surgery. The patient was taken to the operating room and the patient underwent triple-vessel coronary artery bypass surgery utilizing ANDINO to LAD and left radial artery to obtuse marginal and reverse saphenous vein graft to posterior descending artery. Left atrial appendage clipping was also done. Postop, the patient was kept intubated and placed on mechanical ventilator and following that he was transferred to the intensive care unit. At the time of my evaluation, the patient was on propofol running at 25 mcg/kg/min. Precedex was also noted and the dose being titrated for comfort levels. The patient is intubated on mechanical ventilator on assist-control mode at rate of 12, tidal volume of 500, FiO2 40% with a PEEP of 8. Cardiac output was 5.7 with index of 2.8. Pulmonary artery pressures were 39/19. Cardiac output was 5.7 with an index of 2.8. Pulmonary artery pressures were 39/19. The patient has 2 mediastinal chest tubes output are minimal and left lower chest tube with a total amount of output of around 200 cc since arrival from the operating room without evidence of any air leak.. Chest x-ray showed that the ET tube was deep in the trachea and it was pulled by around 1 cm. All of the chest tubes are in good location. The Hooven-Cuauhtemoc catheter was also in good location. There is some left basilar atelectatic changes. Blood gases were noted and the patient was found to have a pH of 7.36 with a pCO2 of 46 and pO2 of 305. FiO2 was gradually weaned off. Noted the patient continues to be hemodynamically stable. No pressors were utilized. The patient over the next few hours was gradually weaned off the sedation. Weaning parameters were adequate with a rapid shallow breathing index of 30. The patient was able to generate adequate tidal volumes above 700 cc. Adequate minute ventilation. Patient was given a spontaneous breathing trial with a pressure support of 5 and a PEEP of 5 and following that the patient was extubated. Neurologically, awake and alert. Currently is on 3 L of oxygen by nasal cannula. The positive blood work showed a hemoglobin of 8.5, platelet count of 244, sodium is at 140 with a potassium of 3.7, BUN of 11 and a creatinine of 0.77. Adequate urine output. Given IV albumin by the cardiothoracic team. Pain is under adequate control. Cardiac rhythm is sinus. On today's evaluation of 06/03/2023, the patient is being seen for a follow-up. The patient is postop day #1. The patient was weaned off the mechanical ventilator following his bypass surgery and the patient was extubated without any major difficulties. Earlier this morning, the patient had cardiac output of 5.8 with an index of 2.8 with a pulmonary artery pressures of 17/8 with a CVP of 2. He does have still a backup pacemaker generator at the rate of 50. Using incentive spirometer. Pulling approximately 8000. He has mediastinal chest tubes and the total amount of output has been 450 cc since surgery and the left lower chest tube is produced approximately 550 cc since surgery. Chest x-ray from today shows no evidence of pneumothorax. Urine output is in order of 30 to 60 cc an hour. Awake and alert. Cardiac rhythm is sinus. No other significant events. Remains on aspirin and Plavix. Started on beta-blockers and the fidel langley is currently on metoprolol 12.5 mg every 8 hours. Remains on Lipitor 40 mg p.o. daily. No focal neurological deficit at this point in time. Surgical wound sites are dry clean and intact. JÚNIOR drain is present in the left upper extremity that needs to be removed. Objective - Vital Signs Vital signs: Vital Signs Temp 98.6 F 06/03/23 08:00 Pulse 77 06/03/23 10:00 Resp 15 06/03/23 10:00 BP 122/63 06/03/23 09:00 Pulse Ox 92 L 06/03/23 10:00 FiO2 40 06/02/23 15:26 Intake & Output 06/02/23 06/03/23 06/03/23 18:59 06:59 18:59 Intake Total 7837.782 4730.081 102.136 Output Total 1675 1135 60 Balance -423.768 717.081 42.136 Weight 93.1 kg 93.1 kg Intake: IV 1199 1647 101 ACETAMINOPHEN IV (For NPO 400 ) 1,000 mg In Empty Bag 1 bag @ 400 mls/hr IVPB Q6HR MOUSTAPHA Rx#:[id number] Albumin Human 5% 500 ml 750 250 In Empty Bag 1 bag @ 500 mls/hr IVPB ONCE STA Rx#: [id number] CO/CI 150 260 20 Pressure Bags 45 117 21 Sodium Chloride 0.9% 1, 250 570 60 000 ml @ 20 mls/hr IV . Q24H MOUSTAPHA Rx#:[id number] ceFAZolin 2 gm In Sodium 50 Chloride 0.9% 50 ml @ 100 mls/hr IVPB Q8HR MOUSTAPHA Rx# :[id number] Intake, IV Titration 52.232 55.081 1.136 Amount Dexmedetomidine/0.9% NaCl 3.147 18.656 (Pmx) 400 mcg In Empty Bag 1 bag @ Titrate IV . Q0M MOUSTAPHA Rx#:[id number] Insulin Regular 100 unit 11.750 1.136 In Sodium Chloride 0.9% 100 ml @ Per Protocol IV .Q0M MOUSTAPHA Rx#:[id number] Nitroglycerin-D5w Pmx 50 24.675 mg In Dextrose/Water 1 250ml.bag @ 5 MCG/MIN 1.5 mls/hr IV .Q24H MOUSTAPHA Rx#: [id number] propofoL 1,000 mg In 49.085 Empty Bag 1 bag @ Titrate IV .Q0M MOUSTAPHA Rx#: [id number] Oral 150 Output: Chest Tube Drainage 420 620 20 Bilateral Mediastinal 200 260 20 Left Pleural 220 360 0 Drainage 60 40 Left Arm 50 20 Left Calf 10 20 Urine 695 475 40 Estimated Blood Loss 500 Other: Voiding Method Indwelling Catheter Indwelling Catheter Indwelling Catheter ABP, PAP, CO, CI - Last Documented Arterial Blood Pressure 101/38 Pulmonary Artery Pressure 29/4 Cardiac Output 6.7 Cardiac Index 3.3 - Exam CONSTITUTIONAL: Appears comfortable, cooperative, no acute distress, the patient was extubated to nasal cannula and currently is on 3 L of O2 nasal cannula. RESPIRATORY: Lungs sounds diminished bilaterally. Respirations even, nonlabored. Currently on 3 LPM NC with oxygen saturation 93%. Able to achieve 1000 mL on incentive spirometry. Strong nonproductive cough. CARDIOVASCULAR: S1, S2 present. Regular rate and rhythm, sinus rhythm on telemetry. Sternum stable. Palpable peripheral pulses bilaterally. No edema present. No calf pain or tenderness noted. Heart hugger in place with patient demonstrating appropriate use. Antiembolism stockings, SCDs present. GASTROINTESTINAL: Abdomen soft, nontender, nondistended. Hypoactive bowel sounds present 4 quadrants. Tolerating clear liquids. Denies flatus GENITOURINARY: Jett present draining clear, yellow urine. Output overnight 30-60 mL per hour INTEGUMENTARY: Skin is warm and dry with evidence of good perfusion. Anterior chest incision well approximated and covered with dry intact dressing. Left radial artery as well as left lower extremity EVH site well approximated without redness, JÚNIOR drains present with minimal drainage. NEUROLOGIC: Cranial nerves II through XII intact MUSKULOSKELETAL: Able to move all extremities, strength equal bilaterally, gait normal PSYCHIATRIC: Alert and oriented to person place and time, appropriate affect, intact judgment and insight INVASIVE LINES AND TUBES: Mediastinal/left pleural chest tubes present and connected to wall suction, no air leaks present. Mediastinal tube with 130 mL serosanguineous drainage overnight, 450 mL since surgery. Left pleural chest tube with 170 mL serosanguineous drainage overnight, 550 mL since surgery. Atrial epicardial pacemaker wires present, connected to generator, backup rate 50 bpm. Right internal jugular Hooven/Cordis, right radial arterial line present. Last CO/CI 5.8/2.8, PA 17/1, CVP 2. - Labs CBC & Chem 7: 06/03/23 04:04 06/03/23 04:04 Labs: Abnormal Lab Results - Last 24 Hours (Table) 06/01/23 06/02/23 06/02/23 Range/Units 08:35 08:39 10:08 RBC (4.30-5.90) m/uL Hgb (13.0-17.5) gm/dL Hct (39.0-53.0) % Neutrophils # (1.3-7.7) k/uL Lymphocytes # (1.0-4.8) k/uL APTT (22.0-30.0) sec ABG pH (7.35-7.45) ABG pCO2 (35-45) mmHg ABG pO2 116 H 127 H (83-108) mmHg ABG HCO3 27 H 27 H (21-25) mmol/L ABG Total CO2 (19-24) mmol/L ABG O2 Saturation 98.4 H 98.3 H (94-97) % ABG Hematocrit (34.0-46.0) % ABG Potassium (3.4-4.5) mmol/L ABG Ionized Calcium (4.5-5.3) mg/dL ABG Glucose 110 H 118 H (75-99) mg/dL Hemoglobin 12.9 L 11.7 L (13.0-17.5) gm/dL Chloride (98-107) mmol/L Glucose (74-99) mg/dL POC Glucose (mg/dL) (70-110) mg/dL Calcium (8.4-10.2) mg/dL Magnesium (1.6-2.3) mg/dL AST (17-59) U/L ALT (4-49) U/L Total Protein (6.3-8.2) g/dL Albumin (3.5-5.0) g/dL Arterial Blood Potassium (3.4-4.5) mmol/L Arterial Blood Glucose 110 H 118 H (75-99) mg/dL Crossmatch See Detail 06/02/23 06/02/23 06/02/23 Range/Units 10:59 11:29 12:11 RBC (4.30-5.90) m/uL Hgb (13.0-17.5) gm/dL Hct (39.0-53.0) % Neutrophils # (1.3-7.7) k/uL Lymphocytes # (1.0-4.8) k/uL APTT (22.0-30.0) sec ABG pH 7.51 H 7.54 H 7.52 H (7.35-7.45) ABG pCO2 34 L 31 L 33 L (35-45) mmHg ABG pO2 >420 H >420 H >420 H (83-108) mmHg ABG HCO3 28 H 27 H 27 H (21-25) mmol/L ABG Total CO2 (19-24) mmol/L ABG O2 Saturation >99.4 H >99.4 H >99.4 H (94-97) % ABG Hematocrit 28 L 26 L 27 L (34.0-46.0) % ABG Potassium 5.4 H (3.4-4.5) mmol/L ABG Ionized Calcium 4.1 L 4.0 L 4.1 L (4.5-5.3) mg/dL ABG Glucose 113 H 122 H 134 H (75-99) mg/dL Hemoglobin 9.3 L 8.5 L 8.9 L (13.0-17.5) gm/dL Chloride (98-107) mmol/L Glucose (74-99) mg/dL POC Glucose (mg/dL) (70-110) mg/dL Calcium (8.4-10.2) mg/dL Magnesium (1.6-2.3) mg/dL AST (17-59) U/L ALT (4-49) U/L Total Protein (6.3-8.2) g/dL Albumin (3.5-5.0) g/dL Arterial Blood Potassium 5.4 H (3.4-4.5) mmol/L Arterial Blood Glucose 113 H 122 H 134 H (75-99) mg/dL Crossmatch 06/02/23 06/02/23 06/02/23 Range/Units 14:02 14:08 14:08 RBC 3.34 L (4.30-5.90) m/uL Hgb 10.1 L D (13.0-17.5) gm/dL Hct 30.6 L (39.0-53.0) % Neutrophils # 8.4 H (1.3-7.7) k/uL Lymphocytes # (1.0-4.8) k/uL APTT 30.7 H (22.0-30.0) sec ABG pH (7.35-7.45) ABG pCO2 (35-45) mmHg ABG pO2 (83-108) mmHg ABG HCO3 (21-25) mmol/L ABG Total CO2 (19-24) mmol/L ABG O2 Saturation (94-97) % ABG Hematocrit (34.0-46.0) % ABG Potassium (3.4-4.5) mmol/L ABG Ionized Calcium (4.5-5.3) mg/dL ABG Glucose (75-99) mg/dL Hemoglobin (13.0-17.5) gm/dL Chloride (98-107) mmol/L Glucose (74-99) mg/dL POC Glucose (mg/dL) 124 H (70-110) mg/dL Calcium (8.4-10.2) mg/dL Magnesium (1.6-2.3) mg/dL AST (17-59) U/L ALT (4-49) U/L Total Protein (6.3-8.2) g/dL Albumin (3.5-5.0) g/dL Arterial Blood Potassium (3.4-4.5) mmol/L Arterial Blood Glucose (75-99) mg/dL Crossmatch 06/02/23 06/02/23 06/02/23 Range/Units 14:08 14:19 15:00 RBC (4.30-5.90) m/uL Hgb (13.0-17.5) gm/dL Hct (39.0-53.0) % Neutrophils # (1.3-7.7) k/uL Lymphocytes # (1.0-4.8) k/uL APTT (22.0-30.0) sec ABG pH (7.35-7.45) ABG pCO2 46 H (35-45) mmHg ABG pO2 305 H (83-108) mmHg ABG HCO3 26 H (21-25) mmol/L ABG Total CO2 27 H (19-24) mmol/L ABG O2 Saturation 98.9 H (94-97) % ABG Hematocrit (34.0-46.0) % ABG Potassium (3.4-4.5) mmol/L ABG Ionized Calcium (4.5-5.3) mg/dL ABG Glucose (75-99) mg/dL Hemoglobin (13.0-17.5) gm/dL Chloride 109 H (98-107) mmol/L Glucose 114 H (74-99) mg/dL POC Glucose (mg/dL) 119 H (70-110) mg/dL Calcium 8.2 L (8.4-10.2) mg/dL Magnesium 2.6 H (1.6-2.3) mg/dL AST 85 H (17-59) U/L ALT 90 H (4-49) U/L Total Protein 5.2 L (6.3-8.2) g/dL Albumin 3.2 L (3.5-5.0) g/dL Arterial Blood Potassium (3.4-4.5) mmol/L Arterial Blood Glucose (75-99) mg/dL Crossmatch 06/02/23 06/02/23 06/02/23 Range/Units 15:53 17:00 17:03 RBC 3.08 L (4.30-5.90) m/uL Hgb 9.2 L (13.0-17.5) gm/dL Hct 28.6 L (39.0-53.0) % Neutrophils # 8.6 H (1.3-7.7) k/uL Lymphocytes # 0.8 L (1.0-4.8) k/uL APTT (22.0-30.0) sec ABG pH (7.35-7.45) ABG pCO2 (35-45) mmHg ABG pO2 (83-108) mmHg ABG HCO3 (21-25) mmol/L ABG Total CO2 (19-24) mmol/L ABG O2 Saturation (94-97) % ABG Hematocrit (34.0-46.0) % ABG Potassium (3.4-4.5) mmol/L ABG Ionized Calcium (4.5-5.3) mg/dL ABG Glucose (75-99) mg/dL Hemoglobin (13.0-17.5) gm/dL Chloride (98-107) mmol/L Glucose (74-99) mg/dL POC Glucose (mg/dL) 118 H 153 H (70-110) mg/dL Calcium (8.4-10.2) mg/dL Magnesium (1.6-2.3) mg/dL AST (17-59) U/L ALT (4-49) U/L Total Protein (6.3-8.2) g/dL Albumin (3.5-5.0) g/dL Arterial Blood Potassium (3.4-4.5) mmol/L Arterial Blood Glucose (75-99) mg/dL Crossmatch 06/02/23 06/02/23 06/02/23 Range/Units 18:02 18:48 19:00 RBC (4.30-5.90) m/uL Hgb (13.0-17.5) gm/dL Hct (39.0-53.0) % Neutrophils # (1.3-7.7) k/uL Lymphocytes # (1.0-4.8) k/uL APTT (22.0-30.0) sec ABG pH (7.35-7.45) ABG pCO2 (35-45) mmHg ABG pO2 (83-108) mmHg ABG HCO3 (21-25) mmol/L ABG Total CO2 (19-24) mmol/L ABG O2 Saturation 97.2 H (94-97) % ABG Hematocrit (34.0-46.0) % ABG Potassium (3.4-4.5) mmol/L ABG Ionized Calcium (4.5-5.3) mg/dL ABG Glucose (75-99) mg/dL Hemoglobin (13.0-17.5) gm/dL Chloride (98-107) mmol/L Glucose (74-99) mg/dL POC Glucose (mg/dL) 144 H 141 H (70-110) mg/dL Calcium (8.4-10.2) mg/dL Magnesium (1.6-2.3) mg/dL AST (17-59) U/L ALT (4-49) U/L Total Protein (6.3-8.2) g/dL Albumin (3.5-5.0) g/dL Arterial Blood Potassium (3.4-4.5) mmol/L Arterial Blood Glucose (75-99) mg/dL Crossmatch 06/02/23 06/02/23 06/02/23 Range/Units 19:54 19:55 20:48 RBC 2.86 L (4.30-5.90) m/uL Hgb 8.5 L (13.0-17.5) gm/dL Hct 26.2 L (39.0-53.0) % Neutrophils # 8.5 H (1.3-7.7) k/uL Lymphocytes # 0.7 L (1.0-4.8) k/uL APTT (22.0-30.0) sec ABG pH (7.35-7.45) ABG pCO2 (35-45) mmHg ABG pO2 (83-108) mmHg ABG HCO3 (21-25) mmol/L ABG Total CO2 (19-24) mmol/L ABG O2 Saturation (94-97) % ABG Hematocrit (34.0-46.0) % ABG Potassium (3.4-4.5) mmol/L ABG Ionized Calcium (4.5-5.3) mg/dL ABG Glucose (75-99) mg/dL Hemoglobin (13.0-17.5) gm/dL Chloride (98-107) mmol/L Glucose (74-99) mg/dL POC Glucose (mg/dL) 133 H 128 H (70-110) mg/dL Calcium (8.4-10.2) mg/dL Magnesium (1.6-2.3) mg/dL AST (17-59) U/L ALT (4-49) U/L Total Protein (6.3-8.2) g/dL Albumin (3.5-5.0) g/dL Arterial Blood Potassium (3.4-4.5) mmol/L Arterial Blood Glucose (75-99) mg/dL Crossmatch 06/02/23 06/02/23 06/02/23 Range/Units 21:44 22:42 23:50 RBC (4.30-5.90) m/uL Hgb (13.0-17.5) gm/dL Hct (39.0-53.0) % Neutrophils # (1.3-7.7) k/uL Lymphocytes # (1.0-4.8) k/uL APTT (22.0-30.0) sec ABG pH (7.35-7.45) ABG pCO2 (35-45) mmHg ABG pO2 (83-108) mmHg ABG HCO3 (21-25) mmol/L ABG Total CO2 (19-24) mmol/L ABG O2 Saturation (94-97) % ABG Hematocrit (34.0-46.0) % ABG Potassium (3.4-4.5) mmol/L ABG Ionized Calcium (4.5-5.3) mg/dL ABG Glucose (75-99) mg/dL Hemoglobin (13.0-17.5) gm/dL Chloride (98-107) mmol/L Glucose (74-99) mg/dL POC Glucose (mg/dL) 130 H 126 H 124 H (70-110) mg/dL Calcium (8.4-10.2) mg/dL Magnesium (1.6-2.3) mg/dL AST (17-59) U/L ALT (4-49) U/L Total Protein (6.3-8.2) g/dL Albumin (3.5-5.0) g/dL Arterial Blood Potassium (3.4-4.5) mmol/L Arterial Blood Glucose (75-99) mg/dL Crossmatch 06/03/23 06/03/23 06/03/23 Range/Units 00:45 01:57 02:48 RBC (4.30-5.90) m/uL Hgb (13.0-17.5) gm/dL Hct (39.0-53.0) % Neutrophils # (1.3-7.7) k/uL Lymphocytes # (1.0-4.8) k/uL APTT (22.0-30.0) sec ABG pH (7.35-7.45) ABG pCO2 (35-45) mmHg ABG pO2 (83-108) mmHg ABG HCO3 (21-25) mmol/L ABG Total CO2 (19-24) mmol/L ABG O2 Saturation (94-97) % ABG Hematocrit (34.0-46.0) % ABG Potassium (3.4-4.5) mmol/L ABG Ionized Calcium (4.5-5.3) mg/dL ABG Glucose (75-99) mg/dL Hemoglobin (13.0-17.5) gm/dL Chloride (98-107) mmol/L Glucose (74-99) mg/dL POC Glucose (mg/dL) 121 H 119 H 116 H (70-110) mg/dL Calcium (8.4-10.2) mg/dL Magnesium (1.6-2.3) mg/dL AST (17-59) U/L ALT (4-49) U/L Total Protein (6.3-8.2) g/dL Albumin (3.5-5.0) g/dL Arterial Blood Potassium (3.4-4.5) mmol/L Arterial Blood Glucose (75-99) mg/dL Crossmatch 06/03/23 06/03/23 06/03/23 Range/Units 04:01 04:04 04:04 RBC 2.97 L (4.30-5.90) m/uL Hgb 9.0 L (13.0-17.5) gm/dL Hct 27.2 L (39.0-53.0) % Neutrophils # 8.3 H (1.3-7.7) k/uL Lymphocytes # (1.0-4.8) k/uL APTT (22.0-30.0) sec ABG pH (7.35-7.45) ABG pCO2 (35-45) mmHg ABG pO2 (83-108) mmHg ABG HCO3 (21-25) mmol/L ABG Total CO2 (19-24) mmol/L ABG O2 Saturation (94-97) % ABG Hematocrit (34.0-46.0) % ABG Potassium (3.4-4.5) mmol/L ABG Ionized Calcium (4.5-5.3) mg/dL ABG Glucose (75-99) mg/dL Hemoglobin (13.0-17.5) gm/dL Chloride 110 H (98-107) mmol/L Glucose 113 H (74-99) mg/dL POC Glucose (mg/dL) 122 H (70-110) mg/dL Calcium 8.3 L (8.4-10.2) mg/dL Magnesium (1.6-2.3) mg/dL AST 63 H (17-59) U/L ALT 63 H (4-49) U/L Total Protein 5.4 L (6.3-8.2) g/dL Albumin (3.5-5.0) g/dL Arterial Blood Potassium (3.4-4.5) mmol/L Arterial Blood Glucose (75-99) mg/dL Crossmatch 06/03/23 06/03/23 06/03/23 Range/Units 04:55 06:23 07:08 RBC (4.30-5.90) m/uL Hgb (13.0-17.5) gm/dL Hct (39.0-53.0) % Neutrophils # (1.3-7.7) k/uL Lymphocytes # (1.0-4.8) k/uL APTT (22.0-30.0) sec ABG pH (7.35-7.45) ABG pCO2 (35-45) mmHg ABG pO2 (83-108) mmHg ABG HCO3 (21-25) mmol/L ABG Total CO2 (19-24) mmol/L ABG O2 Saturation (94-97) % ABG Hematocrit (34.0-46.0) % ABG Potassium (3.4-4.5) mmol/L ABG Ionized Calcium (4.5-5.3) mg/dL ABG Glucose (75-99) mg/dL Hemoglobin (13.0-17.5) gm/dL Chloride (98-107) mmol/L Glucose (74-99) mg/dL POC Glucose (mg/dL) 118 H 148 H 144 H (70-110) mg/dL Calcium (8.4-10.2) mg/dL Magnesium (1.6-2.3) mg/dL AST (17-59) U/L ALT (4-49) U/L Total Protein (6.3-8.2) g/dL Albumin (3.5-5.0) g/dL Arterial Blood Potassium (3.4-4.5) mmol/L Arterial Blood Glucose (75-99) mg/dL Crossmatch 06/03/23 06/03/23 06/03/23 Range/Units 08:00 09:03 10:14 RBC (4.30-5.90) m/uL Hgb (13.0-17.5) gm/dL Hct (39.0-53.0) % Neutrophils # (1.3-7.7) k/uL Lymphocytes # (1.0-4.8) k/uL APTT (22.0-30.0) sec ABG pH (7.35-7.45) ABG pCO2 (35-45) mmHg ABG pO2 (83-108) mmHg ABG HCO3 (21-25) mmol/L ABG Total CO2 (19-24) mmol/L ABG O2 Saturation (94-97) % ABG Hematocrit (34.0-46.0) % ABG Potassium (3.4-4.5) mmol/L ABG Ionized Calcium (4.5-5.3) mg/dL ABG Glucose (75-99) mg/dL Hemoglobin (13.0-17.5) gm/dL Chloride (98-107) mmol/L Glucose (74-99) mg/dL POC Glucose (mg/dL) 134 H 132 H 125 H (70-110) mg/dL Calcium (8.4-10.2) mg/dL Magnesium (1.6-2.3) mg/dL AST (17-59) U/L ALT (4-49) U/L Total Protein (6.3-8.2) g/dL Albumin (3.5-5.0) g/dL Arterial Blood Potassium (3.4-4.5) mmol/L Arterial Blood Glucose (75-99) mg/dL Crossmatch Assessment and Plan Plan: Triple-vessel coronary artery disease, non-STEMI this admission, the patient underwent three-vessel bypass surgery and the patient is postop day # 1. Hemodynamically stable with adequate cardiac output and index. No pressors. Cardiac rhythm is sinus. Hemodynamic parameters overall adequate. The Hooven- Cu[place]emoc catheter was removed. The patient is on no pressors. Cardiac rhythm is sinus. Postthoracotomy, weaned off the mechanical ventilator and the patient was extubated and currently on 3 days of oxygen by nasal cannula. The patient is to mediastinal and left lower chest tube. Output has been minimal without evidence of any air leak. Postop chest x-ray was showing some limited atelectatic change in left lung base, output from the chest have been noted. Postoperative anemia, expected outcome of surgery, will monitor Cellulitis of the right lower extremity, improving and the patient's white cell count is improved and the patient cellulitis, essentially recovered. Hypertension, Hyperlipidemia, treated cholesterol 99.0, LDL 48.0, currently on Lipitor Chronic ongoing tobacco dependence COPD with a preoperative FEV1 86% of predicted value with a base volume of 2.63 Occasional EtOH use, drinks 1 sixpack of beer per week Elevated transaminase,, LFTs continues to be mildly elevated and the patient remains on Lipitor. Could be related to chronic alcohol consumption. Acute leukocytosis, improving Plan Titrate oxygen flow to maintain saturation above 90%. The patient is currently on 3 days of oxygen by nasal cannula. Incentive spirometer Daily chest x-rays Monitor output from the chest tubes, will keep the chest tube for another 24 hours Cardiac rhythm sinus, backup pacemaker at a rate of 50 Ho[place]-Cu[place]em[place] catheter has been removed Monitor LFTs and continue Lipitor for now Increase mobility
[2023-06-03 14:21] LABS: Glucose,Whole Blood 126 mg/dL (70-110)
[2023-06-03] MEDS: amLODIPine 2.5 MG TAB PO SCH (14:22)
[2023-06-03 15:23] LABS: Glucose,Whole Blood 167 mg/dL (70-110)
[2023-06-03 16:31] LABS: Glucose,Whole Blood 170 mg/dL (70-110)
[2023-06-03 17:10] LABS: Glucose,Whole Blood 139 mg/dL (70-110)
[2023-06-03 18:10] LABS: Glucose,Whole Blood 150 mg/dL (70-110)
[2023-06-03] MEDS: SENNOSIDES-DOCUSATE SODIUM 1 EACH TAB PO SCH (21:13)
[2023-06-03 21:19] LABS: Glucose,Whole Blood 127 mg/dL (70-110)
[2023-06-03 23:26] LABS: Glucose,Whole Blood 167 mg/dL (70-110)
[2023-06-04 01:37] LABS: Glucose,Whole Blood 157 mg/dL (70-110)
[2023-06-04 04:41] LABS: Glucose,Whole Blood 78 mg/dL (70-110)
[2023-06-04 04:57] LABS: Basophils # (A) 0.1 k/uL (0-0.2); Basophils % (A) 0 %; Eosinophils % (A) 0 %; HCT 26.4 % (39.0-53.0); HGB 8.6 gm/dL (13.0-17.5); Lymphocytes # (A) 1.8 k/uL (1.0-4.8); Lymphocytes % (A) 15 %; MCHC 32.5 g/dL (31.0-37.0); MCV 92.4 fL (80.0-100.0); Mean Platelet Volume 8.2; Monocytes # (A) 0.7 k/uL (0-1.0); Monocytes % (A) 5 %; Neutrophils # (A) 9.5 k/uL (1.3-7.7); Neutrophils % (A) 78 %; Platelet Count 309 k/uL (150-450); RBC 2.86 m/uL (4.30-5.90); RDW 15.1 % (11.5-15.5); WBC 12.1 k/uL (3.8-10.6)
[2023-06-04 05:21] LABS: ALT 42 U/L (4-49); AST 47 U/L (17-59); African American GFR (CKD) >90 (>60 ml/min/1.73 sqM); Albumin 3.2 g/dL (3.5-5.0); Alkaline Phosphatase 63 U/L (38-126); Anion Gap 6 mmol/L; Blood Urea Nitrogen 16 mg/dL (9-20); Calcium 8.5 mg/dL (8.4-10.2); Carbon Dioxide 22 mmol/L (22-30); Chloride 107 mmol/L (98-107); Glucose 74 mg/dL (74-99); Non-African American GFR(CKD) >90 (>60 ml/min/1.73 sqM); Potassium 3.5 mmol/L (3.5-5.1); Sodium 135 mmol/L (137-145); Total Bilirubin 0.7 mg/dL (0.2-1.3); Total Protein 5.3 g/dL (6.3-8.2)
[2023-06-04 06:37] LABS: Glucose,Whole Blood 128 mg/dL (70-110)
[2023-06-04] MEDS: POTASSIUM BICARBONATE/CIT AC 20 MEQ TABLET.EFF PO ONE ×2 (06:45→12:07)
[2023-06-04] MEDS: PANTOPRAZOLE 40 MG TABLET PO SCH (06:46)
[2023-06-04] MEDS: FERROUS SULFATE 325 MG TAB PO SCH (06:46)
[2023-06-04] MEDS: ASCORBIC ACID 500 MG TAB PO SCH (06:46)
[2023-06-04] MEDS: FUROSEMIDE 10 MG/ML 4 ML VIAL IV STA (08:33)
[2023-06-04 08:42] LABS: Glucose,Whole Blood 130 mg/dL (70-110)
--- NOTE | 2023-06-04 09:23 | P.PN ---
Subjective Progress Note Date: 06/04/23 Principal diagnosis: Triple-vessel diffuse coronary artery disease, non-STEMI this admission. History of cellulitis of the right lower extremity, hypertension, hyperlipidemia, curr ent tobacco dependence, COPD, occasional EtOH use POD#2 triple-vessel coronary artery bypass grafting using the in situ left internal mammary artery to the left anterior descending artery, left radial artery from the aorta to the obtuse marginal artery, reverse saphenous vein graft from the aorta to the posterior descending artery, exclusion of the left atrial appendage using a 35 mm AtriClip, endoscopic harvesting of the left radial artery, endoscopic harvesting of the left greater saphenous vein, intraoperative graft flow measurements using the Imagine K12stim system, intraoperative transesophageal echocardiogram and epiaortic scanning Acute blood loss anemia, expected given hemodilution and cardiopulmonary bypass pump The patient was seen and examined this morning sitting up at the bedside in the ICU in no acute distress. Does complain of postoperative pain which is to be expected, denies shortness of breath. Remains in sinus rhythm, hemodynamically stable. CXR, labs reviewed. Right internal cordis, right radial arterial line, mediastinal/left pleural chest tubes remain. Patient has been ambulatory in the hallway with assistance. No other new concerns. Objective - Vital Signs Vital signs: Vital Signs Temp 98.1 F 06/04/23 08:00 Pulse 80 06/04/23 08:17 Resp 17 06/04/23 08:00 BP 119/61 06/04/23 08:00 Pulse Ox 95 06/04/23 08:00 FiO2 40 06/02/23 15:26 Intake & Output 06/03/23 06/04/23 06/04/23 18:59 06:59 18:59 Intake Total 676.422 205.406 32 Output Total 455 565 45 Balance 221.422 -359.594 -13 Weight 93.1 kg 95.2 kg Intake: IV 309 172 12 CO/CI 20 Pressure Bags 69 72 12 Sodium Chloride 0.9% 1, 220 100 000 ml @ 20 mls/hr IV . Q24H [facility] Rx#:[id number] Intake, IV Titration 17.422 33.406 20 Amount Insulin Regular 100 unit 17.422 33.406 In Sodium Chloride 0.9% 100 ml @ Per Protocol IV .Q0M [facility] Rx#:[id number] Sodium Chloride 0.9% 1, 20 000 ml @ 20 mls/hr IV . Q24H [facility] Rx#:[id number] Oral 350 Output: Chest Tube Drainage 190 290 0 Bilateral Mediastinal 120 170 0 Left Pleural 70 120 0 Urine 265 275 45 Other: Voiding Method Indwelling Catheter Indwelling Catheter Indwelling Catheter ABP, PAP, CO, CI - Last Documented Arterial Blood Pressure 96/53 Pulmonary Artery Pressure 29/4 Cardiac Output 6.7 Cardiac Index 3.3 - Exam CONSTITUTIONAL: Appears comfortable, cooperative, no acute distress RESPIRATORY: Lungs sounds diminished bilaterally. Respirations even, nonlabored. Currently on 3 LPM NC with oxygen saturation 95%. Able to achieve 1500 mL on incentive spirometry. Strong nonproductive cough. CARDIOVASCULAR: S1, S2 present. Regular rate and rhythm, sinus rhythm on telemetry. Sternum stable. Palpable peripheral pulses bilaterally. Trace generalized edema present. No calf pain or tenderness noted. Heart hugger in place with patient demonstrating appropriate use. Antiembolism stockings, SCDs present. GASTROINTESTINAL: Abdomen soft, nontender, nondistended. Active bowel sounds present 4 quadrants. Tolerating diet. Denies flatus, positive belching GENITOURINARY: Lopez present draining clear, yellow urine. Output overnight 20-25 mL per hour, 540 mL in the last 24 hours INTEGUMENTARY: Skin is warm and dry with evidence of good perfusion. Anterior chest incision well approximated and covered with dry intact dressing. Left radial artery as well as left lower extremity EVH site well approximated without redness NEUROLOGIC: Cranial nerves II through XII intact MUSKULOSKELETAL: Able to move all extremities, strength equal bilaterally, gait normal PSYCHIATRIC: Alert and oriented to person place and time, appropriate affect, intact judgment and insight INVASIVE LINES AND TUBES: Mediastinal/left pleural chest tubes present and connected to wall suction, no air leaks present. Mediastinal tube with 90 mL serosanguineous drainage overnight, 350 mL in the last 24 hours. Left pleural chest tube with 90 mL serosanguineous drainage overnight, 200 mL in the last 24 hours. Atrial epicardial pacemaker wires present, connected to generator, backup rate 50 bpm. Right internal jugular [place]/Cordis, right radial arterial line present. Last CVP 6. - Allied health notes Allied health notes reviewed: nursing - Labs CBC & Chem 7: 06/04/23 04:30 06/04/23 04:30 Labs: Abnormal Lab Results - Last 24 Hours (Table) 06/03/23 06/03/23 06/03/23 Range/Units 10:14 11:45 12:54 WBC (3.8-10.6) k/uL RBC (4.30-5.90) m/uL Hgb (13.0-17.5) gm/dL Hct (39.0-53.0) % Neutrophils # (1.3-7.7) k/uL Sodium (137-145) mmol/L POC Glucose (mg/dL) 125 H 141 H 144 H (70-110) mg/dL Total Protein (6.3-8.2) g/dL Albumin (3.5-5.0) g/dL 06/03/23 06/03/23 06/03/23 Range/Units 14:19 15:22 16:30 WBC (3.8-10.6) k/uL RBC (4.30-5.90) m/uL Hgb (13.0-17.5) gm/dL Hct (39.0-53.0) % Neutrophils # (1.3-7.7) k/uL Sodium (137-145) mmol/L POC Glucose (mg/dL) 126 H 167 H 170 H (70-110) mg/dL Total Protein (6.3-8.2) g/dL Albumin (3.5-5.0) g/dL 06/03/23 06/03/23 06/03/23 Range/Units 17:08 18:09 21:18 WBC (3.8-10.6) k/uL RBC (4.30-5.90) m/uL Hgb (13.0-17.5) gm/dL Hct (39.0-53.0) % Neutrophils # (1.3-7.7) k/uL Sodium (137-145) mmol/L POC Glucose (mg/dL) 139 H 150 H 127 H (70-110) mg/dL Total Protein (6.3-8.2) g/dL Albumin (3.5-5.0) g/dL 06/03/23 06/04/23 06/04/23 Range/Units 23:23 01:36 04:30 WBC 12.1 H (3.8-10.6) k/uL RBC 2.86 L (4.30-5.90) m/uL Hgb 8.6 L (13.0-17.5) gm/dL Hct 26.4 L (39.0-53.0) % Neutrophils # 9.5 H (1.3-7.7) k/uL Sodium (137-145) mmol/L POC Glucose (mg/dL) 167 H 157 H (70-110) mg/dL Total Protein (6.3-8.2) g/dL Albumin (3.5-5.0) g/dL 06/04/23 06/04/23 06/04/23 Range/Units 04:30 06:35 08:38 WBC (3.8-10.6) k/uL RBC (4.30-5.90) m/uL Hgb (13.0-17.5) gm/dL Hct (39.0-53.0) % Neutrophils # (1.3-7.7) k/uL Sodium 135 L (137-145) mmol/L POC Glucose (mg/dL) 128 H 130 H (70-110) mg/dL Total Protein 5.3 L (6.3-8.2) g/dL Albumin 3.2 L (3.5-5.0) g/dL - Imaging and Cardiology Chest x-ray: image reviewed Assessment and Plan Assessment: Triple-vessel coronary artery disease, non-STEMI this admission, status post 3V CABG Cellulitis of the right lower extremity, treated outpatient Hypertension Hyperlipidemia, treated, cholesterol 99, LDL 48 Current tobacco dependence COPD, preoperative FEV1 86% of predicted Occasional EtOH use Transaminitis, resolving Plan: Continue to maximize medical management with aspirin, statin, plavix and beta- lilia. Will increase beta lilia as tolerated Continue low dose CCB for radial artery spasm prophylaxis Wean oxygen as tolerated, encourage use of incentive spirometry 10 times every hour while awake. Bronchodilators per pulmonology Increase activity, ambulate as tolerated. PT/OT/cardiac rehab following Will monitor labs/CXRs, electrolyte replacement per protocol. Will give IV Lasix today GI/DVT prophylaxis Discussed and reinforced with the patient the importance of risk modification including smoking cessation. Insulin management per internal medicine Continue chest tubes for another 24 hours, monitor output Discontinue lopez after diuresis from Lasix, may bladder scan and straight cath for greater than 300 mL residual Continue to monitor strict accurate intake and output Daily weights More recommendations to follow based on patient's clinical course.
--- NOTE | 2023-06-04 10:16 | P.PN ---
Subjective Progress Note Date: 06/04/23 Hospital course: Patient is a very pleasant 72-year-old male with a past medical history of hyp ertension, hyperlipidemia, and COPD with continued nicotine dependence. Patient presented to our facility as a transfer from [facility] where he presented with weakness and a fall and was found to have elevated troponins. Patient reported recent treatment for cellulitis on Bactrim and experiencing nausea, vomiting, and decreased oral intake over the past few days. Per documentation in chart workup at [facility] was completed including a CT of the brain which was negative for acute intercranial pathology and troponins initially reported negative increasing to 5.09 resulting in patient being started on heparin infusion followed by transfer to our facility for evaluation. Upon arrival to our facility patient underwent evaluation in the emergency department. Vital signs revealed blood pressure 140/83, heart rate 86, respiratory rate 12, temp 97.9 F, and SpO2 of 96% on room air. EKG was completed showing normal sinus rhythm at 84 bpm with no significant T wave or ST abnormalities showing no signs of acute ischemia upon personal review and interpretation. Chest x-ray completed showing findings concerning for bronchitis with mild to moderate peribronchial thickening of the central bronchi and trace right pleural effusion. CTA chest was completed negative for pulmo nary emboli revealing a 1 cm subcarinal enlarged lymph node. Labs were completed and reviewed. CBC unremarkable. Coagulation profile normal findings. BMP revealed hyponatremia with sodium of 133 and hypocarbia with bicarb of 17. Blood glucose was 107. Magnesium normal findings at 2.0. Liver profile showing elevated AST of 73 and ALT of 51. Troponin was 2.730 and proBNP was 1620. Patient admitted under our services with consultation to cardiology. Troponins trended overnight resulting at 2.730 and 2.970. Patient was taken for cardiac catheterization. Cardiac catheterization revealing three-vessel coronary artery disease, cardiology consulted cardiothoracic surgery to evaluate patient for bypass. Echocardiogram showed normal LVEF 55 to 60%. He is now status post CABG. Physical exam: Patient seen and fully evaluated at bedside this morning. Chest tubes and Jett catheter in place. Patient walked in the halls. Vital signs reviewed and stable. General: Nontoxic, no distress and appears stated age Derm: Skin warm and dry, right lower extremity mild erythema, no edema or warmth, dressing clean, dry, intact, chest tubes in place Head: Atraumatic, normocephalic and symmetric. Eyes:: EOMI, pupils equal and reactive Mouth: no lip lesions, mucus membranes moist Cardiovascular: regular rate and rhythm with normal S1S2, no murmur, positive posterior tibial pulses bilaterally, and cap refill < 2 seconds. Lungs: Bilateral rales, supplemental oxygen Abdominal: soft, no guarding, no appreciable organomegaly Ext: No gross muscle atrophy, no edema, no contractures Neuro: CN II to XII within normal limits Psych: Alert and appropriate Assessment and Plan of Care: Patient remains in medical ICU, needs close monitoring NSTEMI Three-vessel coronary artery disease status post CABG Acute blood loss anemia, anticipated outcome of surgery Hypertension Hyperlipidemia Right lower extremity cellulitis status post antibiotic -Cardiology and pulmonology following -Cardiothoracic surgery note reviewed, continue chest tubes for another 24 hours, remove Jett catheter after IV diuresis with 40 of Lasix, amlodipine 2.5 -On aspirin 325, Plavix 75, metoprolol 12.5 twice daily, atorvastatin 40 Oral Tylenol as needed, IV Toradol scheduled, oral Percocet as needed, monitor for sedation On senna scheduled and milk of magnesia as needed, and bisacodyl as needed for bowel regimen Type 2 diabetes, A1c 6.6 -Insulin drip discontinued, switch to sliding scale insulin, monitor for hypoglycemia COPD with continued nicotine dependence -DuoNebs 4 times daily -Consider nicotine patch Subcarinal lymph node - Incidental finding, 1 cm - Outpatient follow-up Elevated transaminases, resolving - Hepatitis panel negative Data and imaging reviewed: -WBC 12.1, hemoglobin 8.6, potassium 3.5, glucose range between 78 and 167. CODE STATUS: Full code DVT prophylaxis: SQ heparin Anticipated discharge date: Clinical course to determine Anticipated discharge place: Pending clinical course Objective - Vital Signs Vital signs: Vital Signs Temp 98.1 F 06/04/23 08:00 Pulse 84 06/04/23 10:00 Resp 17 06/04/23 10:00 BP 108/60 06/04/23 10:00 Pulse Ox 93 L 06/04/23 10:00 FiO2 40 06/02/23 15:26 Intake & Output 06/03/23 06/04/23 06/04/23 18:59 06:59 18:59 Intake Total 676.422 205.406 84 Output Total 455 565 825 Balance 221.422 -359.594 -741 Weight 93.1 kg 95.2 kg Intake: IV 309 172 24 CO/CI 20 Pressure Bags 69 72 24 Sodium Chloride 0.9% 1, 220 100 000 ml @ 20 mls/hr IV . Q24H [facility] Rx#:[id number] Intake, IV Titration 17.422 33.406 60 Amount Insulin Regular 100 unit 17.422 33.406 In Sodium Chloride 0.9% 100 ml @ Per Protocol IV .Q0M [facility] Rx#:[id number] Sodium Chloride 0.9% 1, 60 000 ml @ 20 mls/hr IV . Q24H [facility] Rx#:[id number] Oral 350 Output: Chest Tube Drainage 190 290 30 Bilateral Mediastinal 120 170 10 Left Pleural 70 120 20 Urine 265 275 795 Other: Voiding Method Indwelling Catheter Indwelling Catheter Indwelling Catheter ABP, PAP, CO, CI - Last Documented Arterial Blood Pressure 94/48 Pulmonary Artery Pressure 29/4 Cardiac Output 6.7 Cardiac Index 3.3 - Labs CBC & Chem 7: 06/04/23 04:30 06/04/23 04:30 Labs: Abnormal Lab Results - Last 24 Hours (Table) 06/03/23 06/03/23 06/03/23 Range/Units 10:14 11:45 12:54 WBC (3.8-10.6) k/uL RBC (4.30-5.90) m/uL Hgb (13.0-17.5) gm/dL Hct (39.0-53.0) % Neutrophils # (1.3-7.7) k/uL Sodium (137-145) mmol/L POC Glucose (mg/dL) 125 H 141 H 144 H (70-110) mg/dL Total Protein (6.3-8.2) g/dL Albumin (3.5-5.0) g/dL 06/03/23 06/03/23 06/03/23 Range/Units 14:19 15:22 16:30 WBC (3.8-10.6) k/uL RBC (4.30-5.90) m/uL Hgb (13.0-17.5) gm/dL Hct (39.0-53.0) % Neutrophils # (1.3-7.7) k/uL Sodium (137-145) mmol/L POC Glucose (mg/dL) 126 H 167 H 170 H (70-110) mg/dL Total Protein (6.3-8.2) g/dL Albumin (3.5-5.0) g/dL 06/03/23 06/03/23 06/03/23 Range/Units 17:08 18:09 21:18 WBC (3.8-10.6) k/uL RBC (4.30-5.90) m/uL Hgb (13.0-17.5) gm/dL Hct (39.0-53.0) % Neutrophils # (1.3-7.7) k/uL Sodium (137-145) mmol/L POC Glucose (mg/dL) 139 H 150 H 127 H (70-110) mg/dL Total Protein (6.3-8.2) g/dL Albumin (3.5-5.0) g/dL 06/03/23 06/04/23 06/04/23 Range/Units 23:23 01:36 04:30 WBC 12.1 H (3.8-10.6) k/uL RBC 2.86 L (4.30-5.90) m/uL Hgb 8.6 L (13.0-17.5) gm/dL Hct 26.4 L (39.0-53.0) % Neutrophils # 9.5 H (1.3-7.7) k/uL Sodium (137-145) mmol/L POC Glucose (mg/dL) 167 H 157 H (70-110) mg/dL Total Protein (6.3-8.2) g/dL Albumin (3.5-5.0) g/dL 06/04/23 06/04/23 06/04/23 Range/Units 04:30 06:35 08:38 WBC (3.8-10.6) k/uL RBC (4.30-5.90) m/uL Hgb (13.0-17.5) gm/dL Hct (39.0-53.0) % Neutrophils # (1.3-7.7) k/uL Sodium 135 L (137-145) mmol/L POC Glucose (mg/dL) 128 H 130 H (70-110) mg/dL Total Protein 5.3 L (6.3-8.2) g/dL Albumin 3.2 L (3.5-5.0) g/dL
[2023-06-04 11:24] LABS: Glucose,Whole Blood 181 mg/dL (70-110)
[2023-06-04] MEDS: INSULIN ASPART (NovoLOG) 100 UNIT/ML VIAL SQ SCH (12:07)
--- NOTE | 2023-06-04 12:51 | P.PN ---
Subjective Progress Note Date: 06/04/23 The patient is a 72-year-old male who was admitted with a non-ST elevated myocardial infarction. He was found to have severe triple-vessel disease and underwent CABG with left internal mammary artery to LAD, left radial artery to obtuse marginal and reverse saphenous vein to PDA. Patient also had left atrial appendage closure. The patient was interviewed and examined up in the recliner chair. He states he is feeling better this morning and is in less pain. No chest pain, dyspnea, or dizziness. GENERAL: Ill-appearing, well-nourished and in no acute distress. Pale. NECK: Supple without JVD or thyromegaly. LUNGS: Breath sounds diminished to auscultation bilaterally. Respiration equal and unlabored. No wheezes, rales or rhonchi. HEART: Regular rate and rhythm without murmurs, rubs or gallops. S1 and S2 heard. Heart hugger in place. EXTREMITIES: Normal range of motion, no edema. No clubbing or cyanosis. Peripheral pulses intact and strong. Swelling noted in left arm at graft site. TELEMETRY: Sinus rhythm currently IMPRESSION: Multivessel coronary artery disease Status post CABG x 3 Hypertension Hyperlipidemia Elevated LFTs Current smoker PLAN: Continue supportive treatment Aggressive pulmonary hygiene Further recommendations to be based upon clinical course I am dictating on behalf of Dr David Cullen's history/physical and assessment/plan. Objective - Vital Signs Vital signs: Vital Signs Temp 98.1 F 06/04/23 08:00 Pulse 79 06/04/23 11:57 Resp 17 06/04/23 11:00 BP 94/57 06/04/23 11:00 Pulse Ox 97 06/04/23 11:00 FiO2 40 06/02/23 15:26 Intake & Output 06/03/23 06/04/23 06/04/23 18:59 06:59 18:59 Intake Total 676.422 205.406 110 Output Total 788 417 2444 Balance 221.422 -359.594 -915 Weight 93.1 kg 95.2 kg Intake: IV 309 172 30 CO/CI 20 Pressure Bags 69 72 30 Sodium Chloride 0.9% 1, 220 100 000 ml @ 20 mls/hr IV . Q24H [facility] Rx#:[id number] Intake, IV Titration 17. 33.406 80 Amount Insulin Regular 100 unit 17.422 33.406 In Sodium Chloride 0.9% 100 ml @ Per Protocol IV .Q0M [facility] Rx#:[id number] Sodium Chloride 0.9% 1, 80 000 ml @ 20 mls/hr IV . Q24H [facility] Rx#:[id number] Oral 350 Output: Chest Tube Drainage 190 290 30 Bilateral Mediastinal 120 170 10 Left Pleural 70 120 20 Urine 265 275 995 Other: Voiding Method Indwelling Catheter Indwelling Catheter Indwelling Catheter ABP, PAP, CO, CI - Last Documented Arterial Blood Pressure 103/46 Pulmonary Artery Pressure 29/4 Cardiac Output 6.7 Cardiac Index 3.3 - Labs CBC & Chem 7: 06/04/23 04:30 06/04/23 04:30 Labs: Abnormal Lab Results - Last 24 Hours (Table) 06/03/23 06/03/23 06/03/23 Range/Units 12:54 14:19 15:22 WBC (3.8-10.6) k/uL RBC (4.30-5.90) m/uL Hgb (13.0-17.5) gm/dL Hct (39.0-53.0) % Neutrophils # (1.3-7.7) k/uL Sodium (137-145) mmol/L POC Glucose (mg/dL) 144 H 126 H 167 H (70-110) mg/dL Total Protein (6.3-8.2) g/dL Albumin (3.5-5.0) g/dL 06/03/23 06/03/23 06/03/23 Range/Units 16:30 17:08 18:09 WBC (3.8-10.6) k/uL RBC (4.30-5.90) m/uL Hgb (13.0-17.5) gm/dL Hct (39.0-53.0) % Neutrophils # (1.3-7.7) k/uL Sodium (137-145) mmol/L POC Glucose (mg/dL) 170 H 139 H 150 H (70-110) mg/dL Total Protein (6.3-8.2) g/dL Albumin (3.5-5.0) g/dL 06/03/23 06/03/23 06/04/23 Range/Units 21:18 23:23 01:36 WBC (3.8-10.6) k/uL RBC (4.30-5.90) m/uL Hgb (13.0-17.5) gm/dL Hct (39.0-53.0) % Neutrophils # (1.3-7.7) k/uL Sodium (137-145) mmol/L POC Glucose (mg/dL) 127 H 167 H 157 H (70-110) mg/dL Total Protein (6.3-8.2) g/dL Albumin (3.5-5.0) g/dL 06/04/23 06/04/23 06/04/23 Range/Units 04:30 04:30 06:35 WBC 12.1 H (3.8-10.6) k/uL RBC 2.86 L (4.30-5.90) m/uL Hgb 8.6 L (13.0-17.5) gm/dL Hct 26.4 L (39.0-53.0) % Neutrophils # 9.5 H (1.3-7.7) k/uL Sodium 135 L (137-145) mmol/L POC Glucose (mg/dL) 128 H (70-110) mg/dL Total Protein 5.3 L (6.3-8.2) g/dL Albumin 3.2 L (3.5-5.0) g/dL 06/04/23 06/04/23 Range/Units 08:38 11:23 WBC (3.8-10.6) k/uL RBC (4.30-5.90) m/uL Hgb (13.0-17.5) gm/dL Hct (39.0-53.0) % Neutrophils # (1.3-7.7) k/uL Sodium (137-145) mmol/L POC Glucose (mg/dL) 130 H 181 H (70-110) mg/dL Total Protein (6.3-8.2) g/dL Albumin (3.5-5.0) g/dL
--- NOTE | 2023-06-04 14:30 | P.PN ---
Subjective Progress Note Date: 06/04/23 72-year-old male that we are asked to see in preoperative evaluation. The patient was admitted with a non-ST segment elevation myocardial infarction, and cellulitis of the right lower extremity. He has a history of hypertension, hyperlipidemia, COPD, occasional alcohol use, and chronic and ongoing tobacco dependence. The patient apparently sees a physician [place] at the [place]. The patient is scheduled to have open heart surgery, on May 30. He is currently on a nebulizer machine, with albuterol sulfate and ipratropium bromide, and uses generic Advair, i.e. Wixela. The patient smoked 1 pack of cigarettes a day for 30 years. He has never seen a lung doctor in the past. The patient did have lung function performed while in the hospital. The patient's FEV1 was 2.63 L, and the patient's FVC was 2.78 L. The FEV1/FVC ratio was excellent. The FEF 25-75% was 1.50 L/s which is 65% of predicted. Based exclusively on the FEV1, the patient is at no increased operative risk. Patient does have some mild shortness of breath on exertion. Laboratory data includes a white count 15, hemoglobin 15.1, hematocrit 46.9, and a platelet count of 374,000. Sodium 137, potassium 3.9, chlorides 104, CO2 24, BUN 19, creatinine 1. The patient's AST is 202. The ALT is 230. On today's evaluation of 05/30/2023, the patient is calm and comfortable. Denies having any specific complaints. No reported chest pain. There is an issue with the right lower extremity cellulitis and the patient is currently on IV antibiotics. The right lower extremity is also swollen compared to the left and we will recheck a Doppler of the lower extremity. Note that this was done at [facility] it was reported to be as negative. Pulse ox is 95 to 97% on room air oxygen. White count of 8.6 with a hemoglobin 15.8 and a sodium is at 136 with a potassium level of 4, BUN is at 17 with a creatinine of 0.88. LFTs are mildly elevated and the patient has a AST of 203 with an ALT of 285, bilirubin is within normal limits. The viral hepatitis screen has been negative. UA has been negative. The patient remains on aspirin 81 mg p.o. daily, the patient is also on metoprolol 100 mg p.o. daily. The patient on Imdur 30 mg p.o. daily. The patient is on IV cefazolin regarding right lower extremity cellulitis. The patient is also on Lipitor 40 mg p.o. daily. Norvasc is for blood pressure control at 5 mg p.o. daily. No respiratory difficulties at this point. On today's evaluation of 05/31/2023, I am seeing the patient for a follow-up. The patient cellulitis is improving and the patient has no specific complaints. No chest pain. No cough or sputum production. Awaiting his cardiac bypass surgery that is going to be done on 06/02/2023. The patient has triple-vessel coronary artery disease. The patient is also known to have hypertension hyperlipidemia in addition to right lower extremity cellulitis and the patient is currently on IV cefazolin. Using incentive spirometer. Labs are all stable, hemoglobin at 13.9, white cell count is down to 8.6, BUN is at 30 with a creatinine of 0.7 and sodium levels at 137. On today's evaluation of 06/01/2023, the patient has no specific complaints. Cellulitis has improved. No fever or chills. White cell count of 7.9. Renal function is stable with a BUN of 11 and a creatinine of 0.8 and a sodium levels at 137. Cardiac rhythm is sinus. No chest pain. The plan is to proceed with a bypass surgery tomorrow. The patient otherwise has no other specific co mplaints. He has normal ejection fraction. He is triple-vessel coronary disease. Hemoglobin is stable. Remains on a combination of aspirin, Lipitor, amlodipine 5 mg p.o. daily metoprolol 100 mg p.o. daily and the patient is on lisinopril hydrochlorothiazide 20/25 1 tablet a day. The patient remains on IV cefazolin. on 06/02/2023, the patient is being seen in the intensive care unit following his cardiac surgery. The patient was taken to the operating room and the patient underwent triple-vessel coronary artery bypass surgery utilizing ANDINO to LAD and left radial artery to obtuse marginal and reverse saphenous vein graft to posterior descending artery. Left atrial appendage clipping was also done. Postop, the patient was kept intubated and placed on mechanical ventilator and following that he was transferred to the intensive care unit. At the time of my evaluation, the patient was on propofol running at 25 mcg/kg/min. Precedex was also noted and the dose being titrated for comfort levels. The patient is intubated on mechanical ventilator on assist-control mode at rate of 12, tidal volume of 500, FiO2 40% with a PEEP of 8. Cardiac output was 5.7 with index of 2.8. Pulmonary artery pressures were 39/19. Cardiac output was 5.7 with an index of 2.8. Pulmonary artery pressures were 39/19. The patient has 2 mediastinal chest tubes output are minimal and left lower chest tube with a total amount of output of around 200 cc since arrival from the operating room without evidence of any air leak.. Chest x-ray showed that the ET tube was deep in the trachea and it was pulled by around 1 cm. All of the chest tubes are in good location. The Norman-Cuauhtemoc catheter was also in good location. There is some left basilar atelectatic changes. Blood gases were noted and the patient was found to have a pH of 7.36 with a pCO2 of 46 and pO2 of 305. FiO2 was gradually weaned off. Noted the patient continues to be hemodynamically stable. No pressors were utilized. The patient over the next few hours was gradually weaned off the sedation. Weaning parameters were adequate with a rapid shallow breathing index of 30. The patient was able to generate adequate tidal volumes above 700 cc. Adequate minute ventilation. Patient was given a spontaneous breathing trial with a pressure support of 5 and a PEEP of 5 and following that the patient was extubated. Neurologically, awake and alert. Currently is on 3 L of oxygen by nasal cannula. The positive blood work showed a hemoglobin of 8.5, platelet count of 244, sodium is at 140 with a potassium of 3.7, BUN of 11 and a creatinine of 0.77. Adequate urine output. Given IV albumin by the cardiothoracic team. Pain is under adequate control. Cardiac rhythm is sinus. On today's evaluation of 06/03/2023, the patient is being seen for a follow-up. The patient is postop day #1. The patient was weaned off the mechanical ventilator following his bypass surgery and the patient was extubated without any major difficulties. Earlier this morning, the patient had cardiac output of 5.8 with an index of 2.8 with a pulmonary artery pressures of 17/8 with a CVP of 2. He does have still a backup pacemaker generator at the rate of 50. Using incentive spirometer. Pulling approximately 8000. He has mediastinal chest tubes and the total amount of output has been 450 cc since surgery and the left lower chest tube is produced approximately 550 cc since surgery. Chest x-ray from today shows no evidence of pneumothorax. Urine output is in order of 30 to 60 cc an hour. Awake and alert. Cardiac rhythm is sinus. No other significant events. Remains on aspirin and Plavix. Started on beta-blockers and the fidel langley is currently on metoprolol 12.5 mg every 8 hours. Remains on Lipitor 40 mg p.o. daily. No focal neurological deficit at this point in time. Surgical wound sites are dry clean and intact. JÚNIOR drain is present in the left upper extremity that needs to be removed. On today's evaluation of 06/04/2023, the patient is doing well. No specific complaints. He is currently on oxygen 2 L/min nasal cannula with a pulse ox of 97%. Repeat chest x-ray from today shows chest tubes are all being in a good location. Norman-Cuauhtemoc catheter has been removed. There is cardiomegaly. There is also mild pulm vessel congestion. The output from the chest tube has been noted. The total amount of output from the mediastinal chest tubes has been 290 cc over the past 24 hours and pleural chest tube has been 190 cc over the past 24 hours. WBC count is at 12.1. Hemoglobin 8.6. Platelet count is 306. BUN is 16 with a creatinine of 0.8 and sodium levels at 135. LFTs are normal. The patient is on aspirin and Plavix. The patient on Norvasc 2.5 mg p.o. daily. The patient is also on metoprolol 12.5 mg 3 times daily. He is on Lipitor 40 mg p.o. daily. Using the incentive spirometer. No nausea. No emesis. No chest pain. Cardiac rhythm remained sinus. No significant arrhythmias noted. Objective - Vital Signs Vital signs: Vital Signs Temp 98.1 F 06/04/23 08:00 Pulse 87 06/04/23 09:00 Resp 17 06/04/23 09:00 BP 98/54 06/04/23 09:00 Pulse Ox 94 L 06/04/23 09:00 FiO2 40 06/02/23 15:26 Intake & Output 06/03/23 06/04/23 06/04/23 18:59 06:59 18:59 Intake Total 676.422 205.406 32 Output Total 455 565 45 Balance 221.422 -359.594 -13 Weight 93.1 kg 95.2 kg Intake: IV 309 172 12 CO/CI 20 Pressure Bags 69 72 12 Sodium Chloride 0.9% 1, 220 100 000 ml @ 20 mls/hr IV . Q24H [facility] Rx#:[id number] Intake, IV Titration 17.422 33.406 20 Amount Insulin Regular 100 unit 17.422 33.406 In Sodium Chloride 0.9% 100 ml @ Per Protocol IV .Q0M [facility] Rx#:[id number] Sodium Chloride 0.9% 1, 20 000 ml @ 20 mls/hr IV . Q24H [facility] Rx#:[id number] Oral 350 Output: Chest Tube Drainage 190 290 0 Bilateral Mediastinal 120 170 0 Left Pleural 70 120 0 Urine 265 275 45 Other: Voiding Method Indwelling Catheter Indwelling Catheter Indwelling Catheter ABP, PAP, CO, CI - Last Documented Arterial Blood Pressure 104/42 Pulmonary Artery Pressure 29/4 Cardiac Output 6.7 Cardiac Index 3.3 - Exam CONSTITUTIONAL: Appears comfortable, cooperative, no acute distress, the patient was extubated to nasal cannula and currently is on 2 L of O2 nasal cannula. RESPIRATORY: Lungs sounds diminished bilaterally. Respirations even, nonlabored. Currently on 2 LPM NC with oxygen saturation 93%. Able to achieve 1000 mL on incentive spirometry. Strong nonproductive cough. CARDIOVASCULAR: S1, S2 present. Regular rate and rhythm, sinus rhythm on telemetry. Sternum stable. Palpable peripheral pulses bilaterally. No edema present. No calf pain or tenderness noted. Heart hugger in place with patient demonstrating appropriate use. Antiembolism stockings, SCDs present. GASTROINTESTINAL: Abdomen soft, nontender, nondistended. Hypoactive bowel sounds present 4 quadrants. Tolerating clear liquids. Denies flatus GENITOURINARY: Jett present draining clear, yellow urine. Output overnight 30-60 mL per hour INTEGUMENTARY: Skin is warm and dry with evidence of good perfusion. Anterior chest incision well approximated and covered with dry intact dressing. Left radial artery as well as left lower extremity EVH site well approximated without redness, JÚNIOR drains present with minimal drainage. NEUROLOGIC: Cranial nerves II through XII intact MUSKULOSKELETAL: Able to move all extremities, strength equal bilaterally, gait normal PSYCHIATRIC: Alert and oriented to person place and time, appropriate affect, intact judgment and insight INVASIVE LINES AND TUBES: Tubes are in place. Output has been noted. No evidence of any air leak. - Labs CBC & Chem 7: 06/04/23 04:30 06/04/23 04:30 Labs: Abnormal Lab Results - Last 24 Hours (Table) 06/03/23 06/03/23 06/03/23 Range/Units 10:14 11:45 12:54 WBC (3.8-10.6) k/uL RBC (4.30-5.90) m/uL Hgb (13.0-17.5) gm/dL Hct (39.0-53.0) % Neutrophils # (1.3-7.7) k/uL Sodium (137-145) mmol/L POC Glucose (mg/dL) 125 H 141 H 144 H (70-110) mg/dL Total Protein (6.3-8.2) g/dL Albumin (3.5-5.0) g/dL 06/03/23 06/03/23 06/03/23 Range/Units 14:19 15:22 16:30 WBC (3.8-10.6) k/uL RBC (4.30-5.90) m/uL Hgb (13.0-17.5) gm/dL Hct (39.0-53.0) % Neutrophils # (1.3-7.7) k/uL Sodium (137-145) mmol/L POC Glucose (mg/dL) 126 H 167 H 170 H (70-110) mg/dL Total Protein (6.3-8.2) g/dL Albumin (3.5-5.0) g/dL 06/03/23 06/03/23 06/03/23 Range/Units 17:08 18:09 21:18 WBC (3.8-10.6) k/uL RBC (4.30-5.90) m/uL Hgb (13.0-17.5) gm/dL Hct (39.0-53.0) % Neutrophils # (1.3-7.7) k/uL Sodium (137-145) mmol/L POC Glucose (mg/dL) 139 H 150 H 127 H (70-110) mg/dL Total Protein (6.3-8.2) g/dL Albumin (3.5-5.0) g/dL 06/03/23 06/04/23 06/04/23 Range/Units 23:23 01:36 04:30 WBC 12.1 H (3.8-10.6) k/uL RBC 2.86 L (4.30-5.90) m/uL Hgb 8.6 L (13.0-17.5) gm/dL Hct 26.4 L (39.0-53.0) % Neutrophils # 9.5 H (1.3-7.7) k/uL Sodium (137-145) mmol/L POC Glucose (mg/dL) 167 H 157 H (70-110) mg/dL Total Protein (6.3-8.2) g/dL Albumin (3.5-5.0) g/dL 06/04/23 06/04/23 06/04/23 Range/Units 04:30 06:35 08:38 WBC (3.8-10.6) k/uL RBC (4.30-5.90) m/uL Hgb (13.0-17.5) gm/dL Hct (39.0-53.0) % Neutrophils # (1.3-7.7) k/uL Sodium 135 L (137-145) mmol/L POC Glucose (mg/dL) 128 H 130 H (70-110) mg/dL Total Protein 5.3 L (6.3-8.2) g/dL Albumin 3.2 L (3.5-5.0) g/dL Assessment and Plan Plan: Triple-vessel coronary artery disease, non-STEMI this admission, the patient underwent three-vessel bypass surgery and the patient is postop day # 2 hemodynamically stable with adequate cardiac output and index. No pressors. Cardiac rhythm is sinus. Hemodynamic parameters overall adequate. The Norman- Cuauhtemoc catheter was removed. The patient is on no pressors. Cardiac rhythm is sinus. The mediastinal pleural chest tubes are still in place. Hemodynamically stable. Postthoracotomy, weaned off the mechanical ventilator and the patient was extubated and currently on 2 L of oxygen by nasal cannula. The patient is to mediastinal and left lower chest tube. Output has been minimal without evidence of any air leak. Postop chest x-ray from today showing some mild pulm venous congestion and small lung volumes. Chest tubes are in good location. No evidence of any pneumothorax. Postoperative anemia, expected outcome of surgery, will monitor Cellulitis of the right lower extremity, improving and the patient's white cell count is improved and the patient cellulitis, essentially recovered. Hypertension, Hyperlipidemia, treated cholesterol 99.0, LDL 48.0, currently on Lipitor Chronic ongoing tobacco dependence COPD with a preoperative FEV1 86% of predicted value with a base volume of 2.63 Occasional EtOH use, drinks 1 sixpack of beer per week Elevated transaminase,, LFTs continues to be mildly elevated and the patient remains on Lipitor. Could be related to chronic alcohol consumption. Acute leukocytosis, improving Plan Titrate oxygen flow to maintain saturation above 90%. The patient is currently on 2 L of oxygen by nasal cannula. Incentive spirometer Daily chest x-rays Monitor output from the chest tubes, will keep the chest tube for another 24 hours, management of the chest tube per cardiothoracic surgery. Cardiac rhythm sinus, backup pacemaker at a rate of 50 Lasix was given Increase mobility and ambulation Monitor LFTs and continue Lipitor for now Keep the patient in ICU for another 24 hours.
--- NOTE | 2023-06-04 14:33 | XR ---
EXAM: XR chest 1V portable CLINICAL INDICATION:Male, 72 years old with history of Post Operative Cardiac Surgery; [facility] COMPARISON: 06/03/2023 and older exams TECHNIQUE: Chest single view. FINDINGS: Lines/tubes/devices: Previous Marion-Cuauhtemoc catheter has been removed. Left basilar chest tube, mediastin al drains remain. Redemonstration of sternotomy wires and mediastinal clips. Left atrial appendage oc clusion device. Monitor leads and other extrinsic densities over the chest. Cardiomediastinum: Stable CM silhouette. Heart is enlarged. Vasculature: Improved pulmonary venous congestion. Lungs/pleura: Lung volumes are slightly improved with slightly better aeration of the right mid and left lower lung opacities. Mild residual blunting of the left costophrenic angle suggests small effusion. No visible pneumothorax. Bones/soft tissues: Bony thorax appears grossly unchanged as seen. Regional soft tissues appear unremarkable. IMPRESSION: 1. Interval removal of the Marion-Cuauhtemoc catheter. 2. Slightly improved aeration of the lungs with decreased pulmonary venous congestion and decreased right mid and left lower lung airspace opacities. Suspect small residual left pleural effusion.
[2023-06-04 16:25] LABS: Glucose,Whole Blood 155 mg/dL (70-110)
[2023-06-04 20:40] LABS: Glucose,Whole Blood 170 mg/dL (70-110)
[2023-06-05 05:09] LABS: Basophils % (A) 0 %; Eosinophils % (A) 0 %; HCT 24.4 % (39.0-53.0); Lymphocytes # (A) 1.4 k/uL (1.0-4.8); Lymphocytes % (A) 13 %; MCH 30.1 pg (25.0-35.0); MCHC 32.8 g/dL (31.0-37.0); MCV 91.8 fL (80.0-100.0); Mean Platelet Volume 8.5; Monocytes # (A) 0.7 k/uL (0-1.0); Monocytes % (A) 6 %; Neutrophils # (A) 8.7 k/uL (1.3-7.7); Neutrophils % (A) 79 %; Platelet Count 319 k/uL (150-450); RBC 2.66 m/uL (4.30-5.90); RDW 15.3 % (11.5-15.5); WBC 11.1 k/uL (3.8-10.6)
[2023-06-05 06:27] LABS: Glucose,Whole Blood 127 mg/dL (70-110)
[2023-06-05 07:07] LABS: ALT 41 U/L (4-49); AST 38 U/L (17-59); African American GFR (CKD) >90 (>60 ml/min/1.73 sqM); Albumin 2.7 g/dL (3.5-5.0); Alkaline Phosphatase 66 U/L (38-126); Anion Gap 3 mmol/L; Blood Urea Nitrogen 14 mg/dL (9-20); Calcium 8.5 mg/dL (8.4-10.2); Carbon Dioxide 24 mmol/L (22-30); Chloride 107 mmol/L (98-107); Glucose 116 mg/dL (74-99); Non-African American GFR(CKD) 87 (>60 ml/min/1.73 sqM); Potassium 3.8 mmol/L (3.5-5.1); Sodium 134 mmol/L (137-145); Total Bilirubin 0.7 mg/dL (0.2-1.3); Total Protein 4.9 g/dL (6.3-8.2)
--- NOTE | 2023-06-05 07:44 | P.PN ---
Subjective Progress Note Date: 06/05/23 Principal diagnosis: Triple-vessel diffuse coronary artery disease, non-STEMI this admission. History of cellulitis of the right lower extremity, hypertension, hyperlipidemia, curr ent tobacco dependence, COPD, occasional EtOH use POD#3 triple-vessel coronary artery bypass grafting using the in situ left internal mammary artery to the left anterior descending artery, left radial artery from the aorta to the obtuse marginal artery, reverse saphenous vein graft from the aorta to the posterior descending artery, exclusion of the left atrial appendage using a 35 mm AtriClip, endoscopic harvesting of the left radial artery, endoscopic harvesting of the left greater saphenous vein, intraoperative graft flow measurements using the Sagoonstim system, intraoperative transesophageal echocardiogram and epiaortic scanning Acute blood loss anemia, expected given hemodilution and cardiopulmonary bypass pump The patient was seen and examined this morning sitting up at the bedside in the ICU in no acute distress. States post operative pain is better since removal of all lines/tubes. Denies shortness of breath. Remains in sinus rhythm, hemodynamically stable. Blood pressure is a bit soft but MAPs have been greater than 65. CXR, labs reviewed. Patient has been ambulatory in the hallway with assistance. Transfer orders for 3 south were placed yesterday, no bed availability, patient remains in the intensive care unit as a 3 S. overflow. No other new concerns. Objective - Vital Signs Vital signs: Vital Signs Temp 98.6 F 06/05/23 04:00 Pulse 79 06/05/23 04:00 Resp 17 06/05/23 04:00 BP 87/55 06/05/23 04:00 Pulse Ox 96 06/05/23 04:00 FiO2 40 06/02/23 15:26 Intake & Output 06/04/23 06/05/23 06/05/23 18:59 06:59 18:59 Intake Total 460 Output Total 1325 800 Balance -865 -800 Intake: IV 30 Pressure Bags 30 Intake, IV Titration 80 Amount Sodium Chloride 0.9% 1, 80 000 ml @ 20 mls/hr IV . Q24H [facility] Rx#:[id number] Oral 350 Output: Chest Tube Drainage 30 Bilateral Mediastinal 10 Left Pleural 20 Urine 1295 800 Other: Voiding Method Indwelling Catheter Indwelling Catheter ABP, PAP, CO, CI - Last Documented Arterial Blood Pressure 103/46 Pulmonary Artery Pressure 29/4 Cardiac Output 6.7 Cardiac Index 3.3 - Exam CONSTITUTIONAL: Appears comfortable, cooperative, no acute distress RESPIRATORY: Lungs sounds diminished bilaterally. Respirations even, nonlabored. Currently on room air with oxygen saturation 95%. Able to achieve 1750 mL on incentive spirometry. Strong nonproductive cough. CARDIOVASCULAR: S1, S2 present. Regular rate and rhythm, sinus rhythm on telemetry. Sternum stable. Palpable peripheral pulses bilaterally. Trace generalized edema present. No calf pain or tenderness noted. Heart hugger in place with patient demonstrating appropriate use. Antiembolism stockings, SCDs present. GASTROINTESTINAL: Abdomen soft, nontender, nondistended. Active bowel sounds present 4 quadrants. Tolerating diet. Positive flatus GENITOURINARY: Continues to void clear, yellow urine. Output 1745 mL in the last 24 hours INTEGUMENTARY: Skin is warm and dry with evidence of good perfusion. Anterior chest incision well approximated and covered with dry intact dressing. Left radial artery as well as left lower extremity EVH site well approximated, left arm with edema and ecchymosis, expected after radial artery harvest NEUROLOGIC: Cranial nerves II through XII intact MUSKULOSKELETAL: Able to move all extremities, strength equal bilaterally, gait normal PSYCHIATRIC: Alert and oriented to person place and time, appropriate affect, intact judgment and insight INVASIVE LINES AND TUBES: Atrial epicardial pacemaker wires present, grounded - Allied health notes Allied health notes reviewed: nursing - Labs CBC & Chem 7: 06/05/23 04:50 06/05/23 04:50 Labs: Abnormal Lab Results - Last 24 Hours (Table) 06/04/23 06/04/23 06/04/23 Range/Units 08:38 11:23 16:23 WBC (3.8-10.6) k/uL RBC (4.30-5.90) m/uL Hgb (13.0-17.5) gm/dL Hct (39.0-53.0) % Neutrophils # (1.3-7.7) k/uL Sodium (137-145) mmol/L Glucose (74-99) mg/dL POC Glucose (mg/dL) 130 H 181 H 155 H (70-110) mg/dL Total Protein (6.3-8.2) g/dL Albumin (3.5-5.0) g/dL 06/04/23 06/05/23 06/05/23 Range/Units 20:39 04:50 04:50 WBC 11.1 H (3.8-10.6) k/uL RBC 2.66 L (4.30-5.90) m/uL Hgb 8.0 L (13.0-17.5) gm/dL Hct 24.4 L (39.0-53.0) % Neutrophils # 8.7 H (1.3-7.7) k/uL Sodium 134 L (137-145) mmol/L Glucose 116 H (74-99) mg/dL POC Glucose (mg/dL) 170 H (70-110) mg/dL Total Protein 4.9 L (6.3-8.2) g/dL Albumin 2.7 L (3.5-5.0) g/dL 06/05/23 Range/Units 06:25 WBC (3.8-10.6) k/uL RBC (4.30-5.90) m/uL Hgb (13.0-17.5) gm/dL Hct (39.0-53.0) % Neutrophils # (1.3-7.7) k/uL Sodium (137-145) mmol/L Glucose (74-99) mg/dL POC Glucose (mg/dL) 127 H (70-110) mg/dL Total Protein (6.3-8.2) g/dL Albumin (3.5-5.0) g/dL - Imaging and Cardiology Chest x-ray: image reviewed Assessment and Plan Assessment: Triple-vessel coronary artery disease, non-STEMI this admission, status post 3V CABG Cellulitis of the right lower extremity, treated outpatient Hypertension Hyperlipidemia, treated, cholesterol 99, LDL 48 Current tobacco dependence COPD, preoperative FEV1 86% of predicted Occasional EtOH use Transaminitis, resolving Plan: Continue to maximize medical management with aspirin, statin, plavix and beta- lilia. Will increase beta lilia as tolerated Continue low dose CCB for radial artery spasm prophylaxis with hold parameters Encourage use of incentive spirometry 10 times every hour while awake. Bronchodilators per pulmonology Increase activity, ambulate as tolerated. PT/OT/cardiac rehab following Will monitor labs/CXRs, electrolyte replacement per protocol. Will give oral lasix today GI/DVT prophylaxis Discussed and reinforced with the patient the importance of risk modification including smoking cessation. Insulin management per internal medicine Continue to monitor strict accurate intake and output Daily weights Transfer orders placed yesterday for 3 S. cardiac stepdown unit, may transfer when bed available Likely will discontinue epicardial pacemaker wire tomorrow More recommendations to follow based on patient's clinical course.
--- NOTE | 2023-06-05 09:07 | P.PN ---
Subjective Progress Note Date: 06/05/23 The patient is a 72-year-old male who was admitted with a non-ST elevated myocardial infarction. He was found to have severe triple-vessel disease and underwent CABG with left internal mammary artery to LAD, left radial artery to obtuse marginal and reverse saphenous vein to PDA. Patient also had left atrial appendage closure. The patient was interviewed and examined up in the recliner chair. He states he is feeling better this morning and is in less pain. No chest pain, dyspnea, or dizziness. Heart rate stable, blood pressures have been on the soft side. Currently at 118/62. No fever or chills. GENERAL: Ill-appearing, well-nourished and in no acute distress. Pale. NECK: Supple without JVD or thyromegaly. LUNGS: Breath sounds diminished to auscultation bilaterally. Respiration equal and unlabored. No wheezes, rales or rhonchi. HEART: Regular rate and rhythm without murmurs, rubs or gallops. S1 and S2 heard. Heart hugger in place. EXTREMITIES: Normal range of motion, no edema. No clubbing or cyanosis. Peripheral pulses intact and strong. Swelling noted in left arm at graft site. TELEMETRY: Sinus rhythm currently IMPRESSION: Multivessel coronary artery disease Status post CABG x 3 Hypertension Hyperlipidemia Elevated LFTs Current smoker PLAN: Continue supportive treatment Aggressive pulmonary hygiene Further recommendations to be based upon clinical course I am dictating on behalf of Dr Dvaid Cullen's history/physical and assessment/plan. Objective - Vital Signs Vital signs: Vital Signs Temp 98.6 F 06/05/23 04:00 Pulse 88 06/05/23 08:12 Resp 17 06/05/23 04:00 BP 87/55 06/05/23 04:00 Pulse Ox 97 06/05/23 08:07 FiO2 40 06/02/23 15:26 Intake & Output 06/04/23 06/05/23 06/05/23 18:59 06:59 18:59 Intake Total 460 Output Total 1325 800 Balance -865 -800 Intake: IV 30 Pressure Bags 30 Intake, IV Titration 80 Amount Sodium Chloride 0.9% 1, 80 000 ml @ 20 mls/hr IV . Q24H [facility] Rx#:[id number] Oral 350 Output: Chest Tube Drainage 30 Bilateral Mediastinal 10 Left Pleural 20 Urine 1295 800 Other: Voiding Method Indwelling Catheter Indwelling Catheter ABP, PAP, CO, CI - Last Documented Arterial Blood Pressure 103/46 Pulmonary Artery Pressure 29/4 Cardiac Output 6.7 Cardiac Index 3.3 - Labs CBC & Chem 7: 06/05/23 04:50 06/05/23 04:50 Labs: Abnormal Lab Results - Last 24 Hours (Table) 06/04/23 06/04/23 06/04/23 Range/Units 11:23 16:23 20:39 WBC (3.8-10.6) k/uL RBC (4.30-5.90) m/uL Hgb (13.0-17.5) gm/dL Hct (39.0-53.0) % Neutrophils # (1.3-7.7) k/uL Sodium (137-145) mmol/L Glucose (74-99) mg/dL POC Glucose (mg/dL) 181 H 155 H 170 H (70-110) mg/dL Total Protein (6.3-8.2) g/dL Albumin (3.5-5.0) g/dL 06/05/23 06/05/23 06/05/23 Range/Units 04:50 04:50 06:25 WBC 11.1 H (3.8-10.6) k/uL RBC 2.66 L (4.30-5.90) m/uL Hgb 8.0 L (13.0-17.5) gm/dL Hct 24.4 L (39.0-53.0) % Neutrophils # 8.7 H (1.3-7.7) k/uL Sodium 134 L (137-145) mmol/L Glucose 116 H (74-99) mg/dL POC Glucose (mg/dL) 127 H (70-110) mg/dL Total Protein 4.9 L (6.3-8.2) g/dL Albumin 2.7 L (3.5-5.0) g/dL
[2023-06-05] MEDS: POTASSIUM BICARBONATE/CIT AC 20 MEQ TABLET.EFF PO ONE ×2 (09:23→13:37)
[2023-06-05] MEDS: MAGNESIUM HYDROXIDE 2,400 MG/30 ML CUP PO PRN (09:23)
--- NOTE | 2023-06-05 09:31 | P.PN ---
Subjective Progress Note Date: 06/05/23 72-year-old male that we are asked to see in preoperative evaluation. The patient was admitted with a non-ST segment elevation myocardial infarction, and cellulitis of the right lower extremity. He has a history of hypertension, hyperlipidemia, COPD, occasional alcohol use, and chronic and ongoing tobacco dependence. The patient apparently sees a physician over at the [place]. The patient is scheduled to have open heart surgery, on May 30. He is currently on a nebulizer machine, with albuterol sulfate and ipratropium bromide, and uses generic Advair, i.e. Wixela. The patient smoked 1 pack of cigarettes a day for 30 years. He has never seen a lung doctor in the past. The patient did have lung function performed while in the hospital. The patient's FEV1 was 2.63 L, and the patient's FVC was 2.78 L. The FEV1/FVC ratio was excellent. The FEF 25-75% was 1.50 L/s which is 65% of predicted. Based exclusively on the FEV1, the patient is at no increased operative risk. Patient does have some mild shortness of breath on exertion. Laboratory data includes a white count 15, hemoglobin 15.1, hematocrit 46.9, and a platelet count of 374,000. Sodium 137, potassium 3.9, chlorides 104, CO2 24, BUN 19, creatinine 1. The patient's AST is 202. The ALT is 230. On today's evaluation of 05/30/2023, the patient is calm and comfortable. Denies having any specific complaints. No reported chest pain. There is an issue with the right lower extremity cellulitis and the patient is currently on IV antibiotics. The right lower extremity is also swollen compared to the left and we will recheck a Doppler of the lower extremity. Note that this was done at [facility] it was reported to be as negative. Pulse ox is 95 to 97% on room air oxygen. White count of 8.6 with a hemoglobin 15.8 and a sodium is at 136 with a potassium level of 4, BUN is at 17 with a creatinine of 0.88. LFTs are mildly elevated and the patient has a AST of 203 with an ALT of 285, bilirubin is within normal limits. The viral hepatitis screen has been negative. UA has been negative. The patient remains on aspirin 81 mg p.o. daily, the patient is also on metoprolol 100 mg p.o. daily. The patient on Imdur 30 mg p.o. daily. The patient is on IV cefazolin regarding right lower extremity cellulitis. The patient is also on Lipitor 40 mg p.o. daily. Norvasc is for blood pressure control at 5 mg p.o. daily. No respiratory difficulties at this point. On today's evaluation of 05/31/2023, I am seeing the patient for a follow-up. The patient cellulitis is improving and the patient has no specific complaints. No chest pain. No cough or sputum production. Awaiting his cardiac bypass surgery that is going to be done on 06/02/2023. The patient has triple-vessel coronary artery disease. The patient is also known to have hypertension hyperlipidemia in addition to right lower extremity cellulitis and the patient is currently on IV cefazolin. Using incentive spirometer. Labs are all stable, hemoglobin at 13.9, white cell count is down to 8.6, BUN is at 30 with a creatinine of 0.7 and sodium levels at 137. On today's evaluation of 06/01/2023, the patient has no specific complaints. Cellulitis has improved. No fever or chills. White cell count of 7.9. Renal function is stable with a BUN of 11 and a creatinine of 0.8 and a sodium levels at 137. Cardiac rhythm is sinus. No chest pain. The plan is to proceed with a bypass surgery tomorrow. The patient otherwise has no other specific co mplaints. He has normal ejection fraction. He is triple-vessel coronary disease. Hemoglobin is stable. Remains on a combination of aspirin, Lipitor, amlodipine 5 mg p.o. daily metoprolol 100 mg p.o. daily and the patient is on lisinopril hydrochlorothiazide 20/25 1 tablet a day. The patient remains on IV cefazolin. on 06/02/2023, the patient is being seen in the intensive care unit following his cardiac surgery. The patient was taken to the operating room and the patient underwent triple-vessel coronary artery bypass surgery utilizing ANDINO to LAD and left radial artery to obtuse marginal and reverse saphenous vein graft to posterior descending artery. Left atrial appendage clipping was also done. Postop, the patient was kept intubated and placed on mechanical ventilator and following that he was transferred to the intensive care unit. At the time of my evaluation, the patient was on propofol running at 25 mcg/kg/min. Precedex was also noted and the dose being titrated for comfort levels. The patient is intubated on mechanical ventilator on assist-control mode at rate of 12, tidal volume of 500, FiO2 40% with a PEEP of 8. Cardiac output was 5.7 with index of 2.8. Pulmonary artery pressures were 39/19. Cardiac output was 5.7 with an index of 2.8. Pulmonary artery pressures were 39/19. The patient has 2 mediastinal chest tubes output are minimal and left lower chest tube with a total amount of output of around 200 cc since arrival from the operating room without evidence of any air leak.. Chest x-ray showed that the ET tube was deep in the trachea and it was pulled by around 1 cm. All of the chest tubes are in good location. The Eddington-Cuauhtemoc catheter was also in good location. There is some left basilar atelectatic changes. Blood gases were noted and the patient was found to have a pH of 7.36 with a pCO2 of 46 and pO2 of 305. FiO2 was gradually weaned off. Noted the patient continues to be hemodynamically stable. No pressors were utilized. The patient over the next few hours was gradually weaned off the sedation. Weaning parameters were adequate with a rapid shallow breathing index of 30. The patient was able to generate adequate tidal volumes above 700 cc. Adequate minute ventilation. Patient was given a spontaneous breathing trial with a pressure support of 5 and a PEEP of 5 and following that the patient was extubated. Neurologically, awake and alert. Currently is on 3 L of oxygen by nasal cannula. The positive blood work showed a hemoglobin of 8.5, platelet count of 244, sodium is at 140 with a potassium of 3.7, BUN of 11 and a creatinine of 0.77. Adequate urine output. Given IV albumin by the cardiothoracic team. Pain is under adequate control. Cardiac rhythm is sinus. On today's evaluation of 06/03/2023, the patient is being seen for a follow-up. The patient is postop day #1. The patient was weaned off the mechanical ventilator following his bypass surgery and the patient was extubated without any major difficulties. Earlier this morning, the patient had cardiac output of 5.8 with an index of 2.8 with a pulmonary artery pressures of 17/8 with a CVP of 2. He does have still a backup pacemaker generator at the rate of 50. Using incentive spirometer. Pulling approximately 8000. He has mediastinal chest tubes and the total amount of output has been 450 cc since surgery and the left lower chest tube is produced approximately 550 cc since surgery. Chest x-ray from today shows no evidence of pneumothorax. Urine output is in order of 30 to 60 cc an hour. Awake and alert. Cardiac rhythm is sinus. No other significant events. Remains on aspirin and Plavix. Started on beta-blockers and the fidel langley is currently on metoprolol 12.5 mg every 8 hours. Remains on Lipitor 40 mg p.o. daily. No focal neurological deficit at this point in time. Surgical wound sites are dry clean and intact. JÚNIOR drain is present in the left upper extremity that needs to be removed. On today's evaluation of 06/04/2023, the patient is doing well. No specific complaints. He is currently on oxygen 2 L/min nasal cannula with a pulse ox of 97%. Repeat chest x-ray from today shows chest tubes are all being in a good location. Eddington-Cuauhtemoc catheter has been removed. There is cardiomegaly. There is also mild pulm vessel congestion. The output from the chest tube has been noted. The total amount of output from the mediastinal chest tubes has been 290 cc over the past 24 hours and pleural chest tube has been 190 cc over the past 24 hours. WBC count is at 12.1. Hemoglobin 8.6. Platelet count is 306. BUN is 16 with a creatinine of 0.8 and sodium levels at 135. LFTs are normal. The patient is on aspirin and Plavix. The patient on Norvasc 2.5 mg p.o. daily. The patient is also on metoprolol 12.5 mg 3 times daily. He is on Lipitor 40 mg p.o. daily. Using the incentive spirometer. No nausea. No emesis. No chest pain. Cardiac rhythm remained sinus. No significant arrhythmias noted. 06/05/2023, the patient doing extremely well. Chest tubes have been removed and the epicardial leads will be also pulled out today. He is ambulating. His chest x-ray showing a small left-sided pleural effusion and some atelectatic changes anticipated following the surgery. The patient is currently postop day #3. He remains on oxygen 2 L/min nasal cannula. There was count 11.1 with a hemoglobin of 8 and a platelet count of 319. Electrolytes are all stable and within normal limits. The patient has a sinus rhythm. BP is under adequate control. He remains on aspirin and Plavix. He remains on metoprolol 12.5 mg 3 times a day. He is also on amlodipine 2.5 mg p.o. daily. The JÚNIOR drain has been removed from the left upper extremity and does have some bruising and" ecchymosis in his left upper extremity. Using the IS and be is pulling 1500 Objective - Vital Signs Vital signs: Vital Signs Temp 98.6 F 06/05/23 04:00 Pulse 88 06/05/23 08:12 Resp 17 06/05/23 04:00 BP 87/55 06/05/23 04:00 Pulse Ox 97 06/05/23 08:07 FiO2 40 06/02/23 15:26 Intake & Output 06/04/23 06/05/23 06/05/23 18:59 06:59 18:59 Intake Total 460 Output Total 1325 800 Balance -865 -800 Intake: IV 30 Pressure Bags 30 Intake, IV Titration 80 Amount Sodium Chloride 0.9% 1, 80 000 ml @ 20 mls/hr IV . Q24H [facility] Rx#:[id number] Oral 350 Output: Chest Tube Drainage 30 Bilateral Mediastinal 10 Left Pleural 20 Urine 1295 800 Other: Voiding Method Indwelling Catheter Indwelling Catheter ABP, PAP, CO, CI - Last Documented Arterial Blood Pressure 103/46 Pulmonary Artery Pressure 29/4 Cardiac Output 6.7 Cardiac Index 3.3 - Exam CONSTITUTIONAL: Appears comfortable, cooperative, no acute distress, the patient was extubated to nasal cannula and currently is on 2 L of O2 nasal cannula. RESPIRATORY: Lungs sounds diminished bilaterally. Respirations even, nonlabored. Currently on 2 LPM NC with oxygen saturation 93%. Able to achieve 1500 mL on incentive spirometry. Strong nonproductive cough. The chest tubes have been pulled out. CARDIOVASCULAR: S1, S2 present. Regular rate and rhythm, sinus rhythm on telemetry. Sternum stable. Palpable peripheral pulses bilaterally. No edema present. No calf pain or tenderness noted. Heart hugger in place with patient demonstrating appropriate use. Antiembolism stockings, SCDs present. GASTROINTESTINAL: Abdomen soft, nontender, nondistended. Hypoactive bowel sounds present 4 quadrants. Tolerating clear liquids. Denies flatus GENITOURINARY: Jett present draining clear, yellow urine. Output overnight 30-60 mL per hour INTEGUMENTARY: Skin is warm and dry with evidence of good perfusion. Anterior chest incision well approximated and covered with dry intact dressing. NEUROLOGIC: Cranial nerves II through XII intact MUSKULOSKELETAL: Able to move all extremities, strength equal bilaterally, gait normal PSYCHIATRIC: Alert and oriented to person place and time, appropriate affect, intact judgment and insight - Labs CBC & Chem 7: 06/05/23 04:50 06/05/23 04:50 Labs: Abnormal Lab Results - Last 24 Hours (Table) 06/04/23 06/04/23 06/04/23 Range/Units 11:23 16:23 20:39 WBC (3.8-10.6) k/uL RBC (4.30-5.90) m/uL Hgb (13.0-17.5) gm/dL Hct (39.0-53.0) % Neutrophils # (1.3-7.7) k/uL Sodium (137-145) mmol/L Glucose (74-99) mg/dL POC Glucose (mg/dL) 181 H 155 H 170 H (70-110) mg/dL Total Protein (6.3-8.2) g/dL Albumin (3.5-5.0) g/dL 06/05/23 06/05/23 06/05/23 Range/Units 04:50 04:50 06:25 WBC 11.1 H (3.8-10.6) k/uL RBC 2.66 L (4.30-5.90) m/uL Hgb 8.0 L (13.0-17.5) gm/dL Hct 24.4 L (39.0-53.0) % Neutrophils # 8.7 H (1.3-7.7) k/uL Sodium 134 L (137-145) mmol/L Glucose 116 H (74-99) mg/dL POC Glucose (mg/dL) 127 H (70-110) mg/dL Total Protein 4.9 L (6.3-8.2) g/dL Albumin 2.7 L (3.5-5.0) g/dL Assessment and Plan Plan: Triple-vessel coronary artery disease, non-STEMI this admission, the patient un derwent three-vessel bypass surgery and the patient is postop day # 3 hemodynamically stable with adequate cardiac output and index. No pressors. Cardiac rhythm is sinus. Hemodynamic parameters overall adequate. The Eddington- Cuauhtemoc catheter was removed. The patient is on no pressors. Cardiac rhythm is sinus. The mediastinal pleural chest tubes are still in place. Hemodynamically stable. Postthoracotomy, weaned off the mechanical ventilator and the patient was extubated and currently on 2 L of oxygen by nasal cannula. The chest tubes have been removed. Epicardial lead for pacemaking will be also removed today. Postoperative anemia, expected outcome of surgery, will monitor Cellulitis of the right lower extremity, improving and the patient's white cell count is improved and the patient cellulitis, essentially recovered. Hypertension, Hyperlipidemia, treated cholesterol 99.0, LDL 48.0, currently on Lipitor Chronic ongoing tobacco dependence COPD with a preoperative FEV1 86% of predicted value with a base volume of 2.63 Occasional EtOH use, drinks 1 sixpack of beer per week Elevated transaminase,, LFTs continues to be mildly elevated and the patient remains on Lipitor. Could be related to chronic alcohol consumption. Acute leukocytosis, improving Plan Titrate oxygen flow to maintain saturation above 90%. The patient is currently on 2 L of oxygen by nasal cannula. Incentive spirometer Daily chest x-rays Chest tubes have been removed Epicardial pacemaker leads will be removed Cordis has been removed Jett has been removed Increase mobility and ambulation Increase mobility and ambulation Monitor LFTs and continue Lipitor for now Transfer to [facility].
--- NOTE | 2023-06-05 09:40 | P.PN ---
Subjective Progress Note Date: 06/05/23 Hospital course: Patient is a very pleasant 72-year-old male with a past medical history of hyp ertension, hyperlipidemia, and COPD with continued nicotine dependence. Patient presented to our facility as a transfer from [facility] where he presented with weakness and a fall and was found to have elevated troponins. Patient reported recent treatment for cellulitis on Bactrim and experiencing nausea, vomiting, and decreased oral intake over the past few days. Per documentation in chart workup at [facility] was completed including a CT of the brain which was negative for acute intercranial pathology and troponins initially reported negative increasing to 5.09 resulting in patient being started on heparin infusion followed by transfer to our facility for evaluation. Upon arrival to our facility patient underwent evaluation in the emergency department. Vital signs revealed blood pressure 140/83, heart rate 86, respiratory rate 12, temp 97.9 F, and SpO2 of 96% on room air. EKG was completed showing normal sinus rhythm at 84 bpm with no significant T wave or ST abnormalities showing no signs of acute ischemia upon personal review and interpretation. Chest x-ray completed showing findings concerning for bronchitis with mild to moderate peribronchial thickening of the central bronchi and trace right pleural effusion. CTA chest was completed negative for pulmo nary emboli revealing a 1 cm subcarinal enlarged lymph node. Labs were completed and reviewed. CBC unremarkable. Coagulation profile normal findings. BMP revealed hyponatremia with sodium of 133 and hypocarbia with bicarb of 17. Blood glucose was 107. Magnesium normal findings at 2.0. Liver profile showing elevated AST of 73 and ALT of 51. Troponin was 2.730 and proBNP was 1620. Patient admitted under our services with consultation to cardiology. Troponins trended overnight resulting at 2.730 and 2.970. Patient was taken for cardiac catheterization. Cardiac catheterization revealing three-vessel coronary artery disease, cardiology consulted cardiothoracic surgery to evaluate patient for bypass. Echocardiogram showed normal LVEF 55 to 60%. He is now status post CABG. likely discharge tomorrow with home care. Physical exam: Patient seen and fully evaluated at bedside this morning. No new complaints today. Vital signs reviewed and stable. General: Nontoxic, no distress and appears stated age Derm: Skin warm and dry Head: Atraumatic, normocephalic and symmetric. Eyes:: EOMI, pupils equal and reactive Mouth: no lip lesions, mucus membranes moist Cardiovascular: regular rate and rhythm with normal S1S2, no murmur, positive posterior tibial pulses bilaterally, and cap refill < 2 seconds. Lungs: Bilateral rales, supplemental oxygen Abdominal: soft, no guarding, no appreciable organomegaly Ext: No gross muscle atrophy, no edema, no contractures Neuro: CN II to XII within normal limits Psych: Alert and appropriate Assessment and Plan of Care: NSTEMI Three-vessel coronary artery disease status post CABG Acute blood loss anemia, anticipated outcome of surgery Leukocytosis, anticipated outcome of surgery Hypertension Hyperlipidemia Right lower extremity cellulitis status post antibiotic -Cardiology cardiology and pulmonology note reviewed, continue current management -Cardiothoracic surgery note reviewed, likely discharge tomorrow -On aspirin 325, Plavix 75, metoprolol 12.5 twice daily, atorvastatin 40, amlodipine 2.5 - Oral Tylenol as needed, IV Toradol scheduled, oral Percocet as needed, monitor for sedation - On senna scheduled and milk of magnesia as needed, and bisacodyl as needed for bowel regimen Type 2 diabetes, A1c 6.6 -sliding scale insulin, monitor for hypoglycemia - Would benefit from metformin at the time of discharge. COPD with continued nicotine dependence -DuoNebs 4 times daily Subcarinal lymph node - Incidental finding, 1 cm - Outpatient follow-up Elevated transaminases, resolving - Hepatitis panel negative Data and imaging reviewed: -WBC 11.1, hemoglobin 8, sodium 134, glucose range between 116 03/24/1969 -Chest x-ray independently interpreted, shows postop changes, unchanged from yesterday CODE STATUS: Full code DVT prophylaxis: SQ heparin Anticipated discharge date: Clinical course to determine Anticipated discharge place: Pending clinical course Objective - Vital Signs Vital signs: Vital Signs Temp 97.8 F 06/05/23 08:00 Pulse 88 06/05/23 08:12 Resp 21 06/05/23 08:00 BP 118/62 06/05/23 08:00 Pulse Ox 97 06/05/23 08:07 FiO2 40 06/02/23 15:26 Intake & Output 06/04/23 06/05/23 06/05/23 18:59 06:59 18:59 Intake Total 460 Output Total 1325 800 Balance -865 -800 Intake: IV 30 Pressure Bags 30 Intake, IV Titration 80 Amount Sodium Chloride 0.9% 1, 80 000 ml @ 20 mls/hr IV . Q24H [facility] Rx#:[id number] Oral 350 Output: Chest Tube Drainage 30 Bilateral Mediastinal 10 Left Pleural 20 Urine 1295 800 Other: Voiding Method Indwelling Catheter Indwelling Catheter ABP, PAP, CO, CI - Last Documented Arterial Blood Pressure 103/46 Pulmonary Artery Pressure 29/4 Cardiac Output 6.7 Cardiac Index 3.3 - Labs CBC & Chem 7: 06/05/23 04:50 06/05/23 04:50 Labs: Abnormal Lab Results - Last 24 Hours (Table) 06/04/23 06/04/23 06/04/23 Range/Units 11:23 16:23 20:39 WBC (3.8-10.6) k/uL RBC (4.30-5.90) m/uL Hgb (13.0-17.5) gm/dL Hct (39.0-53.0) % Neutrophils # (1.3-7.7) k/uL Sodium (137-145) mmol/L Glucose (74-99) mg/dL POC Glucose (mg/dL) 181 H 155 H 170 H (70-110) mg/dL Total Protein (6.3-8.2) g/dL Albumin (3.5-5.0) g/dL 06/05/23 06/05/23 06/05/23 Range/Units 04:50 04:50 06:25 WBC 11.1 H (3.8-10.6) k/uL RBC 2.66 L (4.30-5.90) m/uL Hgb 8.0 L (13.0-17.5) gm/dL Hct 24.4 L (39.0-53.0) % Neutrophils # 8.7 H (1.3-7.7) k/uL Sodium 134 L (137-145) mmol/L Glucose 116 H (74-99) mg/dL POC Glucose (mg/dL) 127 H (70-110) mg/dL Total Protein 4.9 L (6.3-8.2) g/dL Albumin 2.7 L (3.5-5.0) g/dL
[2023-06-05 11:15] LABS: Glucose,Whole Blood 133 mg/dL (70-110)
[2023-06-05] MEDS: MD COMMUNICATION TO PHARMACY 1 EACH MISC PO ONE ×5 (14:50→14:53)
[2023-06-05] MEDS: ALBUMIN HUMAN 5% 500 ML in EMPTY BAG 1 BAG IVPB ONE ×3 (14:53→14:55)
[2023-06-05] MEDS: ALBUMIN HUMAN 25% 50 ML in EMPTY BAG 1 BAG IVPB ONE (14:53)
[2023-06-05] MEDS: CLEVIDIPINE BUTYRATE 25 MG in EMPTY BAG 1 BAG IV SCH (14:55)
[2023-06-05] MEDS: ceFAZolin 1,000 MG in SODIUM CHLORIDE 0.9% IRRIGATIO 1,000 ML IRRIGATION ONE (14:55)
[2023-06-05] MEDS: HEPARIN SODIUM,PORCINE (1 ML) 5,000 UNIT in SODIUM CHLORIDE 0.9% 500 ML 500 ML IV ONE (14:56)
[2023-06-05] MEDS: ELECTROLYTE-A SOLUTION 1,000 ML with POTASSIUM CHLORIDE 100 MEQ, MAGNESIUM SULFATE 16 M... IV ONE (14:56)
[2023-06-05] MEDS: NITROGLYCERIN-D5W PMX 50 MG in DEXTROSE/WATER 1 250ML.BAG IV SCH (14:56)
[2023-06-05] MEDS: ALBUMIN HUMAN 5% 250 ML in EMPTY BAG 1 BAG IVPB STA (14:56)
[2023-06-05] MEDS: ELECTROLYTE-A SOLUTION 1,000 ML with POTASSIUM CHLORIDE 40 MEQ, MAGNESIUM SULFATE 16 ME... IV ONE (14:56)
[2023-06-05] MEDS: MAGNESIUM SULFATE 16.24 MEQ in EMPTY SYRINGE 1 SYR IV ONE (14:56)
[2023-06-05] MEDS: TRANEXAMIC ACID 2,000 MG in SODIUM CHLORIDE 0.9% 80 ML IV ONE (14:57)
[2023-06-05] MEDS: PAPAVERINE 360 MG in SODIUM CHLORIDE 0.9% 90 ML IV ONE (14:57)
[2023-06-05] MEDS: PROTAMINE SULFATE 250 MG in EMPTY BAG 1 BAG IV ONE (14:57)
[2023-06-05] MEDS: PHENYLEPHRINE 40 MG in SODIUM CHLORIDE 0.9% 250 ML IV ONE (14:57)
[2023-06-05] MEDS: HEPARIN SODIUM 1,000 UN/ML (10ML VL) IV ONE (14:59)
[2023-06-05] MEDS: CHLORHEXIDINE GLUCONATE 15 ML CUP MUCOUS MEM ONE (14:59)
[2023-06-05] MEDS: MANNITOL 25% 12.5 GM/50 ML VIAL IV ONE ×2 (15:00)
[2023-06-05] MEDS: CALCIUM CHLORIDE 100 MG/ML 10 ML SYRINGE IVP ONE (15:00)
[2023-06-05] MEDS: PROTAMINE SULFATE 10 MG/ML 25 ML VIAL IV ONE (15:00)
[2023-06-05] MEDS: NITROGLYCERIN-D5W PMX 25 MG/250 ML BTL IV ONE (15:00)
[2023-06-05] MEDS: SODIUM BICARB 8.4% 50 ML SYR (1 MEQ/ML) IV ONE (15:02)
--- NOTE | 2023-06-05 16:18 | XR ---
EXAM: XR chest 1V portable CLINICAL INDICATION:Male, 72 years old with history of post cardiac surgery; [facility] COMPARISON: 06/05/2023 5:27 AM, 06/04/2023 TECHNIQUE: Chest single view. FINDINGS: Lines/tubes/devices: EKG leads and other extrinsic structures overlie the chest. No indwelling lines are seen. Previous mediastinal drains appear to have been removed. Cardiomediastinum: Cardiac silhouette appears stable mildly enlarged Stable mediastinal silhouette. Multiple sternotomy wires mediastinal clips and left atrial appendage occlusion device. Vasculature: No increased pulmonary vasculature. Lungs/pleura: Left basilar pleural-parenchymal opacity appears slightly increased from previous. Right lung remains relatively clear. No evidence of pneumothorax. Bones/soft tissues: Osseous structures are grossly unchanged. Degenerative changes. Regional soft tissues appear unremark able. IMPRESSION: 1. Cardiomegaly and postoperative changes. 2. Slightly increased left basilar pleural/parenchymal opacity, likely pleural effusion with edema a nd atelectasis. Superimposed infectious process not excluded in the proper clinical setting.
[2023-06-05 16:27] LABS: Glucose,Whole Blood 168 mg/dL (70-110)
[2023-06-05 20:16] LABS: Glucose,Whole Blood 181 mg/dL (70-110)
[2023-06-06 06:13] LABS: Glucose,Whole Blood 141 mg/dL (70-110)
--- NOTE | 2023-06-06 08:04 | XR ---
EXAMINATION TYPE: XR chest 2V DATE OF EXAM: 06/06/2023 COMPARISON: 06/05/2023 INDICATION: Post cardiac surgery TECHNIQUE: Frontal and lateral views of the chest are obtained. FINDINGS: The heart size is normal. The pulmonary vasculature is normal. Very minimal pleural effusions are present. This is improved on the left.. IMPRESSION: 1. Minimal bilateral pleural effusions, improving
--- NOTE | 2023-06-06 08:10 | P.PN ---
Subjective Progress Note Date: 06/06/23 Principal diagnosis: Triple-vessel diffuse coronary artery disease, non-STEMI this admission. History of cellulitis of the right lower extremity, hypertension, hyperlipidemia, curr ent tobacco dependence, COPD, occasional EtOH use POD#4 triple-vessel coronary artery bypass grafting using the in situ left internal mammary artery to the left anterior descending artery, left radial artery from the aorta to the obtuse marginal artery, reverse saphenous vein graft from the aorta to the posterior descending artery, exclusion of the left atrial appendage using a 35 mm AtriClip, endoscopic harvesting of the left radial artery, endoscopic harvesting of the left greater saphenous vein, intraoperative graft flow measurements using the Medistim system, intraoperative transesophageal echocardiogram and epiaortic scanning Acute blood loss anemia, expected given hemodilution and cardiopulmonary bypass pump The patient was seen and examined this morning with Dr. Calderon sitting up in a recliner on the cardiac stepdown unit in no acute distress. Denies pain, shortness of breath. Remains in sinus rhythm, hemodynamically stable. CXR, labs reviewed. Patient has been ambulatory in the hallway with assistance, received shower yesterday. No other new concerns. Objective - Vital Signs Vital signs: Vital Signs Temp 97.9 F 06/06/23 06:00 Pulse 88 06/06/23 06:00 Resp 18 06/06/23 06:00 BP 116/61 06/06/23 06:00 Pulse Ox 99 06/06/23 06:00 FiO2 40 06/02/23 15:26 Intake & Output 06/05/23 06/06/23 06/06/23 18:59 06:59 18:59 Intake Total 477 Output Total 950 850 Balance -473 -850 Weight 94.2 kg 93.2 kg Intake: Oral 477 Output: Urine 950 850 Other: Voiding Method Urinal Urinal # Voids 1 # Bowel Movements 1 ABP, PAP, CO, CI - Last Documented Arterial Blood Pressure 103/46 Pulmonary Artery Pressure 29/4 Cardiac Output 6.7 Cardiac Index 3.3 - Exam CONSTITUTIONAL: Appears comfortable, cooperative, no acute distress RESPIRATORY: Lungs sounds diminished bilaterally. Respirations even, nonlabored. Currently on 2 LPM NC with oxygen saturation 99%. Able to achieve 1750 mL on incentive spirometry. Strong nonproductive cough. CARDIOVASCULAR: S1, S2 present. Regular rate and rhythm, sinus rhythm on telemetry. Sternum stable. Palpable peripheral pulses bilaterally. Trace generalized edema present. No calf pain or tenderness noted. Heart hugger in place with patient demonstrating appropriate use. Antiembolism stockings, SCDs present. GASTROINTESTINAL: Abdomen soft, nontender, nondistended. Active bowel sounds present 4 quadrants. Tolerating diet. Positive bowel movement 06/04 GENITOURINARY: Continues to void clear, yellow urine. Output 1800 mL in the last 24 hours INTEGUMENTARY: Skin is warm and dry with evidence of good perfusion. Anterior chest incision well approximated and covered with dry intact dressing. Left radial artery as well as left lower extremity EVH site well approximated, left arm with edema and ecchymosis, expected after radial artery harvest NEUROLOGIC: Cranial nerves II through XII intact MUSKULOSKELETAL: Able to move all extremities, strength equal bilaterally, gait normal PSYCHIATRIC: Alert and oriented to person place and time, appropriate affect, intact judgment and insight INVASIVE LINES AND TUBES: Atrial epicardial pacemaker wires present, grounded - Allied health notes Allied health notes reviewed: nursing - Labs CBC & Chem 7: 06/05/23 04:50 06/05/23 04:50 Labs: Abnormal Lab Results - Last 24 Hours (Table) 06/05/23 06/05/23 06/05/23 Range/Units 11:14 16:25 20:16 POC Glucose (mg/dL) 133 H 168 H 181 H (70-110) mg/dL 06/06/23 Range/Units 06:12 POC Glucose (mg/dL) 141 H (70-110) mg/dL - Imaging and Cardiology Chest x-ray: report reviewed, image reviewed Assessment and Plan Assessment: Triple-vessel coronary artery disease, non-STEMI this admission, status post 3V CABG Cellulitis of the right lower extremity, treated outpatient Hypertension Hyperlipidemia, treated, cholesterol 99, LDL 48 Current tobacco dependence COPD, preoperative FEV1 86% of predicted Occasional EtOH use Transaminitis, resolving Plan: Continue to maximize medical management with aspirin, statin, plavix and beta- lilia. Will increase beta lilia as tolerated, increased to 25 mg BID today Continue low dose CCB for radial artery spasm prophylaxis with hold parameters Wean oxygen as tolerated for SaO2 >90%. Encourage use of incentive spirometry 10 times every hour while awake. Bronchodilators per pulmonology Increase activity, ambulate as tolerated. PT/OT/cardiac rehab following Will monitor labs/CXRs, electrolyte replacement per protocol GI/DVT prophylaxis Discussed and reinforced with the patient the importance of risk modification including smoking cessation. Insulin management per internal medicine Continue to monitor strict accurate intake and output Daily weights Will discontinue epicardial pacemaker wire today Discharge planning in place, anticipate discharge to home with home care in the next 24-48 hours More recommendations to follow based on patient's clinical course.
[2023-06-06] MEDS: METOPROLOL TARTRATE 25 MG TAB PO SCH (08:40)
[2023-06-06 09:20] LABS: HCT 25.8 % (39.0-53.0); HGB 8.2 gm/dL (13.0-17.5); Hypochromasia Slight; MCH 29.8 pg (25.0-35.0); MCHC 31.7 g/dL (31.0-37.0); MCV 93.9 fL (80.0-100.0); Mean Platelet Volume 8.1; Platelet Count 443 k/uL (150-450); RBC 2.75 m/uL (4.30-5.90); RDW 15.4 % (11.5-15.5); WBC 10.4 k/uL (3.8-10.6)
[2023-06-06 09:53] LABS: African American GFR (CKD) >90 (>60 ml/min/1.73 sqM); Anion Gap 5 mmol/L; Blood Urea Nitrogen 10 mg/dL (9-20); Carbon Dioxide 23 mmol/L (22-30); Chloride 108 mmol/L (98-107); Glucose 214 mg/dL (74-99); Magnesium 2.2 mg/dL (1.6-2.3); Non-African American GFR(CKD) >90 (>60 ml/min/1.73 sqM); Potassium 3.8 mmol/L (3.5-5.1); Sodium 136 mmol/L (137-145)
--- NOTE | 2023-06-06 11:21 | P.PN ---
Subjective HISTORY OF PRESENT ILLNESS: This is a 72-year-old male with a past medical history significant for CAD documented by CT scan, hypertension, hyperlipidemia, nicotine dependence. Patient follows in the office with Dr. Martin. We have been asked to see the patient in consultation for non-STEMI. Patient examined at the bedside in the emergency room. Patient was transferred from [facility]. Patient initially presented to the hospital due to generalized weakness. Patient states he has been on Bactrim for right lower extremity cellulitis for about 10 days. He states that he was having chills at home. He reports his extremities were shaking badly. He states he was so weak he was not able to get up on his own. The patient was found to have elevated troponins with a troponin of 5.0. He was started on a heparin drip and transferred to was cleared for further evaluation. The patient denies any chest pain or pressure. He denies any shortness of breath. DIAGNOSTICS: - EKG reveals sinus mechanism with nonspecific ST-T wave changes. - Chest xray findings concerning for bronchitis which may be infectious or inflammatory allergies. Trace right pleural effusion. No consolidation. - Chest CTA: Negative for pulmonary embolism. -Doppler study performed at outside facility was negative for DVT in the right lower extremity - Laboratory data: WBC 7.9. Hemoglobin 14.8. Platelet count 231. Sodium 133. Potassium 3.9. BUN 19. Creatinine 1.20. Magnesium 2.0. Troponin 2.730. 2.970. AST 73. ALT 51. proBNP 1620 - Current home cardiac medications include aspirin 81 mg daily, metoprolol succinate 100 mg daily, amlodipine 5 mg daily, Lipitor 40 mg at night, and lisinoprilhydrochlorothiazide 20-25 mg daily. - Most recent echocardiogram obtained in September 2021 reveals normal EF, mild MR, mild TR. -Patient underwent Lexiscan stress test in September 2021 which was negative for ischemia 05/28/2023 Patient is status post cardiac catheterization with Dr. Blackman revealing 50 to 60% ostial stenosis of the LAD, mid LAD 70 to 80% stenosis, circumflex coronary artery is a nondominant vessel showing 90% stenosis at the origin of the AV groove, right coronary artery has multiple segmental lesions 80 to 90% at their worst. CT surgery was consulted for evaluation and patient is tentatively scheduled for CABG next week. Patient examined this morning the bedside. He denies any chest pain or pressure. He denies any shortness of breath. Telemetry reveals sinus mechanism. Vital signs are stable. 05/29/2023 Patient examined this morning at bedside. Patient states he is not feeling well this morning. Patient has had multiple episodes of vomiting and diarrhea. Vital signs are stable. Telemetry reveals sinus mechanism. 06/05/2023 The patient is a 72-year-old male who was admitted with a non-ST elevated myocardial infarction. He was found to have severe triple-vessel disease and underwent CABG with left internal mammary artery to LAD, left radial artery to obtuse marginal and reverse saphenous vein to PDA. Patient also had left atrial appendage closure. The patient was interviewed and examined up in the recliner chair. He states he is feeling better this morning and is in less pain. No chest pain, dyspnea, or dizziness. Heart rate stable, blood pressures have been on the soft side. Currently at 118/62. No fever or chills. 06/06/2023 Patient examined this morning at the bedside. Patient is sitting up in the chair. Patient denies chest pain or pressure. He currently denies shortness of breath. Vital signs are stable. Telemetry reveals sinus mechanism. PHYSICAL EXAM: VITAL SIGNS: Reviewed. GENERAL: Well-developed in no acute distress. HEENT: Head is normocephalic. Pupils are equal, round. Sclerae anicteric. Mucous membranes of the mouth are moist. Neck supple. No JVD or thyromegaly LUNGS: Respirations even and unlabored. Lungs essentially clear to auscultation bilaterally. HEART: Regular rate and rhythm. S1 and S2 heard. ABDOMEN: Soft. Nondistended. Nontender. EXTREMITIES: Normal range of motion. No clubbing or cyanosis. Peripheral pulses intact. Trace bilateral lower extremity edema NEUROLOGIC: Awake and alert. Oriented x 3. ASSESSMENT: Non-STEMI, status post cardiac catheterization revealing triple-vessel coronary artery disease, status post CABG x 3 Recent right lower extremity cellulitis Vomiting and diarrhea, resolved Hypertension Hyperlipidemia Nicotine dependence Elevated LFTs PLAN: Continue postoperative management per CT surgery Increase activity as tolerated Encourage use of incentive spirometer Continue telemetry monitoring Further recommendations pending patient course Nurse practitioner note has been reviewed by physician. Signing provider agrees with the documented findings, assessment, and plan of care documented by PROFESSOR OF COMMUNICATION [employer]S as a scribe. Objective - Vital Signs Vital signs: Vital Signs Temp 98 F 06/06/23 08:20 Pulse 93 06/06/23 08:20 Resp 16 06/06/23 08:20 BP 124/71 06/06/23 08:20 Pulse Ox 97 06/06/23 08:20 FiO2 40 06/02/23 15:26 Intake & Output 06/05/23 06/06/23 06/06/23 18:59 06:59 18:59 Intake Total 477 Output Total 950 850 375 Balance -473 -850 -375 Weight 94.2 kg 93.2 kg Intake: Oral 477 Output: Urine 950 850 375 Other: Voiding Method Urinal Urinal # Voids 1 # Bowel Movements 1 ABP, PAP, CO, CI - Last Documented Arterial Blood Pressure 103/46 Pulmonary Artery Pressure 29/4 Cardiac Output 6.7 Cardiac Index 3.3 - Labs CBC & Chem 7: 06/06/23 08:54 06/06/23 08:54 Labs: Abnormal Lab Results - Last 24 Hours (Table) 06/05/23 06/05/23 06/06/23 Range/Units 16:25 20:16 06:12 RBC (4.30-5.90) m/uL Hgb (13.0-17.5) gm/dL Hct (39.0-53.0) % Sodium (137-145) mmol/L Chloride (98-107) mmol/L Glucose (74-99) mg/dL POC Glucose (mg/dL) 168 H 181 H 141 H (70-110) mg/dL 06/06/23 06/06/23 Range/Units 08:54 08:54 RBC 2.75 L (4.30-5.90) m/uL Hgb 8.2 L (13.0-17.5) gm/dL Hct 25.8 L (39.0-53.0) % Sodium 136 L (137-145) mmol/L Chloride 108 H (98-107) mmol/L Glucose 214 H (74-99) mg/dL POC Glucose (mg/dL) (70-110) mg/dL
[2023-06-06 11:38] LABS: Glucose,Whole Blood 120 mg/dL (70-110)
[2023-06-06] MEDS: POTASSIUM BICARBONATE/CIT AC 20 MEQ TABLET.EFF PO ONE ×2 (11:47→16:48)
[2023-06-06] MEDS: FUROSEMIDE 10 MG/ML 4 ML VIAL IV STA (11:47)
--- NOTE | 2023-06-06 12:34 | P.PN ---
Subjective Progress Note Date: 06/06/23 Hospital course: Patient is a very pleasant 72-year-old male with a past medical history of hypertension, hyperlipidemia, and COPD with continued nicotine dependence. Patient presented to our facility as a transfer from [facility] on 05/25/2023 where he initially presented with weakness and a fall and was found to have elevated troponins. Patient reported recent treatment for cellulitis on Bactrim and experiencing nausea, vomiting, and decreased oral intake over the past few days. Per documentation in chart workup at [facility] was completed including a CT of the brain which was negative for acute intercranial pathology and troponins initially reported negative increasing to 5.09 resulting in patient being started on heparin infusion followed by transfer to our facility for evaluation. Upon arrival to our facility patient underwent evaluation in the emergency department. Vital signs revealed blood pressure 140/83, heart rate 86, respiratory rate 12, temp 97.9 F, and SpO2 of 96% on room air. EKG was completed showing normal sinus rhythm at 84 bpm with no significant T wave or ST abnormalities showing no signs of acute ischemia upon personal review and interpretation. Chest x-ray completed showing findings concerning for bronchitis with mild to moderate peribronchial thickening of the central bronchi and trace right pleural effusion. CTA chest was completed negative for pulmonary emboli revealing a 1 cm subcarinal enlarged lymph node. Labs were completed and reviewed. CBC unremarkable. Coagulation profile normal findings. BMP revealed hyponatremia with sodium of 133 and hypocarbia with bicarb of 17. Blood glucose was 107. Magnesium normal findings at 2.0. Liver profile showing elevated AST of 73 and ALT of 51. Troponin was 2.730 and proBNP was 1620. Patient admitted under our services with consultation to cardiology. Troponins trended overnight resulting at 2.730 and 2.970. Patient was taken for cardiac catheterization. Cardiac catheterization revealing three-vessel coronary artery disease, cardiology consulted cardiothoracic surgery to evaluate patient for bypass. Echocardiogram showed normal LVEF 55 to 60%. Patient underwent CABG x 3 on 06/02/[address] Andrews. He was initially taken to ICU for post open heart management and was later transferred to stepdown unit. Patient currently doing well and tentative plan is for discharge home tomorrow with home care. Physical exam: Patient seen and fully evaluated at bedside. He was sitting up in chair, heart hugger in place. He currently reports mild postsurgical discomfort worse with movement but otherwise denies any complaints at this time and reports feeling well today. He stated cardiothoracic surgery team stated that they plan on removing wires later today. Vital signs reviewed and stable. General: Nontoxic, no distress and appears stated age. Derm: Skin warm and dry, normal coloration for ethnicity. Head: Atraumatic, normocephalic and symmetric. Eyes: EOMs intact, no lid lag, and anicteric sclera Mouth: no lip lesions, mucus membranes moist Cardiovascular: regular rate and rhythm with normal S1S2, no murmur, positive posterior tibial pulses bilaterally, and cap refill < 2 seconds. Lungs: Respirations even, regular, and unlabored on room air. Lungs CTA bilaterally, no rhonchi, no rales, no wheezing, and no accessory muscle usage. Abdominal: soft, nontender to palpation, no guarding, no appreciable organomegaly Ext: ROM intact. No gross muscle atrophy, no edema, no contractures Neuro: Speech clear, face symmetrical and CN II-XII grossly intact with no noted focal neuro deficits Psych: Alert and oriented to person, place, time, and situation. Appropriate and pleasant affect. Assessment and Plan of Care: NSTEMI Three-vessel coronary artery disease status post CABG Acute blood loss anemia, anticipated and stable outcome of surgery Leukocytosis, anticipated outcome of surgery. Resolved Hypertension Hyperlipidemia Right lower extremity cellulitis status post antibiotic -Cardiology and pulmonology following. Reviewed documentation in chart, continue current management -Cardiothoracic surgery following, reviewed documentation in chart. -Continue aspirin 325, Plavix 75 milligrams daily, metoprolol 25 mg twice daily, atorvastatin 40, amlodipine 2.5 mg daily -Oral Tylenol as needed, IV Toradol scheduled, oral Percocet as needed, monitor for sedation -Continue senna scheduled along with milk of magnesia as needed and bisacodyl as needed for bowel regimen Type 2 diabetes, A1c 6.6% -Continue glycemic protocol with sliding scale insulin, monitor for hypoglycemia -Would benefit from metformin at the time of discharge. COPD with continued nicotine dependence -Continue scheduled DuoNebs 4 times daily and as needed for shortness of breath and/or wheezing Subcarinal lymph nodes - Incidental finding, 1 cm - Outpatient follow-up Elevated transaminases, resolved - Hepatitis panel negative Data and imaging reviewed: Morning labs reviewed. CBC showing stable normocytic anemia with hemoglobin of 8.2 and resolution of leukocytosis with WBC count of 10.4. BMP showing no significant abnormalities with sodium of 136, potassium 3.8, chloride 108, bicarb 23, anion gap 5, BUN 10, creatinine 0.76, GFR greater than 90. Magnesium 2.2. Vital signs reviewed. Blood pressure 124/71, heart rate 93, respiratory rate 16, temp 98.0 F, and SpO2 of 97% on room air. CODE STATUS: Full code DVT prophylaxis: SQ heparin Anticipated discharge date: Clinical course to determine Anticipated discharge place: Pending clinical course Patient was seen independently by Nurse Pracitioner. This document was prepared using [employer] dictation software. Please allow for errors in vac press operator, while rare they do occur. Objective - Vital Signs Vital signs: Vital Signs Temp 97.9 F 06/06/23 06:00 Pulse 92 06/06/23 08:02 Resp 18 06/06/23 06:00 BP 116/61 06/06/23 06:00 Pulse Ox 99 06/06/23 06:00 FiO2 40 06/02/23 15:26 Intake & Output 06/05/23 06/06/23 06/06/23 18:59 06:59 18:59 Intake Total 477 Output Total 950 850 Balance -473 -850 Weight 94.2 kg 93.2 kg Intake: Oral 477 Output: Urine 950 850 Other: Voiding Method Urinal Urinal # Voids 1 # Bowel Movements 1 ABP, PAP, CO, CI - Last Documented Arterial Blood Pressure 103/46 Pulmonary Artery Pressure 29/4 Cardiac Output 6.7 Cardiac Index 3.3 - Labs CBC & Chem 7: 06/06/23 08:54 06/06/23 08:54 Labs: Abnormal Lab Results - Last 24 Hours (Table) 06/05/23 06/05/23 06/05/23 Range/Units 11:14 16:25 20:16 POC Glucose (mg/dL) 133 H 168 H 181 H (70-110) mg/dL 06/06/23 Range/Units 06:12 POC Glucose (mg/dL) 141 H (70-110) mg/dL
--- NOTE | 2023-06-06 16:24 | P.PN ---
Subjective Progress Note Date: 06/06/23 Principal diagnosis: Triple-vessel coronary artery disease, status post CABG, postoperative day #4 On today's evaluation of 06/03/2023, the patient is being seen for a follow-up. The patient is postop day #1. The patient was weaned off the mechanical ventilator following his bypass surgery and the patient was extubated without any major difficulties. Earlier this morning, the patient had cardiac output of 5.8 with an index of 2.8 with a pulmonary artery pressures of 17/8 with a CVP of 2. He does have still a backup pacemaker generator at the rate of 50. Using incentive spirometer. Pulling approximately 8000. He has mediastinal chest tubes and the total amount of output has been 450 cc since surgery and the left lower chest tube is produced approximately 550 cc since surgery. Chest x-ray from today shows no evidence of pneumothorax. Urine output is in order of 30 to 60 cc an hour. Awake and alert. Cardiac rhythm is sinus. No other significant events. Remains on aspirin and Plavix. Started on beta-blockers and the patient is currently on metoprolol 12.5 mg every 8 hours. Remains on Lipitor 40 mg p.o. daily. No focal neurological deficit at this point in time. Surgical wound sites are dry clean and intact. JÚNIOR drain is present in the left upper extremity that needs to be removed. On today's evaluation of 06/04/2023, the patient is doing well. No specific complaints. He is currently on oxygen 2 L/min nasal cannula with a pulse ox of 97%. Repeat chest x-ray from today shows chest tubes are all being in a good location. [place] catheter has been removed. There is cardiomegaly. There is also mild pulm vessel congestion. The output from the chest tube has been noted. The total amount of output from the mediastinal chest tubes has been 290 cc over the past 24 hours and pleural chest tube has been 190 cc over the past 24 hours. WBC count is at 12.1. Hemoglobin 8.6. Platelet count is 306. BUN is 16 with a creatinine of 0.8 and sodium levels at 135. LFTs are normal. The patient is on aspirin and Plavix. The patient on Norvasc 2.5 mg p.o. daily. The patient is also on metoprolol 12.5 mg 3 times daily. He is on Lipitor 40 mg p.o. daily. Using the incentive spirometer. No nausea. No emesis. No chest pain. Cardiac rhythm remained sinus. No significant arrhythmias noted. 06/05/2023, the patient doing extremely well. Chest tubes have been removed and the epicardial leads will be also pulled out today. He is ambulating. His chest x-ray showing a small left-sided pleural effusion and some atelectatic changes anticipated following the surgery. The patient is currently postop day #3. He remains on oxygen 2 L/min nasal cannula. There was count 11.1 with a hemoglobin of 8 and a platelet count of 319. Electrolytes are all stable and within normal limits. The patient has a sinus rhythm. BP is under adequate control. He remains on aspirin and Plavix. He remains on metoprolol 12.5 mg 3 times a day. He is also on amlodipine 2.5 mg p.o. daily. The JÚNIOR drain has been removed from the left upper extremity and does have some bruising and" ecchymosis in his left upper extremity. Using the IS and be is pulling 1500 Patient was evaluated today on 06/06/2023, patient is on room air, not in any distress. Chest x-ray showed no evidence of acute process except he does have a very limited small left pleural effusion.WBC count is 10.4 hemoglobin 8.2 basic metabolic profile is normal renal profile is normal. Objective - Vital Signs Vital signs: Vital Signs Temp 98.6 F 06/06/23 11:40 Pulse 92 06/06/23 15:51 Resp 18 06/06/23 11:40 BP 119/70 06/06/23 11:40 Pulse Ox 100 06/06/23 11:40 FiO2 40 06/02/23 15:26 Intake & Output 06/05/23 06/06/23 06/06/23 18:59 06:59 18:59 Intake Total 477 Output Total 950 850 525 Balance -891 -563 -525 Weight 94.2 kg 93.2 kg 93.2 kg Intake: Oral 477 Output: Urine 950 850 525 Other: Voiding Method Urinal Urinal # Voids 1 # Bowel Movements 1 ABP, PAP, CO, CI - Last Documented Arterial Blood Pressure 103/46 Pulmonary Artery Pressure 29/4 Cardiac Output 6.7 Cardiac Index 3.3 - Exam General: Revealed a 72-year-old white male in no distress RESPIRATORY: Clear bilaterally no crackles rhonchi or wheezes CARDIOVASCULAR: normal S1-S2, no S3 gallop. No murmur. GASTROINTESTINAL: Soft nontender no megaly no rebound no guarding INTEGUMENTARY: No rashes. NEUROLOGIC: alert and oriented x 3 no gross focal deficit equal bilaterally, gait normal PSYCHIATRIC: Normal mood affect and no mental status examination. Skin: No rashes good pulses bilaterally Musculoskeletal: No deformities and no limitation range of motion - Labs CBC & Chem 7: 06/06/23 08:54 06/06/23 08:54 Labs: Abnormal Lab Results - Last 24 Hours (Table) 06/05/23 06/05/23 06/06/23 Range/Units 16:25 20:16 06:12 RBC (4.30-5.90) m/uL Hgb (13.0-17.5) gm/dL Hct (39.0-53.0) % Sodium (137-145) mmol/L Chloride (98-107) mmol/L Glucose (74-99) mg/dL POC Glucose (mg/dL) 168 H 181 H 141 H (70-110) mg/dL 06/06/23 06/06/23 06/06/23 Range/Units 08:54 08:54 11:37 RBC 2.75 L (4.30-5.90) m/uL Hgb 8.2 L (13.0-17.5) gm/dL Hct 25.8 L (39.0-53.0) % Sodium 136 L (137-145) mmol/L Chloride 108 H (98-107) mmol/L Glucose 214 H (74-99) mg/dL POC Glucose (mg/dL) 120 H (70-110) mg/dL Assessment and Plan Assessment: Impression: Triple-vessel coronary artery disease, status post CABG postoperative day #4 Postoperative anemia, expected outcome of surgery, will monitor Hypertension, Hyperlipidemia, Chronic ongoing tobacco dependence COPD with a preoperative FEV1 86% of predicted value with a base volume of 2.63 Occasional EtOH use Recommendation: Continue incentive spirometry Continue ambulation Continue to monitor and address blood sugars accordingly by admitting service Continue present cardiac meds including aspirin Plavix statins and beta-blockers Continue management of blood pressure Will continue to follow Time with Patient: Less than 30
[2023-06-06 16:34] LABS: Glucose,Whole Blood 133 mg/dL (70-110)
[2023-06-06 20:13] LABS: Glucose,Whole Blood 144 mg/dL (70-110)
[2023-06-07 06:07] LABS: Glucose,Whole Blood 113 mg/dL (70-110)
[2023-06-07 08:44] VITALS: BP 136/76; PULSE 88; RESP 18; TEMP 98.2
--- NOTE | 2023-06-07 09:16 | XR ---
EXAMINATION TYPE: XR chest 2V DATE OF EXAM: 06/07/2023 COMPARISON: 06/06/2023 HISTORY: 72 year-old male post cardiac surgery TECHNIQUE: PA and lateral views FINDINGS: Median sternotomy wires are present with post-CABG clips. Heart borderline enlarged. Mild interstitia l density is similar. Trace bilateral pleural effusions persist. IMPRESSION: There may be residual mild pulmonary vascular congestion. Similar trace pleural effusions.
--- NOTE | 2023-06-07 10:01 | P.PN ---
Subjective Progress Note Date: 06/07/23 Principal diagnosis: Triple-vessel diffuse coronary artery disease, non-STEMI this admission. History of cellulitis of the right lower extremity, hypertension, hyperlipidemia, curr ent tobacco dependence, COPD, occasional EtOH use POD#5 triple-vessel coronary artery bypass grafting using the in situ left internal mammary artery to the left anterior descending artery, left radial artery from the aorta to the obtuse marginal artery, reverse saphenous vein graft from the aorta to the posterior descending artery, exclusion of the left atrial appendage using a 35 mm AtriClip, endoscopic harvesting of the left radial artery, endoscopic harvesting of the left greater saphenous vein, intraoperative graft flow measurements using the Medistim system, intraoperative transesophageal echocardiogram and epiaortic scanning Acute blood loss anemia, expected given hemodilution and cardiopulmonary bypass pump The patient was seen and examined this morning sitting up in a recliner on the cardiac stepdown unit in no acute distress. Denies pain, shortness of breath. Remains in sinus rhythm, hemodynamically stable. CXR, labs reviewed. Patient has been ambulatory in the hallway with assistance, received shower yesterday. Anticipates discharge to home with home care this afternoon. No other new concerns. Objective - Vital Signs Vital signs: Vital Signs Temp 98.2 F 06/07/23 08:00 Pulse 88 06/07/23 08:00 Resp 18 06/07/23 08:00 BP 136/76 06/07/23 08:00 Pulse Ox 97 06/07/23 08:00 FiO2 40 06/02/23 15:26 Intake & Output 06/06/23 06/07/23 06/07/23 18:59 06:59 18:59 Intake Total 600 Output Total 1025 500 Balance -1025 -500 600 Weight 93.2 kg 92.3 kg Intake: Oral 600 Output: Urine 1025 500 Other: Voiding Method Urinal Urinal ABP, PAP, CO, CI - Last Documented Arterial Blood Pressure 103/46 Pulmonary Artery Pressure 29/4 Cardiac Output 6.7 Cardiac Index 3.3 - Exam CONSTITUTIONAL: Appears comfortable, cooperative, no acute distress RESPIRATORY: Lungs sounds diminished bilaterally. Respirations even, nonlabored. Currently on room air with oxygen saturation 95%. Able to achieve 2000 mL on incentive spirometry. Strong nonproductive cough. CARDIOVASCULAR: S1, S2 present. Regular rate and rhythm, sinus rhythm on telemetry. Sternum stable. Palpable peripheral pulses bilaterally. Trace generalized edema present. No calf pain or tenderness noted. Heart hugger in place with patient demonstrating appropriate use. Antiembolism stockings, SCDs present. GASTROINTESTINAL: Abdomen soft, nontender, nondistended. Active bowel sounds present 4 quadrants. Tolerating diet. Positive bowel movement 06/04 GENITOURINARY: Continues to void clear, yellow urine. Output 1525 mL in the last 24 hours INTEGUMENTARY: Skin is warm and dry with evidence of good perfusion. Anterior chest incision well approximated. Left radial artery as well as left lower ex tremity EVH site well approximated, left arm with edema and ecchymosis, expected after radial artery harvest NEUROLOGIC: Cranial nerves II through XII intact MUSKULOSKELETAL: Able to move all extremities, strength equal bilaterally, gait normal PSYCHIATRIC: Alert and oriented to person place and time, appropriate affect, intact judgment and insight - Allied health notes Allied health notes reviewed: nursing - Labs CBC & Chem 7: 06/06/23 08:54 06/06/23 08:54 Labs: Abnormal Lab Results - Last 24 Hours (Table) 06/06/23 06/06/23 06/06/23 Range/Units 11:37 16:33 20:09 POC Glucose (mg/dL) 120 H 133 H 144 H (70-110) mg/dL 06/07/23 Range/Units 06:05 POC Glucose (mg/dL) 113 H (70-110) mg/dL - Imaging and Cardiology Chest x-ray: report reviewed, image reviewed Assessment and Plan Assessment: Triple-vessel coronary artery disease, non-STEMI this admission, status post 3V CABG Cellulitis of the right lower extremity, treated outpatient Hypertension Hyperlipidemia, treated, cholesterol 99, LDL 48 Current tobacco dependence COPD, preoperative FEV1 86% of predicted Occasional EtOH use Transaminitis, resolving Plan: Continue to maximize medical management with aspirin, statin, plavix and beta- lilia Continue low dose CCB for radial artery spasm prophylaxis with hold parameters Encourage use of incentive spirometry 10 times every hour while awake. Bronchodilators per pulmonology Increase activity, ambulate as tolerated. PT/OT/cardiac rehab following Will monitor labs/CXRs, electrolyte replacement per protocol GI/DVT prophylaxis Discussed and reinforced with the patient the importance of risk modification including smoking cessation. Insulin management per internal medicine Continue to monitor strict accurate intake and output Daily weights Discharge planning in place, anticipate discharge to home with home care this afternoon More recommendations to follow based on patient's clinical course.
[2023-06-07] MEDS: POTASSIUM BICARBONATE/CIT AC 20 MEQ TABLET.EFF PO ONE (10:09)
[2023-06-07] MEDS: FUROSEMIDE 40 MG TAB PO STA (10:09)
[2023-06-07 10:27] LABS: HCT 28.6 % (39.0-53.0); HGB 8.7 gm/dL (13.0-17.5); Hypochromasia Slight; MCH 28.5 pg (25.0-35.0); MCHC 30.3 g/dL (31.0-37.0); MCV 94.2 fL (80.0-100.0); Platelet Count 594 k/uL (150-450); RBC 3.04 m/uL (4.30-5.90); RDW 15.6 % (11.5-15.5); WBC 9.8 k/uL (3.8-10.6)
[2023-06-07 10:38] LABS: African American GFR (CKD) 83 (>60 ml/min/1.73 sqM); Anion Gap 9 mmol/L; Blood Urea Nitrogen 16 mg/dL (9-20); Calcium 9.8 mg/dL (8.4-10.2); Carbon Dioxide 22 mmol/L (22-30); Chloride 108 mmol/L (98-107); Glucose 139 mg/dL (74-99); Magnesium 2.2 mg/dL (1.6-2.3); Non-African American GFR(CKD) 72 (>60 ml/min/1.73 sqM); Potassium 4.3 mmol/L (3.5-5.1); Sodium 139 mmol/L (137-145)
--- NOTE | 2023-06-07 11:20 | P.PN ---
Subjective HISTORY OF PRESENT ILLNESS: This is a 72-year-old male with a past medical history significant for CAD documented by CT scan, hypertension, hyperlipidemia, nicotine dependence. Patient follows in the office with Dr. Martin. We have been asked to see the patient in consultation for non-STEMI. Patient examined at the bedside in the emergency room. Patient was transferred from [facility]. Patient initially presented to the hospital due to generalized weakness. Patient states he has been on Bactrim for right lower extremity cellulitis for about 10 days. He states that he was having chills at home. He reports his extremities were shaking badly. He states he was so weak he was not able to get up on his own. The patient was found to have elevated troponins with a troponin of 5.0. He was started on a heparin drip and transferred to was cleared for further evaluation. The patient denies any chest pain or pressure. He denies any shortness of breath. DIAGNOSTICS: - EKG reveals sinus mechanism with nonspecific ST-T wave changes. - Chest xray findings concerning for bronchitis which may be infectious or inflammatory allergies. Trace right pleural effusion. No consolidation. - Chest CTA: Negative for pulmonary embolism. -Doppler study performed at outside facility was negative for DVT in the right lower extremity - Laboratory data: WBC 7.9. Hemoglobin 14.8. Platelet count 231. Sodium 133. Potassium 3.9. BUN 19. Creatinine 1.20. Magnesium 2.0. Troponin 2.730. 2.970. AST 73. ALT 51. proBNP 1620 - Current home cardiac medications include aspirin 81 mg daily, metoprolol succinate 100 mg daily, amlodipine 5 mg daily, Lipitor 40 mg at night, and lisinoprilhydrochlorothiazide 20-25 mg daily. - Most recent echocardiogram obtained in September 2021 reveals normal EF, mild MR, mild TR. -Patient underwent Lexiscan stress test in September 2021 which was negative for ischemia 05/28/2023 Patient is status post cardiac catheterization with Dr. Blackman revealing 50 to 60% ostial stenosis of the LAD, mid LAD 70 to 80% stenosis, circumflex coronary artery is a nondominant vessel showing 90% stenosis at the origin of the AV groove, right coronary artery has multiple segmental lesions 80 to 90% at their worst. CT surgery was consulted for evaluation and patient is tentatively scheduled for CABG next week. Patient examined this morning the bedside. He denies any chest pain or pressure. He denies any shortness of breath. Telemetry reveals sinus mechanism. Vital signs are stable. 05/29/2023 Patient examined this morning at bedside. Patient states he is not feeling well this morning. Patient has had multiple episodes of vomiting and diarrhea. Vital signs are stable. Telemetry reveals sinus mechanism. 06/05/2023 The patient is a 72-year-old male who was admitted with a non-ST elevated myocardial infarction. He was found to have severe triple-vessel disease and underwent CABG with left internal mammary artery to LAD, left radial artery to obtuse marginal and reverse saphenous vein to PDA. Patient also had left atrial appendage closure. The patient was interviewed and examined up in the recliner chair. He states he is feeling better this morning and is in less pain. No chest pain, dyspnea, or dizziness. Heart rate stable, blood pressures have been on the soft side. Currently at 118/62. No fever or chills. 06/06/2023 Patient examined this morning at the bedside. Patient is sitting up in the chair. Patient denies chest pain or pressure. He currently denies shortness of breath. Vital signs are stable. Telemetry reveals sinus mechanism. 06/07/2023 Patient examined this morning at bedside. Patient denies chest pain or pressure. He denies shortness of breath. Vital signs are stable. Telemetry reveals sinus mechanism. Patient is hoping to be discharged home today. PHYSICAL EXAM: VITAL SIGNS: Reviewed. GENERAL: Well-developed in no acute distress. HEENT: Head is normocephalic. Pupils are equal, round. Sclerae anicteric. Mucous membranes of the mouth are moist. Neck supple. No JVD or thyromegaly LUNGS: Respirations even and unlabored. Lungs essentially clear to auscultation bilaterally. HEART: Regular rate and rhythm. S1 and S2 heard. ABDOMEN: Soft. Nondistended. Nontender. EXTREMITIES: Normal range of motion. No clubbing or cyanosis. Peripheral pulses intact. Trace bilateral lower extremity edema NEUROLOGIC: Awake and alert. Oriented x 3. ASSESSMENT: Non-STEMI, status post cardiac catheterization revealing triple-vessel coronary artery disease, status post CABG x 3 Recent right lower extremity cellulitis Vomiting and diarrhea, resolved Hypertension Hyperlipidemia Nicotine dependence Elevated LFTs PLAN: Continue postoperative management per CT surgery Increase activity as tolerated Encourage use of incentive spirometer Continue telemetry monitoring Patient is stable for discharge home today from a cardiac standpoint Further recommendations pending patient course Nurse practitioner note has been reviewed by physician. Signing provider agrees with the documented findings, assessment, and plan of care documented by REPORT PROGRAMMER as a scribe. Objective - Vital Signs Vital signs: Vital Signs Temp 98.2 F 06/07/23 08:00 Pulse 88 06/07/23 08:00 Resp 18 06/07/23 08:00 BP 136/76 06/07/23 08:00 Pulse Ox 97 06/07/23 08:00 FiO2 40 06/02/23 15:26 Intake & Output 06/06/23 06/07/23 06/07/23 18:59 06:59 18:59 Intake Total 600 Output Total 1025 500 Balance -1025 -500 600 Weight 93.2 kg 92.3 kg Intake: Oral 600 Output: Urine 1025 500 Other: Voiding Method Urinal Urinal ABP, PAP, CO, CI - Last Documented Arterial Blood Pressure 103/46 Pulmonary Artery Pressure 29/4 Cardiac Output 6.7 Cardiac Index 3.3 - Labs CBC & Chem 7: 06/07/23 09:53 06/07/23 09:53 Labs: Abnormal Lab Results - Last 24 Hours (Table) 06/06/23 06/06/23 06/06/23 Range/Units 11:37 16:33 20:09 RBC (4.30-5.90) m/uL Hgb (13.0-17.5) gm/dL Hct (39.0-53.0) % MCHC (31.0-37.0) g/dL RDW (11.5-15.5) % Plt Count (150-450) k/uL Chloride (98-107) mmol/L Glucose (74-99) mg/dL POC Glucose (mg/dL) 120 H 133 H 144 H (70-110) mg/dL 06/07/23 06/07/23 06/07/23 Range/Units 06:05 09:53 09:53 RBC 3.04 L (4.30-5.90) m/uL Hgb 8.7 L (13.0-17.5) gm/dL Hct 28.6 L (39.0-53.0) % MCHC 30.3 L (31.0-37.0) g/dL RDW 15.6 H (11.5-15.5) % Plt Count 594 H (150-450) k/uL Chloride 108 H (98-107) mmol/L Glucose 139 H (74-99) mg/dL POC Glucose (mg/dL) 113 H (70-110) mg/dL
[2023-06-07 11:32] LABS: Glucose,Whole Blood 126 mg/dL (70-110)
--- NOTE | 2023-06-07 11:37 | P.DS ---
Providers Date of admission: 05/26/23 01:24 Expected date of discharge: 06/07/23 Attending physician: Renita Andrews Consults: 05/26/23 01:23 Consult Physician Urgent Consulting Provider: [facility] Consult Reason/Comments: NSTEMI Do you want consulting provider notified?: Yes, Notify in am 05/27/23 11:28 Consult Physician Routine Consulting Provider: Ki Calderon Consult Reason/Comments: CAD, CABG eval Do you want consulting provider notified?: Yes 05/28/23 11:55 Consult Physician Routine Consulting Provider: Jamin Glover Consult Reason/Comments: Pulmonary management Do you want consulting provider notified?: Yes, Notify in am 06/01/23 08:00 Consult to Anesthesia Routine Consulting Provider: Anesthesia,Services Consult Reason/Comments: Cardiac Surgery Pre-Op 06/02/23 13:29 Consult Physician Routine Consulting Provider: Meño Biswas Consult Reason/Comments: Medical management Do you want consulting provider notified?: Yes Primary care physician: [facility] Hospital Course: FINAL DIAGNOSIS: Triple-vessel coronary artery disease, non-STEMI this admission, status post 3V CABG Cellulitis of the right lower extremity, treated outpatient Hypertension Hyperlipidemia, treated, cholesterol 99, LDL 48 Current tobacco dependence COPD, preoperative FEV1 86% of predicted Occasional EtOH use Transaminitis, resolving PRINCIPAL PROCEDURE: Triple-vessel coronary artery bypass grafting using the in situ left internal mammary artery to the left anterior descending artery, left radial artery from the aorta to the obtuse marginal artery, reverse saphenous vein graft from the aorta to the posterior descending artery Exclusion of the left atrial appendage using a 35 mm AtriClip Endoscopic harvesting of the left radial artery Endoscopic harvesting of the left greater saphenous vein Intraoperative graft flow measurements using the [employer] (QEEP) system Intraoperative transesophageal echocardiogram and epiaortic scanning HISTORY OF PRESENT ILLNESS: This is a 72-year-old gentleman who follows outpatient with the [facility] for primary care and Dr. Martin for cardiology. For approximately the last month the patient had been treated for cellulitis to his right lower extremity with Bactrim. Per the patient he did not feel he was getting any better, did have some fevers, and had just been generally feeling unwell. He presented to [facility] and was placed in observation for acute kidney injury and dehydration. Lab work did reveal elevated troponin so the patient was transferred to [facility] for cardiology evaluation. Of note, the patient denied any chest pain or significant shortness of breath. In the emergency room EKG was completed demonstrating sinus rhythm with nonspecific ST changes. Troponins were elevated and he was ruled in for non-STEMI. He was admitted for evaluation and treatment with consultation placed to cardiology. Patient was recommended to undergo heart catheterization which revealed triple- vessel coronary artery disease with mid LAD 70 to 80% stenosis, 90% stenosis of the circumflex coronary artery, and multiple segmental lesions 80 to 90% in the right coronary artery. Due to these findings consultation was placed to Dr. Andrews from cardiothoracic surgery. He was recommended to undergo urgent CABG. The usual perioperative course was discussed in detail with the patient and his family, all risks and benefits were explained, all questions were answered, and consent was obtained to proceed with surgery. The patient was kept inpatient due to the nature of his disease process. HOSPITAL COURSE: The patient was brought to the preoperative area 06/02/23, prepared in the usual fashion, and subsequently taken to the operating room where Dr. Andrews performed 3V CABG. Upon completion of surgery the patient was transferred to the cardiovascular intensive care unit where he was recovered and monitored hemodynamically. He was extubated, all lines, tubes, and drips were discontinued when appropriate, and he was transferred to 3 S. cardiac stepdown unit for further monitoring and rehabilitation. His oxygen was titrated down, he continued to work with physical and occupational therapy, he was tolerating oral diet, his pain was controlled, and he was ready to be discharged to home residential with home care on postoperative day #5. He received written and verbal instruction regarding his medications, activity restrictions, signs and symptoms requiring physician notification, and follow-up appointments. Patient Condition at Discharge: Stable Plan - Discharge Summary Discharge Rx Participant: No New Discharge Prescriptions: New Dapagliflozin Propanediol [Farxiga] 5 mg PO DAILY 30 Days #30 tablet metFORMIN HCL [Glucophage] 500 mg PO BID 30 Days #60 tab Potassium Chloride ER [K-Dur 10] 10 meq PO BID #14 tab Metoprolol Tartrate [Lopressor] 25 mg PO BID #60 tab Acetaminophen Tab [Tylenol] 1,000 mg PO Q6HR PRN tab PRN Reason: Fever And/ Or Mild Pain (1-3) Furosemide [Lasix] 20 mg PO DAILY #7 tab Clopidogrel [Plavix] 75 mg PO DAILY #30 tab Pantoprazole [Protonix] 40 mg PO AC-BRKFST #30 tab Sennosides-Docusate Sodium [Senokot-S] 2 each PO HS PRN tab PRN Reason: Constipation Continue Albuterol Sulfate [Proair Hfa] 2 puff INHALATION RT-Q6H PRN PRN Reason: Shortness Of Breath Atorvastatin [Lipitor] 40 mg PO HS Fluticasone Propion/Salmeterol [Fluticasone-Salmeterol 250-50] 1 puff PO RT- BID Ipratropium-Albuterol Nebulize [Duoneb 0.5 mg-3 mg/3 ml Soln] 3 ml INHALATION RT-Q6H PRN PRN Reason: Shortness Of Breath Aspirin EC [Ecotrin Low Dose] 81 mg PO DAILY Changed amLODIPine [Norvasc] 2.5 mg PO DAILY #0 Discontinued Lisinopril-Hctz 20-25 mg [Zestoretic 20-25] 1 tab PO DAILY Metoprolol Succinate (ER) [Toprol Xl] 100 mg PO DAILY Discharge Medication List Albuterol Sulfate [Proair Hfa] 2 puff INHALATION RT-Q6H PRN 11/24/18 [History] Aspirin EC [Ecotrin Low Dose] 81 mg PO DAILY 05/26/23 [History] Atorvastatin [Lipitor] 40 mg PO HS 05/26/23 [History] Fluticasone Propion/Salmeterol [Fluticasone-Salmeterol 250-50] 1 puff PO RT-BID 05/26/23 [History] Ipratropium-Albuterol Nebulize [Duoneb 0.5 mg-3 mg/3 ml Soln] 3 ml INHALATION RT-Q6H PRN 05/26/23 [History] Dapagliflozin Propanediol [Farxiga] 5 mg PO DAILY 30 Days #30 tablet 06/06/23 [Rx] metFORMIN HCL [Glucophage] 500 mg PO BID 30 Days #60 tab 06/06/23 [Rx] Acetaminophen Tab [Tylenol] 1,000 mg PO Q6HR PRN tab 06/07/23 [Rx] Clopidogrel [Plavix] 75 mg PO DAILY #30 tab 06/07/23 [Rx] Furosemide [Lasix] 20 mg PO DAILY #7 tab 06/07/23 [Rx] Metoprolol Tartrate [Lopressor] 25 mg PO BID #60 tab 06/07/23 [Rx] Pantoprazole [Protonix] 40 mg PO AC-BRKFST #30 tab 06/07/23 [Rx] Potassium Chloride ER [K-Dur 10] 10 meq PO BID #14 tab 06/07/23 [Rx] Sennosides-Docusate Sodium [Senokot-S] 2 each PO HS PRN tab 06/07/23 [Rx] amLODIPine [Norvasc] 2.5 mg PO DAILY #0 06/07/23 [Rx] Follow up Appointment(s)/Referral(s): Gale Martin MD [STAFF PHYSICIAN] - 06/29/23 9:30 am [facility] [NON-STAFF] - 4 Weeks (You will receive a phone call in approximately 4-6 weeks for evaluation for cardiac rehab) Renita Andrews MD [STAFF PHYSICIAN] - 07/01/23 3:00 pm Hunter Maria NPC [Nurse Practitioner] - 06/14/23 12:00 pm (You will be seen in the surgeon's office behind the hospital in [facility], [address]. Office phone number is ) Jamin Glover DO [Doctor of Osteopathic Medicine] - 06/23/23 2:30 pm [facility] [NON-STAFF] - 1-2 Days (Residential homecare will call you to arrange a visit; should be seen the day after discharge, then 2-3 times per week until you start cardiac rehab ) [facility],Clinic [Primary Care Provider] - 06/16/23 3:00 pm Ambulatory/Diagnostic Orders: Complete Blood Count w/diff [LAB.AMB] Time Frame: 3 Days, Location: None Selected Comprehensive Metabolic Panel [LAB.AMB] Time Frame: 3 Days, Location: None Selected Activity/Diet/Wound Care/Special Instructions: DISCHARGE INSTRUCTIONS: 1. No driving for 4 weeks, or until physician gives their ok. 2. The patient should sleep in their own bed, no medical bed needed. 3. Stairs are not an issue. If the bedroom is upstairs, it is advised that the patient go up at night and down in the morning for the first week. Go slowly, using handrail and take 1 step at a time. 4. TAMMIE hose are to be worn for 30 days post surgery or until physician discontinues. 5. Heart hugger is to be worn 100% of the time until physician discontinues.(except when showering) 6. No lifting, pushing, or pulling more than 10 pounds for 12 weeks. The physician will advise of any restriction changes. 7. The patient is expected to continue the prescribed walking program. 8. Continue pain control per as needed orders. 9. Continue with incentive spirometry and splinting/heart hugger until otherwise directed by the physician. 10. Must shower daily using liquid antibacterial soap 11. Routine sternal incision care. No powders, lotions, ointments on incisions. No dressings are necessary on incisions unless they are draining. Dermabond tape is to remain on sternal incision until surgeon follow-up. 12. Please call surgeon/SUPERVISOR SANDBLASTER for temp greater than 101 F or purulent drainage from incisions. 13. You should weigh yourself daily, record and bring log with you to follow up appointments. 14. All prescriptions given by surgeon for 30 days. Refills need to be filled through mortuary technician/primary care physician. 15. A Red armband has been placed on the patient. It should be worn for 30 days post discharge from surgery and will be removed by the cardiac surgeons. If an ER visit is necessary, please make sure the number on the Red armband is called before going to ER. 16. You have been referred to and are expected to begin Cardiac Rehab in approximately 4-6 weeks. 17. Quitting smoking is the most important step you can take to improve your health. For additional information and assistance to quit smoking, please call the [place] tobacco quit line (4-041-ZLKY-NOW/ ) or online: https://www.[place].gov/md [place]/yzwd-bt-kxvppdd/chronicdiseases/tobacco/bwk-jb-ixqx-tobacco HOME HEALTH SERVICES TO PROVIDE: RN SKILLED HOME CARE SERVICES FOR POST-OP SURGICAL PATIENTS WITH THE FOLLOWING: Coronary Artery Bypass Surgery (CABG), Mitral Valve Replacement/Repair ( MVR), Aortic Valve Replacement/Repair (AVR) RN TO CONTINUE EDUCATION FROM ``ROAD TO A HEALTH HEART PATIENT EDUCATION MANUAL (GIVEN TO PATIENT IN THE HOSPITAL) MEDICATION RECONCILIATION WITH EDUCATION NEEDED ON FIRST HOME VISIT EMPHASIZE IMPORTANCE OF WEARING BREAST SUPPORT/HEART HUGGER ENCOURAGE USE OF INCENTIVE SPIROMETER 10 X EVERY HOUR WHILE AWAKE ENCOURAGE UTILIZATION OF LOWER EXTREMITY COMPRESSION STOCKINGS/TAMMIE HOSE and ELEVATE LEGS ABOVE LEVEL OF HEART WHILE AT REST. ENCOURAGE AMBULATION 3-5x/day INCREASING TOLERATES, WHILE AVOIDING EXTREMES IN TEMPERATURE FREQUENCY: RN TO OPEN THE PATIENT WITHIN 24 HOURS OF DISCHARGE FROM THE HOSPITAL WITH TELEHEALTH INSTALLED AT [facility], RN TO VISIT 2-3 X A WEEK FOR 4 WEEKS ESTABLISHED BY PATIENT NEEDS. LABORATORY: CBC, CMP TO BE DRAWN ON THE THIRD DAY HOME, (RAN STAT) FAX RESULTS TO [phone]. TELEHEALTH PARAMETERS: WEIGHT: NOTIFY MD OF WEIGHT GAIN OF 2 LBS IN 24 HOURS OR 5 LBS IN ONE WEEK HR: NOTIFY MD OF HR <55 BPM OR HR>100 BPM BP: NOTIFY MD IF BP <90/55 OR BP>140/100 O2 SAT: NOTIFY MD IF PO2<93% ON ROOM AIR SEND TELEHEALTH REPORT TO LEAD JAVA PROGRAMMER AND CARDIOVASCULAR SURGEON THE FIRST WEEK OF CARE AND THEN BI-WEEKLY. PLEASE ADDITIONALLY COMMUNICATE ANY ABNORMALS AND NEW FINDINGS TO THE SURGEONS OFFICE. Discharge Disposition: HOME WITH HOME HEALTH SERVICES
--- NOTE | 2023-06-07 13:11 | P.PN ---
Subjective Progress Note Date: 06/07/23 Hospital course: Patient is a very pleasant 72-year-old male with a past medical history of hypertension, hyperlipidemia, and COPD with continued nicotine dependence. Patient presented to our facility as a transfer from [facility] on 05/25/2023 where he initially presented with weakness and a fall and was found to have elevated troponins. Patient reported recent treatment for cellulitis on Bactrim and experiencing nausea, vomiting, and decreased oral intake over the past few days. Per documentation in chart workup at [facility] was completed including a CT of the brain which was negative for acute intercranial pathology and troponins initially reported negative increasing to 5.09 resulting in patient being started on heparin infusion followed by transfer to our facility for evaluation. Upon arrival to our facility patient underwent evaluation in the emergency department. Vital signs revealed blood pressure 140/83, heart rate 86, respiratory rate 12, temp 97.9 F, and SpO2 of 96% on room air. EKG was completed showing normal sinus rhythm at 84 bpm with no significant T wave or ST abnormalities showing no signs of acute ischemia upon personal review and interpretation. Chest x-ray completed showing findings concerning for bronchitis with mild to moderate peribronchial thickening of the central bronchi and trace right pleural effusion. CTA chest was completed negative for pulmonary emboli revealing a 1 cm subcarinal enlarged lymph node. Labs were completed and reviewed. CBC unremarkable. Coagulation profile normal findings. BMP revealed hyponatremia with sodium of 133 and hypocarbia with bicarb of 17. Blood glucose was 107. Magnesium normal findings at 2.0. Liver profile showing elevated AST of 73 and ALT of 51. Troponin was 2.730 and proBNP was 1620. Patient admitted under our services with consultation to cardiology. Troponins trended overnight resulting at 2.730 and 2.970. Patient was taken for cardiac catheterization. Cardiac catheterization revealing three-vessel coronary artery disease, cardiology consulted cardiothoracic surgery to evaluate patient for bypass. Echocardiogram showed normal LVEF 55 to 60%. Patient underwent CABG x 3 on 06/02/[address] Andrews. He was initially taken to ICU for post open heart management and was later transferred to stepdown unit. Patient currently doing well and discussed with cardiothoracic surgery team and patient being discharged home today. Physical exam: Patient seen and fully evaluated at bedside. He was sitting up in chair, heart hugger in place. He currently reports mild postsurgical discomfort worse with movement but otherwise denies any complaints at this time and reports feeling well today. He stated cardiothoracic surgery team stated that they plan on removing wires later today. Vital signs reviewed and stable. General: Nontoxic, no distress and appears stated age. Derm: Skin warm and dry, normal coloration for ethnicity. Head: Atraumatic, normocephalic and symmetric. Eyes: EOMs intact, no lid lag, and anicteric sclera Mouth: no lip lesions, mucus membranes moist Cardiovascular: regular rate and rhythm with normal S1S2, no murmur, positive posterior tibial pulses bilaterally, and cap refill < 2 seconds. Lungs: Respirations even, regular, and unlabored on room air. Lungs CTA bilaterally, no rhonchi, no rales, no wheezing, and no accessory muscle usage. Abdominal: soft, nontender to palpation, no guarding, no appreciable org anomegaly Ext: ROM intact. No gross muscle atrophy, no edema, no contractures Neuro: Speech clear, face symmetrical and CN II-XII grossly intact with no noted focal neuro deficits Psych: Alert and oriented to person, place, time, and situation. Appropriate and pleasant affect. Assessment and Plan of Care: NSTEMI Three-vessel coronary artery disease status post CABG Acute blood loss anemia, anticipated and stable outcome of surgery Leukocytosis, anticipated outcome of surgery. Resolved Hypertension Hyperlipidemia Right lower extremity cellulitis status post antibiotic -Cardiology and pulmonology following. Reviewed documentation in chart, continue current management -Cardiothoracic surgery following, reviewed documentation in chart. -Continue aspirin 325, Plavix 75 milligrams daily, metoprolol 25 mg twice daily, atorvastatin 40, amlodipine 2.5 mg daily -Oral Tylenol as needed, IV Toradol scheduled, oral Percocet as needed, monitor for sedation -Continue senna scheduled along with milk of magnesia as needed and bisacodyl as needed for bowel regimen Type 2 diabetes, A1c 6.6% -Continue glycemic protocol with sliding scale insulin, monitor for hypoglycemia -Patient to be discharged home on Brenzavvy 20 mg daily and metformin 500 mg BID. Patient being provided with a glucometer, testing strips, and lancets to check blood glucose once daily. COPD with continued nicotine dependence -Continue scheduled DuoNebs 4 times daily and as needed for shortness of breath and/or wheezing Subcarinal lymph nodes - Incidental finding, 1 cm - Outpatient follow-up Elevated transaminases, resolved - Hepatitis panel negative Data and imaging reviewed: Morning labs reviewed. CBC showing stable normocytic anemia with hemoglobin of 8.7 and thrombocytopenia with platelet count of 594. BMP showing hyperchloremia with chloride of 108 otherwise normal findings. Blood glucose 139. Magnesium 2.2. Vital signs reviewed. Blood pressure 136/76, heart rate 88, respiratory rate 18, temp 98.2 F, and SpO2 of 97% on room air. CODE STATUS: Full code DVT prophylaxis: SQ heparin Anticipated discharge date: Later today. Anticipated discharge place: Home with home care Patient was seen independently by Nurse Pracitioner. This document was prepared using [employer] dictation software. Please allow for errors in electrical timing device calibrator, while rare they do occur .Hal Sky NP rendered care for this patient independently, reviewed the findings and plan as documented in the note above. I did not physically speak with or examine the patient on this date. Objective - Vital Signs Vital signs: Vital Signs Temp 97.8 F 06/07/23 04:03 Pulse 83 06/07/23 04:03 Resp 16 06/07/23 04:03 BP 110/64 06/07/23 04:03 Pulse Ox 95 06/07/23 04:03 FiO2 40 06/02/23 15:26 Intake & Output 06/06/23 06/07/23 06/07/23 18:59 06:59 18:59 Output Total 1025 500 Balance -1025 -500 Weight 93.2 kg 92.3 kg Output: Urine 1025 500 Other: Voiding Method Urinal ABP, PAP, CO, CI - Last Documented Arterial Blood Pressure 103/46 Pulmonary Artery Pressure 29/4 Cardiac Output 6.7 Cardiac Index 3.3 - Labs CBC & Chem 7: 06/07/23 09:53 06/07/23 09:53 Labs: Abnormal Lab Results - Last 24 Hours (Table) 06/06/23 06/06/23 06/06/23 Range/Units 08:54 08:54 11:37 RBC 2.75 L (4.30-5.90) m/uL Hgb 8.2 L (13.0-17.5) gm/dL Hct 25.8 L (39.0-53.0) % Sodium 136 L (137-145) mmol/L Chloride 108 H (98-107) mmol/L Glucose 214 H (74-99) mg/dL POC Glucose (mg/dL) 120 H (70-110) mg/dL 06/06/23 06/06/23 06/07/23 Range/Units 16:33 20:09 06:05 RBC (4.30-5.90) m/uL Hgb (13.0-17.5) gm/dL Hct (39.0-53.0) % Sodium (137-145) mmol/L Chloride (98-107) mmol/L Glucose (74-99) mg/dL POC Glucose (mg/dL) 133 H 144 H 113 H (70-110) mg/dL
--- NOTE | 2023-06-07 14:18 | P.PN ---
Subjective Progress Note Date: 06/07/23 Principal diagnosis: Triple-vessel coronary artery disease, status post CABG, postoperative day #5 On today's evaluation of 06/03/2023, the patient is being seen for a follow-up. The patient is postop day #1. The patient was weaned off the mechanical ventilator following his bypass surgery and the patient was extubated without any major difficulties. Earlier this morning, the patient had cardiac output of 5.8 with an index of 2.8 with a pulmonary artery pressures of 17/8 with a CVP of 2. He does have still a backup pacemaker generator at the rate of 50. Using incentive spirometer. Pulling approximately 8000. He has mediastinal chest tubes and the total amount of output has been 450 cc since surgery and the left lower chest tube is produced approximately 550 cc since surgery. Chest x-ray from today shows no evidence of pneumothorax. Urine output is in order of 30 to 60 cc an hour. Awake and alert. Cardiac rhythm is sinus. No other significant events. Remains on aspirin and Plavix. Started on beta-blockers and the patient is currently on metoprolol 12.5 mg every 8 hours. Remains on Lipitor 40 mg p.o. daily. No focal neurological deficit at this point in time. Surgical wound sites are dry clean and intact. JÚNIOR drain is present in the left upper extremity that needs to be removed. On today's evaluation of 06/04/2023, the patient is doing well. No specific complaints. He is currently on oxygen 2 L/min nasal cannula with a pulse ox of 97%. Repeat chest x-ray from today shows chest tubes are all being in a good location. [place]-Cuau[place]emoc catheter has been removed. There is cardiomegaly. There is also mild pulm vessel congestion. The output from the chest tube has been noted. The total amount of output from the mediastinal chest tubes has been 290 cc over the past 24 hours and pleural chest tube has been 190 cc over the past 24 hours. WBC count is at 12.1. Hemoglobin 8.6. Platelet count is 306. BUN is 16 with a creatinine of 0.8 and sodium levels at 135. LFTs are normal. The patient is on aspirin and Plavix. The patient on Norvasc 2.5 mg p.o. daily. The patient is also on metoprolol 12.5 mg 3 times daily. He is on Lipitor 40 mg p.o. daily. Using the incentive spirometer. No nausea. No emesis. No chest pain. Cardiac rhythm remained sinus. No significant arrhythmias noted. 06/05/2023, the patient doing extremely well. Chest tubes have been removed and the epicardial leads will be also pulled out today. He is ambulating. His chest x-ray showing a small left-sided pleural effusion and some atelectatic changes anticipated following the surgery. The patient is currently postop day #3. He remains on oxygen 2 L/min nasal cannula. There was count 11.1 with a hemoglobin of 8 and a platelet count of 319. Electrolytes are all stable and within normal limits. The patient has a sinus rhythm. BP is under adequate control. He remains on aspirin and Plavix. He remains on metoprolol 12.5 mg 3 times a day. He is also on amlodipine 2.5 mg p.o. daily. The JÚNIOR drain has been removed from the left upper extremity and does have some bruising and" ecchymosis in his left upper extremity. Using the IS and be is pulling 1500 Patient was evaluated today on 06/06/2023, patient is on room air, not in any distress. Chest x-ray showed no evidence of acute process except he does have a very limited small left pleural effusion.WBC count is 10.4 hemoglobin 8.2 basic metabolic profile is normal renal profile is normal. Patient was seen today on 06/07/2023, patient remains on room air, not in any distress, asymptomatic, no cough no wheezing no shortness of breath, his chest x-ray remains reassuring with mostly minimal postoperative changes. And a small left pleural effusion. Labs were reviewed, patient is in the process of getting discharged home. Objective - Vital Signs Vital signs: Vital Signs Temp 98.2 F 06/07/23 08:00 Pulse 88 06/07/23 08:00 Resp 18 06/07/23 08:00 BP 136/76 06/07/23 08:00 Pulse Ox 97 06/07/23 08:00 FiO2 40 06/02/23 15:26 Intake & Output 06/06/23 06/07/23 06/07/23 18:59 06:59 18:59 Intake Total 600 Output Total 1025 500 Balance -1025 -500 600 Weight 93.2 kg 92.3 kg Intake: Oral 600 Output: Urine 1025 500 Other: Voiding Method Urinal Urinal ABP, PAP, CO, CI - Last Documented Arterial Blood Pressure 103/46 Pulmonary Artery Pressure 29/4 Cardiac Output 6.7 Cardiac Index 3.3 - Exam General: Revealed a 72-year-old white male in no distress, on room air. RESPIRATORY: Clear bilaterally no crackles rhonchi or wheezes CARDIOVASCULAR: normal S1-S2, no S3 gallop. No murmur. GASTROINTESTINAL: Soft nontender no megaly no rebound no guarding INTEGUMENTARY: No rashes. NEUROLOGIC: alert and oriented x 3 no gross focal deficit equal bilaterally, gait normal PSYCHIATRIC: Normal mood affect and no mental status examination. Skin: No rashes good pulses bilaterally Musculoskeletal: No deformities and no limitation range of motion - Labs CBC & Chem 7: 06/07/23 09:53 06/07/23 09:53 Labs: Abnormal Lab Results - Last 24 Hours (Table) 06/06/23 06/06/23 06/07/23 Range/Units 16:33 20:09 06:05 RBC (4.30-5.90) m/uL Hgb (13.0-17.5) gm/dL Hct (39.0-53.0) % MCHC (31.0-37.0) g/dL RDW (11.5-15.5) % Plt Count (150-450) k/uL Chloride (98-107) mmol/L Glucose (74-99) mg/dL POC Glucose (mg/dL) 133 H 144 H 113 H (70-110) mg/dL 06/07/23 06/07/23 06/07/23 Range/Units 09:53 09:53 11:30 RBC 3.04 L (4.30-5.90) m/uL Hgb 8.7 L (13.0-17.5) gm/dL Hct 28.6 L (39.0-53.0) % MCHC 30.3 L (31.0-37.0) g/dL RDW 15.6 H (11.5-15.5) % Plt Count 594 H (150-450) k/uL Chloride 108 H (98-107) mmol/L Glucose 139 H (74-99) mg/dL POC Glucose (mg/dL) 126 H (70-110) mg/dL Assessment and Plan Assessment: Impression: Triple-vessel coronary artery disease, status post CABG postoperative day #5 Postoperative anemia, expected outcome of surgery, will monitor Hypertension, Hyperlipidemia, Chronic ongoing tobacco dependence COPD with a preoperative FEV1 86% of predicted value with a base volume of 2.63 Occasional EtOH use Recommendation: Continue incentive spirometry Continue ambulation Agree with discharge planning Follow-up on outpatient basis Time with Patient: Less than 30
--- NOTE | 2023-06-09 08:18 | P.ANPRN ---
Procedure Note - Anesthesia - Invasive Line Right Central Line Time Out Performed: Yes Date of Procedure: 06/02/23 Time of Procedure: 07:24 Location of Patient: PreOp Preparation: Sterile Prep Central Line Location: Internal Jugular Ultrasound Used: No Purpose - Visualization and Identification of Vasculature: No Image Stored and Saved: No Narrative: Invasive line placement per sterile protocol utilized.
--- NOTE | 2023-06-09 08:24 | P.ANPRN ---
Procedure Note - Anesthesia - Invasive Line Right [place] Cuauhtemoc Time Out Performed: Yes Date of Procedure: 06/02/23 Time of Procedure: 07:27 Location of Patient: PreOp Preparation: Sterile Prep Central Line Location: Internal Jugular Ultrasound Used: No Purpose - Visualization and Identification of Vasculature: No Image Stored and Saved: No Narrative: Invasive line placement per sterile protocol utilized.
== END 2023-06-07 12:39 | disposition home health service (06) | DRG 234 ==
LOC: EC 22:35 → 3SCARD 05-26 01:23 → OBSVTOIN 05-26 01:24 → 3SCARD 05-26 12:39 → 2SICU 06-02 06:13 → 3SCARD 06-05 14:11
PROVIDERS: ADMIT Surgery; ATTEND Surgery
PROC: B246ZZ4 Ultrasonography of Right and Left Heart, Transesophageal (ICD-10-PCS; 2023-05-26)
PROC: 4A023N7 Measurement of Cardiac Sampling and Pressure, Left Heart, Percutaneous Approach (ICD-10-PCS; 2023-05-27)
PROC: B2111ZZ Fluoroscopy of Multiple Coronary Arteries using Low Osmolar Contrast (ICD-10-PCS; 2023-05-27)
PROC: B2151ZZ Fluoroscopy of Left Heart using Low Osmolar Contrast (ICD-10-PCS; 2023-05-27)
PROC: 06BQ4ZZ Excision of Left Saphenous Vein, Percutaneous Endoscopic Approach (ICD-10-PCS; 2023-06-02)
PROC: 05BA4ZZ Excision of Left Brachial Vein, Percutaneous Endoscopic Approach (ICD-10-PCS; 2023-06-02)
PROC: 02L70CK Occlusion of Left Atrial Appendage with Extraluminal Device, Open Approach (ICD-10-PCS; 2023-06-02)
PROC: 5A1221Z Performance of Cardiac Output, Continuous (ICD-10-PCS; 2023-06-02)
PROC: 02100Z9 Bypass Coronary Artery, One Artery from Left Internal Mammary, Open Approach (ICD-10-PCS; principal; 2023-06-02 08:00)
PROC: 021209W Bypass Coronary Artery, Three Arteries from Aorta with Autologous Venous Tissue, Open Approach (ICD-10-PCS; 2023-06-02 08:00)
PROC: 021209W Bypass Coronary Artery, Three Arteries from Aorta with Autologous Venous Tissue, Open Approach (ICD-10-PCS; 2023-06-02 08:00)
DX: I21.4 Non-ST elevation (NSTEMI) myocardial infarction (principal); D62 Acute posthemorrhagic anemia; E87.1 Hypo-osmolality and hyponatremia; L03.115 Cellulitis of right lower limb; I10 Essential (primary) hypertension; F17.210 Nicotine dependence, cigarettes, uncomplicated; E78.5 Hyperlipidemia, unspecified; I08.1 Rheumatic disorders of both mitral and tricuspid valves; I25.10 Atherosclerotic heart disease of native coronary artery without angina pectoris; I25.2 Old myocardial infarction; R74.01 Elevation of levels of liver transaminase levels; E86.0 Dehydration; W19.XXXA Unspecified fall, initial encounter; Y92.009 Unspecified place in unspecified non-institutional (private) residence as the place of occurrence of the external cause; Z79.02 Long term (current) use of antithrombotics/antiplatelets; Z79.51 Long term (current) use of inhaled steroids; Z79.82 Long term (current) use of aspirin; Z79.899 Other long term (current) drug therapy
CPT/HCPCS: 36415; 71045; 71046; 71275; 78582; 80048; 80053; 80061; 80074; 81003; 82330; 82805; 83036; 83690; 83735; 83880; 84443; 84484; 85025; 85027; 85610; 85730; 86850; 86891; 86900; 86901; 86920; 87040; 87070; 93005; 93306; 93458; 93880; 93922; 93970; 94002; 94150; 94640; 96365; 96366; 99285